=== PATIENT | female | born 1930 | race Caucasian/White ===

== ENCOUNTER 2017-04-07 05:06 | Inpatient (IN) | payer MEDICARE, OTHER ==
[2017-04-07] VITALS (10 sets, daily range): BP systolic 121–151; BP diastolic 54–90; Ht 157.5 cm; Wt 58.7 kg
[~2017-04-07] VITALS: Ht 157.5 cm; Wt 58.7 kg
[~2017-04-07 05:06] MED LIST: ACET-2043 PO; AMOX-362 PO; ATOR10TA65 PO; AZIT-17 PO; AZIT-18 PO; CA C1TAB85 PO; CALC-864 PO; CEPH-13 PO; CHOL10005 PO; CHOL200074 PO; CIPR-344 PO; CODE118S5 PO; DICL100G39 TP; DIGO125T77 PO; DOXY-260 PO; Docusate Sodium PO; ENOX100D6 SQ; FAMO20TA28 PO; FERR325C2 PO; FERR325T14 PO; FLU IM; FLU45SYR17 IM; FLU45SYR25 IM ONLY; FLUT16SP19 NS; FURO-45 PO; HYDR-2966 PO; HYDR-4225 PO; LEVE250T42 PO; LEVE500T73 PO; LISI-351 PO; LISI2.5T60; LISI2.5T60 PO; LOR5/325 PO; METH4TAB66 PO; METR-160 PO; MIRT-22 PO; Melatonin PO; OMEG300C PO; OMEP-125 PO; OMEP-137 PO; ONDA4TAB PO; OXYC-865 PO; PANT40TA65 PO; PRED-1 PO; PRIM50TA FT; PRIM50TA PO; PROP20TA56 PO; Polyethylene Glycol PO; SIMV-49 PO; SUCR1TAB51 PO; SULF-198 PO; TRIA10.8; WARF-1 PO; WARF-18 PO; WARF10TA28 PO; WARF10TA34 PO; WARF7.5T26 PO; WARF7.5T32 PO; Warfarin Sod PO; ZOST19404 SQ; [UNRECOGNIZED DRUG - OTHER] PO
--- NOTE | 2017-04-07 05:21 | ER Report ---
History and Physical Time Seen By MD: 05:21 Hx. of Stated Complaint: PATIENT STATES SHE HAS HAD SHORTNESS OF BREATH FOR ABOUT AN HOUR, SHE STATES SHE CAN'T GET A FULL BREATH IN. HPI/ROS CHIEF COMPLAINT: shortness of breath HISTORY OF PRESENT ILLNESS: This is an 86 year old female. She came to the ER because she was feeling short of breath. She said that she had just started feeling this way tonight. She feels like she cannot get a deep breath. She has not had any increased cough. No fevers or chills. She feels very weak. She has no chest pain. She has chronic atrial fibrillation and a mechanical mitral valve and is on chronic Warfarin therapy. She has been seen for very frequent nose bleeds. She has a history of multiple myeloma, chronic anemia from iron deficiency and her myelodysplasia. REVIEW OF SYSTEMS: Constitutional: No fever or chills. Eyes: No vision changes. ENT: No sore throat. No congestion. Cardiovascular: No chest pain. No palpitations. Respiratory: As above. Gastrointestinal: No abdominal pain. No nausea or vomiting. Genitourinary: No dysuria. Skin: No rashes. Chronic bruising Neurological: No headache. Allergies: Coded Allergies: No Known Drug Allergies (Unverified , 03/23/17) Home Meds Active Scripts Simvastatin (SIMVASTATIN) 20 Mg Tablet, 1 TAB PO HS, #90 TAB 3 Refills Prov:EVERTON RIOS MD 03/02/17 Omeprazole (OMEPRAZOLE) 20 Mg Capsule.dr, 1 CAP PO QAM, #90 CAP 3 Refills TAKE ONE CAPSULE BY MOUTH ONCE A DAY Prov:IZABELLA GARAY PHARMD 01/15/17 Warfarin Sodium (WARFARIN SODIUM) 7.5 Mg Tablet, 1 TAB PO QDAY, #30 TAB 12 Refills Prov:EVERTON RIOS MD 03/20/16 Reported Medications Calcium Carb & Cit/Vitamin D3 (CITRACAL + D ER TABLET) 1 Each Tablet.er, 1 TAB PO QDAY 04/03/15 Ferrous Sulfate (IRON) 325 Mg Capsule.er, 325 MG PO TID 02/01/15 Discontinued Scripts Fluticasone Prop 50 Mcg Ns (FLONASE 50 MCG NS) 16 Gm [place].susp, 2 SPRAYS NS QDAY, #1 BOT 1 Refill Prov:EVERTON RIOS MD 02/16/17 Past Medical/Surgical History Hypertension, hyperlipidemia, chronic anemia, iron deficiency, indolent multiple myeloma, frequent nose bleeds, atrial fibrillation, mechanical mitral valve, Warfarin therapy, pacemaker, seizure disorder, essential tremor, osteoarthritis, many skin cancer Reviewed Nurses Notes: Yes Hx Smoking: No Smoking Status: Former Smoker Exposure to Second Hand Smoke?: No Hx Substance Use Disorder: No Hx Alcohol Use: No Constitutional Vital Sign - Last 24 Hours 04/07/17 04/07/17 04/07/17 04/07/17 05:13 05:14 05:21 05:30 Temp 98.1 Pulse 93 84 Resp 28 B/P (MAP) 133/66 (88) 125/65 (85) Pulse Ox 87 96 O2 Delivery Room Air 04/07/17 04/07/17 04/07/17 04/07/17 05:36 05:51 06:00 06:06 Pulse 84 88 ??? B/P (MAP) 133/75 (94) Pulse Ox 95 91 90 04/07/17 06:21 Pulse 84 Physical Exam General Appearance: The patient is alert. No immediate need for airway protection. No acute distress. Eyes: Pupils are equal, round. Reactive to light. No scleral injection or icterus, but she has significant pallor. Extraocular movements are intact. ENT: Mucous membranes are mildly dry. Otherwise normal oral mucosa. Posterior oropharynx is normal. Normal tympanic membranes and canals. Neck: Supple and non tender. Respiratory: Lungs are clear to auscultation. There are no retractions or accessory muscle use. Currently wearing oxygen by nasal canula. Cardiovascular: Mild tachycardia, irregular. Has a murmur present, not a harsh click. Slowed capillary refill. Diffuse pallor. Some edema in the legs, somewhat more so in the left leg Gastrointestinal: Abdomen is soft and non tender. Nondistended. Normal active bowel sounds. Neurological: Alert and oriented x3. Generalize weakness, but no focal. Skin: Warm and dry. Musculoskeletal: Has some mild discomfort in the legs, somewhat worse on the left. Full range of motion. No tenderness in palpation of the cervical, thoracic and lumbar spine. DIFFERENTIAL DIAGNOSIS: After history and physical exam, differential diagnosis was considered for shortness of breath including but not limited to anemia, pulmonary infectious process, pulmonary embolus and congestive heart failure. Medical Decision Making Data Points Result Diagram: 04/07/17 0543 04/07/17 0543 Laboratory Hematology Test 04/07/17 05:43 Red Blood Count 2.06 M/uL (4.17-5.56) Mean Corpuscular Volume 101.1 fL (80.0-96.0) Mean Corpuscular Hemoglobin 31.9 pg (26.0-33.0) Mean Corpuscular Hemoglobin Concent 31.5 g/dL (32.0-36.0) Red Cell Distribution Width 15.9 % (11.5-14.5) Mean Platelet Volume 9.1 fL (7.2-11.1) Neutrophils (%) (Auto) 76.5 % (39.4-72.5) Lymphocytes (%) (Auto) 6.8 % (17.6-49.6) Monocytes (%) (Auto) 11.7 % (4.1-12.4) Eosinophils (%) (Auto) 3.7 % (0.4-6.7) Basophils (%) (Auto) 1.3 % (0.3-1.4) Nucleated RBC Relative Count (auto) 0.3 /100WBC Neutrophils # (Auto) 3.0 K/uL (2.0-7.4) Lymphocytes # (Auto) 0.3 K/uL (1.3-3.6) Monocytes # (Auto) 0.5 K/uL (0.3-1.0) Eosinophils # (Auto) 0.1 K/uL (0.0-0.5) Basophils # (Auto) 0.1 K/uL (0.0-0.1) Nucleated RBC Absolute Count (auto) 0.01 K/uL Peripheral Blood Smear No Y/N Prothrombin Time 30.7 seconds (12.0-14.4) Prothromb Time International Ratio 2.83 Activated Partial Thromboplast Time 40 seconds (23-35) Sodium Level 138 mmol/L (137-145) Potassium Level 3.7 mmol/L (3.5-5.0) Chloride Level 108 mmol/L (98-107) Carbon Dioxide Level 24 mmol/L (22-31) Blood Urea Nitrogen 19 mg/dl (7-18) Creatinine 0.90 mg/dl (0.52-1.04) Glomerular Filtration Rate Calc 59.5 Random Glucose 103 mg/dl (75-110) Calcium Level 8.3 mg/dl (8.4-10.2) Total Bilirubin 0.3 mg/dl (0.2-1.3) Aspartate Amino Transf (AST/SGOT) 20 U/L (0-35) Alanine Aminotransferase (ALT/SGPT) 26 U/L (0-56) Alkaline Phosphatase 129 U/L (0-126) Troponin I < 0.012 ng/ml B-Type Natriuretic Peptide 92 pg/ml (0-100) Total Protein 6.2 gm/dl (6.3-8.2) Albumin 3.1 g/dl (3.5-5.0) Chemistry Test 04/07/17 05:43 White Blood Count 3.9 k/uL (4.5-11.0) Red Blood Count 2.06 M/uL (4.17-5.56) Hemoglobin 6.6 g/dL (12.0-16.0) Hematocrit 20.8 % (34.0-47.0) Mean Corpuscular Volume 101.1 fL (80.0-96.0) Mean Corpuscular Hemoglobin 31.9 pg (26.0-33.0) Mean Corpuscular Hemoglobin Concent 31.5 g/dL (32.0-36.0) Red Cell Distribution Width 15.9 % (11.5-14.5) Platelet Count 224 K/uL (150-450) Mean Platelet Volume 9.1 fL (7.2-11.1) Neutrophils (%) (Auto) 76.5 % (39.4-72.5) Lymphocytes (%) (Auto) 6.8 % (17.6-49.6) Monocytes (%) (Auto) 11.7 % (4.1-12.4) Eosinophils (%) (Auto) 3.7 % (0.4-6.7) Basophils (%) (Auto) 1.3 % (0.3-1.4) Nucleated RBC Relative Count (auto) 0.3 /100WBC Neutrophils # (Auto) 3.0 K/uL (2.0-7.4) Lymphocytes # (Auto) 0.3 K/uL (1.3-3.6) Monocytes # (Auto) 0.5 K/uL (0.3-1.0) Eosinophils # (Auto) 0.1 K/uL (0.0-0.5) Basophils # (Auto) 0.1 K/uL (0.0-0.1) Nucleated RBC Absolute Count (auto) 0.01 K/uL Peripheral Blood Smear No Y/N Prothrombin Time 30.7 seconds (12.0-14.4) Prothromb Time International Ratio 2.83 Activated Partial Thromboplast Time 40 seconds (23-35) Glomerular Filtration Rate Calc 59.5 Calcium Level 8.3 mg/dl (8.4-10.2) Total Bilirubin 0.3 mg/dl (0.2-1.3) Aspartate Amino Transf (AST/SGOT) 20 U/L (0-35) Alanine Aminotransferase (ALT/SGPT) 26 U/L (0-56) Alkaline Phosphatase 129 U/L (0-126) Troponin I < 0.012 ng/ml B-Type Natriuretic Peptide 92 pg/ml (0-100) Total Protein 6.2 gm/dl (6.3-8.2) Albumin 3.1 g/dl (3.5-5.0) Coagulation Test 04/07/17 05:43 Prothrombin Time 30.7 seconds Prothromb Time International Ratio 2.83 Activated Partial Thromboplast Time 40 seconds EKG/Imaging EKG Interpretation 12 lead EKG: Rhythm: Atrial fibrillation, rate 82 [place]: normal ST segments: Nonspecific Monitor Interpretation: Atrial Fibrillation Imaging CHEST SINGLE AP COMPARISONS: February 14, 2017 ADDITIONAL PERTINENT HISTORY: Shortness of breath FINDINGS: Cardiomediastinal silhouette: Moderate cardiomegaly. Single lead right-sided cardiac pacemaker. No change since previous exam. Pulmonary vasculature: Negative. Lung alexander: Minimal bibasilar regions of scarring. Otherwise negative Pleural spaces: Negative. Osseous structures: Negative. Surrounding soft tissues: Negative. IMPRESSION: 1. Continued moderate cardiomegaly. 2. No evidence of acute cardiopulmonary disease. Report Dictated By: Nick Navarro MD at 04/07/2017 6:16 AM ED Course/Re-evaluation Clinical Indication for ER IV: IV Access ED Course Labs show a therapeutic INR. White count somewhat low and the H/H is low as noted above. Troponin is negative. EKG shows atrial fibrillation. Ordered 4 units of packed red blood cells, but she has antibodies and may require some time to locate appropriate blood. Discussed the case with Dr. Chen who accepted the patient for admission to the medical floor. Prior to transfer to the floor, leg pain in the left increased and gave Tylenol. Despite therapeutic INR, she may need to have lower extremity venous ultrasound. Decision to Disposition Date: Apr 07, 2017 Decision to Disposition Time: 06:49 Depart Departure Latest Vital Signs Vital Signs Date Time Temp Pulse Resp B/P (MAP) Pulse Ox O2 Delivery O2 Flow Rate FiO2 04/07/17 06:21 84 04/07/17 06:06 90 04/07/17 06:00 133/75 (94) 04/07/17 05:13 98.1 28 Room Air Impression: Primary Impression: Chronic anemia Additional Impressions: Atrial fibrillation H/O mitral valve replacement Weakness generalized Condition: Condition Unchanged Disposition: Admitted from ER Referrals: EVERTON RIOS MD (PCP) Problem Qualifiers Additional Impressions: Atrial fibrillation Atrial fibrillation type: chronic Qualified Codes: I48.2 - Chronic atrial fibrillation MARCIE HERNANDEZ MD Apr 07, 2017 05:21
--- NOTE | 2017-04-07 05:37 | EKG ---
[place] [facility] [place]ONAH MAYN[place] : [id number] MR: [id number] V: [id number] EXAM DATE: ORDERING PHYSICIAN: MARCIE HERNANDEZ TECHNOLOGIST: TALIA Test Reason : SOB Blood Pressure : / mmHG Vent. Rate : 082 BPM Atrial Rate : 082 BPM P-R Int : 000 ms QRS Dur : 086 ms QT Int : 406 ms P-R-T Axes : 000 090 057 degrees QTc Int : 474 ms Probable atrial fibrillation although the P waves are dfficult to identify in all leads this may be j unctional rhythm (accelerated) vs. sinus rhythm Rightward axis Cannot rule out old suman-septal infarct. Non-specific T changes. When compared with ECG of 07-FEB-2017 01:33, Previous ECG has undetermined rhythm, needs review Confirmed by YANN RICKS ([id number]) on 04/07/2017 5:57:45 AM Referred By: Confirmed By:YANN RICKS
[2017-04-07 05:51] LABS: PLATELET COUNT, AUTOMATED 224 K/uL (150-450)
[2017-04-07 06:03] LABS: INR 2.83
--- NOTE | 2017-04-07 06:23 | RADIOLOGY IMAGING REPORT ---
[facility] PATIENT NAME: Nadia Baumann : 1930 MR: [id number] V: [id number] EXAM DATE: ORDERING PHYSICIAN: MARCIE HERNANDEZ TECHNOLOGIST: Location: [facility] Patient: Nadia Baumann : 1930 Visit/Account:[id number] Date of Sevice: 04/07/2017 CHEST SINGLE AP COMPARISONS: February 14, 2017 ADDITIONAL PERTINENT HISTORY: Shortness of breath FINDINGS: Cardiomediastinal silhouette: Moderate cardiomegaly. Single lead right-sided cardiac pacemaker. No c hange since previous exam. Pulmonary vasculature: Negative. Lung alexander: Minimal bibasilar regions of scarring. Otherwise negative Pleural spaces: Negative. Osseous structures: Negative. Surrounding soft tissues: Negative. IMPRESSION: 1. Continued moderate cardiomegaly. 2. No evidence of acute cardiopulmonary disease. Report Dictated By: Nick Navarro MD at 04/07/2017 6:16 AM Report E-Signed By: Nick Navarro MD at 04/07/2017 6:18 AM WSN:[id number]
[2017-04-07] MEDS ORDERED: ACETAMINOPHEN 500 MG TAB PO ONE (06:30)
--- NOTE | 2017-04-07 07:58 | History & Physical ---
History of Present Illness Chief Complaint Shortness of breath and weakness. History of Present Illness 86 yr old lady with shortness of breath and worsening weakness over the past 3- 4 days. She has also had frequent nosebleeds which the has been able to control for the most part. These are almost normal for her given her warfarin treatment. 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 She is also frequently seen in the ER for nosebleeds. There is a remote history of mitral valve replacement with a Ac-Shiley mechanical valve. She has TNTC medical problems throughout the years. She is cared for by her at home. Admitted this morning with a Hgb of 6.6 gms and some left thigh pain which may have been due to a fall 2 days ago. Apparently there are difficulties with T&C due to unusual antibodies. 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 Home Meds Active Scripts Simvastatin (SIMVASTATIN) 20 Mg Tablet, 1 TAB PO HS, #90 TAB 3 Refills Prov:EVERTON RIOS MD 03/02/17 Fluticasone Prop 50 Mcg Ns (FLONASE 50 MCG NS) 16 Gm [place].susp, 2 SPRAYS NS QDAY, #1 BOT 1 Refill Prov:EVERTON RIOS MD 02/16/17 Omeprazole (OMEPRAZOLE) 20 Mg Capsule.dr, 1 CAP PO QAM, #90 CAP 3 Refills TAKE ONE CAPSULE BY MOUTH ONCE A DAY Prov:IZABELLA GARAY PHARMD 01/15/17 Warfarin Sodium (WARFARIN SODIUM) 7.5 Mg Tablet, 1 TAB PO QDAY, #30 TAB 12 Refills Prov:EVERTON RIOS MD 03/20/16 Reported Medications Calcium Carb & Cit/Vitamin D3 (CITRACAL + D ER TABLET) 1 Each Tablet.er, 1 TAB PO QDAY 04/03/15 Ferrous Sulfate (IRON) 325 Mg Capsule.er, 325 MG PO TID 02/01/15 Allergies: Coded Allergies: No Known Drug Allergies (Unverified , 03/23/17) Patient History: FH: breast cancer MOTHER, , Age:90 FH: diabetes mellitus MOTHER, , Age:90 FH: tremor MOTHER, , Age:90 Hx Smoking: No Smoking Status: Former Smoker Exposure to Second Hand Smoke?: No Caffeine Intake: Coffee Hx Alcohol Use: No Hx Substance Use Disorder: No Social Drug Use: Never Review of Systems Constitutional: No Fever, No Weight Loss, No Weight Gain, No Chills, No Night Sweats Neurological: Weakness, Dizziness Eyes: No Vision Change, No Loss of Vision, No Photophobia, No Other ENT: Hearing Loss, No Sinus Congestion, No Sore Throat, No Ear Ache, No Tinnitus Cardiovascular: No Chest Pain, No Palpitations, No Orthostatic Hypotension Respiratory: Shortness of Breath Gastrointestinal: No Nausea, No Vomiting, No Diarrhea, No Dysphagia, No Constipation, No Early Satiety, No Hematemesis, No Hematochezia, No Melena, No Abdominal Pain, Other Genitourinary: Urinary Incontinence, No Dysuria, No Hematuria Musculoskeletal: Pain (Pain in left anterior thigh and lateral thigh. No deformity. No leg shortening or external rotation.) Psychiatric: No Depression, No Anxiety Exam Vital Signs Vital Signs Date Time Temp Pulse Resp B/P (MAP) Pulse Ox O2 Delivery O2 Flow Rate FiO2 04/07/17 06:21 84 04/07/17 06:06 90 04/07/17 06:00 133/75 (94) 04/07/17 05:13 98.1 28 Room Air General Appearance: Alert, Awake, No Acute Distress, Afebrile ENT: Other (Very dry oral membranes.) Cardiovascular: Other (Loud prosthetic mitral sounds with clear click of S1. S2 is soft. Grade 2/6 sytolic murmur of MR.) Respiratory: Other (Just a few scattered rales at lung bases.) Chest: No Masses, No Tenderness GI: Abd Soft and Non-Tender : No CVA Tenderness Extremities: Warm, Pulses, Perfused, Other (Trace ankle edema. Tender along the anterior and lateral thigh. ) Integumentary: Generalized Fragile Skin, Scaly / Dry Skin, Pallor Psych: Alert & Oriented X3, Appropriate Mood & Affect Medical Decision Making Data Points Result Diagram: 04/07/1754204/07/17542 Item Value Date Time B-Type Natriuretic Peptide 92 pg/ml 04/07/17542 Calcium Level 8.3 mg/dl L 04/07/17542 Total Bilirubin 0.3 mg/dl 04/07/17542 Aspartate Amino Transf (AST/SGOT) 20 U/L 04/07/17 05 Alanine Aminotransferase (ALT/SGPT) 26 U/L 04/07/17 05 Alkaline Phosphatase 129 U/L H 04/07/17 05 Troponin I < 0.012 ng/ml 04/07/17542 Total Protein 6.2 gm/dl L 04/07/17542 Albumin 3.1 g/dl L 04/07/17542 Prothromb Time International Ratio 2.83 04/07/17542 EKG / Imaging EKG Interpretation Probably sinus rhythm but P waves are difficult to identify and this may be an accelerated junctional rhythm. Monitor Interpretation: Normal Sinus Rhythm Imaging CXR- enlarged heart. Right sided pacer. No metal structure of the mitral valve. Pre-Admit Course ED Medications Reviewed. Medical Record Review: Yes Assessment and Plan Problems: (1) Acute blood loss anemia Status: Acute Assessment & Plan: From recurrent nose bleeds due to coumadin. She remains on coumadin despite the recurrent bleeding and need for transfusions as determined by her primary care provider and cardiology. INR is 2.8 today and will hold the coumdin dose today. Daily INR and coumadin adjusted accordingly. Type and cross for 4 units of PRBC's and give 2 units when available. She does have antibodies which preclude quick T&C but hopefully will be available this afternoon. (2) History of prosthetic mitral valve Status: Chronic Assessment & Plan: Mechanical nature of the Ac-Shiley valve would suggest continued anticoagulation but decision needs to be made by outpt providers whether it is worth the risk of continued bleeding, Tx's and anemia. (3) Anterior epistaxis Status: Chronic Assessment & Plan: No active bleeding at this time. (4) Weakness generalized Status: Chronic (5) Multiple myeloma Status: Chronic Assessment & Plan: No active treatment. (6) Warfarin anticoagulation Status: Chronic Assessment & Plan: See above. (7) Atrial fibrillation Status: Chronic Assessment & Plan: Will monitor on tele. Rhythm is a bit confusing in that P waves are not clearly seen. This may be atrial fib, sinus rhythm or trudy rhythm but she is stable with BP, O2 sats and resp. Time Spent on Plan of Care: > 30 min Copies to: EVERTON RIOS MD Venous Thromboembolism VTE Risk Physician Assess for VTE Risk: Yes Patient's VTE Risk: Low VTE Diagnostic Test 2 Days Prior to Admit: No Antithrombotics Is Pt On Any Antithrombotics?: Yes Exam Sepsis Risk: No Definite Risk Problem Qualifiers (1) Atrial fibrillation: Atrial fibrillation type: chronic Qualified Codes: I48.2 - Chronic atrial fibrillation VALENTINA RICKS MD FACP Apr 07, 2017 07:58
[2017-04-07] MEDS: NS(*) 0.9% 1000 ML BAG 1,000 ML IV SCH ×2 (08:52→20:05)
[2017-04-07] MEDS: PANTOPRAZOLE SOD 20 MG TABEC PO SCH (08:52)
[2017-04-07] MEDS: FERROUS SULFATE 325 MG TAB PO SCH ×2 (08:52→16:40)
[2017-04-07] MEDS: ACETAMINOPHEN 325 MG TAB PO PRN ×2 (08:52→18:42)
--- NOTE | 2017-04-07 09:07 | RADIOLOGY IMAGING REPORT ---
FACILITY: [facility] PATIENT NAME: Nadia Baumann : 1930 MR: [id number] V: [id number] EXAM DATE: ORDERING PHYSICIAN: VALENTINA RICKS TECHNOLOGIST: Location: [facility] Patient: Nadia Baumann : 1930 Visit/Account:[id number] Date of Sevice: 04/07/2017 FEMUR LEFT Indication: Pain left anterior and lateral thigh with fall 2 days a Comparison: None. Findings: The left femur demonstrates normal mineralization and alignment. Soft tissues are unremark able. IMPRESSION: Normal left femur radiograph. Report Dictated By: Elie Bermeo at 04/07/2017 9:01 AM Report E-Signed By: Elie Bermeo at 04/07/2017 9:02 AM [id number]
--- NOTE | 2017-04-07 11:55 | EKG ---
FACILITY: [facility] PATIENT NAME: JONAH MAYNARD : [id number] MR: [id number] V: [id number] EXAM DATE: ORDERING PHYSICIAN: KAT WILSON TECHNOLOGIST: LAURA Meadows Reason : FREQUENT PVC Blood Pressure : / mmHG Vent. Rate : 078 BPM Atrial Rate : 075 BPM P-R Int : 000 ms QRS Dur : 088 ms QT Int : 418 ms P-R-T Axes : 000 090 037 degrees QTc Int : 476 ms Atrial fibrillation Rightward axis Nonspecific ST abnormality , probably digitalis effect Abnormal ECG When compared with ECG of 07-APR-2017 05:27, Nonspecific T wave abnormality now evident in Lateral leads Confirmed by CRISTY QUISPE ([id number]) on 04/08/2017 10:09:07 PM Referred By: Confirmed By:CRISTY QUISPE
[2017-04-07] MEDS: ONDANSETRON 4 MG/2 ML VIAL IVP PRN (20:14)
[2017-04-07] MEDS: SIMVASTATIN 20 MG TAB PO SCH (20:18)
[2017-04-08 02:32] VITALS: BP 143/86
[2017-04-08 06:13] LABS: PLATELET COUNT, AUTOMATED 216 K/uL (150-450)
[2017-04-08 06:20] LABS: INR 2.55
[2017-04-08 07:43] VITALS: BP 125/78
[2017-04-08] MEDS: FERROUS SULFATE 325 MG TAB PO SCH ×2 (07:46→16:43)
[2017-04-08] MEDS: PANTOPRAZOLE SOD 20 MG TABEC PO SCH (09:04)
[2017-04-08] MEDS: ACETAMINOPHEN 325 MG TAB PO PRN (10:21)
[2017-04-08] MEDS: NS(*) 0.9% 1000 ML BAG 1,000 ML IV SCH (10:40)
[2017-04-08 11:04] VITALS: BP 128/72
[2017-04-08] MEDS ORDERED: WARFARIN SOD 7.5 MG TAB PO SCH (13:00)
[2017-04-08 15:13] VITALS: BP 138/83
[2017-04-08] MEDS ORDERED: SALINE 0.65% NAS SPR 44 ML BTL PRN (15:50)
--- NOTE | 2017-04-08 15:51 | Hospitalist Progress Note ---
Subjective Progress Notes Subjective No further epistaxis. She is feeling fairly well. Her reports that she is improving and getting closer to her baseline function. Physical Exam Vital Signs Date Time Temp Pulse Resp B/P (MAP) Pulse Ox O2 Delivery O2 Flow Rate FiO2 04/08/17 15:13 97.7 83 24 138/83 (101) 95 Nasal Cannula 1.0 Intake and Output 04/09/17 07:00 Intake Total 240 ml Balance 240 ml Intake Oral 240 ml # Voids 5 General Appearance: Alert, Awake, No Acute Distress Result Diagram: 04/08/17 0521 04/07/17 0543 Monitor Interpretation: Normal Sinus Rhythm Assessment and Plan Problems: (1) Acute blood loss anemia Status: Acute Assessment & Plan: From recurrent nose bleeds due to coumadin. She remains on coumadin despite the recurrent bleeding and need for transfusions as determined by her primary care provider and cardiology. INR is 2.55 today. Restart warfarin. Daily INR and coumadin adjusted accordingly. She was transfused 2 units of PRBC on 04/07. Hgb increased appropriately and is stable. She does have antibodies which preclude quick T&C. Will recheck Hgb tomorrow and ask ENT to see her to evaluate for any areas that could be cauterized. Saline nasal spray prn to keep MM moist. (2) History of prosthetic mitral valve Status: Chronic Assessment & Plan: Mechanical nature of the Ac-Shiley valve would suggest continued anticoagulation but decision needs to be made by outpt providers whether it is worth the risk of continued bleeding, Tx's and anemia. (3) Anterior epistaxis Status: Chronic Assessment & Plan: No active bleeding at this time. See above. (4) Weakness generalized Status: Chronic (5) Multiple myeloma Status: Chronic Assessment & Plan: No active treatment. (6) Warfarin anticoagulation Status: Chronic Assessment & Plan: See above. (7) Atrial fibrillation Status: Chronic Assessment & Plan: Will monitor on tele. Rhythm is a bit confusing in that P waves are not clearly seen. This may be atrial fib, sinus rhythm or trudy rhythm but she is stable with BP, O2 sats and resp. Exam Sepsis Risk: No Definite Risk Problem Qualifiers (1) Atrial fibrillation: Atrial fibrillation type: chronic Qualified Codes: I48.2 - Chronic atrial fibrillation CRISTY QUISPE MD Apr 08, 2017 15:51
[2017-04-08 18:43] VITALS: BP 143/68
[2017-04-08] MEDS: SIMVASTATIN 20 MG TAB PO SCH (21:08)
[2017-04-08 23:12] VITALS: BP 145/81
[2017-04-09] MEDS: ACETAMINOPHEN 325 MG TAB PO PRN (02:25)
[2017-04-09 02:27] VITALS: BP 135/71
[2017-04-09] MEDS: ONDANSETRON 4 MG/2 ML VIAL IVP PRN (04:06)
[2017-04-09 06:06] LABS: PLATELET COUNT, AUTOMATED 216 K/uL (150-450)
[2017-04-09 06:16] LABS: INR 2.61
[2017-04-09 07:22] VITALS: BP 130/69
[2017-04-09] MEDS: FERROUS SULFATE 325 MG TAB PO SCH (07:30)
[2017-04-09] MEDS: PANTOPRAZOLE SOD 20 MG TABEC PO SCH (08:36)
[2017-04-09] MEDS ORDERED: WARFARIN SOD 5 MG TAB PO SCH (13:00)
--- NOTE | 2017-04-09 18:24 | Hospitalist Depart ---
Discharge Summary Reason for Hosp/Final Diag: (1) Acute blood loss anemia Status: Acute Hospital Course & Plan: 86 yr old lady with shortness of breath and worsening weakness over the past 3-4 days. She has also had frequent nosebleeds which the has been able to control for the most part. These are almost normal for her given her warfarin treatment. 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 She is also frequently seen in the ER for nosebleeds. 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 She has TNTC medical problems throughout the years. She is cared for by her at home. Admitted this morning with a Hgb of 6.6 gms and some left thigh pain which may have been due to a fall 2 days ago. Apparently there are difficulties with T&C due to unusual antibodies. From recurrent nose bleeds due to coumadin. She remains on coumadin despite the recurrent bleeding and need for transfusions as determined by her primary care provider and cardiology. INR is 2.55 today. Restart warfarin. Daily INR and coumadin adjusted accordingly. She was transfused 2 units of PRBC on . Hgb increased appropriately and is stable. She does have antibodies which preclude quick T&C. Will recheck Hgb tomorrow and ask ENT to see her to evaluate for any areas that could be cauterized. Saline nasal spray prn to keep MM moist. 04/09: She is doing better and ENT has recommended to d/c her and have out patient procedure by him. She is not currently having nosebleed. I discussed the case with her and he will arrange the transportation. (2) History of prosthetic mitral valve Status: Chronic Hospital Course & Plan: Mechanical nature of the Ac-Shiley valve would suggest continued anticoagulation but decision needs to be made by outpt providers whether it is worth the risk of continued bleeding, Tx's and anemia. (3) Anterior epistaxis Status: Chronic Hospital Course & Plan: No active bleeding at this time. See above. (4) Weakness generalized Status: Chronic (5) Multiple myeloma Status: Chronic Hospital Course & Plan: No active treatment. (6) Warfarin anticoagulation Status: Chronic Hospital Course & Plan: See above. (7) Atrial fibrillation Status: Chronic Hospital Course & Plan: Will monitor on tele. Rhythm is a bit confusing in that P waves are not clearly seen. This may be atrial fib, sinus rhythm or trudy rhythm but she is stable with BP, O2 sats and resp. Departure Weight (Pounds): 129 Weight (Ounces): 7.0 Result Diagram: 04/09/1753004/09/17530 Condition: Improved Discharge: Home, Self Care Time Spent: < 30 min Discharge Instructions Home Meds Active Scripts Simvastatin (SIMVASTATIN) 20 Mg Tablet, 1 TAB PO HS, #90 TAB 3 Refills Prov:EVERTON RIOS MD 03/02/17 Omeprazole (OMEPRAZOLE) 20 Mg Capsule.dr, 1 CAP PO QAM, #90 CAP 3 Refills TAKE ONE CAPSULE BY MOUTH ONCE A DAY Prov:IZABELLA GARAY PHARMD 01/15/17 Warfarin Sodium (WARFARIN SODIUM) 7.5 Mg Tablet, 1 TAB PO QDAY, #30 TAB 12 Refills Prov:EVERTON RIOS MD 03/20/16 Reported Medications Calcium Carb & Cit/Vitamin D3 (CITRACAL + D ER TABLET) 1 Each Tablet.er, 1 TAB PO QDAY 04/03/15 Ferrous Sulfate (IRON) 325 Mg Capsule.er, 325 MG PO TID 02/01/15 Discontinued Scripts Fluticasone Prop 50 Mcg Ns (FLONASE 50 MCG NS) 16 Gm [place].susp, 2 SPRAYS NS QDAY, #1 BOT 1 Refill Prov:EVERTON RIOS MD 02/16/17 Diet: Regular Special Instructions: Follow up with Dr. Harvey on April 13 at 1:15pm, be 15 moniutes early to fill out paperwork. f/u with her PCP in 1-2 weeks and PT/INR in 2 days. Copies to: EVERTON RIOS MD; KRISTEN HARVEY JR, MD Venous Thromboembolism Antithrombotics Is Pt On Any Antithrombotics?: Yes Problem Qualifiers (1) Atrial fibrillation: Atrial fibrillation type: chronic Qualified Codes: I48.2 - Chronic atrial fibrillation KAT WILSON MD Apr 09, 2017 18:24
== END 2017-04-09 16:50 | disposition home or self-care (01) | DRG 813 ==
LOC: ER 05:09 → MED 06:33
PROVIDERS: ADMIT Internal Medicine; ATTEND Internal Medicine
PROC: 30233N1 Transfusion of Nonautologous Red Blood Cells into Peripheral Vein, Percutaneous Approach (ICD-10-PCS; principal; 2017-04-07)
DX: D68.32 Hemorrhagic disorder due to extrinsic circulating anticoagulants (principal); D62 Acute posthemorrhagic anemia; R04.0 Epistaxis; T45.515A Adverse effect of anticoagulants, initial encounter; R53.1 Weakness; I48.2 Chronic atrial fibrillation; D46.9 Myelodysplastic syndrome, unspecified; I10 Essential (primary) hypertension; E78.5 Hyperlipidemia, unspecified; G40.909 Epilepsy, unspecified, not intractable, without status epilepticus; G25.0 Essential tremor; M79.652 Pain in left thigh; W19.XXXA Unspecified fall, initial encounter; Z95.2 Presence of prosthetic heart valve; Z79.01 Long term (current) use of anticoagulants; Z95.0 Presence of cardiac pacemaker; Z87.891 Personal history of nicotine dependence; Z86.73 Personal history of transient ischemic attack (TIA), and cerebral infarction without residual deficits; Z91.81 History of falling; Z85.828 Personal history of other malignant neoplasm of skin; Z90.13 Acquired absence of bilateral breasts and nipples; Z85.79 Personal history of other malignant neoplasms of lymphoid, hematopoietic and related tissues
CPT/HCPCS: 36415; 36430; 71010; 81001; 82040; 82247; 82310; 82374; 82435; 82565; 82947; 83880; 84075; 84132; 84155; 84295; 84450; 84460; 84484; 84520; 85014; 85018; 85025; 85610; 85730; 86850; 86870; 86900; 86901; 86902; 86922; 93005; 97161; 97165; 99285; J2405; J7030; P9016

== ENCOUNTER 2017-04-13 18:29 | Emergency (ER) | payer MEDICARE, OTHER ==
[2017-04-07 13:01] VITALS: Ht 157.5 cm; Wt 58.7 kg
[~2017-04-13] VITALS: Ht 157.5 cm; Wt 58.7 kg
--- NOTE | 2017-04-13 18:38 | ER Report ---
History and Physical Time Seen By MD: 18:37 HPI/ROS CHIEF COMPLAINT: Nosebleed HISTORY OF PRESENT ILLNESS: 86-year-old female patient presents to emergency room with complaint of nosebleed. Patient states that she saw Dr. Robbins, ENT, earlier today. He did place packing into the nose. She states that this afternoon she had bleeding around the packing. She states it came from the left nostril. She was told by Dr. Robbins to return with any worsening of her condition. With the lateness of the hour the patient came to the emergency room as their office was closed. She states that she feels fine at this time. She denies any nausea, vomiting or diarrhea. Allergies: Coded Allergies: No Known Drug Allergies (Unverified , 03/23/17) Home Meds Active Scripts Simvastatin (SIMVASTATIN) 20 Mg Tablet, 1 TAB PO HS, #90 TAB 3 Refills Prov:EVERTON RIOS MD 03/02/17 Omeprazole (OMEPRAZOLE) 20 Mg Capsule.dr, 1 CAP PO QAM, #90 CAP 3 Refills TAKE ONE CAPSULE BY MOUTH ONCE A DAY Prov:IZABELLA GARAY PHARMLashanda 01/15/17 Warfarin Sodium (WARFARIN SODIUM) 7.5 Mg Tablet, 1 TAB PO QDAY, #30 TAB 12 Refills Prov:EVERTON RIOS MD 03/20/16 Reported Medications Calcium Carb & Cit/Vitamin D3 (CITRACAL + D ER TABLET) 1 Each Tablet.er, 1 TAB PO QDAY 04/03/15 Ferrous Sulfate (IRON) 325 Mg Capsule.er, 325 MG PO TID 02/01/15 Discontinued Scripts Fluticasone Prop 50 Mcg Ns (FLONASE 50 MCG NS) 16 Gm [place].susp, 2 SPRAYS NS QDAY, #1 BOT 1 Refill Prov:EVERTON RIOS MD 02/16/17 Past Medical/Surgical History Patient has a past medical history of migraines, hyperlipidemia, pneumonia, reflux, arthritis, back pain, hard of hearing, skin cancer, breast cancer. Patient has surgical history of mitral valve replacement, pacemaker placement, appendectomy, D&C, hysterectomy, tonsillectomy, bilateral mastectomy, skin cancer removal. Reviewed Nurses Notes: Yes Hx Smoking: No Smoking Status: Former Smoker Exposure to Second Hand Smoke?: No Hx Substance Use Disorder: No Hx Alcohol Use: No Constitutional Vital Sign - Last 24 Hours 04/13/17 18:39 Pulse 84 Resp 16 B/P (MAP) 149/67 Pulse Ox 89 O2 Delivery Room Air Physical Exam General appearance: Alert no distress. Respiratory: Chest is non tender, lungs are clear to auscultation. Cardiac: Regular rate and rhythm. ENT: Patient has no blood at this time, from either nostril. Patient had no drainage down the back of her throat. The packing has no blood staining to it. DIFFERENTIAL DIAGNOSIS: After history and physical exam differential diagnosis was considered for epistaxis. Medical Decision Making ED Course/Re-evaluation ED Course Patient was admitted to exam room, history and physical were obtained. Differential diagnoses were considered. On examination patient had no blood coming from the right nostril, no blood coming from around the packing and no blood noted in the back of her throat. I did discuss the case with Dr. Robbins, ENT who placed the packing. He felt that with my description that there is no concerns at this time. His recommendation was to have her follow-up on Wednesday as previously scheduled. I discussed this with the patient and her family. We opted to go ahead and watch her for 30 minutes patient was starting to bleed. During that time patient did continue to press on the packing. I did discuss with the patient and her family that I would like her to stop touching the packing as that could cause it to shift and alter the pressure on the blood vessel. Patient verbalized understanding and agreement. We'll go ahead and discharge her at this time she is return if she starts bleeding around the packing. Decision to Disposition Date: Apr 13, 2017 Decision to Disposition Time: 19:25 Depart Departure Latest Vital Signs Vital Signs Date Time Temp Pulse Resp B/P (MAP) Pulse Ox O2 Delivery O2 Flow Rate FiO2 04/13/17 18:39 84 16 149/67 89 Room Air Impression: Primary Impression: Recurrent epistaxis Condition: Improved Disposition: HOME OR SELF-CARE Referrals: EVERTON RIOS MD (PCP) Patient Instructions: Nosebleed (ED) Additional Instructions: Leave packing in place. Don't touch it or press on it as that can cause it to shift. You may use Nasal Clamps if you have any bleeding. Return to the ER if condition worsens, i.e. bleeding is not controlled. Continue with current medications. Follow up with Dr. Robbins as scheduled on Wednesday. KELLY LEMUS Apr 13, 2017 18:38
[2017-04-13 18:39] VITALS: BP 149/67
== END 2017-04-13 19:20 | disposition home or self-care (01) ==
LOC: ER 18:55
DX: R04.0 Epistaxis (principal)
CPT/HCPCS: 99282

== ENCOUNTER 2017-04-17 14:15 | Emergency (ER) | payer MEDICARE, OTHER ==
[2017-04-07 13:01] VITALS: Ht 157.5 cm; Wt 58.7 kg
[~2017-04-17] VITALS: Ht 157.5 cm; Wt 58.7 kg
[~2017-04-17 14:15] MED LIST changes: +FERR-53 PO; -FERR325T14 PO
--- NOTE | 2017-04-17 14:18 | ER Report ---
History and Physical Time Seen By MD: 14:17 HPI/ROS CC: Hand pain HPI: 86-year-old female presents to the emergency department after bumping the back side of her right hand against the wall just prior to coming to the emergency department. There is no ecchymosis or deformity. Flexion and extension of all 5 digits of the right hand are present. Sharp dull sensation as 2 point discrimination is present in the right hand. Capillary refill is less than 2 seconds in all 5 digits of the right hand. Patient is rating her pain as an 8 out of 10. When I wasn't in the room patient does not appear to be in distress. ROS: 12 point review of systems essentially negative other than what's mentioned in history of present illness. NURSES AND OLD MEDICAL RECORDS: Reviewed PMH: Reviewed SURGICAL HX: Reviewed FAMILY HX: Noncontributory SOCIAL HX: Patient denies smoking alcohol or illicit drugs. She is lives a home. VITAL SIGNS: Reviewed CONSTITUTIONAL: A 6-year-old female in minimal distress PHYSICAL EXAM: HEENT: Pupils equal round reactive to light and accommodate, Lips dry mucous membranes moist gums nonbleeding uvula midline and rises equally with phonation. NECK: Neck supple, thyroid not appreciated. Trachea midline and rises equally with phonation. CARDIAC: S1-S2 regular rate rhythm no murmurs rubs or gallops. LUNGS: Lungs clear bilaterally posteriorly in all alexander. Good air movement. ABDOMEN: Abdomen soft, nondistended, bowel sounds active in all 4 quadrants. MUSCULOSKELETAL: Strength 5 out of 5 x 4 extremities, no deformities noted. Right hand as above in history of present illness. NEUROLOGIC: Patient alert and oriented by 3 Allergies: Coded Allergies: No Known Drug Allergies (Unverified , 03/23/17) Home Meds Active Scripts Simvastatin (SIMVASTATIN) 20 Mg Tablet, 1 TAB PO HS, #90 TAB 3 Refills Prov:EVERTON RIOS MD 03/02/17 Omeprazole (OMEPRAZOLE) 20 Mg Capsule.dr, 1 CAP PO QAM, #90 CAP 3 Refills TAKE ONE CAPSULE BY MOUTH ONCE A DAY Prov:IZABELLA GARAY PHARMD 01/15/17 Warfarin Sodium (WARFARIN SODIUM) 7.5 Mg Tablet, 1 TAB PO QDAY, #30 TAB 12 Refills Prov:EVERTON RIOS MD 03/20/16 Reported Medications Calcium Carb & Cit/Vitamin D3 (CITRACAL + D ER TABLET) 1 Each Tablet.er, 1 TAB PO QDAY 04/03/15 Ferrous Sulfate (IRON) 325 Mg Capsule.er, 325 MG PO TID 02/01/15 Hx Smoking: No Smoking Status: Former Smoker Exposure to Second Hand Smoke?: No Hx Substance Use Disorder: No Hx Alcohol Use: No Constitutional Vital Sign - Last 24 Hours 04/17/17 14:20 Temp 98.2 Pulse 92 Resp 18 B/P (MAP) 136/62 Pulse Ox 90 O2 Delivery Room Air Medical Decision Making EKG/Imaging Imaging X-ray hand: No acute fracture or dislocation present. ED Course/Re-evaluation ED Course Patient instructed to take Tylenol for pain.. Patient given a hand splint. Patient is to follow up with PCP. Re-evaluation Medical decision-making includes but not excluded to contusion, fracture of hand. Decision to Disposition Date: Apr 17, 2017 Decision to Disposition Time: 14:52 Depart Departure Latest Vital Signs Vital Signs Date Time Temp Pulse Resp B/P (MAP) Pulse Ox O2 Delivery O2 Flow Rate FiO2 04/17/17 14:20 98.2 92 18 136/62 90 Room Air Impression: Primary Impression: Contusion Condition: Condition Unchanged Disposition: HOME OR SELF-CARE Referrals: EVERTON RIOS MD (PCP) Patient Instructions: Contusion in Adults (ED) Additional Instructions: You bruised her hand. Take Tylenol for pain. Follow-up with regular physician. I and the staff wanted to thank you for allowing us to take care of your needs today in the emergency department at [facility]. We have tried to answer all of your questions and concerns. Please feel free to return to the emergency department for any further concerns or unanswered questions. Problem Qualifiers Primary Impression: Contusion Encounter type: initial encounter Contusion area: hand Laterality: right Qualified Codes: S60.221A - Contusion of right hand, initial encounter ROSEMARY EVANGELISTA MD Apr 17, 2017 14:18
[2017-04-17 14:20] VITALS: BP 136/62
--- NOTE | 2017-04-17 15:03 | RADIOLOGY IMAGING REPORT ---
FACILITY: [facility] - [place] PATIENT NAME: Nadia Baumann : 1930 MR: [id number] V: [id number] EXAM DATE: ORDERING PHYSICIAN: ROSEMARY EVANGELISTA TECHNOLOGIST: Location: [facility] [place] Patient: Nadia Baumann : 1930 Visit/Account:[id number] Date of Sevice: 04/17/2017 HAND COMPLETE RIGHT HISTORY: trauma COMPARISON: None FINDINGS: No acute fracture or dislocation. No persistent radiopaque foreign body. Diffuse narrowing of the PIP and DIP joints. IMPRESSION: 1. No acute osseous abnormality. Report Dictated By: Jovany Leary MD at 04/17/2017 2:55 PM Report E-Signed By: Jovany Leary MD at 04/17/2017 2:59 PM WSN:[id number]
== END 2017-04-17 15:04 | disposition home or self-care (01) ==
LOC: ER 14:15
DX: S60.221A Contusion of right hand, initial encounter (principal)
CPT/HCPCS: 99282

== ENCOUNTER 2017-04-22 11:02 | Emergency (ER) | payer MEDICARE, OTHER ==
[2017-04-07 13:01] VITALS: Ht 157.5 cm; Wt 58.7 kg
[~2017-04-22] VITALS: Ht 157.5 cm; Wt 58.7 kg
[2017-04-22 11:08] VITALS: BP 121/55
--- NOTE | 2017-04-22 11:08 | ER Report ---
History and Physical Time Seen By MD: 11:08 HPI/ROS CHIEF COMPLAINT: Fall, hit head HISTORY OF PRESENT ILLNESS: 86-year-old female patient presents to the emergency room with complaint of a fall. Patient states that she fell and hit her head. She denies having any loss of consciousness. Patient states that she was going down one step in her home. Patient states that she lost her balance and fell backwards striking her head on the step. She denies having any nausea, vomiting or diarrhea. Patient denies having any neck pain. Patient has not taken any medication for this. They were instructed to follow-up with the emergency department whenever the patient has a fall due to being on Coumadin. Patient states that her last fall was proximally one week ago. In reviewing the past medical records patient has had 4 falls in the last 2 months. REVIEW OF SYSTEMS: Respiratory: No cough, no dyspnea. Cardiovascular: No chest pain, no palpitations. Gastrointestinal: No vomiting, no abdominal pain. Musculoskeletal: No back pain. Allergies: Coded Allergies: No Known Drug Allergies (Unverified , 04/22/17) Home Meds Active Scripts Simvastatin (SIMVASTATIN) 20 Mg Tablet, 1 TAB PO HS, #90 TAB 3 Refills Prov:EVERTON RIOS MD 03/02/17 Omeprazole (OMEPRAZOLE) 20 Mg Capsule.dr, 1 CAP PO QAM, #90 CAP 3 Refills TAKE ONE CAPSULE BY MOUTH ONCE A DAY Prov:IZABELLA GARAY PHARMD 01/15/17 Warfarin Sodium (WARFARIN SODIUM) 7.5 Mg Tablet, 1 TAB PO QDAY, #30 TAB 12 Refills Prov:EVERTON RIOS MD 03/20/16 Reported Medications Calcium Carb & Cit/Vitamin D3 (CITRACAL + D ER TABLET) 1 Each Tablet.er, 1 TAB PO QDAY 04/03/15 Ferrous Sulfate (IRON) 325 Mg Capsule.er, 325 MG PO TID 02/01/15 Past Medical/Surgical History Patient has a past medical history of essential tremor, migraine, hyperlipidemia , pneumonia, reflux, arthritis, back pain, hard of hearing, anemia, skin cancer , breast cancer. Patient has surgical history bilateral mastectomy, lumpectomy, and cancer removal, tonsillectomy, hysterectomy, D&C, appendectomy, pacemaker placement, mitral valve replacement. Patient has a family medical history of cancer. Reviewed Nurses Notes: Yes Hx Smoking: No Smoking Status: Former Smoker Exposure to Second Hand Smoke?: No Hx Substance Use Disorder: No Hx Alcohol Use: No Constitutional Vital Sign - Last 24 Hours 04/22/17 11:08 Temp 98.1 Pulse 88 Resp 18 B/P (MAP) 121/55 Pulse Ox 93 O2 Delivery Room Air Physical Exam General Appearance: The patient is alert, has no immediate need for airway protection and no current signs of toxicity. Respiratory: Chest is non tender, lungs are clear to auscultation. Cardiac: regular rate and rhythm Gastrointestinal: Abdomen is soft and non tender, no masses, bowel sounds normal. Musculoskeletal: Neck: Neck is supple and non tender. Extremities have full range of motion and are non tender. Skin: No rashes or lesions. DIFFERENTIAL DIAGNOSIS: After history and physical exam differential diagnosis was considered for fall, contusion, intracranial bleed, skull fracture. Medical Decision Making Data Points Result Diagram: 04/22/17 1123 04/22/17 1123 Laboratory Hematology Test 04/22/17 11:23 04/22/17 12:31 Red Blood Count 2.47 M/uL (4.17-5.56) Mean Corpuscular Volume 100.7 fL (80.0-96.0) Mean Corpuscular Hemoglobin 32.4 pg (26.0-33.0) Mean Corpuscular Hemoglobin Concent 32.1 g/dL (32.0-36.0) Red Cell Distribution Width 16.5 % (11.5-14.5) Mean Platelet Volume 8.6 fL (7.2-11.1) Neutrophils (%) (Auto) 78.9 % (39.4-72.5) Lymphocytes (%) (Auto) 9.3 % (17.6-49.6) Monocytes (%) (Auto) 8.5 % (4.1-12.4) Eosinophils (%) (Auto) 2.6 % (0.4-6.7) Basophils (%) (Auto) 0.7 % (0.3-1.4) Nucleated RBC Relative Count (auto) 0.1 /100WBC Neutrophils # (Auto) 3.3 K/uL (2.0-7.4) Lymphocytes # (Auto) 0.4 K/uL (1.3-3.6) Monocytes # (Auto) 0.3 K/uL (0.3-1.0) Eosinophils # (Auto) 0.1 K/uL (0.0-0.5) Basophils # (Auto) 0.0 K/uL (0.0-0.1) Nucleated RBC Absolute Count (auto) 0.00 K/uL Prothrombin Time 31.2 seconds (12.0-14.4) Prothromb Time International Ratio 2.88 Activated Partial Thromboplast Time 40 seconds (23-35) Sodium Level 140 mmol/L (137-145) Potassium Level 3.7 mmol/L (3.5-5.0) Chloride Level 104 mmol/L (98-107) Carbon Dioxide Level 25 mmol/L (22-31) Blood Urea Nitrogen 18 mg/dl (7-18) Creatinine 0.90 mg/dl (0.52-1.04) Glomerular Filtration Rate Calc 59.5 Random Glucose 134 mg/dl (75-110) Calcium Level 8.8 mg/dl (8.4-10.2) Total Bilirubin 0.5 mg/dl (0.2-1.3) Aspartate Amino Transf (AST/SGOT) 21 U/L (0-35) Alanine Aminotransferase (ALT/SGPT) 26 U/L (0-56) Alkaline Phosphatase 129 U/L (0-126) Total Protein 6.7 gm/dl (6.3-8.2) Albumin 3.5 g/dl (3.5-5.0) Stool Occult Blood (IFOB) Negative (NEGATIVE) Chemistry Test 04/22/17 11:23 04/22/17 12:31 White Blood Count 4.1 k/uL (4.5-11.0) Red Blood Count 2.47 M/uL (4.17-5.56) Hemoglobin 8.0 g/dL (12.0-16.0) Hematocrit 24.9 % (34.0-47.0) Mean Corpuscular Volume 100.7 fL (80.0-96.0) Mean Corpuscular Hemoglobin 32.4 pg (26.0-33.0) Mean Corpuscular Hemoglobin Concent 32.1 g/dL (32.0-36.0) Red Cell Distribution Width 16.5 % (11.5-14.5) Platelet Count 233 K/uL (150-450) Mean Platelet Volume 8.6 fL (7.2-11.1) Neutrophils (%) (Auto) 78.9 % (39.4-72.5) Lymphocytes (%) (Auto) 9.3 % (17.6-49.6) Monocytes (%) (Auto) 8.5 % (4.1-12.4) Eosinophils (%) (Auto) 2.6 % (0.4-6.7) Basophils (%) (Auto) 0.7 % (0.3-1.4) Nucleated RBC Relative Count (auto) 0.1 /100WBC Neutrophils # (Auto) 3.3 K/uL (2.0-7.4) Lymphocytes # (Auto) 0.4 K/uL (1.3-3.6) Monocytes # (Auto) 0.3 K/uL (0.3-1.0) Eosinophils # (Auto) 0.1 K/uL (0.0-0.5) Basophils # (Auto) 0.0 K/uL (0.0-0.1) Nucleated RBC Absolute Count (auto) 0.00 K/uL Prothrombin Time 31.2 seconds (12.0-14.4) Prothromb Time International Ratio 2.88 Activated Partial Thromboplast Time 40 seconds (23-35) Glomerular Filtration Rate Calc 59.5 Calcium Level 8.8 mg/dl (8.4-10.2) Total Bilirubin 0.5 mg/dl (0.2-1.3) Aspartate Amino Transf (AST/SGOT) 21 U/L (0-35) Alanine Aminotransferase (ALT/SGPT) 26 U/L (0-56) Alkaline Phosphatase 129 U/L (0-126) Total Protein 6.7 gm/dl (6.3-8.2) Albumin 3.5 g/dl (3.5-5.0) Stool Occult Blood (IFOB) Negative (NEGATIVE) Coagulation Test 04/22/17 11:23 Prothrombin Time 31.2 seconds Prothromb Time International Ratio 2.88 Activated Partial Thromboplast Time 40 seconds EKG/Imaging Imaging Exam type: KNEE 4 VIEW LEFT History: Fall with pain Comparison: February 11, 2017 Findings: There are moderate osteoarthritic changes involving the patellofemoral joint and mild joint space narrowing involving the medial compartment. Minimal spurring is noted both medial and laterally. There is a tiny well-corticated calcific body noted within the lateral aspect left knee joint likely related to loose body. This is similar to the prior examination. No evidence of acute fracture dislocation is seen.. IMPRESSION: 1. Degenerative changes of the left knee as described although no evidence of acute fracture or dislocation seen Report Dictated By: Darlyn Alvarado MD at 04/22/2017 2:10 PM Report E-Signed By: Darlyn Alvarado MD at 04/22/2017 2:13 PM EXAMINATION: CT cervical spine without IV contrast HISTORY: Follow without loss of consciousness. COMPARISON: CT of the cervical spine from 02/11/2017. TECHNIQUE: Axial images were obtained from the skull base through the upper thoracic spine without IV contrast administration. Coronal and sagittal reformatted images were obtained from the axial source data. One of the following dose optimization techniques was utilized in the performance of this exam: Automated exposure control; adjustment of the mA and/ or kV according to the patient's size; or use of an iterative reconstruction technique. Specific details can be referenced in the facility's radiology CT exam operational policy. FINDINGS: Alignment: Straightening of the cervical spine without focal listhesis. Cranio-cervical junction: Negative. Vertebral bodies: Negative. Posterior elements: Multilevel mild facet and uncovertebral hypertrophy. Hardware: None. Disc spaces: Moderate to severe disc space narrowing, endplate sclerosis and bony spurring from C3-4 through C6-7. Soft tissues: Mild heterogeneous thyroid without focal lesion. Calcified plaque of both carotid bulbs. Visualized upper chest: Negative. IMPRESSION: 1. No acute fracture of the cervical spine. 2. Moderate to severe multilevel degenerative disc disease, and mild facet and uncovertebral arthropathy. Report Dictated By: Leslie Arrieta MD at 04/22/2017 12:39 PM Report E-Signed By: Leslie Arrieta MD at 04/22/2017 12:41 PM EXAMINATION: CT head without IV contrast HISTORY: Fall without loss of consciousness. COMPARISON: CT head from 02/28/2017. TECHNIQUE: Contiguous axial images were obtained from the skull base to the vertex without intravenous contrast. Sagittal and coronal reformatted images are also submitted. One of the following dose optimization techniques was utilized in the performance of this exam: Automated exposure control; adjustment of the mA and/ or kV according to the patient's size; or use of an iterative reconstruction technique. Specific details can be referenced in the facility's radiology CT exam operational policy. FINDINGS: Brain volume: Mild generalized atrophy with associated concordant prominence of the ventricular system. Ventricles: Normal. Acute ischemic changes: None. Hemorrhage: No acute hemorrhage. Masses/edema: None. Cabrera-white: Negative. White matter: Normal. Vessels: Calcified plaque of both carotid siphons. Extra-axial: Negative. Calvarium/scalp: No acute fracture. Skull base/visualized face: Negative. Visualized sinuses/orbits: Previous left cataract surgery. IMPRESSION: No acute fracture, hemorrhage or intracranial mass lesion. No CT evidence of acute infarct. Report Dictated By: Leslie Arrieta MD at 04/22/2017 12:29 PM Report E-Signed By: Leslie Arrieta MD at 04/22/2017 12:39 PM ED Course/Re-evaluation ED Course Patient was admitted to exam room, history and physical were obtained. Differential diagnosis was considered. On examination patient did have a bump on the back of her head. Due to her age, being on warfarin we did do a CT scan of the head. With her having fallen and hit a step I was concerned about cervical spine injury with a distracting injury to her head. A CT scan of the cervical spine was done as well. The results of those were negative. We did check a CBC, CMP on the patient. Patient did have a critically low hemoglobin of 8 with a hematocrit of 24.9. Reviewing the chart patient has had several low hemoglobins. I did do a rectal exam looking for occult stool which was negative. I believe this is likely the patient's anemia which is becoming very chronic post causing that. Patient was type and screen. There was given take upwards of 24 hours to get the blood, we did have one unit of blood. [facility] which would work for the patient. We will go ahead and hold off on transfusing her until tomorrow and that will be done through special procedures. While I was getting that set up patient started complaining of left knee pain. On evaluation patient had tenderness over the patella. A x-ray was done of the left knee which was negative. I discussed the findings with the patient and her family. We will go ahead and discharge patient home. She is to follow-up with special procedures for transfusion when the blood is available. They will be called when the blood is available. Discusses the patient and her family and they verbalized understanding and agreement. Decision to Disposition Date: Apr 22, 2017 Decision to Disposition Time: 13:44 Depart Departure Latest Vital Signs Vital Signs Date Time Temp Pulse Resp B/P (MAP) Pulse Ox O2 Delivery O2 Flow Rate FiO2 04/22/17 11:08 98.1 88 18 121/55 93 Room Air Impression: Primary Impression: Anemia Additional Impressions: Fall Contusion of head Knee contusion Condition: Improved Disposition: HOME OR SELF-CARE Referrals: EVERTON RIOS MD (PCP) Patient Instructions: Anemia (ED), Contusion in Adults (ED), Fall Prevention for Older Adults (ED) Additional Instructions: Limit activity by pain. Take Tylenol as needed for pain. Follow up with your primary care provider next week. Ice the knee. We are going to transfuse you, the hospital will call when the blood is available. Return to the ER if condition worsens. Continue with current medications. Have repeat CBC drawn on Wednesday. Be sure to leave the blood band on your wrist until after the transfusion has taken place. Problem Qualifiers Primary Impression: Anemia Anemia type: unspecified type Qualified Codes: D64.9 - Anemia, unspecified Additional Impressions: Fall Encounter type: initial encounter Qualified Codes: W19.XXXA - Unspecified fall, initial encounter Contusion of head Encounter type: initial encounter Contusion of head detail: scalp Qualified Codes: S00.03XA - Contusion of scalp, initial encounter Knee contusion Encounter type: initial encounter Laterality: left Qualified Codes: S80.02XA - Contusion of left knee, initial encounter KELLY LEMUS Apr 22, 2017 11:08
[2017-04-22 11:36] LABS: PLATELET COUNT, AUTOMATED 233 K/uL (150-450)
[2017-04-22 11:44] LABS: INR 2.88
--- NOTE | 2017-04-22 12:43 | RADIOLOGY IMAGING REPORT ---
FACILITY: [facility] PATIENT NAME: Nadia Baumann : 1930 MR: [id number] V: [id number] EXAM DATE: ORDERING PHYSICIAN: KELLY LEMUS TECHNOLOGIST: Location: [facility] [place] Patient: Nadia Baumann : 1930 Visit/Account:[id number] Date of Sevice: 04/22/2017 EXAMINATION: CT head without IV contrast HISTORY: Fall without loss of consciousness. COMPARISON: CT head from 02/28/2017. TECHNIQUE: Contiguous axial images were obtained from the skull base to the vertex without intraven ous contrast. Sagittal and coronal reformatted images are also submitted. One of the following dose optimization techniques was utilized in the performance of this exam: Autom ated exposure control; adjustment of the mA and/or kV according to the patient's size; or use of an i terative reconstruction technique. Specific details can be referenced in the facility's radiology C T exam operational policy. FINDINGS: Brain volume: Mild generalized atrophy with associated concordant prominence of the ventricular syst em. Ventricles: Normal. Acute ischemic changes: None. Hemorrhage: No acute hemorrhage. Masses/edema: None. Cabrera-white: Negative. White matter: Normal. Vessels: Calcified plaque of both carotid siphons. Extra-axial: Negative. Calvarium/scalp: No acute fracture. Skull base/visualized face: Negative. Visualized sinuses/orbits: Previous left cataract surgery. IMPRESSION: No acute fracture, hemorrhage or intracranial mass lesion. No CT evidence of acute infarct. Report Dictated By: Leslie Arrieta MD at 04/22/2017 12:29 PM Report E-Signed By: Leslie Arrieta MD at 04/22/2017 12:39 PM WSN:[email or web address]
--- NOTE | 2017-04-22 12:46 | RADIOLOGY IMAGING REPORT ---
FACILITY: [facility] PATIENT NAME: Nadia Baumann : 1930 MR: [id number] V: [id number] EXAM DATE: ORDERING PHYSICIAN: KELLY LEMUS TECHNOLOGIST: Location: [facility] Patient: Nadia Baumann : 1930 Visit/Account:[id number] Date of Sevice: 04/22/2017 EXAMINATION: CT cervical spine without IV contrast HISTORY: Follow without loss of consciousness. COMPARISON: CT of the cervical spine from 02/11/2017. TECHNIQUE: Axial images were obtained from the skull base through the upper thoracic spine without I V contrast administration. Coronal and sagittal reformatted images were obtained from the axial [facility] e data. One of the following dose optimization techniques was utilized in the performance of this exam: Autom ated exposure control; adjustment of the mA and/or kV according to the patient's size; or use of an i terative reconstruction technique. Specific details can be referenced in the facility's radiology C T exam operational policy. FINDINGS: Alignment: Straightening of the cervical spine without focal listhesis. Cranio-cervical junction: Negative. Vertebral bodies: Negative. Posterior elements: Multilevel mild facet and uncovertebral hypertrophy. Hardware: None. Disc spaces: Moderate to severe disc space narrowing, endplate sclerosis and bony spurring from C3-4 through C6-7. Soft tissues: Mild heterogeneous thyroid without focal lesion. Calcified plaque of both carotid bulbs . Visualized upper chest: Negative. IMPRESSION: 1. No acute fracture of the cervical spine. 2. Moderate to severe multilevel degenerative disc disease, and mild facet and uncovertebral arthropa thy. Report Dictated By: Leslie Arrieta MD at 04/22/2017 12:39 PM Report E-Signed By: Leslie Arrieta MD at 04/22/2017 12:41 PM WSN:[email or web address]
--- NOTE | 2017-04-22 14:16 | RADIOLOGY IMAGING REPORT ---
FACILITY: [facility] PATIENT NAME: Nadia Baumann : 1930 MR: [id number] V: [id number] EXAM DATE: ORDERING PHYSICIAN: KELLY LEMUS TECHNOLOGIST: Location: [facility] Patient: Nadia Baumann : 1930 Visit/Account:[id number] Date of Sevice: 04/22/2017 Exam type: KNEE 4 VIEW LEFT History: Fall with pain Comparison: February 11, 2017 Findings: There are moderate osteoarthritic changes involving the patellofemoral joint and mild joint space brandyn rowing involving the medial compartment. Minimal spurring is noted both medial and laterally. There is a tiny well-corticated calcific body noted within the lateral aspect left knee joint likely relat ed to loose body. This is similar to the prior examination. No evidence of acute fracture dislocati on is seen.. IMPRESSION: 1. Degenerative changes of the left knee as described although no evidence of acute fracture or disl ocation seen Report Dictated By: Darlyn Alvarado MD at 04/22/2017 2:10 PM Report E-Signed By: Darlyn Alvarado MD at 04/22/2017 2:13 PM WSN:[id number]
== END 2017-04-22 14:25 | disposition home or self-care (01) ==
LOC: ER 11:03
DX: D64.9 Anemia, unspecified (principal); S00.03XA Contusion of scalp, initial encounter; S80.02XA Contusion of left knee, initial encounter; W10.9XXA Fall (on) (from) unspecified stairs and steps, initial encounter
CPT/HCPCS: 36415; 70450; 72125; 73564; 82040; 82247; 82274; 82310; 82374; 82435; 82565; 82947; 84075; 84132; 84155; 84295; 84450; 84460; 84520; 85025; 85610; 85730; 86850; 86870; 86900; 86901; 86922; 99283

== ENCOUNTER 2017-04-25 08:44 | Emergency (ER) | payer MEDICARE, OTHER ==
[2017-04-07 13:01] VITALS: Ht 160 cm; Wt 56.7 kg
[~2017-04-25] VITALS: Ht 160 cm; Wt 56.7 kg
--- NOTE | 2017-04-25 08:48 | ER Report ---
History and Physical Time Seen By MD: 08:47 HPI/ROS CHIEF COMPLAINT: "Can't breathe right...has to breathe thru mouth..." HISTORY OF PRESENT ILLNESS: Patient is an 86-year-old female who is well known to both myself and the emergency department staff. She presents to the emergency department complaining of "I can't breathe out of my nose". She states that this morning she is having to mouth breathe because of nasal "stuffiness". She further states that "she feels as if she is going to have a nosebleed". Denies swallowing mucous or blood. She denies any facial or sinus pressure. She denies headache. She denies fevers chills and body aches for other types of infectious type symptoms at this time. She denies any weakness. She denies chest pain or shortness of breath. Patient recently received a transfusion this past Wednesday and had no complications. REVIEW OF SYSTEMS: Constitutional: No fever, no chills. Eyes: No discharge. No pain ENT: No sore throat. Nasal stuffiness Cardiovascular: No chest pain, no palpitations. Respiratory: No cough, no shortness of breath. Gastrointestinal: No abdominal pain, no vomiting. Neurological: No headache. Allergies: Coded Allergies: No Known Drug Allergies (Unverified , 04/25/17) Home Meds Active Scripts Simvastatin (SIMVASTATIN) 20 Mg Tablet, 1 TAB PO HS, #90 TAB 3 Refills Prov:EVERTON RIOS MD 03/02/17 Omeprazole (OMEPRAZOLE) 20 Mg Capsule.dr, 1 CAP PO QAM, #90 CAP 3 Refills TAKE ONE CAPSULE BY MOUTH ONCE A DAY Prov:IZABELLA GARAY PHARMD 01/15/17 Warfarin Sodium (WARFARIN SODIUM) 7.5 Mg Tablet, 1 TAB PO QDAY, #30 TAB 12 Refills Prov:EVERTON RIOS MD 03/20/16 Reported Medications Calcium Carb & Cit/Vitamin D3 (CITRACAL + D ER TABLET) 1 Each Tablet.er, 1 TAB PO QDAY 04/03/15 Ferrous Sulfate (IRON) 325 Mg Capsule.er, 325 MG PO TID 02/01/15 Past Medical/Surgical History Past Medical/Surgical History Patient has a past medical history of essential tremor, migraine, hyperlipidemia , pneumonia, reflux, arthritis, back pain, hard of hearing, anemia, skin cancer , breast cancer. Patient has surgical history bilateral mastectomy, lumpectomy, and cancer removal, tonsillectomy, hysterectomy, D&C, appendectomy, pacemaker placement, mitral valve replacement. Patient has a family medical history of cancer. On coumadin. Hx Smoking: No Smoking Status: Former Smoker Exposure to Second Hand Smoke?: No Hx Substance Use Disorder: No Hx Alcohol Use: No Constitutional Vital Sign - Last 24 Hours 04/25/17 04/25/17 08:48 09:52 Temp 98.3 Pulse 81 71 Resp 18 14 B/P (MAP) 133/61 138/83 (101) Pulse Ox 94 93 O2 Delivery Room Air Room Air Physical Exam General/Constitutional: Patient is awake, alert, nontoxic and in no acute respiratory distress. Head: Normocephalic and atraumatic. Eyes: Conjunctival clear, Pupils are equal and reactive to light. Sclera are clear and anicteric. Ears:Hearing aids Nares: No evidence of epistaxis, patient does have boggy terminates with some mucoid discharge right greater than left Oropharyngeal: Mucous membranes are moist. There is no pharyngeal erythema or exudate. There are no palatal petechiae. Uvula is midline and symmetrical. Neck: Supple, no adenopathy. Cardiovascular: Heart is regular rate and rhythm without audible murmurs, rubs or gallops. Pulmonary: Lungs are clear to auscultation bilaterally. There are no wheezes, rales, or rhonchi. Chest rise is symmetrical Medical Decision Making ED Course/Re-evaluation ED Course 04/25/2017 9:02:02 am Plan at this time I will be to treat for nasal congestion with oximetry bolus on to both naris. We'll reevaluate patient approximate 15-20 minutes after medication is instilled Re-evaluation 04/25/2017 9:46:22 am Patient had significant improvement and is able to breathe through her nose after instillation of oxygen metolazone nasal spray. Patient and family were counseled to continue this treatment every 12 hours for the next 3 days and then discontinue. Decision to Disposition Date: Apr 25, 2017 Decision to Disposition Time: 09:46 Depart Departure Latest Vital Signs Vital Signs Date Time Temp Pulse Resp B/P (MAP) Pulse Ox O2 Delivery O2 Flow Rate FiO2 04/25/17 09:52 71 14 138/83 (101) 93 Room Air 04/25/17 08:48 98.3 Impression: Primary Impression: Nasal congestion Condition: Improved Disposition: HOME OR SELF-CARE Referrals: EVERTON RIOS MD (PCP) 1 Week Patient Instructions: How to Use Nasal [place] (ED) Additional Instructions: Use the Oxymetolazone (Afrin) nasal spray: 2 sprays into each nostril twice per day for the next 3 days then discontinue DUY CHAPPELL MD Apr 25, 2017 08:48
[2017-04-25] MEDS ORDERED: OXYMETAZOLINE SPRAY 15 ML BTL ENA SCH (09:00)
[2017-04-25 09:52] VITALS: BP 138/83
== END 2017-04-25 09:57 | disposition home or self-care (01) ==
LOC: ER 09:04
DX: R09.81 Nasal congestion (principal)
CPT/HCPCS: 99282; A9270

== ENCOUNTER → 2017-04-26 | Outpatient (CLI) | payer MEDICARE, OTHER ==
[2017-04-07 13:01] VITALS: BMI 23.6
[2017-04-26 11:34] LABS: PLATELET COUNT, AUTOMATED 213 K/uL (150-450)
== END ==
LOC: LAB 11:10
PROVIDERS: ATTEND Internal Medicine
DX: D64.9 Anemia, unspecified (principal)
CPT/HCPCS: 36415; 85025

== ENCOUNTER 2017-04-29 14:19 | Outpatient (RCR) | payer MEDICARE, OTHER ==
[2017-03-15 09:36] VITALS: BP 107/57
[2017-03-16] VITALS (7 sets, daily range): BP systolic 94–118; BP diastolic 47–63
[2017-03-16] MEDS: LIDOCAINE/SOD BICARB 8.4% SYR ID PRN (10:54)
[2017-03-16] MEDS: NS(*) 0.9% 500 ML BAG 500 ML IV PRN (10:54)
[2017-04-07 13:01] VITALS: Ht 160 cm; Wt 59.7 kg
[2017-04-23] MEDS: NS(*) 0.9% 500 ML BAG 500 ML IV PRN (09:49)
[2017-04-23] MEDS: LIDOCAINE/SOD BICARB 8.4% SYR ID PRN (09:49)
[2017-04-23 10:28] VITALS: BP 115/68
[2017-04-23 10:47] VITALS: BP 119/59
[2017-04-23 12:28] VITALS: BP 124/57
[2017-04-23 12:43] VITALS: BP 124/66
[2017-04-23 15:10] VITALS: BP 123/64
[~2017-04-29] VITALS: Ht 160 cm; Wt 59.7 kg
[~2017-04-29 14:19] MED LIST changes: +ACETAMINOPHEN 325 MG TAB PO PRN; +ALTEPLASE RECOMB 2 MG VIAL IVP PRN; +DEXTROSE 5%(*) 100 ML BAG 100 ML IVPB PRN; +DIGO125T25 PO; -DIGO125T77 PO; +HEPARIN FLSH (PORT) 500 UN/5ML IVP PRN; +NS(*) 0.9% 100 ML BAG 100 ML IVPB PRN; -WARF-18 PO; +WARF5TAB23 PO; +WATER STERILE 10 ML VIAL IVP PRN; +diphenhydrAMINE 25 MG CAP PO PRN
[2017-04-29 14:29] VITALS: BP 141/68
--- NOTE | 2017-04-29 19:41 | ONCOLOGY FOLLOW UP NOTE ---
EVENT DATE: April 29, 2017 DIAGNOSES 1. Microcytic anemia. 2. Indolent multiple myeloma. 3. Hypertension. 4. Mechanical mitral valve replacement on Coumadin. 5. Atrial fibrillation. 6. Essential tremor. 7. Hyperlipidemia. 8. Osteoarthritis. 9. History of rheumatic fever. 10. History of resected skin cancer. 11. History of clostridium difficile colitis. 12. History of gastrointestinal bleeding. CHIEF COMPLAINT The patient is here today for followup of her indolent multiple myeloma. HEMATOLOGY HISTORY The patient is an 85-year-old female who was followed by Dr. Steinberg and patient was found to have anemia lately. Ferritin level was 8 on April 02, 2015. Vitamin B12 and folic acid were normal December 2014. Iron saturation was 8% in December 2014. Her iron studies on March 29, 2015 did reveal serum iron of 40, TIBC of 290 and iron saturation of 10. Ferritin was 23 on May 16, 2015. Her anemia is chronic for her. She has been on anticoagulation for her mitral valve replacement. Colonoscopy done March 2013 showed tubular adenoma which was removed, but no other source of bleeding. As per patient, she had a repeat EGD in February in 2013 and colonoscopy also, which were unremarkable. She saw Dr. Bustamante April 2015 and upper GI was done on April 15, 2015 without identifiable cause of bleeding found. Haptoglobin level was normal at 116. Methylmalonic acid was normal. IgG, IgA, IgM all within the normal range, but there was no M-spike in the immunoelectrophoresis, 0.98 gm/dL IgG kappa type. Serum ferritin was 18. Vitamin B12 was 394. Folate was more than 24. Iron saturation 10.3%. TIBC was 390. Soluble transferrin receptor assay was high at 5.4. A 24-hour urine for urine protein immunoelectrophoresis and free light chain assay showed urinary free kappa light chain at 39.3 mg/dL and the urinary free kappa light chain today was 314. Beta-2 microglobulin was high at 4. [place] free light chain was high at 9.1, while the lambda was normal at 2.11. Skeletal bone survey done on June 17, 2015 did reveal multiple sub-cm lucencies in the calvarium, stable as compared to the CT scan from January 2015. The certainty of venous lakes though possibility of lytic lesions is difficulty to completely exclude without remote prior studies for comparison. The patient had bone marrow aspiration biopsy on July 05, 2015, and the bone marrow was mildly hypercellular, about 50%, with plasma cell neoplasia; 8% plasma cells, constituting 10-15% of the bone marrow space. Cytogenetic analysis showed normal female karyotype, but FISH for myeloma came back positive for gains of chromosome 7, 9 and 15, and again of CCND1. HISTORY OF PRESENT ILLNESS Patient is here today for followup of her indolent multiple myeloma. She is complaining of dry cough. She has pain in her knees from arthritis. She is weak, tired and fatigued. CURRENT MEDICATIONS 1. Calcium and vitamin D, Citracal Plus D, 1 tablet daily. 2. Ferrous sulfate 325 mg three times daily. 3. Nasacort 10.8 spray, 2 sprays t.i.d. 4. Levetiracetam 500 mg at bedtime. 5. Lisinopril 2.5 mg daily. 6. Warfarin 10 mg to alternate with 7.5 mg. 7. Mirtazapine 15 mg tablet, half tablet at bedtime. 8. Hulen 3 fatty acid 300 mg b.i.d. 9. Omeprazole 20 mg daily. 10. Simvastatin 20 mg at bedtime. 11. Lasix 20 mg three times per week. ALLERGIES No known drug allergies. PAST MEDICAL HISTORY Essential tremor, seizure, allergic rhinitis, atrial fibrillation, hyperlipidemia, hypertension, history of GI bleeding, history of C. diff. colitis September 2014 treated with Flagyl, osteoarthritis, chronic anemia, skin cancer, history of rheumatic fever at the age of [age]. PAST SURGICAL HISTORY Tonsillectomy as a child, pacemaker placement in August 2014, mitral valve replacement in 1986, appendectomy in 1949, hysterectomy in with oophorectomy, bilateral mastectomies for benign nodules, no malignancy, removal of breast reconstruction with subsequent bleeding, resection of skin cancer. FAMILY HISTORY Negative for cancer or blood diseases. SOCIAL HISTORY The patient is with two daughters. 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 She quit smoking forty years ago. She smoked about half a pack a day for nearly thirty years, but denies any abuse of alcohol or illicit drugs. REVIEW OF SYSTEMS CONSTITUTIONAL: No appetite or weight change. No fever, chills or sweating. No recent infection. HEENT: Ears: No tinnitus or hearing problem. Nose: The patient has occasional epistaxis. Throat: No sore throat or mouth ulcers. Eyes: No diplopia or visual changes. RESPIRATORY: Patient has dry cough. CARDIOVASCULAR: No chest pain, orthopnea, or paroxysmal nocturnal dyspnea (PND) . No edema. No palpitations. GASTROINTESTINAL: She has nausea and vomiting. No diarrhea or constipation. No change in bowel movements. No heartburn or swallowing difficulties. No abdominal pain. No jaundice. No hematemesis, melena or rectal bleeding. GENITOURINARY: The patient has increased frequency of urine. No hematuria or dysuria. MUSCULOSKELETAL: She has pain in her knees. NEUROLOGICAL: No tingling or numbness in the hands or feet. No headaches or convulsions. HEMATOLOGIC/LYMPHATIC: She is weak, tired and fatigued. PSYCHIATRIC: No anxiety or depression. PHYSICAL EXAMINATION GENERAL: Looks stable. Well-developed, well-nourished, and in no acute distress. VITAL SIGNS: Blood pressure 141/68, pulse 82 per minute, respirations 16 per minute, temperature 98.4, pulse ox 92% on room air. HEENT: Head: Atraumatic. No sinus tenderness to palpation. Eyes: No icterus or conjunctivitis. Mouth and throat: No oral thrush or mucositis. NECK: Supple. No cervical or supraclavicular lymphadenopathy. LUNGS: Clear to auscultation and percussion bilaterally. HEART: There is an ejection systolic murmur over the pulmonary and aortic area. ABDOMEN: Soft and lax. No tenderness. No hepatosplenomegaly. No masses. EXTREMITIES: No cyanosis, clubbing or edema. LYMPHATICS: No peripheral lymphadenopathy. NEUROLOGICAL: Conscious, alert and oriented times three. No focal motor or sensory deficits. PSYCHIATRIC: Mood and affect appear normal. SKIN: She has skin pallor. DIAGNOSTIC DATA CBC showed a white count of 3.8, hemoglobin 10.3, hematocrit 32.1, platelets 213 ,000. Chem panel showed blood sugar 124, alkaline phosphatase 129. [place] free light chain is 7.29, lambda free light chain is 1.71, kappa to lambda ratio is 4.26. 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 ASSESSMENT 1. Microcytic anemia due to iron deficiency. Patient currently on iron supplement three times daily. Her current hemoglobin 10.3 after blood transfusion a week ago and she is doing fine currently. 2. Indolent multiple myeloma with IgG kappa initial was 0.98 g/dL. Her current IgG kappa level is 1.1 g/dL, which is nearly stable. Her initial skeletal bone survey showed subcentimeter multiple lucencies in the calvaria. Bone marrow aspiration biopsy done July 05, 2015 revealed hypercellular bone marrow for age with 8% malignant plasma cells constituting 10% to 15% of the bone marrow space. Cytogenic analysis showed normal female karyotype, but FISH for myeloma came back positive for gains of chromosomes 7, 9, 15, and gain of CCND1. I am planning to continue followup. I will see her again in four months with CBC, chem panel, LDH, uric acid and myeloma profile. 3. Mechanical mitral valve replacement, on Coumadin. 4. Atrial fibrillation on Coumadin. 5. Hypertension on treatment. 6. History of Clostridium difficile colitis. PLAN 1. Continue followup. 2. Patient to return in four months with CBC, chem panel, LDH, uric acid and myeloma profile. 3. Patient is to contact us for any new concerns or complaints. SHAYAN
[2017-05-07] MEDS ORDERED: OXYM-1 ENA (14:05)
[2017-05-19] MEDS ORDERED: CEPH500T7 PO (08:58)
[2017-05-27] MEDS ORDERED: TRAM-420 PO (06:26)
[2017-06-01] MEDS ORDERED: CYAN100088 PO (16:36)
[2017-06-01] MEDS ORDERED: SULF15DR26 OS (16:36)
[2017-06-02] MEDS ORDERED: FURO-45 PO (16:50)
== END 2017-06-13 ==
LOC: ONC 14:19
PROVIDERS: ATTEND Internal Medicine
DX: D50.9 Iron deficiency anemia, unspecified (principal); C90.00 Multiple myeloma not having achieved remission; Z79.01 Long term (current) use of anticoagulants; I48.91 Unspecified atrial fibrillation; I10 Essential (primary) hypertension; E78.5 Hyperlipidemia, unspecified; M19.90 Unspecified osteoarthritis, unspecified site; R05 Cough; R53.1 Weakness; R53.83 Other fatigue; Z79.899 Other long term (current) drug therapy; Z87.891 Personal history of nicotine dependence
CPT/HCPCS: 36415; 36430; 85027; 86850; 86870; 86900; 86901; 86902; 86922; A9270; G0463; J7040; P9016; Q0163; 86920; 99212

== ENCOUNTER 2017-05-10 18:39 | Emergency (ER) | payer MEDICARE, OTHER ==
[2017-04-07 13:01] VITALS: Ht 160 cm; Wt 56.9 kg
[~2017-05-10] VITALS: Ht 160 cm; Wt 56.9 kg
[~2017-05-10 18:39] MED LIST changes: -ACETAMINOPHEN 325 MG TAB PO PRN; -ALTEPLASE RECOMB 2 MG VIAL IVP PRN; -DEXTROSE 5%(*) 100 ML BAG 100 ML IVPB PRN; -DIGO125T25 PO; +DIGO125T77 PO; -HEPARIN FLSH (PORT) 500 UN/5ML IVP PRN; -NS(*) 0.9% 100 ML BAG 100 ML IVPB PRN; +OXYM-1 ENA; +WARF-18 PO; -WARF5TAB23 PO; -WATER STERILE 10 ML VIAL IVP PRN; -diphenhydrAMINE 25 MG CAP PO PRN
[2017-05-10] MEDS ORDERED: fentaNYL CITR 100 MCG/2 ML AMP IVP ONE (18:50)
[2017-05-10] MEDS ORDERED: ONDANSETRON 4 MG/2 ML VIAL IVP ONE (18:50)
[2017-05-10] MEDS ORDERED: NS(*) 0.9% 1000 ML BAG 1,000 ML IV PRN (18:50)
[2017-05-10 19:22] LABS: PLATELET COUNT, AUTOMATED 172 K/uL (150-450)
--- NOTE | 2017-05-10 19:33 | ER Report ---
History and Physical Time Seen By MD: 19:37 Hx. of Stated Complaint: avulsion to back of right hand HPI/ROS 86-year-old female was walking in her kitchen swung her hand hit the dorsal side of her right hand on kitchen cabinet tree received a the shape six-inch skin tear to the back of her hand is on Coumadin INR last checked Wednesday was therapeutic at that time Remainder of the 14 system rev: Yes Allergies: Coded Allergies: No Known Drug Allergies (Unverified , 05/10/17) Home Meds Active Scripts Oxymetazoline Hcl (AFRIN) 30 Ml [place], 2 SPR DAR BID Y for BLEEDING for 7 Days, #1 BOTTLE two sprays into nostril to stop bleeding Prov:ROOSEVELT JOHANSEN MD 05/07/17 Simvastatin (SIMVASTATIN) 20 Mg Tablet, 1 TAB PO HS, #90 TAB 3 Refills Prov:EVERTON RIOS MD 03/02/17 Omeprazole (OMEPRAZOLE) 20 Mg Capsule.dr, 1 CAP PO QAM, #90 CAP 3 Refills TAKE ONE CAPSULE BY MOUTH ONCE A DAY Prov:IZABELLA GARAY PHARMD 01/15/17 Warfarin Sodium (WARFARIN SODIUM) 7.5 Mg Tablet, 1 TAB PO QDAY, #30 TAB 12 Refills Prov:EVERTON RIOS MD 03/20/16 Reported Medications Calcium Carb & Cit/Vitamin D3 (CITRACAL + D ER TABLET) 1 Each Tablet.er, 1 TAB PO QDAY 04/03/15 Ferrous Sulfate (IRON) 325 Mg Capsule.er, 325 MG PO TID 02/01/15 Past Medical/Surgical History History of essential tremor, history of mitral valve replacement, pacemaker, history of bilateral mastectomy, history of D&C, history of anemia, Hx Smoking: No Smoking Status: Former Smoker Exposure to Second Hand Smoke?: No Hx Substance Use Disorder: No Hx Alcohol Use: No Family History of: HTN Constitutional Vital Sign - Last 24 Hours 05/10/17 05/10/17 05/10/17 05/10/17 18:39 18:45 18:47 18:54 Temp 98.3 Pulse ??? 93 83 Resp 16 B/P (MAP) 164/94 (117) 164/94 Pulse Ox 92 93 O2 Delivery Room Air 05/10/17 05/10/17 05/10/17 05/10/17 19:09 19:12 19:15 19:24 Pulse ??? 83 B/P (MAP) 151/84 (106) 166/94 (118) Pulse Ox 90 99 05/10/17 05/10/17 05/10/17 19:30 19:39 20:24 Pulse 77 76 B/P (MAP) 149/76 (100) 134/63 (86) Pulse Ox 99 94 Physical Exam 86year old female alert anxious, hrr lungs cta, laceration v shaped back of right hand. oozing flood tendons exposed but appear intact,tendon exam is begative for injury Medical Decision Making Data Points Result Diagram: 05/10/17 1900 Laboratory Hematology Test 05/10/17 19:00 Red Blood Count 3.13 M/uL (4.17-5.56) Mean Corpuscular Volume 98.8 fL (80.0-96.0) Mean Corpuscular Hemoglobin 32.6 pg (26.0-33.0) Mean Corpuscular Hemoglobin Concent 33.0 g/dL (32.0-36.0) Red Cell Distribution Width 16.5 % (11.5-14.5) Mean Platelet Volume 10.1 fL (7.2-11.1) Neutrophils (%) (Auto) 75.0 % (39.4-72.5) Lymphocytes (%) (Auto) 8.8 % (17.6-49.6) Monocytes (%) (Auto) 11.5 % (4.1-12.4) Eosinophils (%) (Auto) 3.8 % (0.4-6.7) Basophils (%) (Auto) 0.9 % (0.3-1.4) Nucleated RBC Relative Count (auto) 0.0 /100WBC Neutrophils # (Auto) 2.9 K/uL (2.0-7.4) Lymphocytes # (Auto) 0.3 K/uL (1.3-3.6) Monocytes # (Auto) 0.4 K/uL (0.3-1.0) Eosinophils # (Auto) 0.1 K/uL (0.0-0.5) Basophils # (Auto) 0.0 K/uL (0.0-0.1) Nucleated RBC Absolute Count (auto) 0.00 K/uL Prothrombin Time 25.5 seconds (12.0-14.4) Prothromb Time International Ratio 2.25 Chemistry Test 05/10/17 19:00 White Blood Count 3.9 k/uL (4.5-11.0) Red Blood Count 3.13 M/uL (4.17-5.56) Hemoglobin 10.2 g/dL (12.0-16.0) Hematocrit 30.9 % (34.0-47.0) Mean Corpuscular Volume 98.8 fL (80.0-96.0) Mean Corpuscular Hemoglobin 32.6 pg (26.0-33.0) Mean Corpuscular Hemoglobin Concent 33.0 g/dL (32.0-36.0) Red Cell Distribution Width 16.5 % (11.5-14.5) Platelet Count 172 K/uL (150-450) Mean Platelet Volume 10.1 fL (7.2-11.1) Neutrophils (%) (Auto) 75.0 % (39.4-72.5) Lymphocytes (%) (Auto) 8.8 % (17.6-49.6) Monocytes (%) (Auto) 11.5 % (4.1-12.4) Eosinophils (%) (Auto) 3.8 % (0.4-6.7) Basophils (%) (Auto) 0.9 % (0.3-1.4) Nucleated RBC Relative Count (auto) 0.0 /100WBC Neutrophils # (Auto) 2.9 K/uL (2.0-7.4) Lymphocytes # (Auto) 0.3 K/uL (1.3-3.6) Monocytes # (Auto) 0.4 K/uL (0.3-1.0) Eosinophils # (Auto) 0.1 K/uL (0.0-0.5) Basophils # (Auto) 0.0 K/uL (0.0-0.1) Nucleated RBC Absolute Count (auto) 0.00 K/uL Prothrombin Time 25.5 seconds (12.0-14.4) Prothromb Time International Ratio 2.25 Coagulation Test 05/10/17 19:00 Prothrombin Time 25.5 seconds Prothromb Time International Ratio 2.25 ED Course/Re-evaluation Clinical Indication for ER IV: Hydration ED Course IV saline lock was initiated to received 25 mics of fentanyl and had to have oxygen at 3 L to keep sats above 92 rested during the procedure was given 4 of Zofran for nausea tolerated procedure well we'll place a dressing Surgicel and Xeroform pressure dressing and have her see her physician tomorrow Re-evaluation Patient is chronically anemic hemoglobin 10.2 tonight INR 2.5 within therapeutic range at place a dressing on her hand Surgicel and Xeroform pressure dressing with the cock-up splint in place placed by nursing CMS is intact after its placed we'll have her follow up tomorrow with her primary care physician Procedure Prior to wound repair patient received 50 mics of fentanyl IV push 4 mg Zofran IV push wound is V-shaped 6 inches long total was injected with 6 mL of 1% with epi lidocaine wound was irrigated with 2 L of normal saline with Betadine no foreign bodies were noted sutured with 5-0 nylon running suture 32 throws good hemostasis pressure dressing with Surgicel and Xeroform gauze and splinted Decision to Disposition Date: May 10, 2017 Decision to Disposition Time: 19:39 Depart Departure Latest Vital Signs Vital Signs Date Time Temp Pulse Resp B/P (MAP) Pulse Ox O2 Delivery O2 Flow Rate FiO2 05/10/17 20:24 76 134/63 (86) 94 05/10/17 18:47 98.3 16 Room Air Impression: Primary Impression: Laceration Additional Impression: USP (current) use of anticoagulants Condition: Improved Disposition: HOME OR SELF-CARE Referrals: EVERTON RIOS MD (PCP) 1 Day Patient Instructions: Hand Laceration Additional Instructions: Leave dressing in place elevate hand above the level heart tonight see her primary care physician tomorrow for a dressing change, sutures out in 10 days, no Coumadin tonight Problem Qualifiers YOLI MARTINEZ May 10, 2017 19:33
[2017-05-10 19:36] LABS: INR 2.25
--- NOTE | 2017-05-10 20:15 | RADIOLOGY IMAGING REPORT ---
FACILITY: [facility] PATIENT NAME: Nadia Baumann : 1930 MR: [id number] V: [id number] EXAM DATE: ORDERING PHYSICIAN: YOLI MARTINEZ TECHNOLOGIST: Location: [facility] [place] Patient: Nadia Baumann : 1930 Visit/Account:[id number] Date of Sevice: 05/10/2017 Examination: HAND LIMITED RIGHT Comparison: 04/17/2017. History: Posterior laceration. Hit kitchen cabinet. Findings: Right hand and wrist dorsal soft tissue swelling with extensive subcutaneous soft tissue ga s. No radiopaque foreign body. No fracture. Alignment is within normal limits. Mild joint space loss diffusely throughout the interphalangeal and metacarpophalangeal joints. IMPRESSION: Right hand and wrist dorsal soft tissue trauma. No radiopaque foreign body. Report Dictated By: Eduardo Keller MD at 05/10/2017 8:08 PM Report E-Signed By: Eduardo Keller MD at 05/10/2017 8:10 PM WSN:[id number]
[2017-05-10 20:24] VITALS: BP 134/63
== END 2017-05-10 20:30 | disposition home or self-care (01) ==
LOC: ER 19:01
DX: S61.411A Laceration without foreign body of right hand, initial encounter (principal); D53.9 Nutritional anemia, unspecified; Z79.01 Long term (current) use of anticoagulants
CPT/HCPCS: 12005; 73120; 85025; 85610; 96374; 96375; J2405; J3010; L3763

== ENCOUNTER 2017-05-11 17:31 | Emergency (ER) | payer MEDICARE, OTHER ==
[2017-04-07 13:01] VITALS: Ht 160 cm; Wt 56.9 kg
[~2017-05-11] VITALS: Ht 160 cm; Wt 56.9 kg
--- NOTE | 2017-05-11 17:42 | ER Report ---
History and Physical Time Seen By MD: 17:39 Hx. of Stated Complaint: "MY HAND IS BLEEDING STILL" HPI/ROS 86-year-old female ambulatory to the ER had a laceration last night to her right hand hitting a corner of a While she was walking by sutures were placed INR from Coumadin last night was 2.54 she saw her primary care physician today who changed the dressing to gauze and Kerlix the noted that it was oozing through the gauze primary care physician and ask her to go to the ER for further eval Remainder of the 14 system rev: Yes Allergies: Coded Allergies: No Known Drug Allergies (Unverified , 05/10/17) Home Meds Active Scripts Oxymetazoline Hcl (AFRIN) 30 Ml [place], 2 SPR DAR BID Y for BLEEDING for 7 Days, #1 BOTTLE two sprays into nostril to stop bleeding Prov:ROOSEVELT JOHANSEN MD 05/07/17 Simvastatin (SIMVASTATIN) 20 Mg Tablet, 1 TAB PO HS, #90 TAB 3 Refills Prov:EVERTON RIOS MD 03/02/17 Omeprazole (OMEPRAZOLE) 20 Mg Capsule.dr, 1 CAP PO QAM, #90 CAP 3 Refills TAKE ONE CAPSULE BY MOUTH ONCE A DAY Prov:IZABELLA GARAY PHARMD 01/15/17 Warfarin Sodium (WARFARIN SODIUM) 7.5 Mg Tablet, 1 TAB PO QDAY, #30 TAB 12 Refills Prov:EVERTON RIOS MD 03/20/16 Reported Medications Calcium Carb & Cit/Vitamin D3 (CITRACAL + D ER TABLET) 1 Each Tablet.er, 1 TAB PO QDAY 04/03/15 Ferrous Sulfate (IRON) 325 Mg Capsule.er, 325 MG PO TID 02/01/15 Past Medical/Surgical History Mitral valve replacement is on Coumadin for this Reviewed Nurses Notes: Yes Old Medical Records Reviewed: Yes Hx Smoking: No Smoking Status: Former Smoker Exposure to Second Hand Smoke?: No Hx Substance Use Disorder: No Hx Alcohol Use: No Family History of: HTN Constitutional Vital Sign - Last 24 Hours 05/11/17 05/11/17 05/11/17 17:35 17:36 18:41 Temp 98.5 Pulse 91 Resp 18 B/P (MAP) 138/74 (95) 138/74 154/83 (106) Pulse Ox 92 O2 Delivery Room Air Physical Exam 86-year-old female alert and oriented no acute distress heart rate is regular no murmurs or gallops lungs clear to auscultation her right hand is in a cold and dressing that was removed no active bleeding from the suture site will have it redressed with Surgicel and Xeroform and gauze splint will be replaced Medical Decision Making Data Points Result Diagram: 05/11/17 1806 Laboratory Hematology Test 05/11/17 18:06 Red Blood Count 3.07 M/uL (4.17-5.56) Mean Corpuscular Volume 98.5 fL (80.0-96.0) Mean Corpuscular Hemoglobin 32.6 pg (26.0-33.0) Mean Corpuscular Hemoglobin Concent 33.1 g/dL (32.0-36.0) Red Cell Distribution Width 16.6 % (11.5-14.5) Mean Platelet Volume 9.4 fL (7.2-11.1) Neutrophils % (Manual) 89 % (39.4-72.5) Lymphocytes % (Manual) 4 % (17.6-49.6) Monocytes % (Manual) 7 % (4.1-12.4) Eosinophils % (Manual) 0 % (0.4-6.7) Basophils % (Manual) 0 % (0.3-1.4) Prothrombin Time 24.2 seconds (12.0-14.4) Prothromb Time International Ratio 2.11 Chemistry Test 05/11/17 18:06 White Blood Count 5.2 k/uL (4.5-11.0) Red Blood Count 3.07 M/uL (4.17-5.56) Hemoglobin 10.0 g/dL (12.0-16.0) Hematocrit 30.3 % (34.0-47.0) Mean Corpuscular Volume 98.5 fL (80.0-96.0) Mean Corpuscular Hemoglobin 32.6 pg (26.0-33.0) Mean Corpuscular Hemoglobin Concent 33.1 g/dL (32.0-36.0) Red Cell Distribution Width 16.6 % (11.5-14.5) Platelet Count 173 K/uL (150-450) Mean Platelet Volume 9.4 fL (7.2-11.1) Neutrophils % (Manual) 89 % (39.4-72.5) Lymphocytes % (Manual) 4 % (17.6-49.6) Monocytes % (Manual) 7 % (4.1-12.4) Eosinophils % (Manual) 0 % (0.4-6.7) Basophils % (Manual) 0 % (0.3-1.4) Prothrombin Time 24.2 seconds (12.0-14.4) Prothromb Time International Ratio 2.11 Coagulation Test 05/11/17 18:06 Prothrombin Time 24.2 seconds Prothromb Time International Ratio 2.11 ED Course/Re-evaluation ED Course Dressing was removed no active bleeding from the wound site wound site is well approximated no signs of infection dressing was replaced with Surgicel and Xeroform gauze and Kerlix no Covan is to be sent home with patient will place a splint Re-evaluation Lab work was within normal limits INR is 2.1 is therapeutic for this patient she stopped her primary care physician is having her hold Coumadin for 2 days Decision to Disposition Date: May 11, 2017 Decision to Disposition Time: 17:41 Depart Departure Latest Vital Signs Vital Signs Date Time Temp Pulse Resp B/P (MAP) Pulse Ox O2 Delivery O2 Flow Rate FiO2 05/11/17 18:41 154/83 (106) 05/11/17 17:36 98.5 91 18 92 Room Air Impression: Primary Impression: Post-op bleeding Condition: Improved Disposition: HOME OR SELF-CARE Referrals: EVERTON RIOS MD (PCP) 1 Day Patient Instructions: Hand Laceration Additional Instructions: Place have your family physician change it tomorrow return for problems or concerns, the dressing should be Surgicel bottom layer over that Xeroform on top of that gauze dressing, no Coumadin for 2 days per primary care physician YOLI MARTINEZ May 11, 2017 17:42
[2017-05-11] MEDS ORDERED: DIPHTH/TETANUS/ACEL. PERTUSSIS IM ONLY ONE (17:45)
[2017-05-11 18:14] LABS: PLATELET COUNT, AUTOMATED 173 K/uL (150-450)
[2017-05-11 18:20] LABS: INR 2.11
[2017-05-11 18:41] VITALS: BP 154/83
== END 2017-05-11 18:50 | disposition home or self-care (01) ==
LOC: ER 17:39
DX: L76.22 Postprocedural hemorrhage of skin and subcutaneous tissue following other procedure (principal)
CPT/HCPCS: 36415; 85007; 85027; 85610; 90471; 90715; L3763

== ENCOUNTER 2017-05-13 15:50 | Emergency (ER) | payer MEDICARE, OTHER ==
[2017-04-07 13:01] VITALS: Ht 160 cm; Wt 56.9 kg
[~2017-05-13] VITALS: Ht 160 cm; Wt 56.9 kg
[~2017-05-13 15:50] MED LIST changes: -CEPH500T7 PO; -DIGO125T25 PO; +DIGO125T77 PO; -TRAM-420 PO; +WARF-18 PO; -WARF5TAB23 PO
--- NOTE | 2017-05-13 15:57 | ER Report ---
History and Physical Time Seen By MD: 15:56 HPI/ROS CHIEF COMPLAINT: Fall HISTORY OF PRESENT ILLNESS: 86-year-old female patient presents to emergency room with complaint of a fall. Patient states that she was standing up when she lost her balance and fell backwards. She states that she hit her head on the couch. She denies having any loss of consciousness. She does have pain to the back of her head where she has a bump. She also has a laceration to the left forearm. States she does have pain around there. She denies having any numbness or tingling to her hand. She denies any weakness. She denies having any neck pain. She does have some tenderness to the left knee. Patient denies having any nausea, vomiting or dizziness. She states she is not taking any medication for this. REVIEW OF SYSTEMS: Respiratory: No cough, no dyspnea. Cardiovascular: No chest pain, no palpitations. Gastrointestinal: No vomiting, no abdominal pain. Musculoskeletal: No back pain. Allergies: Coded Allergies: No Known Drug Allergies (Unverified , 05/10/17) Home Meds Active Scripts Oxymetazoline Hcl (AFRIN) 30 Ml [place], 2 SPR DAR BID Y for BLEEDING for 7 Days, #1 BOTTLE two sprays into nostril to stop bleeding Prov:ROOSEVELT JOHANSEN MD 05/07/17 Simvastatin (SIMVASTATIN) 20 Mg Tablet, 1 TAB PO HS, #90 TAB 3 Refills Prov:EVERTON RIOS MD 03/02/17 Omeprazole (OMEPRAZOLE) 20 Mg Capsule.dr, 1 CAP PO QAM, #90 CAP 3 Refills TAKE ONE CAPSULE BY MOUTH ONCE A DAY Prov:IZABELLA GARAY PHARMD 01/15/17 Warfarin Sodium (WARFARIN SODIUM) 7.5 Mg Tablet, 1 TAB PO QDAY, #30 TAB 12 Refills Prov:EVERTON RIOS MD 03/20/16 Reported Medications Calcium Carb & Cit/Vitamin D3 (CITRACAL + D ER TABLET) 1 Each Tablet.er, 1 TAB PO QDAY 04/03/15 Ferrous Sulfate (IRON) 325 Mg Capsule.er, 325 MG PO TID 02/01/15 Past Medical/Surgical History Patient has a past medical history of essential tremor, migraines, hyperlipidemia, pneumonia, reflux, arthritis, back pain, hard of hearing, anemia , skin cancer, breast cancer. Patient has a surgical history of bilateral mastectomy, lumpectomy, skin cancer removal, tonsillectomy, hysterectomy, D&C, appendectomy, pacemaker, mitral valve replacement. Patient has a family medical history of cancer. Reviewed Nurses Notes: Yes Hx Smoking: No Smoking Status: Former Smoker Exposure to Second Hand Smoke?: No Hx Substance Use Disorder: No Hx Alcohol Use: No Constitutional Vital Sign - Last 24 Hours 05/13/17 05/13/17 05/13/17 05/13/17 15:52 15:52 16:00 16:05 Temp 99.4 Pulse 90 90 Resp 20 B/P (MAP) 162/82 162/82 (108) 149/84 (105) Pulse Ox 97 98 O2 Delivery Nasal Cannula 05/13/17 05/13/17 05/13/17 05/13/17 16:20 16:30 16:35 16:50 Pulse 89 ? Resp 18 15 B/P (MAP) 152/94 (113) Pulse Ox 91 89 05/13/17 05/13/17 05/13/17 05/13/17 17:00 17:05 17:10 17:15 Pulse ? B/P (MAP) ???/??? (4556) 154/89 (110) 05/13/17 05/13/17 05/13/17 05/13/17 17:25 17:30 17:40 17:55 Pulse 96 91 92 Resp 28 21 26 B/P (MAP) 158/89 (112) Pulse Ox 88 89 92 05/13/17 05/13/17 05/13/17 05/13/17 18:00 18:10 18:25 18:30 Pulse 85 83 Resp 25 22 B/P (MAP) 147/81 (103) 149/81 (103) Pulse Ox 88 89 05/13/17 05/13/17 05/13/17 05/13/17 18:35 18:50 19:00 19:05 Pulse 90 94 93 Resp 23 25 26 B/P (MAP) 147/77 (100) Pulse Ox 88 89 89 05/13/17 05/13/17 19:30 19:35 Pulse ??? B/P (MAP) ???/??? (1894) Intake and Output 2/04/2905/13/17 05/14/17 15:00 23:00 07:00 Output Total 100 ml Balance -100 ml Physical Exam General Appearance: The patient is alert, has no immediate need for airway protection and no current signs of toxicity. Eyes: Pupils equal and round no injection. Respiratory: Chest is non tender, lungs are clear to auscultation. Cardiac: regular rate and rhythm Gastrointestinal: Abdomen is soft and non tender, no masses, bowel sounds normal. Musculoskeletal: Neck: Neck is unable to be examined at this time secondary to c-collar. Extremities have full range of motion and are non tender. Skin: No rashes or lesions. Patient has a 9 cm laceration to the left forearm which goes into the subcutaneous tissue. Neuro: Patient is alert and oriented 4, cranial nerves II through XII grossly intact. DIFFERENTIAL DIAGNOSIS: After history and physical exam differential diagnosis was considered for head injury including but not limited to concussion, skull fracture, intraparenchymal contusion, subarachnoid, subdural and epidural hematoma. Included in the differential is cervical spine injury, laceration. Medical Decision Making Data Points Result Diagram: 05/13/17 1625 05/13/17 1625 Laboratory Hematology Test 05/13/17 16:25 Red Blood Count 2.91 M/uL (4.17-5.56) Mean Corpuscular Volume 98.5 fL (80.0-96.0) Mean Corpuscular Hemoglobin 32.8 pg (26.0-33.0) Mean Corpuscular Hemoglobin Concent 33.3 g/dL (32.0-36.0) Red Cell Distribution Width 16.4 % (11.5-14.5) Mean Platelet Volume 9.7 fL (7.2-11.1) Neutrophils (%) (Auto) 81.1 % (39.4-72.5) Lymphocytes (%) (Auto) 5.9 % (17.6-49.6) Monocytes (%) (Auto) 11.6 % (4.1-12.4) Eosinophils (%) (Auto) 1.1 % (0.4-6.7) Basophils (%) (Auto) 0.3 % (0.3-1.4) Nucleated RBC Relative Count (auto) 0.0 /100WBC Neutrophils # (Auto) 4.5 K/uL (2.0-7.4) Lymphocytes # (Auto) 0.3 K/uL (1.3-3.6) Monocytes # (Auto) 0.6 K/uL (0.3-1.0) Eosinophils # (Auto) 0.1 K/uL (0.0-0.5) Basophils # (Auto) 0.0 K/uL (0.0-0.1) Nucleated RBC Absolute Count (auto) 0.00 K/uL Prothrombin Time 15.1 seconds (12.0-14.4) Prothromb Time International Ratio 1.18 Activated Partial Thromboplast Time 30 seconds (23-35) Sodium Level 136 mmol/L (137-145) Potassium Level 4.0 mmol/L (3.5-5.0) Chloride Level 102 mmol/L (98-107) Carbon Dioxide Level 26 mmol/L (22-31) Blood Urea Nitrogen 17 mg/dl (7-18) Creatinine 0.90 mg/dl (0.52-1.04) Glomerular Filtration Rate Calc 59.5 Random Glucose 115 mg/dl (75-110) Calcium Level 8.8 mg/dl (8.4-10.2) Total Bilirubin 0.6 mg/dl (0.2-1.3) Aspartate Amino Transf (AST/SGOT) 32 U/L (0-35) Alanine Aminotransferase (ALT/SGPT) 32 U/L (0-56) Alkaline Phosphatase 182 U/L (0-126) Total Protein 6.9 gm/dl (6.3-8.2) Albumin 3.4 g/dl (3.5-5.0) Chemistry Test 05/13/17 16:25 White Blood Count 5.6 k/uL (4.5-11.0) Red Blood Count 2.91 M/uL (4.17-5.56) Hemoglobin 9.5 g/dL (12.0-16.0) Hematocrit 28.6 % (34.0-47.0) Mean Corpuscular Volume 98.5 fL (80.0-96.0) Mean Corpuscular Hemoglobin 32.8 pg (26.0-33.0) Mean Corpuscular Hemoglobin Concent 33.3 g/dL (32.0-36.0) Red Cell Distribution Width 16.4 % (11.5-14.5) Platelet Count 151 K/uL (150-450) Mean Platelet Volume 9.7 fL (7.2-11.1) Neutrophils (%) (Auto) 81.1 % (39.4-72.5) Lymphocytes (%) (Auto) 5.9 % (17.6-49.6) Monocytes (%) (Auto) 11.6 % (4.1-12.4) Eosinophils (%) (Auto) 1.1 % (0.4-6.7) Basophils (%) (Auto) 0.3 % (0.3-1.4) Nucleated RBC Relative Count (auto) 0.0 /100WBC Neutrophils # (Auto) 4.5 K/uL (2.0-7.4) Lymphocytes # (Auto) 0.3 K/uL (1.3-3.6) Monocytes # (Auto) 0.6 K/uL (0.3-1.0) Eosinophils # (Auto) 0.1 K/uL (0.0-0.5) Basophils # (Auto) 0.0 K/uL (0.0-0.1) Nucleated RBC Absolute Count (auto) 0.00 K/uL Prothrombin Time 15.1 seconds (12.0-14.4) Prothromb Time International Ratio 1.18 Activated Partial Thromboplast Time 30 seconds (23-35) Glomerular Filtration Rate Calc 59.5 Calcium Level 8.8 mg/dl (8.4-10.2) Total Bilirubin 0.6 mg/dl (0.2-1.3) Aspartate Amino Transf (AST/SGOT) 32 U/L (0-35) Alanine Aminotransferase (ALT/SGPT) 32 U/L (0-56) Alkaline Phosphatase 182 U/L (0-126) Total Protein 6.9 gm/dl (6.3-8.2) Albumin 3.4 g/dl (3.5-5.0) Coagulation Test 05/13/17 16:25 Prothrombin Time 15.1 seconds Prothromb Time International Ratio 1.18 Activated Partial Thromboplast Time 30 seconds EKG/Imaging Imaging KNEE 4 VIEW LEFT Indication: Fall. Knee pain. Comparison: None available Findings: 4 views left knee were obtained. No acute fracture or dislocation is identified. There is 3 compartment osteoarthritis present most pronounced within the patellofemoral compartment. No joint effusion. There may be small joint bodies in the region of the intercondylar notch. There is reticulation diffusely of the subcutaneous tissues about the knee. Correlate for edema/lymphedema. IMPRESSION: 1. No acute fracture or dislocation at the left knee. 2. 3 compartment osteoarthritis with a patellofemoral compartment predominance. Report Dictated By: Hiram De La Torre at 05/13/2017 6:14 PM Report E-Signed By: Hiram De La Torre at 05/13/2017 6:17 PM FOREARM LEFT Indication: Fall. Laceration. Comparison: None available Findings: Frontal and lateral views of the left forearm are obtained. No acute fracture is identified. Best appreciated on the lateral view, there is dorsal soft tissue swelling overlying the mid to distal portion of the forearm. There is irregularity of the soft tissues in this location and there are some flecks of gas within the soft tissues compatible with the stated history of a laceration. No radiopaque foreign body. There are changes of osteoarthritis at the wrist. IMPRESSION: 1. No acute fracture of the left forearm. 2. Soft tissue swelling with laceration involving the dorsum of the mid to distal forearm. Report Dictated By: Hiram De La Torre at 05/13/2017 6:12 PM Report E-Signed By: Hiram De La Torre at 05/13/2017 6:14 PM EXAMINATION: CT Cervical spine without intravenous contrast HISTORY: Fall with pain. COMPARISON: 04/22/2017. TECHNIQUE: Axial images were obtained from the skull base through the upper thoracic spine without IV contrast administration. Coronal and sagittal reformatted images were obtained from the axial source data. One of the following dose optimization techniques was utilized in the performance of this exam: Automated exposure control; adjustment of the mA and/ or kV according to the patient's size; or use of an iterative reconstruction technique. Specific details can be referenced in the facility's radiology CT exam operational policy. FINDINGS: Alignment: Slight kyphotic curvature of the cervical spine. Cranio-cervical junction: Osteophytes at the atlantodental articulation. Vertebral bodies: Vertebral body heights are maintained. No acute fracture. Posterior elements: Multilevel facet hypertrophy. No acute fracture. Hardware: None. Disc Spaces: Multilevel disc space narrowing which is severe at the C4-5, C5-6, and C6-7 levels. Endplate osteophytes at multiple levels. Soft tissues: No paraspinal soft tissue swelling or hematoma. Calcified plaque of the carotid arteries. Visualized upper chest: Right subclavian approach pacer lead is partially visualized. IMPRESSION: No acute fracture of the cervical spine. Multilevel disc and facet degenerative changes in the cervical spine. Report Dictated By: Kalyan Alan MD at 05/13/2017 5:36 PM Report E-Signed By: Kalyan Alan MD at 05/13/2017 5:46 PM EXAMINATION: Head CT without intravenous contrast HISTORY: Fall. Pain. COMPARISON: 04/22/2017 TECHNIQUE: Contiguous axial images were obtained from the skull base to the vertex without intravenous contrast. Sagittal and coronal reformatted images are also submitted. One of the following dose optimization techniques was utilized in the performance of this exam: Automated exposure control; adjustment of the mA and/ or kV according to the patient's size; or use of an iterative reconstruction technique. Specific details can be referenced in the facility's radiology CT exam operational policy. FINDINGS: Brain and intracranial structures: Mild to moderate cerebral atrophy with corresponding sulcal, ventricular, and cisternal prominence. Mild hypoattenuation in the deep white matter. 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 No midline shift, acute hemorrhage, acute infarct, or mass. Vessels: Calcified plaque of the carotid siphons. Calvarium / scalp: Focal left parietal scalp swelling/hematoma. No acute fracture. Skull base / visualized face: Negative. Visualized sinuses / orbits: Trace mucosal thickening in the maxillary sinuses. The left lens has been extracted or replaced. IMPRESSION: Focal left parietal scalp swelling/hematoma. No acute intracranial abnormality. Mild to moderate cerebral atrophy. Mild chronic small vessel ischemic changes. Report Dictated By: Kalyan Alan MD at 05/13/2017 5:28 PM Report E-Signed By: Kalyan Alan MD at 05/13/2017 5:36 PM ED Course/Re-evaluation ED Course Patient was admitted to exam room, history and physical were obtained. Differential diagnoses were considered. On examination patient does have a bump on the back of her head, tenderness to the left knee as well as pain to left forearm. Pain and left forearm is just over the laceration itself. Due to being on a anticoagulant a CT scan of the head and cervical spine were done. Results of those were negative. X-ray of the left knee as well as left forearm were done both of which were negative. A CBC, CMP, PT, PTT were done. Lab results were unremarkable except patient did have a low INR of 1.18. The wound was anesthetized, cleaned and repaired described below. I discussed the findings of the labs as well as the x-rays and CT scans with the patient and family. We will go ahead and discharge her home at this time. Prior to discharge her did have a lengthy discussion with the daughter about care. She is concerned about the number of falls patient has had. I verbalized my understanding with that, stating that I have mild concerns. We discussed home health. Daughter states they've started to have home health for wound care with laceration to the right hand. I encouraged her to talk with her parents about expanding that so somebody could be there to help with the patient when ambulating. Prior to discharge the patient did slip off of the bed landing on the floor. Patient had no injury at that time. She denied any loss of consciousness, she is able to ambulate with no difficulties. We will go ahead and discharge patient home at this time. I would encourage him to follow-up with their home health to see if he can expand services to get assistance in the house. Procedure: Laceration repair. Verbal consent was obtained from the patient. The 9 cm laceration on the left forearm was anesthetized in the usual fashion. The wound was scrubbed, draped and explored to its base with a gloved finger. There were no deep structures involved. No tendon injury was identified. The wound was repaired with 17 simple interrupted sutures using 5-0 Prolene material. The wound repair was simple. The procedure was performed by myself. Decision to Disposition Date: May 13, 2017 Decision to Disposition Time: 18:24 Depart Departure Latest Vital Signs Vital Signs Date Time Temp Pulse Resp B/P (MAP) Pulse Ox O2 Delivery O2 Flow Rate FiO2 05/13/17 19:35 ??? 05/13/17 19:30 ???/??? (1665) 05/13/17 19:05 26 89 05/13/17 15:52 99.4 Nasal Cannula Impression: Primary Impression: Laceration Additional Impressions: Scalp contusion Fall from ground level Condition: Improved Disposition: HOME OR SELF-CARE Referrals: EVERTON RIOS MD (PCP) Patient Instructions: Laceration (ED) Additional Instructions: Keep wound dry for 48 hours. Follow up with your primary care provider in the next 7-10 days to have sutures removed. Monitor for signs of infection; redness, swelling, heat, discharge, increasing pain or red streaking. Take Tylenol or Ibuprofen as needed for pain. Return to the ER with any concerns. You may change dressing as needed. Talk with home health about getting a nurse in to help with dressing changes and possible assistance. Problem Qualifiers Additional Impressions: Scalp contusion Encounter type: initial encounter Qualified Codes: S00.03XA - Contusion of scalp, initial encounter KELLY LEMUS May 13, 2017 15:57
[2017-05-13 16:35] LABS: PLATELET COUNT, AUTOMATED 151 K/uL (150-450)
[2017-05-13 16:41] LABS: INR 1.18
--- NOTE | 2017-05-13 17:39 | RADIOLOGY IMAGING REPORT ---
FAC[facility] PATIENT NAME: Nadia Baumann : 1930 MR: [id number] V: [id number] EXAM DATE: ORDERING PHYSICIAN: KELLY LEMUS TECHNOLOGIST: Location: [facility] Patient: Nadia Baumann : 1930 Visit/Account:[id number] Date of Sevice: 05/13/2017 EXAMINATION: Head CT without intravenous contrast HISTORY: Fall. Pain. COMPARISON: 04/22/2017 TECHNIQUE: Contiguous axial images were obtained from the skull base to the vertex without intraven ous contrast. Sagittal and coronal reformatted images are also submitted. One of the following dose optimization techniques was utilized in the performance of this exam: Autom ated exposure control; adjustment of the mA and/or kV according to the patient's size; or use of an i terative reconstruction technique. Specific details can be referenced in the facility's radiology C T exam operational policy. FINDINGS: Brain and intracranial structures: Mild to moderate cerebral atrophy with corresponding sulcal, vent ricular, and cisternal prominence. Mild hypoattenuation in the deep white matter. Small chronic infar ct in the left cerebellum, unchanged. No midline shift, acute hemorrhage, acute infarct, or mass. Vessels: Calcified plaque of the carotid siphons. Calvarium / scalp: Focal left parietal scalp swelling/hematoma. No acute fracture. Skull base / visualized face: Negative. Visualized sinuses / orbits: Trace mucosal thickening in the maxillary sinuses. The left lens has be en extracted or replaced. IMPRESSION: Focal left parietal scalp swelling/hematoma. No acute intracranial abnormality. Mild to moderate cerebral atrophy. Mild chronic small vessel ischemic changes. Report Dictated By: Kalyan Alan MD at 05/13/2017 5:28 PM Report E-Signed By: Kalyan Alan MD at 05/13/2017 5:36 PM WSN:[id number]
--- NOTE | 2017-05-13 17:50 | RADIOLOGY IMAGING REPORT ---
[place] [facility] [place]IENT NAME: Nadia Baumann : 1930 MR: [id number] V: [id number] EXAM DATE: ORDERING PHYSICIAN: KELLY LEMUS TECHNOLOGIST: Location: [facility] [place] Patient: Nadia Baumann : 1930 Visit/Account:[id number] Date of Sevice: 05/13/2017 EXAMINATION: CT Cervical spine without intravenous contrast HISTORY: Fall with pain. COMPARISON: 04/22/2017. TECHNIQUE: Axial images were obtained from the skull base through the upper thoracic spine without I V contrast administration. Coronal and sagittal reformatted images were obtained from the axial [facility] e data. One of the following dose optimization techniques was utilized in the performance of this exam: Autom ated exposure control; adjustment of the mA and/or kV according to the patient's size; or use of an i terative reconstruction technique. Specific details can be referenced in the facility's radiology C T exam operational policy. FINDINGS: Alignment: Slight kyphotic curvature of the cervical spine. Cranio-cervical junction: Osteophytes at the atlantodental articulation. Vertebral bodies: Vertebral body heights are maintained. No acute fracture. Posterior elements: Multilevel facet hypertrophy. No acute fracture. Hardware: None. Disc Spaces: Multilevel disc space narrowing which is severe at the C4-5, C5-6, and C6-7 levels. Endp late osteophytes at multiple levels. Soft tissues: No paraspinal soft tissue swelling or hematoma. Calcified plaque of the carotid arterie s. Visualized upper chest: Right subclavian approach pacer lead is partially visualized. IMPRESSION: No acute fracture of the cervical spine. Multilevel disc and facet degenerative changes in the cervical spine. Report Dictated By: Kalyan Alan MD at 05/13/2017 5:36 PM Report E-Signed By: Kalyan Alan MD at 05/13/2017 5:46 PM WSN:[id number]
--- NOTE | 2017-05-13 18:18 | RADIOLOGY IMAGING REPORT ---
FACILITY: [facility] PATIENT NAME: Nadia Baumann : 1930 MR: [id number] V: [id number] EXAM DATE: ORDERING PHYSICIAN: KELLY LEMUS TECHNOLOGIST: Location: [facility] Patient: Nadia Baumann : 1930 Visit/Account:[id number] Date of Sevice: 05/13/2017 FOREARM LEFT Indication: Fall. Laceration. Comparison: None available Findings: Frontal and lateral views of the left forearm are obtained. No acute fracture is identified. Best steve reciated on the lateral view, there is dorsal soft tissue swelling overlying the mid to distal portio n of the forearm. There is irregularity of the soft tissues in this location and there are some tavares s of gas within the soft tissues compatible with the stated history of a laceration. No radiopaque fo reign body. There are changes of osteoarthritis at the wrist. IMPRESSION: 1. No acute fracture of the left forearm. 2. Soft tissue swelling with laceration involving the dorsum of the mid to distal forearm. Report Dictated By: Hiram De La Torre at 05/13/2017 6:12 PM Report E-Signed By: Hiram De La Torre at 05/13/2017 6:14 PM WSN:[id number]
--- NOTE | 2017-05-13 18:20 | RADIOLOGY IMAGING REPORT ---
FACILITY: [facility] - [place] PATIENT NAME: Nadia Baumann : 1930 MR: [id number] V: [id number] EXAM DATE: ORDERING PHYSICIAN: KELLY LEMUS TECHNOLOGIST: Location: [facility] [place] Patient: Nadia Baumann : 1930 Visit/Account:[id number] Date of Sevice: 05/13/2017 KNEE 4 VIEW LEFT Indication: Fall. Knee pain. Comparison: None available Findings: 4 views left knee were obtained. No acute fracture or dislocation is identified. There is 3 compartment osteoarthritis present most pr onounced within the patellofemoral compartment. No joint effusion. There may be small joint bodies in the region of the intercondylar notch. There is reticulation diffusely of the subcutaneous tissues a bout the knee. Correlate for edema/lymphedema. IMPRESSION: 1. No acute fracture or dislocation at the left knee. 2. 3 compartment osteoarthritis with a patellofemoral compartment predominance. Report Dictated By: Hiram De La Torre at 05/13/2017 6:14 PM Report E-Signed By: Hiram De La Torre at 05/13/2017 6:17 PM WSN:[id number]
== END 2017-05-13 19:26 | disposition home or self-care (01) ==
LOC: ER 16:00
DX: S51.812A Laceration without foreign body of left forearm, initial encounter (principal); S00.03XA Contusion of scalp, initial encounter; W18.30XA Fall on same level, unspecified, initial encounter
CPT/HCPCS: 70450; 72125; 73564; 82040; 82247; 82310; 82374; 82435; 82565; 82947; 84075; 84132; 84155; 84295; 84450; 84460; 84520; 85025; 85610; 85730; 99284

== ENCOUNTER → 2017-05-13 | Outpatient (CLI) | payer MEDICARE, OTHER ==
[2017-04-07 13:01] VITALS: BMI 23.6
[~2017-05-13] MED LIST changes: +CEPH500T7 PO; +DIGO125T25 PO; -DIGO125T77 PO; +TRAM-420 PO; -WARF-18 PO; +WARF5TAB23 PO
== END ==
LOC: AMB 15:30
PROVIDERS: ATTEND Nurse Practitioner
DX: R51 Headache (principal); S00.93XA Contusion of unspecified part of head, initial encounter; S51.812A Laceration without foreign body of left forearm, initial encounter; W18.30XA Fall on same level, unspecified, initial encounter
CPT/HCPCS: A0425; A0427

== ENCOUNTER 2017-05-27 06:04 | Emergency (ER) | payer MEDICARE, OTHER ==
[2017-04-07 13:01] VITALS: Ht 157.5 cm; Wt 55.8 kg
[~2017-05-27] VITALS: Ht 157.5 cm; Wt 55.8 kg
[~2017-05-27 06:04] MED LIST changes: +CEPH500T7 PO; +DIGO125T25 PO; -DIGO125T77 PO; -WARF-18 PO; +WARF5TAB23 PO
[2017-05-27 06:09] VITALS: BP 133/91
--- NOTE | 2017-05-27 06:13 | ER Report ---
History and Physical Time Seen By MD: 06:13 Hx. of Stated Complaint: patient slept wrong in chair, she has pain in her neck, she did not take anything at home for pain. HPI/ROS CHIEF COMPLAINT: Neck pain HISTORY OF PRESENT ILLNESS: 86-year-old female presents ambulatory the ER complaining of neck pain. Patient states she fell asleep in a chair in awkward position with her neck kinked. She's been having neck pain for last several hours. She notes no pain aggravated by movement and palpation. She is no radiation of symptoms to her extremities. She notes no specific traumatic injury. Allergies: Coded Allergies: No Known Drug Allergies (Unverified , 05/27/17) Home Meds Active Scripts Tramadol Hcl (TRAMADOL HCL) 50 Mg Tablet, 1 TAB PO Q6H Y for PAIN, #15 TAB Prov:NE HARRIS DO 05/27/17 Oxymetazoline Hcl (AFRIN) 30 Ml [place], 2 SPR DAR BID Y for BLEEDING for 7 Days, #1 BOTTLE two sprays into nostril to stop bleeding Prov:ROOSEVELT JOHANSEN MD 05/07/17 Simvastatin (SIMVASTATIN) 20 Mg Tablet, 1 TAB PO HS, #90 TAB 3 Refills Prov:EVERTON RIOS MD 03/02/17 Omeprazole (OMEPRAZOLE) 20 Mg Capsule.dr, 1 CAP PO QAM, #90 CAP 3 Refills TAKE ONE CAPSULE BY MOUTH ONCE A DAY Prov:IZABELLA GARAY PHARMD 01/15/17 Warfarin Sodium (WARFARIN SODIUM) 7.5 Mg Tablet, 1 TAB PO QDAY, #30 TAB 12 Refills Prov:EVERTON RIOS MD 03/20/16 Reported Medications Calcium Carb & Cit/Vitamin D3 (CITRACAL + D ER TABLET) 1 Each Tablet.er, 1 TAB PO QDAY 04/03/15 Ferrous Sulfate (IRON) 325 Mg Capsule.er, 325 MG PO TID 02/01/15 Discontinued Scripts Cephalexin 500 Mg Tab (KEFLEX 500 MG TAB) 500 Mg Tablet, 500 MG PO Q12H for 5 Days, #10 TAB Prov:ROOSEVELT JOHANSEN MD 05/19/17 Hx Smoking: No Smoking Status: Former Smoker Exposure to Second Hand Smoke?: No Hx Substance Use Disorder: No Hx Alcohol Use: No Constitutional Physical Exam General appearance: Alert no distress. Respiratory: Chest is non tender, lungs are clear to auscultation. Cardiac: Regular rate and rhythm Musculoskeletal: There is tenderness on palpation of the upper thoracic and lower cervical musculature. DIFFERENTIAL DIAGNOSIS: After history and physical exam differential diagnosis was considered for cervical strain, compression fracture, lymphadenopathy Medical Decision Making ED Course/Re-evaluation ED Course Patient was admitted to an examination room. H&P was done. The differential diagnoses was considered. Patient's mechanism injury and symptoms are consistent with cervical strain. Patient's advised conservative treatment plan. She is unable take NSAIDs. She is on chronic adequate elation. She is an elderly lady with an unsteady gait and reluctant to put her on any opiate pain relievers or muscle relaxants. It might alter her risk of a fall be significant. Patient was advised Tylenol and a heating pad to alleviate the spasm. She was given a limited supply of tramadol to try that was unsuccessful. She is advised to follow-up with her primary care. She could if it from some physical therapy. Decision to Disposition Date: May 27, 2017 Decision to Disposition Time: 06:24 Depart Departure Latest Vital Signs Impression: Primary Impression: Cervical strain Condition: Improved Disposition: HOME OR SELF-CARE Referrals: EVERTON RIOS MD (PCP) New Scripts Tramadol Hcl (TRAMADOL HCL) 50 Mg Tablet 1 TAB PO Q6H Y for PAIN, #15 TAB Prov: NE HARRIS DO 05/27/17 Patient Instructions: Cervical Strain (ED) Additional Instructions: Use Tylenol for pain relief Apply heating pad to the neck area of its involvement Follow-up with your primary care doctor if unimproved in 3-5 days Problem Qualifiers Primary Impression: Cervical strain Encounter type: initial encounter Qualified Codes: S16.1XXA - Strain of muscle, fascia and tendon at neck level, initial encounter NE HARRIS DO May 27, 2017 06:13
[2017-05-27] MEDS ORDERED: ACETAMINOPHEN 325 MG TAB PO ONE (06:25)
[2017-05-27] MEDS ORDERED: TRAM-420 PO (06:26)
== END 2017-05-27 06:35 | disposition home or self-care (01) ==
LOC: ER 06:07
DX: S16.1XXA Strain of muscle, fascia and tendon at neck level, initial encounter (principal)
CPT/HCPCS: 99283; A9270

== ENCOUNTER → 2017-06-01 | Outpatient (CLI) | payer MEDICARE, OTHER ==
[2017-04-07 13:01] VITALS: BMI 23.6
[~2017-06-01] MED LIST changes: +CYAN100088 PO; +SULF15DR26 OS; +TRAM-420 PO
[2017-06-01 17:07] LABS: PLATELET COUNT, AUTOMATED 168 K/uL (150-450)
[2017-06-01 17:09] LABS: INR 2.59
== END ==
LOC: LAB 16:41
PROVIDERS: ATTEND Internal Medicine
DX: Z51.81 Encounter for therapeutic drug level monitoring (principal); Z79.01 Long term (current) use of anticoagulants; Z95.4 Presence of other heart-valve replacement; I48.91 Unspecified atrial fibrillation; D64.9 Anemia, unspecified
CPT/HCPCS: 36415; 82040; 82247; 82310; 82374; 82435; 82565; 82947; 84075; 84132; 84155; 84295; 84443; 84450; 84460; 84520; 85025; 85610

== ENCOUNTER 2017-06-13 21:21 | Emergency (ER) | payer MEDICARE, OTHER ==
[2017-04-07 13:01] VITALS: Wt 61.2 kg
--- NOTE | 2017-06-13 21:26 | ER Report ---
History and Physical Time Seen By MD: 21:26 HPI/ROS CHIEF COMPLAINT: Weakness HISTORY OF PRESENT ILLNESS: This is an 86 year old female. She was getting ready for bed. She felt very weak, especially in her knees. Because of the problems she has had with anemia in the recent past, they were worried about that. She has still been having nosebleeds, but much reduced compared to recent past. She denies any fevers or chills. She always has a mild cough, which has continued, but not worsened. She has no chest pain. No fevers or chills. No sore throat. No abdominal pain, nausea or vomiting. No diarrhea or trouble with bowels. Denies dysuria. She has some mild edema but has improved with diuretics. Allergies: Coded Allergies: No Known Drug Allergies (Unverified , 05/27/17) Home Meds Active Scripts Furosemide (FUROSEMIDE) 20 Mg Tablet, 1 TAB PO QDAY, #30 TAB 2 Refills Prov:EVERTON STEINBERG MD 06/02/17 Sulfacetamide Sodium (SULFACETAMIDE SODIUM) 15 Ml D[place], 15 ML OS QID, #15 ML Prov:EVERTON STEINBERG MD 06/01/17 Oxymetazoline Hcl (AFRIN) 30 Ml [place], 2 SPR DAR BID Y for BLEEDING for 7 Days, #1 BOTTLE two sprays into nostril to stop bleeding Prov:ROOSEVELT JOHANSEN MD 05/07/17 Simvastatin (SIMVASTATIN) 20 Mg Tablet, 1 TAB PO HS, #90 TAB 3 Refills Prov:EVERTON STEINBERG MD 03/02/17 Omeprazole (OMEPRAZOLE) 20 Mg Capsule.dr, 1 CAP PO QAM, #90 CAP 3 Refills TAKE ONE CAPSULE BY MOUTH ONCE A DAY Prov:IZABELLA GARAY PHARMD 01/15/17 Warfarin Sodium (WARFARIN SODIUM) 7.5 Mg Tablet, 1 TAB PO QDAY, #30 TAB 12 Refills Prov:EVERTON STEINBERG MD 03/20/16 Reported Medications Cyanocobalamin (Vitamin B-12) (B-12) 1,000 Mcg Tablet.er, 1000 MCG PO QDAY 06/01/17 Calcium Carb & Cit/Vitamin D3 (CITRACAL + D ER TABLET) 1 Each Tablet.er, 1 TAB PO QDAY 04/03/15 Ferrous Sulfate (IRON) 325 Mg Capsule.er, 325 MG PO TID 02/01/15 Reviewed Nurses Notes: Yes Hx Smoking: No Smoking Status: Former Smoker Exposure to Second Hand Smoke?: No Hx Substance Use Disorder: No Hx Alcohol Use: No Constitutional Vital Sign - Last 24 Hours 06/13/17 06/13/17 06/13/17 06/13/17 21:26 21:27 21:36 21:51 Temp 98.9 Pulse 91 82 79 Resp 16 B/P (MAP) 135/83 135/83 (100) Pulse Ox 94 91 91 O2 Delivery Room Air 06/13/17 06/13/17 06/13/17 06/13/17 21:56 22:01 22:06 22:11 Pulse 76 80 81 82 Resp 23 9 15 21 Pulse Ox 94 91 92 92 06/13/17 06/13/17 06/13/17 06/13/17 22:24 22:26 22:30 22:31 Pulse 77 80 Resp 21 20 B/P (MAP) 148/68 (94) 151/76 (101) Pulse Ox 94 91 06/13/17 06/13/17 06/13/17 06/13/17 22:36 22:41 22:46 22:51 Pulse 77 72 82 78 Resp 22 19 20 15 Pulse Ox 90 91 91 86 Intake and Output 06/13/17 06/13/17 06/14/17 15:00 23:00 07:00 Output Total 200 ml Balance -200 ml Physical Exam General Appearance: The patient is alert. No acute distress. Eyes: Pupils are equal, round. No pallor, injection or icterus. ENT: Mucous membranes are moist. Normal oral mucosa. Posterior oropharynx is normal. Neck: Supple and non tender. No lymphadenopathy. Respiratory: Lungs are clear to auscultation. Cardiovascular: Regular rate but irregular rhythm. Atrial fibrillation on monitor. She has a holosystolic murmur about grade 3. Normal capillary refill. Trace ankle edema. Gastrointestinal: Abdomen is soft and non tender. Nondistended. Normal active bowel sounds. Neurological: Alert and oriented x3. Generalized weakness, but no focal deficits noted. Skin: Warm and dry DIFFERENTIAL DIAGNOSIS: After history and physical exam, differential diagnosis was considered for patient with generalized weakness of uncertain etiology, we' ll look for various causes including cardiovascular such as [place] versus heart failure, electrolyte abnormalities or other metabolic problems, anemia. Medical Decision Making Data Points Result Diagram: 06/13/17214906/13/172149 Laboratory Hematology Test 06/13/17 21:50 Red Blood Count 2.97 M/uL (4.17-5.56) Mean Corpuscular Volume 98.0 fL (80.0-96.0) Mean Corpuscular Hemoglobin 31.8 pg (26.0-33.0) Mean Corpuscular Hemoglobin Concent 32.4 g/dL (32.0-36.0) Red Cell Distribution Width 15.2 % (11.5-14.5) Mean Platelet Volume 10.0 fL (7.2-11.1) Neutrophils (%) (Auto) 72.2 % (39.4-72.5) Lymphocytes (%) (Auto) 12.6 % (17.6-49.6) Monocytes (%) (Auto) 11.5 % (4.1-12.4) Eosinophils (%) (Auto) 3.1 % (0.4-6.7) Basophils (%) (Auto) 0.6 % (0.3-1.4) Nucleated RBC Relative Count (auto) 0.1 /100WBC Neutrophils # (Auto) 2.8 K/uL (2.0-7.4) Lymphocytes # (Auto) 0.5 K/uL (1.3-3.6) Monocytes # (Auto) 0.4 K/uL (0.3-1.0) Eosinophils # (Auto) 0.1 K/uL (0.0-0.5) Basophils # (Auto) 0.0 K/uL (0.0-0.1) Nucleated RBC Absolute Count (auto) 0.00 K/uL Prothrombin Time 39.4 seconds (12.0-14.4) Prothromb Time International Ratio 3.84 Urine Color Yellow Urine Clarity Clear Urine pH 7.0 pH (4.8-9.5) Urine Specific [place] 1.016 Urine Protein Negative mg/dL (NEGATIVE) Urine Glucose (UA) Negative mg/dL (NEGATIVE) Urine Ketones Negative mg/dL (NEGATIVE) Urine Blood Negative (NEGATIVE) Urine Nitrite Negative (NEGATIVE) Urine Bilirubin Negative (NEGATIVE) Urine Urobilinogen Negative mg/dL (0.2-1.9) Urine Leukocyte Esterase Negative (NEGATIVE) Urine RBC 1 /HPF (0-2/HPF) Urine WBC 1 /HPF (0-5/HPF) Urine Squamous Epithelial Cells Few /LPF (NONE-FEW) Urine Amorphous Crystals Few /HPF Urine Bacteria Negative /HPF (NONE-FEW) Urine Mucus None /HPF (NONE-FEW) Sodium Level 136 mmol/L (137-145) Potassium Level 3.8 mmol/L (3.5-5.0) Chloride Level 103 mmol/L (98-107) Carbon Dioxide Level 24 mmol/L (22-31) Blood Urea Nitrogen 25 mg/dl (7-18) Creatinine 1.00 mg/dl (0.52-1.04) Glomerular Filtration Rate Calc 52.7 Random Glucose 101 mg/dl (75-110) Calcium Level 8.8 mg/dl (8.4-10.2) Total Bilirubin 0.4 mg/dl (0.2-1.3) Aspartate Amino Transf (AST/SGOT) 24 U/L (0-35) Alanine Aminotransferase (ALT/SGPT) 27 U/L (0-56) Alkaline Phosphatase 157 U/L (0-126) Troponin I < 0.012 ng/ml B-Type Natriuretic Peptide 103 pg/ml (0-100) Total Protein 7.1 gm/dl (6.3-8.2) Albumin 3.6 g/dl (3.5-5.0) Chemistry Test 06/13/17 21:50 White Blood Count 3.8 k/uL (4.5-11.0) Red Blood Count 2.97 M/uL (4.17-5.56) Hemoglobin 9.4 g/dL (12.0-16.0) Hematocrit 29.1 % (34.0-47.0) Mean Corpuscular Volume 98.0 fL (80.0-96.0) Mean Corpuscular Hemoglobin 31.8 pg (26.0-33.0) Mean Corpuscular Hemoglobin Concent 32.4 g/dL (32.0-36.0) Red Cell Distribution Width 15.2 % (11.5-14.5) Platelet Count 172 K/uL (150-450) Mean Platelet Volume 10.0 fL (7.2-11.1) Neutrophils (%) (Auto) 72.2 % (39.4-72.5) Lymphocytes (%) (Auto) 12.6 % (17.6-49.6) Monocytes (%) (Auto) 11.5 % (4.1-12.4) Eosinophils (%) (Auto) 3.1 % (0.4-6.7) Basophils (%) (Auto) 0.6 % (0.3-1.4) Nucleated RBC Relative Count (auto) 0.1 /100WBC Neutrophils # (Auto) 2.8 K/uL (2.0-7.4) Lymphocytes # (Auto) 0.5 K/uL (1.3-3.6) Monocytes # (Auto) 0.4 K/uL (0.3-1.0) Eosinophils # (Auto) 0.1 K/uL (0.0-0.5) Basophils # (Auto) 0.0 K/uL (0.0-0.1) Nucleated RBC Absolute Count (auto) 0.00 K/uL Prothrombin Time 39.4 seconds (12.0-14.4) Prothromb Time International Ratio 3.84 Urine Color Yellow Urine Clarity Clear Urine pH 7.0 pH (4.8-9.5) Urine Specific [place] 1.016 Urine Protein Negative mg/dL (NEGATIVE) Urine Glucose (UA) Negative mg/dL (NEGATIVE) Urine Ketones Negative mg/dL (NEGATIVE) Urine Blood Negative (NEGATIVE) Urine Nitrite Negative (NEGATIVE) Urine Bilirubin Negative (NEGATIVE) Urine Urobilinogen Negative mg/dL (0.2-1.9) Urine Leukocyte Esterase Negative (NEGATIVE) Urine RBC 1 /HPF (0-2/HPF) Urine WBC 1 /HPF (0-5/HPF) Urine Squamous Epithelial Cells Few /LPF (NONE-FEW) Urine Amorphous Crystals Few /HPF Urine Bacteria Negative /HPF (NONE-FEW) Urine Mucus None /HPF (NONE-FEW) Glomerular Filtration Rate Calc 52.7 Calcium Level 8.8 mg/dl (8.4-10.2) Total Bilirubin 0.4 mg/dl (0.2-1.3) Aspartate Amino Transf (AST/SGOT) 24 U/L (0-35) Alanine Aminotransferase (ALT/SGPT) 27 U/L (0-56) Alkaline Phosphatase 157 U/L (0-126) Troponin I < 0.012 ng/ml B-Type Natriuretic Peptide 103 pg/ml (0-100) Total Protein 7.1 gm/dl (6.3-8.2) Albumin 3.6 g/dl (3.5-5.0) Coagulation Test 06/13/17 21:50 Prothrombin Time 39.4 seconds Prothromb Time International Ratio 3.84 Urinalysis Test 06/13/17 21:50 Urine Color Yellow Urine Clarity Clear Urine pH 7.0 pH (4.8-9.5) Urine Specific [place] 1.016 Urine Protein Negative mg/dL (NEGATIVE) Urine Glucose (UA) Negative mg/dL (NEGATIVE) Urine Ketones Negative mg/dL (NEGATIVE) Urine Blood Negative (NEGATIVE) Urine Nitrite Negative (NEGATIVE) Urine Bilirubin Negative (NEGATIVE) Urine Urobilinogen Negative mg/dL (0.2-1.9) Urine Leukocyte Esterase Negative (NEGATIVE) Urine RBC 1 /HPF (0-2/HPF) Urine WBC 1 /HPF (0-5/HPF) Urine Squamous Epithelial Cells Few /LPF (NONE-FEW) Urine Amorphous Crystals Few /HPF Urine Bacteria Negative /HPF (NONE-FEW) Urine Mucus None /HPF (NONE-FEW) EKG/Imaging EKG Interpretation 12 lead EKG: Rhythm: Atrial fibrillation, rate 79 [place]: normal QRS: normal ST segments: Nonspecific flattening Imaging CHEST SINGLE AP 06/13/2017 21:32 hours. HISTORY: Weakness. COMPARISON: 04/07/2017 and studies dating to 12/29/2007. TECHNIQUE: Portable AP view of the chest. FINDINGS: Tubes/lines/hardware: Pacemaker generator overlies the right upper chest and single lead terminates in the right ventricle. There is a cardiac valve prosthesis. Pulmonary: Lungs are clear. There is no pneumothorax or pleural effusion. Cardiomediastinal: The cardiac silhouette is enlarged, stable. The mediastinal silhouette is within normal limits. Bones/soft tissues: No acute osseous abnormality. The visible abdomen is normal. IMPRESSION: 1. Stable cardiomegaly, but no acute cardiopulmonary process. Report Dictated By: Heather Caldera at 06/13/2017 10:07 PM ED Course/Re-evaluation Clinical Indication for ER IV: IV Access ED Course Labs show mild anemia which is chronic for her. Troponin, BNP and EKG without signs of acute changes or ischemia. BUN mildly elevated, and mild decrease sodium. Imaging negative chest. Recommended follow-up with primary care and a little bit more fluid intake over the next few days. No changes to medications at this time. Will call Dr. Steinberg's office tomorrow to schedule an appointment for this week. Decision to Disposition Date: Jun 13, 2017 Decision to Disposition Time: 22:47 Depart Departure Latest Vital Signs Vital Signs Date Time Temp Pulse Resp B/P (MAP) Pulse Ox O2 Delivery O2 Flow Rate FiO2 06/13/17 22:51 78 15 86 06/13/17 22:30 151/76 (101) 06/13/17 21:26 98.9 Room Air Impression: Primary Impression: Weakness generalized Condition: Improved Disposition: HOME OR SELF-CARE Referrals: EVERTON STEINBERG MD (PCP) Patient Instructions: Weakness (ED) Additional Instructions: We did not find a specific cause for your weakness tonight. We recommend rest and some increased fluid intake. Follow-up with your primary care provider this week for re-evaluation. MARCIE HERNANDEZ MD Jun 13, 2017 21:26
--- NOTE | 2017-06-13 21:46 | EKG ---
FACILITY: [facility] - [place] PATIENT NAME: JONAH MAYNARD : [id number] MR: [id number] V: [id number] EXAM DATE: ORDERING PHYSICIAN: MARCIE HERNANDEZ TECHNOLOGIST: [place] Reason : Blood Pressure : / mmHG Vent. Rate : 079 BPM Atrial Rate : 066 BPM P-R Int : 000 ms QRS Dur : 082 ms QT Int : 406 ms P-R-T Axes : 000 083 -29 degrees QTc Int : 465 ms Atrial fibrillation Possible Anteroseptal infarct , age undetermined Abnormal ECG When compared with ECG of 07-APR-2017 11:48, Borderline criteria for Anteroseptal infarct are now present Confirmed by CRISTY QUISPE ([id number]) on 06/14/2017 7:34:31 AM Referred By: Confirmed By:CRISTY QUISPE
[2017-06-13 22:10] LABS: PLATELET COUNT, AUTOMATED 172 K/uL (150-450)
[2017-06-13 22:16] LABS: INR 3.84
--- NOTE | 2017-06-13 22:16 | RADIOLOGY IMAGING REPORT ---
FACILITY: [facility] - [place] PATIENT NAME: Nadia Baumann : 1930 MR: [id number] V: [id number] EXAM DATE: ORDERING PHYSICIAN: MARCIE HERNANDEZ TECHNOLOGIST: Location: [facility] Patient: Nadia Baumann : 1930 Visit/Account:[id number] Date of Sevice: 06/13/2017 CHEST SINGLE AP 06/13/2017 21:32 hours. HISTORY: Weakness. COMPARISON: 04/07/2017 and studies dating to 12/29/2007. TECHNIQUE: Portable AP view of the chest. FINDINGS: Tubes/lines/hardware: Pacemaker generator overlies the right upper chest and single lead terminates i n the right ventricle. There is a cardiac valve prosthesis. Pulmonary: Lungs are clear. There is no pneumothorax or pleural effusion. Cardiomediastinal: The cardiac silhouette is enlarged, stable. The mediastinal silhouette is within n ormal limits. Bones/soft tissues: No acute osseous abnormality. The visible abdomen is normal. IMPRESSION: 1. Stable cardiomegaly, but no acute cardiopulmonary process. Report Dictated By: Heather Caldera at 06/13/2017 10:07 PM Report E-Signed By: Heather Caldera at 06/13/2017 10:12 PM WSN:[id number]
[2017-06-13 22:30] VITALS: BP 151/76
== END 2017-06-13 22:56 | disposition home or self-care (01) ==
LOC: ER 21:26
DX: R53.1 Weakness (principal); Z79.01 Long term (current) use of anticoagulants; I48.91 Unspecified atrial fibrillation
CPT/HCPCS: 71045; 81001; 83880; 84484; 85025; 85610; 93005; 99284; A4353; 82040; 82247; 82310; 82374; 82435; 82565; 82947; 84075; 84132; 84155; 84295; 84450; 84460; 84520

== ENCOUNTER 2017-06-15 23:47 | Emergency (ER) | payer MEDICARE, OTHER ==
[2017-04-07 13:01] VITALS: Ht 157.5 cm; Wt 56.7 kg
[~2017-06-15] VITALS: Ht 157.5 cm; Wt 56.7 kg
[~2017-06-15 23:47] MED LIST changes: +WARF7.5T13 PO; -WARF7.5T32 PO
--- NOTE | 2017-06-16 00:07 | ER Report ---
History and Physical Time Seen By MD: 00:05 Hx. of Stated Complaint: PATIENT FELL OUT OF BED HITTING HER HEAD ON THE BEDSIDE TABLE. PATIENT HAS HEADACHE. HPI/ROS 86-year-old female who is on Coumadin presents after rolling out of bed. She did hit her head. No loss of consciousness. Only complaints at this time are some tenderness and pain in the back of her head where she hit it. She otherwise denies any recent illness associated fever, chills, nausea, vomiting, diarrhea chest pain, shortness of breath, weakness, urinary frequency or burning , diarrhea. Review of systems: Constitutional: Per history of present illness Skin symptoms: No rash Eye symptoms: No vision changes ENMT symptoms: Per history of present illness Respiratory symptoms: Per history of present illness Cardiovascular symptoms: Per history of present illness Gastrointestinal symptoms: Per history of present illness Musculoskeletal symptoms: Per history of present illness Neurologic symptoms: No numbness tingling or unilateral weakness. Baseline mental status. All other systems reviewed and otherwise negative. Allergies: Coded Allergies: No Known Drug Allergies (Unverified , 05/27/17) Home Meds Active Scripts Furosemide (FUROSEMIDE) 20 Mg Tablet, 1 TAB PO QDAY, #30 TAB 2 Refills Prov:EVERTON RIOS MD 06/02/17 Sulfacetamide Sodium (SULFACETAMIDE SODIUM) 15 Ml Drops, 15 ML OS QID, #15 ML Prov:EVERTON RIOS MD 06/01/17 Oxymetazoline Hcl (AFRIN) 30 Ml [place], 2 SPR DAR BID Y for BLEEDING for 7 Days, #1 BOTTLE two sprays into nostril to stop bleeding Prov:ROOSEVELT JOHANSEN MD 05/07/17 Simvastatin (SIMVASTATIN) 20 Mg Tablet, 1 TAB PO HS, #90 TAB 3 Refills Prov:EVERTON RIOS MD 03/02/17 Omeprazole (OMEPRAZOLE) 20 Mg Capsule.dr, 1 CAP PO QAM, #90 CAP 3 Refills TAKE ONE CAPSULE BY MOUTH ONCE A DAY Prov:IZABELLA GARAY PHARMD 01/15/17 Warfarin Sodium (WARFARIN SODIUM) 7.5 Mg Tablet, 1 TAB PO QDAY, #30 TAB 12 Refills Prov:EVERTON RIOS MD 03/20/16 Reported Medications Cyanocobalamin (Vitamin B-12) (B-12) 1,000 Mcg Tablet.er, 1000 MCG PO QDAY 06/01/17 Calcium Carb & Cit/Vitamin D3 (CITRACAL + D ER TABLET) 1 Each Tablet.er, 1 TAB PO QDAY 04/03/15 Ferrous Sulfate (IRON) 325 Mg Capsule.er, 325 MG PO TID 02/01/15 Past Medical/Surgical History Reviewed in EMR Hx Smoking: No Smoking Status: Former Smoker Exposure to Second Hand Smoke?: No Hx Substance Use Disorder: No Hx Alcohol Use: No Constitutional Vital Sign - Last 24 Hours 06/15/17 23:54 Temp 98.5 Pulse 93 Resp 20 B/P (MAP) 129/58 Pulse Ox 91 Physical Exam Physical exam: Vital signs noted. General: Patient alert [and in no acute distress]. [Does not appear ill]. Skin: [Warm, dry, without rashes, or lesions]. Head: [Normocephalic, atraumatic]. Eye: [Normal conjunctiva]. ENMT: [Oral mucosa moist, no pharyngeal erythema or exudate]. Neck: [Supple, trachea midline]. Cardiovascular: [Regular rate and rhythm without gallops murmurs or rubs. Normal peripheral perfusion with no edema noted]. Respiratory: [Lungs clear to auscultation bilaterally with nonlabored respirations. Breath sounds are equal with symmetric expansion]. Chest wall: [No tenderness or deformity noted]. Gastrointestinal: [Abdomen soft, nontender. Normal bowel sounds with no organomegaly. No guarding or rebound]. Back: [Nontender with normal range of motion and normal alignment]. Musculoskeletal: [Normal range of motion throughout with normal strength. No tenderness, swelling or deformities noted. Moves all extremities equally]. Neurologic: [Patient alert and oriented 4 with no focal neuro deficits cranial nerves II - XII grossly intact. Patient has normal speech] Psychiatric: [Patient is cooperative with appropriate mood and affect] Medical Decision Making EKG/Imaging Imaging CT head per radiology with no acute hemorrhage or fracture ED Course/Re-evaluation ED Course Very pleasant 86-year-old female with a known history of Parkinson's on Coumadin presents after she accidentally rolled out of bed striking her head on one of the cabinets next to the bed. She denies any loss consciousness. She has a nonfocal neuro exam today. Head CT shows no acute findings or concerns for bleeding. Her INR was checked 2 days ago and was 3.1. She has no evidence of bleeding, bruising so I did not repeat that today. Patient feeling better with some Tylenol while here. Discussed reasons to return and the risks of delayed bleeding and discussed with her and son reasons to return. They expressed understanding and agreement. Strongly encouraged follow-up with her primary care in approximately 48 hours for recheck. Decision to Disposition Date: Jun 16, 2017 Decision to Disposition Time: 01:27 Depart Departure Latest Vital Signs Vital Signs Date Time Temp Pulse Resp B/P (MAP) Pulse Ox O2 Delivery O2 Flow Rate FiO2 06/15/17 23:54 98.5 93 20 129/58 91 Impression: Primary Impression: Closed head injury Additional Impressions: Scalp contusion Warfarin anticoagulation Condition: Improved Disposition: HOME OR SELF-CARE Referrals: EVERTON RIOS MD (PCP) 2 Days Patient with fall and contusion to her head. CT head normal at this time. Needs close follow-up for reevaluation due to risk of possible delayed bleeding. Patient Instructions: Head Injury (ED), Scalp Contusion in Adults (ED) Additional Instructions: Take Tylenol available [id number] as directed as needed for pain. Follow- up with your primary care provider in the next 48 hours for recheck and reevaluation. Return to the emergency department for any new or worsening symptoms. Problem Qualifiers POLO LOPES MD Jun 16, 2017 00:07
--- NOTE | 2017-06-16 00:54 | RADIOLOGY IMAGING REPORT ---
FACILITY: [facility] - [place] PATIENT NAME: Nadia Baumann : 1930 MR: [id number] V: [id number] EXAM DATE: ORDERING PHYSICIAN: POLO LOPES TECHNOLOGIST: Location: [facility] [place] Patient: Nadia Baumann : 1930 Visit/Account:[id number] Date of Sevice: 06/16/[address]: Indication: Injury. Technique: Contiguous axial sections were obtained from the base to the vertex without contrast enhan cement. One of the following dose optimization techniques was utilized in the performance of this exam: Autom ated exposure control; adjustment of the mA and/or kV according to the patient's size; or use of an i terative reconstruction technique. Specific details can be referenced in the facility's radiology CT exam operational policy. Comparison: 05/13/2017 Findings: There is no evidence of intra-axial or extra-axial hemorrhage. There is chronic diffuse cor tical atrophy. No new focal areas of decreased or increased attenuation are identified. There is no e vidence of mass, edema, or shift of the midline structures. The size, shape, and configuration of the ventricular system are stable. There is no evidence of fracture or other acute deformity. The visualized paranasal sinuses and masto id air cells are clear. Impression: No acute deformity or significant interval change. Report Dictated By: Ruben Ramírez MD at 06/16/2017 12:46 AM Report E-Signed By: Ruben Ramírez MD at 06/16/2017 12:50 AM WSN:[id number]
[2017-06-16 01:30] VITALS: BP 114/60
== END 2017-06-16 01:40 | disposition home or self-care (01) ==
LOC: ER 23:54
DX: S09.90XA Unspecified injury of head, initial encounter (principal); S00.03XA Contusion of scalp, initial encounter; W06.XXXA Fall from bed, initial encounter
CPT/HCPCS: 70450; 99283

== ENCOUNTER 2017-06-19 04:46 | Emergency (ER) | payer MEDICARE, OTHER ==
[2017-04-07 13:01] VITALS: Wt 56.9 kg
--- NOTE | 2017-06-19 04:54 | ER Report ---
History and Physical Time Seen By MD: 04:50 Hx. of Stated Complaint: FELL, BUMPED BACK OF HEAD HPI/ROS CHIEF COMPLAINT: Elderly fall HISTORY OF PRESENT ILLNESS: 86-year-old female with a history of a mechanical heart valve on chronic adequately elation with Coumadin got up to go to the bathroom. She fell backwards striking her head. She has a very unsteady gait and falls frequently. She is well-known to our ER for frequent nosebleeds and frequent falls. Patient denies headache, blurry vision, speech trouble. She denies neck pain. She denies chest, back and shoulder pain. She notes no shortness of breath. She denies hip pain. REVIEW OF SYSTEMS: Respiratory: No cough, no dyspnea. Cardiovascular: No chest pain, no palpitations. Gastrointestinal: No vomiting, no abdominal pain. Musculoskeletal: No back pain. Allergies: Coded Allergies: No Known Drug Allergies (Unverified , 06/19/17) Home Meds Active Scripts Furosemide (FUROSEMIDE) 20 Mg Tablet, 1 TAB PO QDAY, #30 TAB 2 Refills Prov:EVERTON ROIS MD 06/02/17 Sulfacetamide Sodium (SULFACETAMIDE SODIUM) 15 Ml Drops, 15 ML OS QID, #15 ML Prov:EVERTON RIOS MD 06/01/17 Oxymetazoline Hcl (AFRIN) 30 Ml [place], 2 SPR DAR BID Y for BLEEDING for 7 Days, #1 BOTTLE two sprays into nostril to stop bleeding Prov:ROOSEVELT JOHANSEN MD 05/07/17 Simvastatin (SIMVASTATIN) 20 Mg Tablet, 1 TAB PO HS, #90 TAB 3 Refills Prov:EVERTON RIOS MD 03/02/17 Omeprazole (OMEPRAZOLE) 20 Mg Capsule.dr, 1 CAP PO QAM, #90 CAP 3 Refills TAKE ONE CAPSULE BY MOUTH ONCE A DAY Prov:IZABELLA GARAY PHARMD 01/15/17 Warfarin Sodium (WARFARIN SODIUM) 7.5 Mg Tablet, 1 TAB PO QDAY, #30 TAB 12 Refills Prov:EVERTON RIOS MD 03/20/16 Reported Medications Cyanocobalamin (Vitamin B-12) (B-12) 1,000 Mcg Tablet.er, 1000 MCG PO QDAY 06/01/17 Calcium Carb & Cit/Vitamin D3 (CITRACAL + D ER TABLET) 1 Each Tablet.er, 1 TAB PO QDAY 04/03/15 Ferrous Sulfate (IRON) 325 Mg Capsule.er, 325 MG PO TID 02/01/15 Reviewed Nurses Notes: Yes Old Medical Records Reviewed: Yes Hx Smoking: No Smoking Status: Former Smoker Exposure to Second Hand Smoke?: No Hx Substance Use Disorder: No Hx Alcohol Use: No Constitutional Vital Sign - Last 24 Hours 06/19/17 06/19/17 06/19/17 06/19/17 04:48 04:49 05:01 05:16 Temp 98.2 Pulse 82 80 87 Resp 14 B/P (MAP) 117/58 (77) 117/58 Pulse Ox 90 91 90 O2 Delivery Room Air 06/19/17 06/19/17 06/19/17 05:31 05:47 05:57 Pulse 82 B/P (MAP) 123/67 (85) Pulse Ox 89 O2 Flow Rate 2.0 Physical Exam General Appearance: The patient is alert, has no immediate need for airway protection and no current signs of toxicity. There is a small hematoma in the RIGHT occipital region HEENT: Pupils equal and round no injection. Patient bones intact on palpation, TMs normal, no oral trauma Respiratory: Chest is non tender, lungs are clear to auscultation. No chest wall pain Cardiac: regular rate and rhythm Gastrointestinal: Abdomen is soft and non tender, no masses, bowel sounds normal. Musculoskeletal: Neck: Neck is supple and non tender. Extremities have full range of motion and are non tender. Bilateral knee bruising. There is full range of motion and no deformity. Skin: No rashes or lesions. DIFFERENTIAL DIAGNOSIS: After history and physical exam differential diagnosis was considered for fall in the elderly including but not limited to intracranial injury, long bone and pelvic bone fracture, spinal injury, and intrathoracic injury. Medical Decision Making Data Points Laboratory Hematology Test 06/19/17 05:20 Prothrombin Time 34.7 seconds (12.0-14.4) Prothromb Time International Ratio 3.28 Chemistry Test 06/19/17 05:20 Prothrombin Time 34.7 seconds (12.0-14.4) Prothromb Time International Ratio 3.28 Coagulation Test 06/19/17 05:20 Prothrombin Time 34.7 seconds Prothromb Time International Ratio 3.28 EKG/Imaging Imaging Results: CT scan of the head was obtained. The results of the study are CT BRAIN WITHOUT CONTRAST CLINICAL INDICATION: Fall with posterior contusion. Chronic anticoagulation. COMPARISON: CT head dated 10/29/2017. The cervical spine dated 05/13/2017 TECHNIQUE: Contiguous axial CT images of the brain and cervical spine were obtained without IV contrast. Sagittal and coronal reformatted images were also performed. One of the following dose optimization techniques was utilized in the performance of this exam: Automated exposure control; adjustment of the mA and/ or kV according to the patient's size; or use of an iterative reconstruction technique. Specific details can be referenced in the facility's radiology CT exam operational policy. RESULT: BRAIN: Prominence of the ventricles and sulci is consistent with atrophy. There are areas of low attenuation in the periventricular and subcortical white matter which are nonspecific, but suggestive of chronic microvascular ischemic change. The brainstem and cerebellum appear normal. The basilar cisterns appear normal. There is no mass, acute infarct, hemorrhage or shift of midline. Vascular atherosclerotic calcifications are present. PARANASAL SINUSES & MASTOIDS: Mild bilateral maxillary mucosal thickening. Otherwise negative.. SKULL BASE & CRANIUM: Visualized osseous structures are intact. SOFT TISSUES: Mild left posterior soft tissue swelling and small focus of subcutaneous emphysema.. CERVICAL SPINE: There is no prevertebral soft tissue swelling. No acute fracture or dislocation is present. Mild reversal of the normal cervical alignment with multilevel degenerative changes, stable since prior exam. Vertebral bodies heights are preserved. The craniocervical junction appears normal. There is no evidence for traumatic disc herniation.The visualized portions of the upper neck and lung apices are within normal limits. IMPRESSION: 1. No acute intracranial findings. 2. Left posterior soft tissue swelling and small focus of subcutaneous emphysema.. 3. Findings of advanced chronological age. The study was read by the radiologist. I viewed the images myself on the PACS system. Results: CT scan of the cervical spine without contrast was obtained. The results of the study are CT BRAIN WITHOUT CONTRAST CLINICAL INDICATION: Fall with posterior contusion. Chronic anticoagulation. COMPARISON: CT head dated 10/29/2017. The cervical spine dated 05/13/2017 TECHNIQUE: Contiguous axial CT images of the brain and cervical spine were obtained without IV contrast. Sagittal and coronal reformatted images were also performed. One of the following dose optimization techniques was utilized in the performance of this exam: Automated exposure control; adjustment of the mA and/ or kV according to the patient's size; or use of an iterative reconstruction technique. Specific details can be referenced in the facility's radiology CT exam operational policy. RESULT: BRAIN: Prominence of the ventricles and sulci is consistent with atrophy. There are areas of low attenuation in the periventricular and subcortical white matter which are nonspecific, but suggestive of chronic microvascular ischemic change. The brainstem and cerebellum appear normal. The basilar cisterns appear normal. There is no mass, acute infarct, hemorrhage or shift of midline. Vascular atherosclerotic calcifications are present. PARANASAL SINUSES & MASTOIDS: Mild bilateral maxillary mucosal thickening. Otherwise negative.. SKULL BASE & CRANIUM: Visualized osseous structures are intact. SOFT TISSUES: Mild left posterior soft tissue swelling and small focus of subcutaneous emphysema.. CERVICAL SPINE: There is no prevertebral soft tissue swelling. No acute fracture or dislocation is present. Mild reversal of the normal cervical alignment with multilevel degenerative changes, stable since prior exam. Vertebral bodies heights are preserved. The craniocervical junction appears normal. There is no evidence for traumatic disc herniation.The visualized portions of the upper neck and lung apices are within normal limits. IMPRESSION: 1. No acute intracranial findings. 2. Left posterior soft tissue swelling and small focus of subcutaneous emphysema.. 3. Findings of advanced chronological age. The study was read by the radiologist. I viewed the images myself on the PACS system. ED Course/Re-evaluation ED Course Patient was admitted to an examination room. H&P was done. The differential diagnoses was considered. On clinical examination. Patient has a large subdural hematoma from falling backwards. She is complaining of back pain. She also has bruising on her knees but she fell backwards, which doesn't explain all of the bruising. She is unsteady and falls frequently. I suspect she sustained another fall onto her knees. Patient's on chronic adequately elation with Coumadin for mechanical heart valve. She has no mental status changes, no nausea, vomiting or headache to suggest concussion or intracranial hemorrhage. Diagnostic CT of the head and neck are ordered. Patient's treated with intranasal fentanyl 25 g and each nostril for back pain relief. Her INR returns elevated at 3.28. Patient developed some mild nasal bleeding. She is advised to follow-up with her primary care for recheck of her INR early this next week Decision to Disposition Date: Jun 19, 2017 Decision to Disposition Time: 05:53 Depart Departure Latest Vital Signs Vital Signs Date Time Temp Pulse Resp B/P (MAP) Pulse Ox O2 Delivery O2 Flow Rate FiO2 06/19/17 05:57 2.0 06/19/17 05:47 123/67 (85) 06/19/17 05:31 82 89 06/19/17 04:49 98.2 14 Room Air Impression: Primary Impression: Fall in elderly patient Additional Impressions: Scalp contusion Elevated INR Knee contusion Back pain Chronic anticoagulation Condition: Improved Disposition: HOME OR SELF-CARE Referrals: EVERTON RIOS MD (PCP) Patient Instructions: Contusion in Adults (ED), Head Injury (ED) Additional Instructions: Follow-up with your primary care this week for your elevated INR Problem Qualifiers Additional Impressions: Scalp contusion Encounter type: initial encounter Qualified Codes: S00.03XA - Contusion of scalp, initial encounter Knee contusion Encounter type: initial encounter Laterality: unspecified laterality Qualified Codes: S80.00XA - Contusion of unspecified knee, initial encounter Back pain Back pain location: low back pain Chronicity: acute Back pain laterality: unspecified Sciatica presence: unspecified whether sciatica present Qualified Codes: M54.5 - Low back pain NE HARRIS DO Jun 19, 2017 04:54
[2017-06-19] MEDS ORDERED: fentaNYL CITR 100 MCG/2 ML AMP IVP ONE (05:20)
[2017-06-19] MEDS ORDERED: fentaNYL CITR 100 MCG/2 ML AMP ONE (05:25)
[2017-06-19] MEDS ORDERED: fentaNYL CITR 100 MCG/2 ML AMP IM ONE (05:25)
[2017-06-19 05:38] LABS: INR 3.28
--- NOTE | 2017-06-19 05:44 | RADIOLOGY IMAGING REPORT ---
FACILITY: [facility] PATIENT NAME: Nadia Baumann : 1930 MR: [id number] V: [id number] EXAM DATE: ORDERING PHYSICIAN: NE HARRIS TECHNOLOGIST: Location: [facility] Patient: Nadia Baumann : 1930 Visit/Account:[id number] Date of Sevice: 06/19/2017 CT BRAIN WITHOUT CONTRAST CLINICAL INDICATION: Fall with posterior contusion. Chronic anticoagulation. COMPARISON: CT head dated 10/29/2017. The cervical spine dated 05/13/2017 TECHNIQUE: Contiguous axial CT images of the brain and cervical spine were obtained without IV contra st. Sagittal and coronal reformatted images were also performed. One of the following dose optimization techniques was utilized in the performance of this exam: Autom ated exposure control; adjustment of the mA and/or kV according to the patient's size; or use of an i terative reconstruction technique. Specific details can be referenced in the facility's radiology C T exam operational policy. RESULT: BRAIN: Prominence of the ventricles and sulci is consistent with atrophy. There are areas of low atte nuation in the periventricular and subcortical white matter which are nonspecific, but suggestive of chronic microvascular ischemic change. The brainstem and cerebellum appear normal. The basilar ciste rns appear normal. There is no mass, acute infarct, hemorrhage or shift of midline. Vascular atherosc lerotic calcifications are present. PARANASAL SINUSES & MASTOIDS: Mild bilateral maxillary mucosal thickening. Otherwise negative.. SKULL BASE & CRANIUM: Visualized osseous structures are intact. SOFT TISSUES: Mild left posterior soft tissue swelling and small focus of subcutaneous emphysema.. CERVICAL SPINE: There is no prevertebral soft tissue swelling. No acute fracture or dislocation is present. Mild reve rsal of the normal cervical alignment with multilevel degenerative changes, stable since prior exam. Vertebral bodies heights are preserved. The craniocervical junction appears normal. There is no evid ence for traumatic disc herniation.The visualized portions of the upper neck and lung apices are with in normal limits. IMPRESSION: 1. No acute intracranial findings. 2. Left posterior soft tissue swelling and small focus of subcutaneous emphysema.. 3. Findings of advanced chronological age. Report Dictated By: Marshall Snell MD at 06/19/2017 5:32 AM Report E-Signed By: Marshall Snell MD at 06/19/2017 5:38 AM WSN:[id number]
--- NOTE | 2017-06-19 05:44 | RADIOLOGY IMAGING REPORT ---
FACILITY: [facility] [place] PATIENT NAME: Nadia Baumann : 1930 MR: [id number] V: [id number] EXAM DATE: ORDERING PHYSICIAN: NE HARRIS TECHNOLOGIST: Location: [facility] [place] Patient: Nadia Baumann : 1930 Visit/Account:[id number] Date of Sevice: 06/19/2017 CT BRAIN WITHOUT CONTRAST CLINICAL INDICATION: Fall with posterior contusion. Chronic anticoagulation. COMPARISON: CT head dated 10/29/2017. The cervical spine dated 05/13/2017 TECHNIQUE: Contiguous axial CT images of the brain and cervical spine were obtained without IV contra st. Sagittal and coronal reformatted images were also performed. One of the following dose optimization techniques was utilized in the performance of this exam: Autom ated exposure control; adjustment of the mA and/or kV according to the patient's size; or use of an i terative reconstruction technique. Specific details can be referenced in the facility's radiology C T exam operational policy. RESULT: BRAIN: Prominence of the ventricles and sulci is consistent with atrophy. There are areas of low atte nuation in the periventricular and subcortical white matter which are nonspecific, but suggestive of chronic microvascular ischemic change. The brainstem and cerebellum appear normal. The basilar ciste rns appear normal. There is no mass, acute infarct, hemorrhage or shift of midline. Vascular atherosc lerotic calcifications are present. PARANASAL SINUSES & MASTOIDS: Mild bilateral maxillary mucosal thickening. Otherwise negative.. SKULL BASE & CRANIUM: Visualized osseous structures are intact. SOFT TISSUES: Mild left posterior soft tissue swelling and small focus of subcutaneous emphysema.. CERVICAL SPINE: There is no prevertebral soft tissue swelling. No acute fracture or dislocation is present. Mild reve rsal of the normal cervical alignment with multilevel degenerative changes, stable since prior exam. Vertebral bodies heights are preserved. The craniocervical junction appears normal. There is no evid ence for traumatic disc herniation.The visualized portions of the upper neck and lung apices are with in normal limits. IMPRESSION: 1. No acute intracranial findings. 2. Left posterior soft tissue swelling and small focus of subcutaneous emphysema.. 3. Findings of advanced chronological age. Report Dictated By: Marshall Snell MD at 06/19/2017 5:32 AM Report E-Signed By: Marshall Snell MD at 06/19/2017 5:38 AM WSN:[id number]
[2017-06-19 06:30] VITALS: BP 115/65
== END 2017-06-19 06:50 | disposition home or self-care (01) ==
LOC: ER 04:52
DX: S00.03XA Contusion of scalp, initial encounter (principal); S80.02XA Contusion of left knee, initial encounter; S80.01XA Contusion of right knee, initial encounter; M54.5 Low back pain; Z79.01 Long term (current) use of anticoagulants; W18.30XA Fall on same level, unspecified, initial encounter; Z91.81 History of falling
CPT/HCPCS: 36415; 70450; 72125; 85610; 99284; J3010

== ENCOUNTER → 2017-06-19 | Outpatient (CLI) | payer MEDICARE, OTHER ==
[2017-04-07 13:01] VITALS: BMI 23.6
== END ==
LOC: AMB 04:29
PROVIDERS: ATTEND Nurse Practitioner
DX: R51 Headache (principal); W19.XXXA Unspecified fall, initial encounter
CPT/HCPCS: A0425; A0429

== ENCOUNTER 2017-06-23 15:19 | Inpatient (IN) | payer MEDICARE, OTHER ==
[~2017-06-23] VITALS: Ht 157.5 cm; Wt 56.5 kg
--- NOTE | 2017-06-23 16:05 | EKG ---
FACILITY: [facility] PATIENT NAME: JONAH MAYNARD : [id number] MR: [id number] V: [id number] EXAM DATE: ORDERING PHYSICIAN: KELLY LEMUS TECHNOLOGIST: THERESA Test Reason : FALL Blood Pressure : / mmHG Vent. Rate : 084 BPM Atrial Rate : 075 BPM P-R Int : 000 ms QRS Dur : 092 ms QT Int : 434 ms P-R-T Axes : 000 092 067 degrees QTc Int : 512 ms Accelerated Junctional rhythm Rightward axis Incomplete right bundle branch block Voltage criteria for left ventricular hypertrophy Prolonged QT Abnormal ECG When compared with ECG of 13-JUN-2017 21:37, Junctional rhythm has replaced Atrial fibrillation Incomplete right bundle branch block is now present Confirmed by MIKAYLA BLACKMAN ([id number]) on 06/23/2017 6:26:30 PM Referred By: MORENO Confirmed By:MIKAYLA BLACKMAN
--- NOTE | 2017-06-23 16:22 | ER Report ---
History and Physical Time Seen By MD: 15:55 Hx. of Stated Complaint: fall. lac to back of left hand, left knee pain. 3 falls over the last three days HPI/ROS CHIEF COMPLAINT: Fall HISTORY OF PRESENT ILLNESS: 86-year-old female patient presents to emergency room with complaint of a fall. Patient states that she was walking in her home. She did have her general manager that was there assisting her. She states the house keeper Lepe tension for just a moment patient fell. Patient states she does have some pain to the left knee, denies any head, neck or back pain. She denies hitting her head or having loss of consciousness. She states that she is unable to give up and so EMS was called. She does have bleeding from the left hand, that was stressed prior to arrival. She denies having any pain to the hand. REVIEW OF SYSTEMS: Respiratory: No cough, no dyspnea. Cardiovascular: No chest pain, no palpitations. Gastrointestinal: No vomiting, no abdominal pain. Musculoskeletal: As noted above Allergies: Coded Allergies: No Known Drug Allergies (Unverified , 06/19/17) Home Meds Active Scripts Furosemide (FUROSEMIDE) 20 Mg Tablet, 1 TAB PO QDAY, #30 TAB 2 Refills Prov:EVERTON RIOS MD 06/02/17 Sulfacetamide Sodium (SULFACETAMIDE SODIUM) 15 Ml Drops, 15 ML OS QID, #15 ML Prov:EVERTON RIOS MD 06/01/17 Oxymetazoline Hcl (AFRIN) 30 Ml [place], 2 SPR DAR BID Y for BLEEDING for 7 Days, #1 BOTTLE two sprays into nostril to stop bleeding Prov:ROOSEVELT JOHANSEN MD 05/07/17 Simvastatin (SIMVASTATIN) 20 Mg Tablet, 1 TAB PO HS, #90 TAB 3 Refills Prov:EVERTON RIOS MD 03/02/17 Omeprazole (OMEPRAZOLE) 20 Mg Capsule.dr, 1 CAP PO QAM, #90 CAP 3 Refills TAKE ONE CAPSULE BY MOUTH ONCE A DAY Prov:IZABELLA GARAY PHARMD 01/15/17 Warfarin Sodium (WARFARIN SODIUM) 7.5 Mg Tablet, 1 TAB PO QDAY, #30 TAB 12 Refills Prov:EVERTON RIOS MD 03/20/16 Reported Medications Cyanocobalamin (Vitamin B-12) (B-12) 1,000 Mcg Tablet.er, 1000 MCG PO QDAY 06/01/17 Calcium Carb & Cit/Vitamin D3 (CITRACAL + D ER TABLET) 1 Each Tablet.er, 1 TAB PO QDAY 04/03/15 Ferrous Sulfate (IRON) 325 Mg Capsule.er, 325 MG PO TID 02/01/15 Past Medical/Surgical History Patient has a past medical history of essential tremor, migraine, left shoulder replacement, hyperlipidemia, pneumonia, arthritis, back pain, anemia, skin cancer, breast cancer. Patient has a surgical history bilateral mastectomy, tonsillectomy, hysterectomy , D&C, appendectomy, pacemaker placement, mitral replacement. Patient has a family medical history of cancer. Reviewed Nurses Notes: Yes Hx Smoking: No Smoking Status: Former Smoker Exposure to Second Hand Smoke?: No Hx Substance Use Disorder: No Hx Alcohol Use: No Constitutional Vital Sign - Last 24 Hours 06/23/17 06/23/17 06/23/17 06/23/17 15:26 15:27 15:30 15:34 Temp 99.0 Pulse 82 84 Resp 18 B/P (MAP) 122/59 122/59 (80) 122/57 (78) Pulse Ox 95 93 O2 Delivery Room Air 06/23/17 06/23/17 06/23/17 06/23/17 15:49 16:00 16:04 16:25 Pulse 87 88 B/P (MAP) 132/60 (84) 121/59 (79) Pulse Ox 95 06/23/17 06/23/17 06/23/17 06/23/17 18:00 18:05 18:20 18:30 Pulse ? B/P (MAP) 121/66 (84) 119/53 (75) 06/23/17 06/23/17 19:00 19:05 Pulse ??? B/P (MAP) ???/??? (1665) Intake and Output 06/23/17 06/23/17 06/24/17 15:00 23:00 07:00 Output Total 25 ml Balance -25 ml Physical Exam General Appearance: The patient is alert, has no immediate need for airway protection and no current signs of toxicity. Respiratory: Chest is non tender, lungs are clear to auscultation. Cardiac: regular rate and rhythm Gastrointestinal: Abdomen is soft and non tender, no masses, bowel sounds normal. Musculoskeletal: Neck: Neck is supple and non tender. Extremities have full range of motion and are non tender. Skin: No rashes or lesions. She has skin tear to left hand, bruising to the left knee. DIFFERENTIAL DIAGNOSIS: After history and physical exam differential diagnosis was considered for contusion, fracture, sprain. Medical Decision Making Data Points Result Diagram: 06/23/17 1627 06/23/17 1627 Laboratory Hematology Test 06/23/17 16:27 06/23/17 18:36 Red Blood Count 2.09 M/uL (4.17-5.56) Mean Corpuscular Volume 101.7 fL (80.0-96.0) Mean Corpuscular Hemoglobin 33.3 pg (26.0-33.0) Mean Corpuscular Hemoglobin Concent 32.8 g/dL (32.0-36.0) Red Cell Distribution Width 17.8 % (11.5-14.5) Mean Platelet Volume 9.4 fL (7.2-11.1) Neutrophils (%) (Auto) 72.5 % (39.4-72.5) Lymphocytes (%) (Auto) 12.8 % (17.6-49.6) Monocytes (%) (Auto) 12.5 % (4.1-12.4) Eosinophils (%) (Auto) 1.6 % (0.4-6.7) Basophils (%) (Auto) 0.6 % (0.3-1.4) Nucleated RBC Relative Count (auto) 0.1 /100WBC Neutrophils # (Auto) 2.7 K/uL (2.0-7.4) Lymphocytes # (Auto) 0.5 K/uL (1.3-3.6) Monocytes # (Auto) 0.5 K/uL (0.3-1.0) Eosinophils # (Auto) 0.1 K/uL (0.0-0.5) Basophils # (Auto) 0.0 K/uL (0.0-0.1) Nucleated RBC Absolute Count (auto) 0.00 K/uL Peripheral Blood Smear Y/N Sodium Level 138 mmol/L (137-145) Potassium Level 3.5 mmol/L (3.5-5.0) Chloride Level 100 mmol/L (98-107) Carbon Dioxide Level 29 mmol/L (22-31) Blood Urea Nitrogen 23 mg/dl (7-18) Creatinine 1.00 mg/dl (0.52-1.04) Glomerular Filtration Rate Calc 52.7 Random Glucose 101 mg/dl (75-110) Calcium Level 8.8 mg/dl (8.4-10.2) Total Bilirubin 0.3 mg/dl (0.2-1.3) Aspartate Amino Transf (AST/SGOT) 29 U/L (0-35) Alanine Aminotransferase (ALT/SGPT) 31 U/L (0-56) Alkaline Phosphatase 138 U/L (0-126) Troponin I < 0.012 ng/ml Total Protein 7.0 gm/dl (6.3-8.2) Albumin 3.6 g/dl (3.5-5.0) Urine Color Yellow Urine Clarity Clear Urine pH 5.0 pH (4.8-9.5) Urine Specific [place] 1.020 Urine Protein Negative mg/dL (NEGATIVE) Urine Glucose (UA) Negative mg/dL (NEGATIVE) Urine Ketones Negative mg/dL (NEGATIVE) Urine Blood Negative (NEGATIVE) Urine Nitrite Negative (NEGATIVE) Urine Bilirubin Negative (NEGATIVE) Urine Urobilinogen Negative mg/dL (0.2-1.9) Urine Leukocyte Esterase Negative (NEGATIVE) Urine RBC None /HPF (0-2/HPF) Urine WBC None /HPF (0-5/HPF) Urine Squamous Epithelial Cells None /LPF (NONE-FEW) Urine Bacteria Negative /HPF (NONE-FEW) Urine Mucus Few /HPF (NONE-FEW) Chemistry Test 06/23/17 16:27 06/23/17 18:36 White Blood Count 3.7 k/uL (4.5-11.0) Red Blood Count 2.09 M/uL (4.17-5.56) Hemoglobin 7.0 g/dL (12.0-16.0) Hematocrit 21.2 % (34.0-47.0) Mean Corpuscular Volume 101.7 fL (80.0-96.0) Mean Corpuscular Hemoglobin 33.3 pg (26.0-33.0) Mean Corpuscular Hemoglobin Concent 32.8 g/dL (32.0-36.0) Red Cell Distribution Width 17.8 % (11.5-14.5) Platelet Count 182 K/uL (150-450) Mean Platelet Volume 9.4 fL (7.2-11.1) Neutrophils (%) (Auto) 72.5 % (39.4-72.5) Lymphocytes (%) (Auto) 12.8 % (17.6-49.6) Monocytes (%) (Auto) 12.5 % (4.1-12.4) Eosinophils (%) (Auto) 1.6 % (0.4-6.7) Basophils (%) (Auto) 0.6 % (0.3-1.4) Nucleated RBC Relative Count (auto) 0.1 /100WBC Neutrophils # (Auto) 2.7 K/uL (2.0-7.4) Lymphocytes # (Auto) 0.5 K/uL (1.3-3.6) Monocytes # (Auto) 0.5 K/uL (0.3-1.0) Eosinophils # (Auto) 0.1 K/uL (0.0-0.5) Basophils # (Auto) 0.0 K/uL (0.0-0.1) Nucleated RBC Absolute Count (auto) 0.00 K/uL Peripheral Blood Smear Y/N Glomerular Filtration Rate Calc 52.7 Calcium Level 8.8 mg/dl (8.4-10.2) Total Bilirubin 0.3 mg/dl (0.2-1.3) Aspartate Amino Transf (AST/SGOT) 29 U/L (0-35) Alanine Aminotransferase (ALT/SGPT) 31 U/L (0-56) Alkaline Phosphatase 138 U/L (0-126) Troponin I < 0.012 ng/ml Total Protein 7.0 gm/dl (6.3-8.2) Albumin 3.6 g/dl (3.5-5.0) Urine Color Yellow Urine Clarity Clear Urine pH 5.0 pH (4.8-9.5) Urine Specific [place] 1.020 Urine Protein Negative mg/dL (NEGATIVE) Urine Glucose (UA) Negative mg/dL (NEGATIVE) Urine Ketones Negative mg/dL (NEGATIVE) Urine Blood Negative (NEGATIVE) Urine Nitrite Negative (NEGATIVE) Urine Bilirubin Negative (NEGATIVE) Urine Urobilinogen Negative mg/dL (0.2-1.9) Urine Leukocyte Esterase Negative (NEGATIVE) Urine RBC None /HPF (0-2/HPF) Urine WBC None /HPF (0-5/HPF) Urine Squamous Epithelial Cells None /LPF (NONE-FEW) Urine Bacteria Negative /HPF (NONE-FEW) Urine Mucus Few /HPF (NONE-FEW) Urinalysis Test 06/23/17 18:36 Urine Color Yellow Urine Clarity Clear Urine pH 5.0 pH (4.8-9.5) Urine Specific [place] 1.020 Urine Protein Negative mg/dL (NEGATIVE) Urine Glucose (UA) Negative mg/dL (NEGATIVE) Urine Ketones Negative mg/dL (NEGATIVE) Urine Blood Negative (NEGATIVE) Urine Nitrite Negative (NEGATIVE) Urine Bilirubin Negative (NEGATIVE) Urine Urobilinogen Negative mg/dL (0.2-1.9) Urine Leukocyte Esterase Negative (NEGATIVE) Urine RBC None /HPF (0-2/HPF) Urine WBC None /HPF (0-5/HPF) Urine Squamous Epithelial Cells None /LPF (NONE-FEW) Urine Bacteria Negative /HPF (NONE-FEW) Urine Mucus Few /HPF (NONE-FEW) EKG/Imaging EKG Interpretation 12 lead EKG: Rhythm: Accelerated junctional rhythm with a ventricular rate of 84 bpm [place]: Rightward axis QRS: Incomplete right bundle branch block ST segments: normal Imaging CT Head without contrast and CT Cervical spine: Indication: Fall at home. Comparison: CT head and cervical spine on 06/19/2017. Technique: CT head: Axial CT images were obtained through the brain from the skull base to the vertex without administration of IV contrast. Reformatted coronal and sagittal images were also obtained. Technique: CT cervical spine: Axial CT imaging of the cervical spine was performed. 2-D sagittal and coronal CT reformats were also obtained. One of the following dose optimization techniques was utilized in the performance of this exam: Automated exposure control; adjustment of the mA and/ or kV according to the patient's size; or use of an iterative reconstruction technique. Specific details can be referenced in the facility's radiology CT exam operational policy. FINDINGS: CT head: No intracranial bleed, midline shift, mass effect, extra-axial fluid collection or hydrocephalus. The left occipital region does show mild decreased attenuation when compared the right side. No other abnormal density present some mild periventricular white matter ischemic changes consistent small vessel disease. Age-related cerebral atrophy. Cabrera/white matter differentiation appears normal. Mild bilateral internal carotid artery calcifications. Bony structures show no fractures or lesions. The sinuses and mastoids visualized are clear. CT cervical spine: The vertebral bodies are aligned. There is mild reverse curvature due to degenerative changes. No acute fracture or facet dislocation. No bony lesions. Mild osteopenia. There is diffuse degenerative changes throughout the stomach moderate. These include disc space narrowing, endplate changes, osteophytes and facet arthropathy. No bony canal stenosis. Multilevel neural foramina narrowing. No obvious disc herniation. The endplates are maintained. Prevertebral soft tissues and strong soft tissues are unremarkable. Lung apices are clear. IMPRESSION: 1. No acute intracranial abnormality. Age-related changes. The left occipital lobe does show faint decreased attenuation compared to the right. This could be due to the difference in positioning. This could also represent a subacute ischemic event. If there is clinical concern a MRI of the brain without contrast can further evaluate. 2. No acute osseous or acute alignment abnormality of the cervical spine. Degenerative changes and osteopenia. Report Dictated By: Jamal Christine at 06/23/2017 6:22 PM Report E-Signed By: Jamal Christine at 06/23/2017 6:31 PM Exam type: CHEST SINGLE AP History: fall at home Comparison: June 13, 2017. Findings: Again noted is a single lead cardiac pacemaker distal tip projects over the right ventricle. Prosthetic cardiac valve is noted.. Cardiac silhouette is markedly enlarged but unchanged. There is no evidence of focal infiltrates pleural effusions or overt pulmonary edema. IMPRESSION: 1. Stable cardiomegaly although no evidence of acute pulmonary consolidation Report Dictated By: Darlyn Alvarado MD at 06/23/2017 5:02 PM Report E-Signed By: Darlyn Alvarado MD at 06/23/2017 5:[address] Head without contrast and CT Cervical spine: Indication: Fall at home. Comparison: CT head and cervical spine on 06/19/2017. Technique: CT head: Axial CT images were obtained through the brain from the skull base to the vertex without administration of IV contrast. Reformatted coronal and sagittal images were also obtained. Technique: CT cervical spine: Axial CT imaging of the cervical spine was performed. 2-D sagittal and coronal CT reformats were also obtained. One of the following dose optimization techniques was utilized in the performance of this exam: Automated exposure control; adjustment of the mA and/ or kV according to the patient's size; or use of an iterative reconstruction technique. Specific details can be referenced in the facility's radiology CT exam operational policy. FINDINGS: CT head: No intracranial bleed, midline shift, mass effect, extra-axial fluid collection or hydrocephalus. The left occipital region does show mild decreased attenuation when compared the right side. No other abnormal density present some mild periventricular white matter ischemic changes consistent small vessel disease. Age-related cerebral atrophy. Cabrera/white matter differentiation appears normal. Mild bilateral internal carotid artery calcifications. Bony structures show no fractures or lesions. The sinuses and mastoids visualized are clear. CT cervical spine: The vertebral bodies are aligned. There is mild reverse curvature due to degenerative changes. No acute fracture or facet dislocation. No bony lesions. Mild osteopenia. There is diffuse degenerative changes throughout the stomach moderate. These include disc space narrowing, endplate changes, osteophytes and facet arthropathy. No bony canal stenosis. Multilevel neural foramina narrowing. No obvious disc herniation. The endplates are maintained. Prevertebral soft tissues and strong soft tissues are unremarkable. Lung apices are clear. IMPRESSION: 1. No acute intracranial abnormality. Age-related changes. The left occipital lobe does show faint decreased attenuation compared to the right. This could be due to the difference in positioning. This could also represent a subacute ischemic event. If there is clinical concern a MRI of the brain without contrast can further evaluate. 2. No acute osseous or acute alignment abnormality of the cervical spine. Degenerative changes and osteopenia. Report Dictated By: Jamal Christine at 06/23/2017 6:22 PM Report E-Signed By: aJmal Christine at 06/23/2017 6:31 PM Exam type: KNEE 4 VIEW LEFT History: fall at home Comparison: May 13, 2017. Findings: Again noted is tricompartmental osteoarthritis of the left knee most prominent at the patellofemoral joint. There is no evidence of acute fracture or dislocation. Possible loose bodies within the intercondylar notch. IMPRESSION: 1. No evidence of acute fracture-dislocation involving the left knee Tricompartmental degenerative changes as prominent the patellofemoral joint Report Dictated By: Darlyn Alvarado MD at 06/23/2017 5:00 PM Report E-Signed By: Darlyn Alvarado MD at 06/23/2017 5:01 PM Exam type: PELVIS History: Fell at home Comparison: February 11, 2017 Findings: There are mild degenerative changes at the hip joints. No evidence of acute fracture identified.. The SI joints appear intact. No demonstration of a pubic symphysis fracture. IMPRESSION: 1. Mild degenerative changes of the hip joints although no evidence of a pelvic fracture Report Dictated By: Darlyn Alvarado MD at 06/23/2017 4:58 PM Report E-Signed By: Darlyn Alvarado MD at 06/23/2017 5:00 PM ED Course/Re-evaluation ED Course Patient was admitted to an exam room, history and physical were obtained. Differential diagnoses were considered. On examination patient has a skin tear to the left hand, tenderness to the left knee. Due to her age a CT scan of the head, cervical spine were done. Chest x-ray, x-ray of the pelvis and x-ray of the left knee were done. Those were all negative. A CBC, CMP, urinalysis, troponin, EKG were done. Patient was anemic with a H&H of 7 and 21.2. Remainder the labs were unremarkable, negative troponin. EKG showed a in accelerated junctional rhythm, incomplete right bundle branch block. I discussed the case with Dr. León, hospitalist who agreed to accept the patient for admission. On admission to the emergency room, the charts were reviewed and was noted that this was the 12th visit by this patient this year. The majority of those have been for falls. We discussed the patient not being safe at home. We discussed with the patient and her that we felt it was time to consider other living arrangements. The patient's was irritated by that, however when we informed them that they would be admitted tonight with plans for care home admission in the future he did calm down. When I reviewed the lab results and the imaging results with the patient and her has been stated that he would prefer the patient be discharged from the hospital to the extended care unit here at the hospital. I informed him that was something that we can discuss in the coming days. Patient and the verbalized understanding and agreement with plan. Decision to Disposition Date: Jun 23, 2017 Decision to Disposition Time: 19:40 Depart Departure Latest Vital Signs Vital Signs Date Time Temp Pulse Resp B/P (MAP) Pulse Ox O2 Delivery O2 Flow Rate FiO2 06/23/17 19:05 ??? 06/23/17 19:00 ???/??? (1665) 06/23/17 15:49 95 06/23/17 15:26 99.0 18 Room Air Impression: Primary Impression: Anemia Condition: Improved Disposition: Admitted from ER Referrals: EVERTON RIOS MD (PCP) Problem Qualifiers Primary Impression: Anemia Anemia type: unspecified type Qualified Codes: D64.9 - Anemia, unspecified KELLY LEMUS Jun 23, 2017 16:22
[2017-06-23 16:38] LABS: PLATELET COUNT, AUTOMATED 182 K/uL (150-450)
--- NOTE | 2017-06-23 17:03 | RADIOLOGY IMAGING REPORT ---
FACILITY: [facility] - [place] PATIENT NAME: Nadia Baumann : 1930 MR: [id number] V: [id number] EXAM DATE: ORDERING PHYSICIAN: KELLY LEMUS TECHNOLOGIST: Location: [facility] - [place] Patient: Nadia Baumann : 1930 Visit/Account:[id number] Date of Sevice: 06/23/2017 Exam type: PELVIS History: Fell at home Comparison: February 11, 2017 Findings: There are mild degenerative changes at the hip joints. No evidence of acute fracture identified.. T he SI joints appear intact. No demonstration of a pubic symphysis fracture. IMPRESSION: 1. Mild degenerative changes of the hip joints although no evidence of a pelvic fracture Report Dictated By: Darlyn Alvarado MD at 06/23/2017 4:58 PM Report E-Signed By: Darlyn Alvarado MD at 06/23/2017 5:00 PM WSN:[email or web address]
--- NOTE | 2017-06-23 17:06 | RADIOLOGY IMAGING REPORT ---
FACILITY: [facility] PATIENT NAME: Nadia Baumann : 1930 MR: [id number] V: [id number] EXAM DATE: ORDERING PHYSICIAN: KELLY LEMUS TECHNOLOGIST: Location: [facility] [place] Patient: Nadia Baumann : 1930 Visit/Account:[id number] Date of Sevice: 06/23/2017 Exam type: CHEST SINGLE AP History: fall at home Comparison: June 13, 2017. Findings: Again noted is a single lead cardiac pacemaker distal tip projects over the right ventricle. Prosthe tic cardiac valve is noted.. Cardiac silhouette is markedly enlarged but unchanged. There is no earline dence of focal infiltrates pleural effusions or overt pulmonary edema. IMPRESSION: 1. Stable cardiomegaly although no evidence of acute pulmonary consolidation Report Dictated By: Darlyn Alvarado MD at 06/23/2017 5:02 PM Report E-Signed By: Darlyn Alvarado MD at 06/23/2017 5:03 PM WSN:[email or web address]
--- NOTE | 2017-06-23 17:06 | RADIOLOGY IMAGING REPORT ---
FACILITY: [facility] [place] PATIENT NAME: Nadia Baumann : 1930 MR: [id number] V: [id number] EXAM DATE: ORDERING PHYSICIAN: KELLY LEMUS TECHNOLOGIST: Location: [facility] - [place] Patient: Nadia Baumann : 1930 Visit/Account:[id number] Date of Sevice: 06/23/2017 Exam type: KNEE 4 VIEW LEFT History: fall at home Comparison: May 13, 2017. Findings: Again noted is tricompartmental osteoarthritis of the left knee most prominent at the patellofemoral joint. There is no evidence of acute fracture or dislocation. Possible loose bodies within the inte rcondylar notch. IMPRESSION: 1. No evidence of acute fracture-dislocation involving the left knee Tricompartmental degenerative changes as prominent the patellofemoral joint Report Dictated By: Darlyn Alvarado MD at 06/23/2017 5:00 PM Report E-Signed By: Darlyn Alvarado MD at 06/23/2017 5:01 PM WSN:[email or web address]
--- NOTE | 2017-06-23 18:36 | RADIOLOGY IMAGING REPORT ---
FACILITY: [facility] PATIENT NAME: Nadia Baumann : 1930 MR: [id number] V: [id number] EXAM DATE: ORDERING PHYSICIAN: KELLY LEMUS TECHNOLOGIST: Location: [facility] Patient: Nadia Baumann : 1930 Visit/Account:[id number] Date of Sevice: 06/23/2017 CT Head without contrast and CT Cervical spine: Indication: Fall at home. Comparison: CT head and cervical spine on 06/19/2017. Technique: CT head: Axial CT images were obtained through the brain from the skull base to the verte x without administration of IV contrast. Reformatted coronal and sagittal images were also obtained. Technique: CT cervical spine: Axial CT imaging of the cervical spine was performed. 2-D sagittal and coronal CT reformats were also obtained. One of the following dose optimization techniques was utilized in the performance of this exam: Autom ated exposure control; adjustment of the mA and/or kV according to the patient's size; or use of an i terative reconstruction technique. Specific details can be referenced in the facility's radiology C T exam operational policy. FINDINGS: CT head: No intracranial bleed, midline shift, mass effect, extra-axial fluid collection or hydrocephalus. The left occipital region does show mild decreased attenuation when compared the right side. No other ab normal density present some mild periventricular white matter ischemic changes consistent small vesse l disease. Age-related cerebral atrophy. Cabrera/white matter differentiation appears normal. Mild bilat eral internal carotid artery calcifications. Bony structures show no fractures or lesions. The sinuse s and mastoids visualized are clear. CT cervical spine: The vertebral bodies are aligned. There is mild reverse curvature due to degenerative changes. No acu te fracture or facet dislocation. No bony lesions. Mild osteopenia. There is diffuse degenerative hiral nges throughout the stomach moderate. These include disc space narrowing, endplate changes, osteophyt es and facet arthropathy. No bony canal stenosis. Multilevel neural foramina narrowing. No obvious di sc herniation. The endplates are maintained. Prevertebral soft tissues and strong soft tissues are un remarkable. Lung apices are clear. IMPRESSION: 1. No acute intracranial abnormality. Age-related changes. The left occipital lobe does show faint de creased attenuation compared to the right. This could be due to the difference in positioning. This c ould also represent a subacute ischemic event. If there is clinical concern a MRI of the brain withou t contrast can further evaluate. 2. No acute osseous or acute alignment abnormality of the cervical spine. Degenerative changes and os teopenia. Report Dictated By: Jamal Christine at 06/23/2017 6:22 PM Report E-Signed By: Jamal Christine at 06/23/2017 6:31 PM WSN:[email or web address]
--- NOTE | 2017-06-23 18:36 | RADIOLOGY IMAGING REPORT ---
[place] [facility] [place] NAME: Nadia Baumann : 1930 MR: [id number] V: [id number] EXAM DATE: ORDERING PHYSICIAN: KELLY LEMUS TECHNOLOGIST: [facility] Patient: Nadia Baumann : 1930 Visit/Account:[id number] Date of Sevice: 06/23/2017 CT Head without contrast and CT Cervical spine: Indication: Fall at home. Comparison: CT head and cervical spine on 06/19/2017. Technique: CT head: Axial CT images were obtained through the brain from the skull base to the verte x without administration of IV contrast. Reformatted coronal and sagittal images were also obtained. Technique: CT cervical spine: Axial CT imaging of the cervical spine was performed. 2-D sagittal and coronal CT reformats were also obtained. One of the following dose optimization techniques was utilized in the performance of this exam: Autom ated exposure control; adjustment of the mA and/or kV according to the patient's size; or use of an i terative reconstruction technique. Specific details can be referenced in the facility's radiology C T exam operational policy. FINDINGS: CT head: No intracranial bleed, midline shift, mass effect, extra-axial fluid collection or hydrocephalus. The left occipital region does show mild decreased attenuation when compared the right side. No other ab normal density present some mild periventricular white matter ischemic changes consistent small vesse l disease. Age-related cerebral atrophy. Cabrera/white matter differentiation appears normal. Mild bilat eral internal carotid artery calcifications. Bony structures show no fractures or lesions. The sinuse s and mastoids visualized are clear. CT cervical spine: The vertebral bodies are aligned. There is mild reverse curvature due to degenerative changes. No acu te fracture or facet dislocation. No bony lesions. Mild osteopenia. There is diffuse degenerative hiral nges throughout the stomach moderate. These include disc space narrowing, endplate changes, osteophyt es and facet arthropathy. No bony canal stenosis. Multilevel neural foramina narrowing. No obvious di sc herniation. The endplates are maintained. Prevertebral soft tissues and strong soft tissues are un remarkable. Lung apices are clear. IMPRESSION: 1. No acute intracranial abnormality. Age-related changes. The left occipital lobe does show faint de creased attenuation compared to the right. This could be due to the difference in positioning. This c ould also represent a subacute ischemic event. If there is clinical concern a MRI of the brain withou t contrast can further evaluate. 2. No acute osseous or acute alignment abnormality of the cervical spine. Degenerative changes and os teopenia. Report Dictated By: Jamal Christine at 06/23/2017 6:22 PM Report E-Signed By: Jamal Christine at 06/23/2017 6:31 PM WSN:[id number]
[2017-06-23] MEDS ORDERED: TETRACAIN/EPI/LIDO GEL 3ML SYR TP ONE (18:40)
[2017-06-23 20:30] VITALS: BP 125/55
[2017-06-23] MEDS ORDERED: INFLUENZA VIRUS VAC 0.5 ML SYR IM ONLY ONE (21:15)
--- NOTE | 2017-06-23 21:36 | History & Physical ---
History of Present Illness Chief Complaint Falls History of Present Illness This patient was brought to the emergency room secondary to falls. Her family reports that she has been falling more frequently over the last several months. She has had 10 emergency room visits since the beginning of this year for fall related problems. 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 (5) Pacemaker Status: Chronic (6) Edema Onset Date: 02/26/2014 Status: Acute Home Meds Active Scripts Furosemide (FUROSEMIDE) 20 Mg Tablet, 1 TAB PO QDAY, #30 TAB 2 Refills Prov:EVERTON RIOS MD 06/02/17 Sulfacetamide Sodium (SULFACETAMIDE SODIUM) 15 Ml Drops, 15 ML OS QID, #15 ML Prov:EVERTON RIOS MD 06/01/17 Oxymetazoline Hcl (AFRIN) 30 Ml [place], 2 SPR DAR BID Y for BLEEDING for 7 Days, #1 BOTTLE two sprays into nostril to stop bleeding Prov:ROOSEVELT JOHANSEN MD 05/07/17 Simvastatin (SIMVASTATIN) 20 Mg Tablet, 1 TAB PO HS, #90 TAB 3 Refills Prov:EVERTON RIOS MD 03/02/17 Omeprazole (OMEPRAZOLE) 20 Mg Capsule.dr, 1 CAP PO QAM, #90 CAP 3 Refills TAKE ONE CAPSULE BY MOUTH ONCE A DAY Prov:IZABELLA GARAY PHARMLashanda 01/15/17 Warfarin Sodium (WARFARIN SODIUM) 7.5 Mg Tablet, 1 TAB PO QDAY, #30 TAB 12 Refills Prov:EVERTON RIOS MD 03/20/16 Reported Medications Cyanocobalamin (Vitamin B-12) (B-12) 1,000 Mcg Tablet.er, 1000 MCG PO QDAY 06/01/17 Calcium Carb & Cit/Vitamin D3 (CITRACAL + D ER TABLET) 1 Each Tablet.er, 1 TAB PO QDAY 04/03/15 Ferrous Sulfate (IRON) 325 Mg Capsule.er, 325 MG PO TID 02/01/15 Allergies: Coded Allergies: No Known Drug Allergies (Unverified , 06/19/17) Patient History: FH: breast cancer MOTHER, , Age:90 FH: diabetes mellitus MOTHER, , Age:90 FH: tremor MOTHER, , Age:90 Hx Smoking: No Smoking Status: Former Smoker Exposure to Second Hand Smoke?: No Caffeine Intake: Coffee Hx Alcohol Use: No Hx Substance Use Disorder: No Social Drug Use: Never Review of Systems All Systems Reviewed/Normal: Yes, Except as Noted Neurological: Weakness Exam Vital Signs Vital Signs Date Time Temp Pulse Resp B/P (MAP) Pulse Ox O2 Delivery O2 Flow Rate FiO2 06/23/17 20:30 98.4 86 18 125/55 (78) 89 Room Air Neuro: Other (Resting tremor.) Eyes: PERRLA Cardiovascular: Regular Rate and Rhythm, Other (mechanical valve) Respiratory: Clear to Auscultation GI: Abd Soft and Non-Tender Extremities: No Edema Integumentary: No Cyanosis Medical Decision Making Data Points Result Diagram: 06/23/17 1627 06/23/17 1627 Assessment and Plan Problems: (1) Anemia Onset Date: 06/20/2014 Status: Chronic Assessment & Plan: She has a chronic anemia, but her levels are much lower today than previous. She does report frequent nosebleeds from her warfarin, but no other obvious source of bleeding. She is scheduled to receive 2 units of red cells. Repeat Hgb testing has been ordered for the morning. She is already on chronic treatment with iron and B12. (2) Fall in elderly patient Status: Acute Assessment & Plan: Her family reports frequent falls over the last several months. She has visited the emergency room at least 10 times since the beginning of the year for fall related issues. Physical and occupational therapy consults have been ordered. (3) History of prosthetic mitral valve Status: Chronic Assessment & Plan: She is on chronic treatment with warfarin. We have held the warfarin for now until we can check an INR. Daily INR monitoring has also been ordered. (4) Essential tremor Status: Chronic (5) Edema Onset Date: 02/26/2014 Status: Acute Assessment & Plan: She is on chronic treatment with Lasix, which has been held. Daily weights have been ordered. Copies to: EVERTON RIOS MD Venous Thromboembolism Antithrombotics Is Pt On Any Antithrombotics?: Yes Exam Sepsis Risk: No Definite Risk MIKAYLA BLACKMAN DO Jun 23, 2017 21:36
[2017-06-23 21:44] LABS: INR 2.63
[2017-06-24] VITALS (13 sets, daily range): BP systolic 105–139; BP diastolic 46–69; Ht 157.5 cm; Wt 56.5 kg
[2017-06-24 06:20] LABS: PLATELET COUNT, AUTOMATED 152 K/uL (150-450)
[2017-06-24 06:33] LABS: INR 2.49
[2017-06-24] MEDS ORDERED: [UNRECOGNIZED DRUG - OTHER] OS SCH (09:00)
[2017-06-24] MEDS: FERROUS SULFATE 325 MG TAB PO SCH ×3 (09:39→18:12)
[2017-06-24] MEDS: PANTOPRAZOLE SOD 40 MG TABEC PO SCH (09:39)
[2017-06-24] MEDS: CYANOCOBALAMIN 1000 MCG TAB PO SCH (09:39)
[2017-06-24] MEDS ORDERED: NS(*) 0.9% 500 ML BAG 500 ML ONE (13:10)
[2017-06-24] MEDS: WARFARIN SOD 5 MG TAB PO SCH (13:15)
--- NOTE | 2017-06-24 14:39 | Hospitalist Progress Note ---
Subjective Progress Notes Subjective No cp/sob/dizziness. She has mild nausea, but wants to eat breakfast. Physical Exam Vital Signs Date Time Temp Pulse Resp B/P (MAP) Pulse Ox O2 Delivery O2 Flow Rate FiO2 06/24/17 11:15 98.8 85 20 118/58 (78) 97 Nasal Cannula 1.0 Intake and Output 06/25/17 07:00 Intake Total 240 ml Balance 240 ml Intake Oral 240 ml # Voids 1 General Appearance: Alert, Awake, No Acute Distress Result Diagram: 06/24/17 0608 06/24/17 06 Assessment and Plan Problems: (1) Anemia Onset Date: 06/20/2014 Status: Chronic Assessment & Plan: BP/P stable. No worrisome symptoms. 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 She does report frequent nosebleeds from her warfarin. Colonoscopy done March 2013 showed tubular adenoma which was removed, but no other source of bleeding. As per patient, she had a repeat EGD in February in 2013 and colonoscopy also, which were unremarkable. She saw Dr. Bustamante April 2015 and upper GI was done on April 15, 2015 without identifiable cause of bleeding found. She is scheduled to receive 2 units of red cells. Repeat Hgb testing has been ordered for the morning. She is already on chronic treatment with iron and B12. (2) Fall in elderly patient Status: Acute Assessment & Plan: Her family reports frequent falls over the last several months. She has visited the emergency room at least 10 times since the beginning of the year for fall related issues. Physical and occupational therapy consults have been ordered. (3) History of prosthetic mitral valve Status: Chronic Assessment & Plan: She is on chronic treatment with warfarin. We have held the warfarin for now until we can check an INR. Daily INR monitoring has also been ordered. (4) Essential tremor Status: Chronic (5) Edema Onset Date: 02/26/2014 Status: Acute Assessment & Plan: She is on chronic treatment with Lasix, which has been held. Daily weights have been ordered. Exam Sepsis Risk: No Definite Risk CRISTY QUISPE MD Jun 24, 2017 14:39
[2017-06-24] MEDS: SIMVASTATIN 20 MG TAB PO SCH (20:39)
[2017-06-25] VITALS (7 sets, daily range): BP systolic 122–151; BP diastolic 65–81
[2017-06-25 06:08] LABS: INR 1.87
[2017-06-25 06:09] LABS: PLATELET COUNT, AUTOMATED 158 K/uL (150-450)
[2017-06-25] MEDS: CYANOCOBALAMIN 1000 MCG TAB PO SCH (08:48)
[2017-06-25] MEDS: PANTOPRAZOLE SOD 40 MG TABEC PO SCH (08:48)
[2017-06-25] MEDS: FERROUS SULFATE 325 MG TAB PO SCH ×3 (08:48→18:26)
[2017-06-25] MEDS: WARFARIN SOD 5 MG TAB PO SCH (14:11)
--- NOTE | 2017-06-25 14:53 | Hospitalist Progress Note ---
Subjective Progress Notes Subjective She is still weak. PT/OT are recommending higher level of care at [place]. She has been living at home with her elderly and help from home health (who is in agreement she needs higher level). Physical Exam Vital Signs Date Time Temp Pulse Resp B/P (MAP) Pulse Ox O2 Delivery O2 Flow Rate FiO2 06/25/17 11:59 97.6 74 20 137/66 (89) 98 Nasal Cannula 2.0 Intake and Output 06/26/17 07:00 Intake Total 120 ml Balance 120 ml Intake Oral 120 ml # Voids 2 General Appearance: Alert, Awake Cardiovascular: Other (Fairly regular with valve click and systolic murmur) Respiratory: Clear to Auscultation GI: Soft and Non-Tender Extremities: Warm, Perfused Result Diagram: 06/25/1751406/25/17514 Assessment and Plan Problems: (1) Anemia Onset Date: 06/20/2014 Status: Chronic Assessment & Plan: Improved with transfusion of 2 units. 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 She does report frequent nosebleeds from her warfarin. Colonoscopy done March 2013 showed tubular adenoma which was removed, but no other source of bleeding. As per patient, she had a repeat EGD in February in 2013 and colonoscopy also, which were unremarkable. She saw Dr. Bustamante April 2015 and upper GI was done on April 15, 2015 without identifiable cause of bleeding found. Will transfuse an additional 2 units of red cells. Watch Hgb/Hct. She is already on chronic treatment with iron and B12. (2) Fall in elderly patient Status: Acute Assessment & Plan: Her family reports frequent falls over the last several months. She has visited the emergency room at least 10 times since the beginning of the year for fall related issues. Physical and occupational therapy are recommending higher level of care when she is discharged. Will have /CO planning see patient/family. (3) History of prosthetic mitral valve Status: Chronic Assessment & Plan: She is on chronic treatment with warfarin. We have held the warfarin due to concern she could have acute bleeding. It does not appear that she does. Will resume her warfarin at 5mg daily (previously on 5mg 6 days a week and 7.5mg one day a week) and follow daily INR. Goal INR to be ~2.5. (4) Essential tremor Status: Chronic (5) Edema Onset Date: 02/26/2014 Status: Acute Assessment & Plan: She is on chronic treatment with Lasix, which has been held. Daily weights have been ordered. Exam Sepsis Risk: No Definite Risk LATISHA RYAN MD Jun 25, 2017 14:53
[2017-06-25] MEDS: SIMVASTATIN 20 MG TAB PO SCH (20:54)
[2017-06-25] MEDS ORDERED: NS(*) 0.9% 500 ML BAG 500 ML IV ONE (22:00)
[2017-06-26] VITALS (8 sets, daily range): BP systolic 110–160; BP diastolic 57–95
[2017-06-26] MEDS ORDERED: ACETAMINOPHEN 325 MG TAB PO PRN (04:15)
[2017-06-26 06:33] LABS: INR 1.77
[2017-06-26] MEDS: FERROUS SULFATE 325 MG TAB PO SCH ×3 (10:05→18:35)
[2017-06-26] MEDS: PANTOPRAZOLE SOD 40 MG TABEC PO SCH (10:05)
[2017-06-26] MEDS: CYANOCOBALAMIN 1000 MCG TAB PO SCH (10:05)
[2017-06-26] MEDS: ENOXAPARIN 100 MG/ML SYR SC SCH ×2 (10:05→21:58)
--- NOTE | 2017-06-26 13:34 | Hospitalist Progress Note ---
Subjective Progress Notes Subjective She denies SOB. No reported problems with the recent blood transfusion. Physical Exam Vital Signs Date Time Temp Pulse Resp B/P (MAP) Pulse Ox O2 Delivery O2 Flow Rate FiO2 06/26/17 11:03 97.9 67 18 123/57 (79) 90 Room Air 06/26/17 07:28 1.0 Intake and Output 06/27/17 07:00 Intake Total 240 ml Balance 240 ml Intake Oral 240 ml # Voids 4 # Bowel Movements 1 General Appearance: Alert, Awake, No Acute Distress Respiratory: Clear to Auscultation Extremities: No Edema Result Diagram: 06/26/17 0608 06/25/17 0515 Assessment and Plan Problems: (1) Anemia Onset Date: 06/20/2014 Status: Chronic Assessment & Plan: She has iron deficiency anemia and indolent multiple myeloma and is followed by hematology. She does report frequent nosebleeds from her warfarin. Colonoscopy done March 2013 showed tubular adenoma which was removed, but no other source of bleeding. As per patient, she had a repeat EGD in February in 2013 and colonoscopy also, which were unremarkable. She saw Dr. Bustamante April 2015 and upper GI was done on April 15, 2015 without identifiable cause of bleeding found. She is already on chronic treatment with iron and B12. She as transfused 2 units of PRBC on 06/24 and 2 more on 06/25. Hgb is up appropriately. (2) Fall in elderly patient Status: Acute Assessment & Plan: Her family reports frequent falls over the last several months. She has visited the emergency room at least 10 times since the beginning of the year for fall related issues. Physical and occupational therapy are recommending higher level of care when she is discharged. The plan is for her to go to [facility] upon discharge. (3) History of prosthetic mitral valve Status: Chronic Assessment & Plan: She is on chronic treatment with warfarin. We had held the warfarin due to concern she could have acute bleeding. It does not appear that she does. Will resume her warfarin at 5mg daily (previously on 5mg 6 days a week and 7.5mg one day a week) and follow daily INR. Lovenox started to bridge therapy. Goal INR to be ~2.5. (4) Edema Onset Date: 02/26/2014 Status: Acute Assessment & Plan: She is on chronic treatment with Lasix, which has been held. No edema on exam. Daily weights have been ordered. (5) Essential tremor Status: Chronic Exam Sepsis Risk: No Definite Risk CRISTY QUISPE MD Jun 26, 2017 13:34
[2017-06-26] MEDS: WARFARIN SOD 5 MG TAB PO SCH (13:58)
[2017-06-26] MEDS: SIMVASTATIN 20 MG TAB PO SCH (21:53)
[2017-06-27 00:10] VITALS: BP 130/69
[2017-06-27 06:17] LABS: PLATELET COUNT, AUTOMATED 143 K/uL (150-450)
[2017-06-27 07:38] LABS: INR 2.12
--- NOTE | 2017-06-27 08:30 | Hospitalist Progress Note ---
Subjective Progress Notes Subjective No problems overnight. No concerns from the staff. Physical Exam Vital Signs Date Time Temp Pulse Resp B/P (MAP) Pulse Ox O2 Delivery O2 Flow Rate FiO2 06/27/17 04:08 75 06/27/17 01:55 88 06/27/17 00:10 98.1 20 130/69 (89) Nasal Cannula 1.0 General Appearance: Alert, Awake, No Acute Distress Result Diagram: 06/27/17 0540 06/25/17 0515 Assessment and Plan Problems: (1) Anemia Onset Date: 06/20/2014 Status: Chronic Assessment & Plan: She has iron deficiency anemia and indolent multiple myeloma and is followed by hematology. She does report frequent nosebleeds from her warfarin. Colonoscopy done March 2013 showed tubular adenoma which was removed, but no other source of bleeding. As per patient, she had a repeat EGD in February in 2013 and colonoscopy also, which were unremarkable. She saw Dr. Bustamante April 2015 and upper GI was done on April 15, 2015 without identifiable cause of bleeding found. She is already on chronic treatment with iron and B12. She as transfused 2 units of PRBC on 06/24 and 2 more on 06/25. Hgb is up appropriately. (2) Fall in elderly patient Status: Acute Assessment & Plan: Her family reports frequent falls over the last several months. She has visited the emergency room at least 10 times since the beginning of the year for fall related issues. Physical and occupational therapy are recommending higher level of care when she is discharged. The plan is for her to go to [facility] upon discharge. (3) History of prosthetic mitral valve Status: Chronic Assessment & Plan: She is on chronic treatment with warfarin. We had held the warfarin due to concern she could have acute bleeding. It does not appear that she does. Will resume her warfarin at 5mg daily (previously on 5mg 6 days a week and 7.5mg one day a week) and follow daily INR. Lovenox started to bridge therapy, but will stop because the INR is increasing (ie. 2.12 today). Goal INR to be ~2.5. (4) Edema Onset Date: 02/26/2014 Status: Acute Assessment & Plan: She is on chronic treatment with Lasix, which has been held. No edema on exam. Will restart today. Daily weights have been ordered. (5) Essential tremor Status: Chronic Exam Sepsis Risk: No Definite Risk CRISTY QUISPE MD Jun 27, 2017 08:30
[2017-06-27 08:31] VITALS: BP 116/62
[2017-06-27] MEDS ORDERED: ENOXAPARIN 100 MG/ML SYR SC SCH (09:00)
[2017-06-27] MEDS: FERROUS SULFATE 325 MG TAB PO SCH ×3 (09:46→18:30)
[2017-06-27] MEDS: PANTOPRAZOLE SOD 40 MG TABEC PO SCH (09:46)
[2017-06-27] MEDS: FUROSEMIDE 20 MG TAB PO SCH (09:46)
[2017-06-27] MEDS: CYANOCOBALAMIN 1000 MCG TAB PO SCH (09:46)
[2017-06-27 12:13] VITALS: BP 112/54
[2017-06-27] MEDS: WARFARIN SOD 5 MG TAB PO SCH (13:31)
[2017-06-27 15:31] VITALS: BP 117/57
[2017-06-27 19:40] VITALS: BP 135/72
[2017-06-27] MEDS: SIMVASTATIN 20 MG TAB PO SCH (20:38)
[2017-06-28 03:15] VITALS: BP 141/75
[2017-06-28 06:20] LABS: INR 1.93
[2017-06-28 06:47] VITALS: BP 132/69
[2017-06-28] MEDS: FUROSEMIDE 20 MG TAB PO SCH (09:56)
[2017-06-28] MEDS: CYANOCOBALAMIN 1000 MCG TAB PO SCH (09:56)
[2017-06-28] MEDS: FERROUS SULFATE 325 MG TAB PO SCH ×3 (09:56→18:23)
[2017-06-28] MEDS: PANTOPRAZOLE SOD 40 MG TABEC PO SCH (09:56)
[2017-06-28] MEDS: WARFARIN SOD 5 MG TAB PO SCH (13:26)
[2017-06-28 14:24] VITALS: BP 129/72
--- NOTE | 2017-06-28 15:20 | Hospitalist Progress Note ---
Subjective Progress Notes Subjective The patient denies new complaints. Physical Exam Vital Signs Date Time Temp Pulse Resp B/P (MAP) Pulse Ox O2 Delivery O2 Flow Rate FiO2 06/28/17 14:24 98.0 77 18 129/72 (91) 90 Room Air 06/28/17 06:47 0.5 Intake and Output 06/29/17 07:00 Intake Total 170 ml Balance 170 ml Intake Oral 170 ml # Voids 6 General Appearance: Alert, Awake, No Acute Distress, Other (Appears ) Neuro: No Gross deficits Cardiovascular: Regular Rate and Rhythm Respiratory: Clear to Auscultation GI: Soft and Non-Tender Extremities: Warm, Perfused Integumentary: Generalized Fragile Skin Psych: Appropriate Mood & Affect Result Diagram: 06/27/17 0540 06/25/17 0515 Assessment and Plan Problems: (1) Anemia Onset Date: 06/20/2014 Status: Chronic Assessment & Plan: She has iron deficiency anemia and indolent multiple myeloma and is followed by hematology. She does report frequent nosebleeds from her warfarin. Colonoscopy done March 2013 showed tubular adenoma which was removed, but no other source of bleeding. As per patient, she had a repeat EGD in February in 2013 and colonoscopy also, which were unremarkable. She saw Dr. Bustamante April 2015 and upper GI was done on April 15, 2015 without identifiable cause of bleeding found. She is already on chronic treatment with iron and B12. She as transfused 2 units of PRBC on 06/24 and 2 more on 06/25. Hgb is up appropriately. (2) Fall in elderly patient Status: Acute Assessment & Plan: Her family reports frequent falls over the last several months. She has visited the emergency room at least 10 times since the beginning of the year for fall related issues. Physical and occupational therapy are recommending higher level of care when she is discharged. The plan is for her to go to [facility] upon discharge. (3) History of prosthetic mitral valve Status: Chronic Assessment & Plan: She is on chronic treatment with warfarin. We had held the warfarin due to concern she could have acute bleeding. It does not appear that she does. Will resume her warfarin at 5mg daily (previously on 5mg 6 days a week and 7.5mg one day a week) and follow daily INR. Lovenox started to bridge therapy, but was stopped because the INR increased to 2.12. Today she is once again below 2 so will give a one time dose of Lovenox 1.5mg/kg today. (4) Edema Onset Date: 02/26/2014 Status: Acute Assessment & Plan: She is on chronic treatment with Lasix, which has been held. No edema on exam. Lasix restarted. Daily weights have been ordered. (5) Essential tremor Status: Chronic Time Spent on Plan of Care: < 30 min Exam Sepsis Risk: No Definite Risk KENNY RYAN MD Jun 28, 2017 15:20
[2017-06-28] MEDS ORDERED: ENOXAPARIN 100 MG/ML SYR SC ONE (15:50)
[2017-06-28 20:27] VITALS: BP 128/66
[2017-06-28] MEDS: SIMVASTATIN 20 MG TAB PO SCH (21:44)
[2017-06-29 05:59] LABS: PLATELET COUNT, AUTOMATED 138 K/uL (150-450)
[2017-06-29 06:08] LABS: INR 1.91
[2017-06-29 08:31] VITALS: BP 142/79
--- NOTE | 2017-06-29 17:49 | Hospitalist Depart ---
Discharge Summary Reason for Hosp/Final Diag: (1) Anemia Onset Date: 06/20/2014 Status: Chronic Hospital Course & Plan: She has iron deficiency anemia and indolent multiple myeloma and is followed by hematology. She does report frequent nosebleeds from her warfarin. Colonoscopy done March 2013 showed tubular adenoma which was removed, but no other source of bleeding. As per patient, she had a repeat EGD in February in 2013 and colonoscopy also, which were unremarkable. She saw Dr. Bustamante April 2015 and upper GI was done on April 15, 2015 without identifiable cause of bleeding found. She is already on chronic treatment with iron and B12. She as transfused 2 units of PRBC on 06/24 and 2 more on 06/25. Hgb is up appropriately. Will follow. (2) Fall in elderly patient Status: Acute Hospital Course & Plan: Her family reports frequent falls over the last several months. She has visited the emergency room at least 10 times since the beginning of the year for fall related issues. The head CT possibly shows a subacute ischemic event in the left occipital lobe. Will follow INR closely. Physical and occupational therapy are recommending higher level of care when she is discharged. She is going to a Swing Bed to continue work with therapy. (3) History of prosthetic mitral valve Status: Chronic Hospital Course & Plan: She is on chronic treatment with warfarin. We had held the warfarin due to concern she could have acute bleeding. It does not appear that she does. Will resume her warfarin at 5mg daily (previously on 5mg 6 days a week and 7.5mg one day a week) and follow daily INR. Lovenox started to bridge therapy, but was stopped because the INR increased to 2.12. Today she is once again below 2 so will continue Lovenox 1.5mg/kg today. Daily INR's. (4) Edema Onset Date: 02/26/2014 Status: Acute Hospital Course & Plan: She is on chronic treatment with Lasix, which has been held. No edema on exam. Lasix restarted. Daily weights have been ordered. (5) Essential tremor Status: Chronic Departure Weight (Pounds): 124 Weight (Ounces): 8.0 Result Diagram: 06/29/17 0542 06/29/17 0542 Item Value Date Time White Blood Count 3.7 k/uL L 06/23/17 1627 Hemoglobin 7.0 g/dL *L 06/23/17 1627 Platelet Count 182 K/uL 06/23/17 1627 White Blood Count 3.1 k/uL L 06/24/17 0608 Hemoglobin 6.0 g/dL *L 06/24/17 0608 Platelet Count 152 K/uL 06/24/17 0608 Platelet Count 158 K/uL 06/25/17 0515 Platelet Count 143 K/uL L 06/27/17 0540 Platelet Count 138 K/uL L 06/29/17 0542 Hemoglobin 11.7 g/dL L 06/29/17 0542 Hemoglobin 11.4 g/dL L 06/27/17 0540 Hemoglobin 11.5 g/dL L 06/26/17 0608 Hemoglobin 9.0 g/dL *L # 06/25/17 0515 White Blood Count 3.6 k/uL L 06/25/17 0515 White Blood Count 3.4 k/uL L 06/27/17 0540 White Blood Count 2.8 k/uL L 06/29/17 0542 Urine Leukocyte Esterase Negative 06/28/17 0000 Urine RBC <1 /HPF 06/28/17 0000 Urine WBC None /HPF 06/28/17 0000 Urine Squamous Epithelial Cells Few /LPF 06/28/17 0000 Urine Squamous Epithelial Cells None /LPF 06/23/17 1836 Urine RBC None /HPF 06/23/17 1836 Urine WBC None /HPF 06/23/17 1836 Urine Leukocyte Esterase Negative 06/23/17 1836 Urine Nitrite Negative 06/23/17 1836 Urine Nitrite Negative 06/28/17 0000 Prothromb Time International Ratio 1.91 06/29/17 0542 Prothromb Time International Ratio 1.93 06/28/17 0536 Prothromb Time International Ratio 2.12 06/27/17 0540 Prothromb Time International Ratio 1.77 06/26/17 0608 Prothromb Time International Ratio 1.87 06/25/17 0515 Sodium Level 138 mmol/L 06/23/17 1627 Potassium Level 3.5 mmol/L 06/23/17 1627 Carbon Dioxide Level 29 mmol/L 06/23/17 1627 Creatinine 1.00 mg/dl 06/23/17 1627 Blood Urea Nitrogen 23 mg/dl H 06/23/17 1627 Random Glucose 101 mg/dl 06/23/17 1627 Total Bilirubin 0.3 mg/dl 06/23/17 1627 Aspartate Amino Transf (AST/SGOT) 29 U/L 06/23/17 1627 Alanine Aminotransferase (ALT/SGPT) 31 U/L 06/23/17 1627 Alkaline Phosphatase 138 U/L H 06/23/17 1627 Troponin I < 0.012 ng/ml 06/23/17 1627 Chloride Level 100 mmol/L 06/23/17 1627 Blood Urea Nitrogen 27 mg/dl H 06/24/17 0608 Blood Urea Nitrogen 22 mg/dl H 06/25/17 0515 Blood Urea Nitrogen 22 mg/dl H 06/29/17 0542 Creatinine 0.90 mg/dl 06/29/17 0542 Creatinine 1.00 mg/dl 06/25/17 0515 Creatinine 1.00 mg/dl 06/24/17 0608 Imaging All studies from 06/23/17 CXR - 1. Stable cardiomegaly although no evidence of acute pulmonary consolidation C-Spine CT - 1. No acute intracranial abnormality. Age-related changes. The left occipital lobe does show faint decreased attenuation compared to the right. This could be due to the difference in positioning. This could also represent a subacute ischemic event. If there is clinical concern a MRI of the brain without contrast can further evaluate. 2. No acute osseous or acute alignment abnormality of the cervical spine. Degenerative changes and osteopenia. Knee Xray - 1. No evidence of acute fracture-dislocation involving the left knee Tricompartmental degenerative changes as prominent the patellofemoral joint Pelvis Xray - 1. Mild degenerative changes of the hip joints although no evidence of a pelvic fracture Head CT - 1. No acute intracranial abnormality. Age-related changes. The left occipital lobe does show faint decreased attenuation compared to the right. This could be due to the difference in positioning. This could also represent a subacute ischemic event. If there is clinical concern a MRI of the brain without contrast can further evaluate. 2. No acute osseous or acute alignment abnormality of the cervical spine. Degenerative changes and osteopenia. Condition: Improved Discharge: [facility] Swingbed Discharge Instructions Home Meds Active Scripts Furosemide (FUROSEMIDE) 20 Mg Tablet, 1 TAB PO QDAY, #30 TAB 2 Refills Prov:EVERTON RIOS MD 06/02/17 Sulfacetamide Sodium (SULFACETAMIDE SODIUM) 15 Ml Drops, 15 ML OS QID, #15 ML Prov:EVERTON RIOS MD 06/01/17 Oxymetazoline Hcl (AFRIN) 30 Ml [place], 2 SPR DAR BID Y for BLEEDING for 7 Days, #1 BOTTLE two sprays into nostril to stop bleeding Prov:ROOSEVELT JOHANSEN MD 05/07/17 Simvastatin (SIMVASTATIN) 20 Mg Tablet, 1 TAB PO HS, #90 TAB 3 Refills Prov:EVERTON RIOS MD 03/02/17 Omeprazole (OMEPRAZOLE) 20 Mg Capsule.dr, 1 CAP PO QAM, #90 CAP 3 Refills TAKE ONE CAPSULE BY MOUTH ONCE A DAY Prov:IZABELLA GARAY PHARMD 01/15/17 Warfarin Sodium (WARFARIN SODIUM) 7.5 Mg Tablet, 1 TAB PO QDAY, #30 TAB 12 Refills Prov:EVERTON RIOS MD 03/20/16 Reported Medications Cyanocobalamin (Vitamin B-12) (B-12) 1,000 Mcg Tablet.er, 1000 MCG PO QDAY 06/01/17 Calcium Carb & Cit/Vitamin D3 (CITRACAL + D ER TABLET) 1 Each Tablet.er, 1 TAB PO QDAY 04/03/15 Ferrous Sulfate (IRON) 325 Mg Capsule.er, 325 MG PO TID 02/01/15 Diet: Regular Activity: As Tolerated, With Walker Special Instructions: Copies to: EVERTON RIOS MD Venous Thromboembolism Antithrombotics Is Pt On Any Antithrombotics?: Yes CRISTY QUISPE MD Jun 29, 2017 17:49
[2017-06-30] MEDS ORDERED: WARF5TAB23 PO ×2 (13:34)
== END 2017-06-29 10:44 | DRG 812 ==
LOC: ER 15:30 → MED 20:06 → SWB 06-29 10:35 → MED 06-29 10:35 → UNDODISIN 06-29 10:44
PROVIDERS: ADMIT Family Medicine; ATTEND Family Medicine
PROC: 30233N1 Transfusion of Nonautologous Red Blood Cells into Peripheral Vein, Percutaneous Approach (ICD-10-PCS; principal; 2017-06-23)
DX: D50.9 Iron deficiency anemia, unspecified (principal); C90.00 Multiple myeloma not having achieved remission; G25.0 Essential tremor; S61.412A Laceration without foreign body of left hand, initial encounter; M25.562 Pain in left knee; E78.5 Hyperlipidemia, unspecified; R60.9 Edema, unspecified; W19.XXXA Unspecified fall, initial encounter; Y92.009 Unspecified place in unspecified non-institutional (private) residence as the place of occurrence of the external cause; Y99.8 Other external cause status; Z91.81 History of falling; Z95.2 Presence of prosthetic heart valve; Z79.01 Long term (current) use of anticoagulants; Z85.3 Personal history of malignant neoplasm of breast; Z85.828 Personal history of other malignant neoplasm of skin; Z90.13 Acquired absence of bilateral breasts and nipples; Z90.710 Acquired absence of both cervix and uterus; Z95.0 Presence of cardiac pacemaker; Z87.891 Personal history of nicotine dependence; Z96.612 Presence of left artificial shoulder joint
CPT/HCPCS: 36415; 70450; 71045; 72125; 72170; 73564; 81001; 82040; 82247; 82310; 82374; 82435; 82565; 82947; 84075; 84132; 84155; 84295; 84450; 84460; 84484; 84520; 85014; 85018; 85025; 85610; 86850; 86870; 86900; 86901; 86902; 86920; 86922; 93005; 97161; 97165; 99285; J1650; J7040; P9016

== ENCOUNTER → 2017-06-23 | Outpatient (CLI) | payer MEDICARE, OTHER ==
[2017-06-24 17:09] VITALS: BMI 21.6
== END ==
LOC: AMB 15:04
PROVIDERS: ATTEND Nurse Practitioner
DX: S60.512A Abrasion of left hand, initial encounter (principal); W18.30XA Fall on same level, unspecified, initial encounter; Y92.008 Other place in unspecified non-institutional (private) residence as the place of occurrence of the external cause
CPT/HCPCS: A0425; A0429

== ENCOUNTER 2017-06-29 10:46 | Inpatient (IN) | payer MEDICARE, OTHER ==
[2017-06-24 17:09] VITALS: Ht 152.4 cm; Wt 54.4 kg
[~2017-06-29] VITALS: Ht 152.4 cm; Wt 54.4 kg
[2017-06-29 11:00] VITALS: BP 126/57
[2017-06-29] MEDS ORDERED: WARFARIN SOD 7.5 MG TAB PO SCH (13:00)
[2017-06-29] MEDS: FERROUS SULFATE 325 MG TAB PO SCH ×2 (13:32→18:00)
--- NOTE | 2017-06-29 15:09 | Consultant Pharmacy Review ---
Medication Manager Review Medication Review Do All Mecications have a Diag: Yes Beers Criteria Medication 2014 Proton Pump Inhibitors: Pantoprazole (Patient on Protonix 40 mg qday. Monitor for risks of fall) Pneumococcal Vaccine HX Pneumo Vac ([id number]): Yes (2013) HX Pneumo Vac (Pneumovax): Yes Comments Regarding the Review Lexicomp Interaction Analysis A = No known interaction C = Monitor therapy X = Avoid combination B = No action needed D = Consider therapy modification Drugs in this analysis: Acetaminophen; Cyanocobalamin; Ferrous Sulfate; Lasix; Lovenox; Protonix; Warfarin; Zocor * Drug-Drug Interactions C Acetaminophen Warfarin (Vitamin K Antagonists) Depends on Dose C Ferrous Sulfate (Iron Salts) Protonix (Proton Pump Inhibitors) C Lovenox (Anticoagulants) Warfarin (Vitamin K Antagonists) Depends on Laboratory/Diagnostic Result C Warfarin (Vitamin K Antagonists) Zocor (HMG-CoA Reductase Inhibitors ( Statins)) B Protonix (Pantoprazole) Warfarin (Vitamin K Antagonists) AURA LOYA V Jun 29, 2017 15:09
[2017-06-29 15:50] VITALS: BP 130/71
--- NOTE | 2017-06-29 15:56 | OT ECF NOTE ---
Type of Note: Initial Note Primary Medical Diagnosis: Generalized weakness (frequent falls at home) Occupational Therapy Evaluation Date: 06/29/17 SUBJECTIVE: Prior Hospitalization: H 06/23/17 thru 06/29/17 Prior Level of Function: Pt reports her spouse assists with all ADLs and she has been having trouble "getting to the bathroom on time." Pt is oriented to self and situation. Reporting it is June of 1926. Per EMR, pt has been having frequent falls and ER admissions. HH is concerned about pt's ability to be successful in her current living situation. Prior Living Status: Spouse, Assist by family Community Services: House stripper soft plastic, half-way Accessibility: Unclear at this time Equipment Owned: Rolling Walker Medical Complications/Past Medical History: Anemia, falls, essential tremor, pacemaker, edema, frequent nose bleeds Psychosocial Support: Spouse Pain Scale (0-10): None reported at time of evaluation Hand Dominance: Right OBJECTIVE: Strength: MMT: Right Left Shoulder Flexion 4/5 3+/5 Elbow Flexion 4/5 3+/5 Wrist Extension 4/5 3+/5 Utility Pipe Layer 3+/5 3+/5 (5= normal, 4= good, 3= fair, 2= poor, 1= trace) ROM: Left, Moderately limited (pt has history of L TSA) Sensation: Intact, no paraesthesia noted Functional Transfer: Assistive Device: Front wheeled walker, Gait belt Transfer Ability: Minimum assistance. Pt is retropulsive with sit<>stands and requires significant v/c's for safety with RW. ADL: Upper body dressing: Assistive device: Upper body dressing ability: Not tested Lower body dressing: Assistive device: Lower body dressing ability: Not tested Toileting: Assistive device: Grab bars Toileting ability: Minimum assistance Grooming/hygiene: Assistive device: Grooming ability: N/T Bathing: Assistive device: Bathing ability: N/T Standardized Assessment: Good Index of Activities of Daily Livin/20 at initial evaluation (06/29). ASSESSMENT: Pt will benefit from skilled OT services to optimize independence with ADLs and assess needs for a safe discharge setting. Problem List/Current Limitations: Decreased activity tolerance Decreased balance Poor safety awareness Memory deficits Confusion Short Term Goals: 1) Pt will be CGA toileting. 2) Pt will be set-up A grooming/hygiene seated. 3) Pt will be CGA UB/LB dressing. 4) Pt will be CGA shower task. 5) Pt Good Index of ADLs score will improve by 2 points. Care Home Goals: Determine the most safe discharge for pt Patient Goals: Return home and improve balance Rehabilitation Prognosis: Fair Barriers to Discharge: Cognition, Medical history, frequent falls at home PLAN: The patient will benefit from skilled occupational therapy services 5 times per week for 2 weeks including: Ther ex ADL training Safety training Ther act IADL training Transfer training Adaptive equip training Bed mobility Energy conservation Thank you for this referral. If you have any questions, concerns, or comments about this report or plan, please contact me at . Jackelin Higuera MS, OTR/L Occupational Therapist SHAYAN
[2017-06-29] MEDS: ENOXAPARIN 100 MG/ML SYR SC SCH (16:00)
--- NOTE | 2017-06-29 17:41 | ECF H&P BLANK ---
ECF H&P UPDATE The patient was transferred to a Swing Bed to continue work with therapy. See the Discharge Summary for changes in the H&P. History of Present Illness Chief Complaint Falls History of Present Illness This patient was brought to the emergency room secondary to falls. Her family reports that she has been falling more frequently over the last several months. She has had 10 emergency room visits since the beginning of this year for fall related problems. 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 (5) Pacemaker Status: Chronic (6) Edema Onset Date: 02/26/2014 Status: Acute Home Meds Active Scripts Furosemide (FUROSEMIDE) 20 Mg Tablet, 1 TAB PO QDAY, #30 TAB 2 Refills Prov:EVERTON RIOS MD 06/02/17 Sulfacetamide Sodium (SULFACETAMIDE SODIUM) 15 Ml Drops, 15 ML OS QID, #15 ML Prov:EVERTON RIOS MD 06/01/17 Oxymetazoline Hcl (AFRIN) 30 Ml [place], 2 SPR DAR BID Y for BLEEDING for 7 Days, #1 BOTTLE two sprays into nostril to stop bleeding Prov:ROOSEVELT JOHANSEN MD 05/07/17 Simvastatin (SIMVASTATIN) 20 Mg Tablet, 1 TAB PO HS, #90 TAB 3 Refills Prov:EVERTON RIOS MD 03/02/17 Omeprazole (OMEPRAZOLE) 20 Mg Capsule.dr, 1 CAP PO QAM, #90 CAP 3 Refills TAKE ONE CAPSULE BY MOUTH ONCE A DAY Prov:IZABELLA GARAY PHARMLashanda 01/15/17 Warfarin Sodium (WARFARIN SODIUM) 7.5 Mg Tablet, 1 TAB PO QDAY, #30 TAB 12 Refills Prov:EVERTON RIOS MD 03/20/16 Reported Medications Cyanocobalamin (Vitamin B-12) (B-12) 1,000 Mcg Tablet.er, 1000 MCG PO QDAY 06/01/17 Calcium Carb & Cit/Vitamin D3 (CITRACAL + D ER TABLET) 1 Each Tablet.er, 1 TAB PO QDAY 04/03/15 Ferrous Sulfate (IRON) 325 Mg Capsule.er, 325 MG PO TID 02/01/15 Allergies: Coded Allergies: No Known Drug Allergies (Unverified , 06/19/17) Patient History: FH: breast cancer MOTHER, , Age:90 FH: diabetes mellitus MOTHER, , Age:90 FH: tremor MOTHER, , Age:90 Hx Smoking: No Smoking Status: Former Smoker Exposure to Second Hand Smoke?: No Caffeine Intake: Coffee Hx Alcohol Use: No Hx Substance Use Disorder: No Social Drug Use: Never Review of Systems All Systems Reviewed/Normal: Yes, Except as Noted Neurological: Weakness Exam Vital Signs Vital Signs Date Time Temp Pulse Resp B/P (MAP) Pulse Ox O2 Delivery O2 Flow Rate FiO2 06/23/17 20:30 98.4 86 18 125/55 (78) 89 Room Air Neuro: Other (Resting tremor.) Eyes: PERRLA Cardiovascular: Regular Rate and Rhythm, Other (mechanical valve) Respiratory: Clear to Auscultation GI: Abd Soft and Non-Tender Extremities: No Edema Integumentary: No Cyanosis Medical Decision Making Data Points Result Diagram: 06/23/17 1627 06/23/17 1627 Assessment and Plan Problems: (1) Anemia Onset Date: 06/20/2014 Status: Chronic Assessment & Plan: She has a chronic anemia, but her levels are much lower today than previous. She does report frequent nosebleeds from her warfarin, but no other obvious source of bleeding. She is scheduled to receive 2 units of red cells. Repeat Hgb testing has been ordered for the morning. She is already on chronic treatment with iron and B12. (2) Fall in elderly patient Status: Acute Assessment & Plan: Her family reports frequent falls over the last several months. She has visited the emergency room at least 10 times since the beginning of the year for fall related issues. Physical and occupational therapy consults have been ordered. (3) History of prosthetic mitral valve Status: Chronic Assessment & Plan: She is on chronic treatment with warfarin. We have held the warfarin for now until we can check an INR. Daily INR monitoring has also been ordered. (4) Essential tremor Status: Chronic (5) Edema Onset Date: 02/26/2014 Status: Acute Assessment & Plan: She is on chronic treatment with Lasix, which has been held. Daily weights have been ordered. Copies to: EVERTON RIOS MD Venous Thromboembolism Antithrombotics Is Pt On Any Antithrombotics?: Yes Exam Sepsis Risk: No Definite Risk MIKAYLA BLACKMAN DO Jun 23, 2017 21:36 <Electronically signed by MIKAYLA BLACKMAN DO> D/ [id number] CRISTY QUISPE MD Jun 29, 2017 17:41
[2017-06-29] MEDS: SIMVASTATIN 20 MG TAB PO SCH (21:00)
[2017-06-30 06:45] LABS: PLATELET COUNT, AUTOMATED 137 K/uL (150-450)
[2017-06-30 06:54] LABS: INR 2.04
[2017-06-30 07:42] VITALS: BP 124/77
[2017-06-30] MEDS: CYANOCOBALAMIN 1000 MCG TAB PO SCH (08:57)
[2017-06-30] MEDS: PANTOPRAZOLE SOD 40 MG TABEC PO SCH (08:57)
[2017-06-30] MEDS: FERROUS SULFATE 325 MG TAB PO SCH ×3 (08:58→18:24)
[2017-06-30] MEDS: FUROSEMIDE 20 MG TAB PO SCH (08:58)
[2017-06-30] MEDS: WARFARIN SOD 5 MG TAB PO SCH (12:42)
[2017-06-30] MEDS ORDERED: WARF5TAB23 PO ×2 (13:34)
[2017-06-30] MEDS: ENOXAPARIN 100 MG/ML SYR SC SCH (16:00)
--- NOTE | 2017-06-30 16:24 | Hospitalist Progress Note ---
Subjective Progress Notes Subjective The patient states her abdomen is sore where she gets her Lovenox shots. Physical Exam Vital Signs Date Time Temp Pulse Resp B/P (MAP) Pulse Ox O2 Delivery O2 Flow Rate FiO2 06/30/17 08:02 96 Nasal Cannula 1.5 06/30/17 07:42 97.2 76 22 124/77 (93) Intake and Output 07/01/17 07:00 Intake Total 240 ml Balance 240 ml Intake Oral 240 ml # Voids 6 General Appearance: Alert, Awake, No Acute Distress Neuro: Other (Poor short term memory. Mild R facial droop.) Eyes: PERRLA Cardiovascular: Regular Rate and Rhythm (With loud systolic murmur.), No Edema Respiratory: Clear to Auscultation GI: Soft and Non-Tender Extremities: Warm, Perfused Integumentary: Generalized Fragile Skin Psych: Appropriate Mood & Affect Result Diagram: 06/30/1761106/30/17611 Assessment and Plan Problems: (1) Anemia Onset Date: 06/20/2014 Status: Chronic Assessment & Plan: She has iron deficiency anemia and indolent multiple myeloma and is followed by hematology. She does report frequent nosebleeds from her warfarin. Colonoscopy done March 2013 showed tubular adenoma which was removed, but no other source of bleeding. As per patient, she had a repeat EGD in February in 2013 and colonoscopy also, which were unremarkable. She saw Dr. Bustamante April 2015 and upper GI was done on April 15, 2015 without identifiable cause of bleeding found. She is already on chronic treatment with iron and B12. She as transfused 2 units of PRBC on 06/24 and 2 more on 06/25. Hgb is up appropriately. Will follow periodically. (2) Fall in elderly patient Status: Acute Assessment & Plan: Her family reports frequent falls over the last several months. She has visited the emergency room at least 10 times since the beginning of the year for fall related issues. The head CT possibly shows a subacute ischemic event in the left occipital lobe. Will follow INR closely. Physical and occupational therapy are recommending higher level of care when she is discharged. She is going to a Swing Bed to continue work with therapy. (3) History of prosthetic mitral valve Status: Chronic Assessment & Plan: She is on chronic treatment with warfarin. We had held the warfarin due to concern she could have acute bleeding. None was identified. Warfarin was resumed at 5mg daily (previously on 5mg 6 days a week and 7.5mg one day a week) but INR consistently < 2. Warfarin increased back to 5mg 6 days per week and 7.5mg one day per week. Will stop Lovenox when INR is 2.2 or greater (prosthetic mitral valve). (4) Edema Onset Date: 02/26/2014 Status: Acute Assessment & Plan: She is on chronic treatment with Lasix, which has been held. No edema on exam. Lasix restarted. Daily weights have been ordered. (5) Essential tremor Status: Chronic Time Spent on Plan of Care: < 30 min KENNY RYAN MD Jun 30, 2017 16:24
[2017-06-30 16:25] VITALS: BP 129/68
[2017-06-30] MEDS: SIMVASTATIN 20 MG TAB PO SCH (21:00)
[2017-07-01 06:46] VITALS: BP 140/76
[2017-07-01 07:50] LABS: INR 1.88
[2017-07-01] MEDS: FERROUS SULFATE 325 MG TAB PO SCH ×3 (09:46→17:51)
[2017-07-01] MEDS: CYANOCOBALAMIN 1000 MCG TAB PO SCH (09:46)
[2017-07-01] MEDS: PANTOPRAZOLE SOD 40 MG TABEC PO SCH (09:46)
[2017-07-01] MEDS: FUROSEMIDE 20 MG TAB PO SCH (09:46)
--- NOTE | 2017-07-01 10:44 | Medical Nutrition Therapy ---
Nutrition Anthropometrics Height (Inches): 60.00 Height (Calculated Centimeters: 152.884232 Weight (Pounds): 122 Weight (Calculated Kilograms): 55.565 BMI Calculated: 21.58 Arthur Nutrition Score: Probably Inadequate Arhtur Nutrition Risk Score: 16 Dietary Referral Nutrition Risk Factors: Nutrition Risk Comment: Physical Findings Physical Appearance: BMI WNR Skin Appearance Skin Appearance: Edema Edema Location Modifier: Both Edema Location: Ankle Type of Edema: Degree of Edema: Gastrointestinal Symptoms GI Symtoms: Tube Present: Bowel Sounds: Recent Bowel Pattern: Stool Characteristics: Nutritional Diagnosis Nutritional Risk Acuity 3: Nutrit Anemia Nutritional Risk Acuity 4: Good Appetite Past Medical History: Edema, Pacemaker, iron deficiency anemia, Essential tremor, seizure disorder, HTN, Prosthetic mitral valve, multiple myeloma Nutritional Acuity: 3-Mild Energy Requirement: 1200 (m- St J) Protein Requirement: 55 (1gm/kg) Fluid Requirement: 1375 (25ml/kg) Diet Type: Diet as Tolerated MARIA DOLORES/REG Nutrition Intervention: Cont diet as ordered, Encourage intake Drug: Diuretics, Warfarin Do Not Serve Any of the Follow: Broccoli, Brussel Sprouts, Spinach, Damar Lettuce, Cranberry Juice Nutrition Monitoring & Eval Nutrition Goals: Eat 75-100% Meal RD Patient Assessment Time: [address] Assessment Type: RD Assessment Patient Nutrition Acuity: 3-Mild Follow Up Date: Jul 06, 2017 Nutritional Comment: 07/01 Pt admitted with dx anemia. Pt in onf MARIA DOLORES and eating 100% of meals. Hgb 11.3, Hct 33.6. Pt is on coumadin and K+ depeting duiretic. K+ is WNR. Will cont to monitor and encourage intake. BELA DIETRICH Jul 01, 2017 10:44
--- NOTE | 2017-07-01 12:48 | PT ECF NOTE ---
Type of Note: Initial Note Primary Medical Diagnosis: anemia Physical Therapy Evaluation Date: 06/30/17 SUBJECTIVE: Prior Hospitalization: Please see [facility] for details. Pt with multiple ER visit due to falls and nosebleeds. Prior Level of Function: Pt seen in ER for multiple falls as home. Pt reports using RW at home for ambulation. Pt's reports she often falls backward due to "loss of balance" Prior Living Status: Spouse, Assist by family Community Services: Home health correction Accessibility: 2 tairs without rails, 1 step within home Equipment Owned: Front wheeled walker, Wheelchair Medical Complications/Past Medical History: extensive, See [place] Psychosocial Support: supportive Pain Scale (0-10): 0 OBJECTIVE: Other Neuro findings: rigid trunk and neck, head tremor noted, flat affect Bed Mobility: not observed Transfers: CGA with noted retropulsion Assistive Device: Front wheeled walker Gait: [id number] with RW. Shuffling gait with decreased stride length noted. Absent trunk rotation with ambulation. Assistive device: Front wheeled walker Functional Reach: 1st attempt: 9in; 2nd attempt: 7in; 3rd attempt: 4in. Pt had posterior-lateral loss of balance with 1 attempt requiring assistance for fall prevention. ASSESSMENT: Pt presents with moderate-severe risk for falls and has presented to ER multiple times due to falls as home. Pt will benefit from skilled PT for balance training and Pt/caregiver training in order to increase safety and decrease fall risk. Pt's prognosis for improvement, however, is poor due to neuromuscular deficits. Problem List/Current Limitations: Decreased coordination, Decreased balance Short Term Goals: 1. SBA bed mobility 2. CGA transfers 3. CGA ambulation x 500' with RW 4. Ascend/descend 2 stairs CGA 5. Increase functional reach to consistently 6-10inches indicating moderate fall risk. Travel Consultant Goals: Increase safety. Patient Goals: Return home Rehabilitation Prognosis: Poor Barriers for Discharge: Neuromuscular deficits. PLAN: The patient will benefit from skilled physical therapy services 5 times per week for 2 weeks including: Therapeutic Exercise, Therapeutic Activities, Transfer Training, Gait Training, Stair Training, Manual Therapy, ADL's, Safety Training, Neuromuscular Re-educ., Pt/Caregiver Training, Bed Mobility Thank you for this referral. If you have any questions, concerns, or comments about this report or plan, please contact me at . Leeann Giorgi, PT, DPT, GCS MTDD
[2017-07-01] MEDS: WARFARIN SOD 5 MG TAB PO SCH (13:23)
[2017-07-01] MEDS: ENOXAPARIN 100 MG/ML SYR SC SCH (16:00)
[2017-07-01 16:50] VITALS: BP 105/62
[2017-07-01] MEDS: SIMVASTATIN 20 MG TAB PO SCH (20:51)
[2017-07-02 07:19] LABS: INR 1.86
[2017-07-02 07:45] VITALS: BP 112/51
[2017-07-02 08:04] VITALS: BP 137/69
[2017-07-02] MEDS: PANTOPRAZOLE SOD 40 MG TABEC PO SCH (08:31)
[2017-07-02] MEDS: FERROUS SULFATE 325 MG TAB PO SCH ×3 (08:31→18:00)
[2017-07-02] MEDS: CYANOCOBALAMIN 1000 MCG TAB PO SCH (08:31)
[2017-07-02] MEDS: FUROSEMIDE 20 MG TAB PO SCH (08:31)
--- NOTE | 2017-07-02 11:00 | SPEECH INITIAL EVALUATION ---
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 Patient has reported to the emergency room approximately 10 times this calendar year due to fall-related incidents. The patient was referred for ST assessment by physician for cognitive communicative screening while admitted to the ECF unit at [facility]. Recent CT scan indicates possible subacute ischemic event in the left occipital lobe, in addition to age-related changes. She is and lives in [place] with spouse. 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 Daughter and son-in-law also reside in [place], and are available to provide assistance with driving, errands, etc. Patient also receives daily meal service from meals on wheels, but is otherwise independent with IADL and ADL tasks. She would like to return home with , but is open to receiving increased assistance from home health services. The patient demonstrates poor insight re: potential areas of cognitive linguistic deficit with no endorsement of potential safety, memory, or communication concerns. COGNITION The FROMAJE was used to assess the seven aspects of mental status, including: Function, reason, orientation, memory, arithmetic, judgement, and emotion. The patient completed all subtests except for arithmetic. Results are as follows: FROMAJE Function 2 Because of mental impairment, resident will need some home support, at least part of the day or week. Reasoning 2 Resident gave some semblance of meaning , but with some incompleteness. Orientation 1 Resident was generally accurate and made only minor errors in day of week. Memory 3 Resident made significant errors in areas of distant (incorrect year) and immediate memory. Arithmetic 2 Resident unable to complete serial subtraction task. Judgement 2 Some poor judgement demonstrated. Emotional State 1 Emotional state seems reasonable and appropriate. Total Score 11 Mild to moderate dementia . Patients overall score placed her in the mild to moderate dementia range, correlating with 3.67 on the Global Deterioration Scale. Patients between stages 3 and 4 demonstrate clear-cut deficits, falling between early and late confusional signs/symptoms of dementia. This patient exhibited some impairment in memory of personal history, difficulty concentrating on tasks of increasing complexity, and emerging deficits in safety awareness/reasoning skills. Patient was well-oriented to all concepts. SPEECH: Articulation of speech sounds at word, sentence, and conversational level is wnl. However, patient presents with notably excessive and equal speaking loudness, flat facial affect, decreased prosody, and long pauses to respond during conversational speech. Patient with limited to no insight re: perceived areas of motor speech deficits. Suspect possible neurological impact on motor speech output. However, patient, spouse, and nurse report no recent neurological event or diagnosis (e.g., stroke, Parkinsons). VOICE: notably strained vocal quality. Unable to sustain phonation beyond 3-4 second interval. DYSPHAGIA: Patient denies oral, pharyngeal, and esophageal dysphagia symptoms at this time. Patient was screened w/ large, consecutive sips of water via straw. All tolerated w/ no overt signs/symptoms of aspiration. SUMMARY COGNITION/LANGUAGE SUMMARY Patient presents with mild to moderate deficits that may negatively impact safe re-integration to prior living environment. Patient will benefit from ST services to address impairments in reasoning, safety awareness, problem solving , and emerging deficits in short-term memory. Services are warranted to support goals of returning to PLOF with spouse with minimized risk for future falls and hospitalization. Patient also presents with mild to moderate motor speech deficits characterized by notably excessive and equal speaking loudness, flat facial affect, decreased prosody, and long pauses to respond during conversational speech. Speech impairments may be addressed following initial establishment of ST POC and addressment of safety awareness concerns; however, patient currently denies communication difficulties and does not appear willing to participate in activities to address motor speech impairments. RECOMMENDATIONS 1. ST 4x/wk 2. Possible referral for services to support safe and efficient completion of IADL activities. PROGNOSIS: Good. Patient demonstrates high motivation to participate in ST services and return to prior living environment, in addition to strong family support. PLAN OF CARE Short Term Goals Patient will appropriately and independently complete verbal safety/reasoning scenarios during 80% of opportunities to promote completion of medication management tasks, minimize fall risk, and decrease risk for future injury upon anticipated d/c to home environment. Patient will execute multi-step (up to 4 level) safety sequences independently during 100% of opportunities w/ access to external visual aides to promote safe transfers, completion of ADL and IADL tasks, and decrease reliance on caregivers. Audio Specialist Goal Patient will safely d/c to PLOF w/ weekly supervision via home health services to support safety and independence in home living environment with minimized reliance on caregivers. Thank you for this referral. Please call [phone] Christina Higuera M.S., CCC-PROCUREMENT SPECIALIST Physician Signature Date [*] MTDD
[2017-07-02] MEDS ORDERED: WARFARIN SOD 7.5 MG TAB PO SCH (13:00)
[2017-07-02 15:59] VITALS: BP 105/63
[2017-07-02] MEDS: ENOXAPARIN 100 MG/ML SYR SC SCH (16:00)
[2017-07-02] MEDS: ACETAMINOPHEN 325 MG TAB PO PRN (18:36)
[2017-07-02] MEDS: SIMVASTATIN 20 MG TAB PO SCH (21:00)
[2017-07-03 06:54] LABS: INR 1.85
[2017-07-03] MEDS: CYANOCOBALAMIN 1000 MCG TAB PO SCH (08:46)
[2017-07-03] MEDS: PANTOPRAZOLE SOD 40 MG TABEC PO SCH (08:46)
[2017-07-03] MEDS: FERROUS SULFATE 325 MG TAB PO SCH ×3 (08:46→18:00)
[2017-07-03] MEDS: FUROSEMIDE 20 MG TAB PO SCH (08:46)
[2017-07-03] MEDS: ACETAMINOPHEN 325 MG TAB PO PRN ×2 (10:35→20:43)
[2017-07-03] MEDS: WARFARIN SOD 5 MG TAB PO SCH (13:29)
[2017-07-03 16:20] VITALS: BP 109/60
[2017-07-03] MEDS: ENOXAPARIN 100 MG/ML SYR SC SCH (16:24)
[2017-07-03] MEDS: SIMVASTATIN 20 MG TAB PO SCH (20:43)
[2017-07-04 07:23] LABS: INR 1.93
[2017-07-04 07:55] VITALS: BP 120/61
[2017-07-04] MEDS: FERROUS SULFATE 325 MG TAB PO SCH ×3 (09:43→17:36)
[2017-07-04] MEDS: FUROSEMIDE 20 MG TAB PO SCH (09:43)
[2017-07-04] MEDS: PANTOPRAZOLE SOD 40 MG TABEC PO SCH (09:43)
[2017-07-04] MEDS: CYANOCOBALAMIN 1000 MCG TAB PO SCH (09:43)
[2017-07-04] MEDS: WARFARIN SOD 5 MG TAB PO SCH (12:26)
[2017-07-04] MEDS: ACETAMINOPHEN 325 MG TAB PO PRN ×2 (14:04→20:52)
[2017-07-04] MEDS: ENOXAPARIN 100 MG/ML SYR SC SCH (15:33)
[2017-07-04 15:55] VITALS: BP 118/63
[2017-07-04] MEDS: SIMVASTATIN 20 MG TAB PO SCH (20:52)
--- NOTE | 2017-07-05 03:52 | Miscellaneous Provider Note ---
Miscellaneous Provider Note Note The patient developed epistaxis of the right nares. Despite pressure, it didn' t stop. A "Rapid Rhino" of the ant/post length was placed in the nares after soaking it for 30 seconds in sterile water. About 8cc of air was used to inflate it. It was taped to the cheek. It will be removed in the morning of . CRISTY QUISPE MD Jul 05, 2017 03:52
[2017-07-05 04:08] VITALS: BP 113/55
[2017-07-05 06:01] LABS: PLATELET COUNT, AUTOMATED 166 K/uL (150-450)
[2017-07-05 06:10] LABS: INR 2.12
[2017-07-05] MEDS: PANTOPRAZOLE SOD 40 MG TABEC PO SCH (08:54)
[2017-07-05] MEDS: FERROUS SULFATE 325 MG TAB PO SCH ×3 (08:54→17:31)
[2017-07-05] MEDS: CYANOCOBALAMIN 1000 MCG TAB PO SCH (08:54)
[2017-07-05] MEDS: FUROSEMIDE 20 MG TAB PO SCH (08:54)
--- NOTE | 2017-07-05 11:06 | Medical Nutrition Therapy ---
Nutrition Anthropometrics Height (Inches): 60.00 Height (Calculated Centimeters: 152.472599 Weight (Pounds): 118 Weight (Calculated Kilograms): 53.779 BMI Calculated: 21.58 Arthur Nutrition Score: Probably Inadequate Arthur Nutrition Risk Score: 14 Dietary Referral Nutrition Risk Factors: Nutrition Risk Comment: Nutritional Diagnosis Nutritional Risk Acuity 3: Nutrit Anemia Nutritional Risk Acuity 4: Good Appetite Past Medical History: Edema, Pacemaker, iron deficiency anemia, Essential tremor, seizure disorder, HTN, Prosthetic mitral valve, multiple myeloma Nutritional Acuity: 3-Mild Energy Requirement: 1200 (m- St J) Protein Requirement: 55 (1gm/kg) Fluid Requirement: 1375 (25ml/kg) Diet Type: Diet as Tolerated MARIA DOLORES/REG Nutrition Intervention: Cont diet as ordered, Encourage intake Drug: Diuretics, Warfarin Do Not Serve Any of the Follow: Broccoli, Brussel Sprouts, Spinach, [place] Lettuce, Cranberry Juice Nutrition Monitoring & Eval Nutrition Goals: Eat 75-100% Meal Nutrition Follow-Up: Good Intake RD Patient Assessment Time: [address] Assessment Type: RD Re-Assessment Patient Nutrition Acuity: 3-Mild Follow Up Date: Jul 13, 2017 Nutritional Comment: 07/01 Pt admitted with dx anemia. Pt in onf MARIA DOLORES and eating 100% of meals. Hgb 11.3, Hct 33.6. Pt is on coumadin and K+ depeting duiretic. K+ is WNR. Will cont to monitor and encourage intake. 07/05 Pt is eating 75-100% , refusing most snacks. Wt is fow n 3.3%, however pt is on a duiretic with 1+ edema. Anticipate wt loss when edema resolved. Cont to monitor and encourage intake. BELA DIETRICH Jul 05, 2017 11:06
[2017-07-05 11:20] VITALS: BP 99/62
[2017-07-05] MEDS: WARFARIN SOD 5 MG TAB PO SCH (13:26)
[2017-07-05] MEDS: ENOXAPARIN 100 MG/ML SYR SC SCH (15:24)
[2017-07-05] MEDS: ACETAMINOPHEN 325 MG TAB PO PRN (16:16)
[2017-07-05 17:32] VITALS: BP 116/46
[2017-07-05] MEDS: SIMVASTATIN 20 MG TAB PO SCH (21:00)
[2017-07-06 05:50] LABS: INR 1.98
[2017-07-06 08:00] VITALS: BP 130/62
[2017-07-06] MEDS: PANTOPRAZOLE SOD 40 MG TABEC PO SCH (09:00)
[2017-07-06] MEDS: FUROSEMIDE 20 MG TAB PO SCH (09:11)
[2017-07-06] MEDS: FERROUS SULFATE 325 MG TAB PO SCH ×3 (09:11→18:01)
[2017-07-06] MEDS: CYANOCOBALAMIN 1000 MCG TAB PO SCH (09:11)
[2017-07-06] MEDS ORDERED: WARFARIN SOD 5 MG TAB PO SCH (11:10)
[2017-07-06] MEDS ORDERED: WARFARIN SOD 7.5 MG TAB PO SCH (13:00)
[2017-07-06] MEDS: NYSTATIN 5 ML UDCUP PO SCH ×4 (13:49→21:03)
[2017-07-06] MEDS: ENOXAPARIN 100 MG/ML SYR SC SCH (16:46)
[2017-07-06 16:50] VITALS: BP 107/61
[2017-07-06] MEDS: SIMVASTATIN 20 MG TAB PO SCH ×2 (21:00→21:03)
[2017-07-07 07:23] LABS: INR 2.55
[2017-07-07 08:34] VITALS: BP 95/54
[2017-07-07] MEDS: FERROUS SULFATE 325 MG TAB PO SCH ×3 (09:14→17:10)
[2017-07-07] MEDS: FUROSEMIDE 20 MG TAB PO SCH (09:14)
[2017-07-07] MEDS: PANTOPRAZOLE SOD 40 MG TABEC PO SCH (09:14)
[2017-07-07] MEDS: NYSTATIN 5 ML UDCUP PO SCH ×4 (09:14→20:59)
[2017-07-07] MEDS: CYANOCOBALAMIN 1000 MCG TAB PO SCH (09:14)
[2017-07-07 09:34] LABS: PLATELET COUNT, AUTOMATED 204 K/uL (150-450)
--- NOTE | 2017-07-07 09:35 | Hospitalist Progress Note ---
Subjective Progress Notes Subjective The patient has had a temp of 100 this am. She has had poor oral intake overall. Physical Exam Vital Signs Date Time Temp Pulse Resp B/P (MAP) Pulse Ox O2 Delivery O2 Flow Rate FiO2 07/07/17 08:34 100.0 96 24 95/54 (68) 96 Room Air Intake and Output 07/08/17 07:00 # Voids 1 General Appearance: Alert, Awake, No Acute Distress Neuro: Other (Confused. Tremor R hand > L. No cogwheel rigidity.) Eyes: Other (L eyelid slightly pink, swollen.) ENT: Other (Tongue with white patches R lateral aspect.) Cardiovascular: Other (Tachy, regular with FERNANDO.) Respiratory: No Respiratory Distress, Clear to Auscultation GI: Soft and Non-Tender Extremities: Warm, Perfused Integumentary: Generalized Fragile Skin Psych: Appropriate Mood & Affect Result Diagram: 07/05/17 0553 Assessment and Plan Problems: (1) Low grade fever Status: Acute Assessment & Plan: CBC, CXR and UA/Cx ordered. (2) Anemia Onset Date: 06/20/2014 Status: Chronic Assessment & Plan: She has iron deficiency anemia and indolent multiple myeloma and is followed by hematology. She does report frequent nosebleeds from her warfarin. Colonoscopy done March 2013 showed tubular adenoma which was removed, but no other source of bleeding. As per patient, she had a repeat EGD in February in 2013 and colonoscopy also, which were unremarkable. She saw Dr. Bustamante April 2015 and upper GI was done on April 15, 2015 without identifiable cause of bleeding found. She is already on chronic treatment with iron and B12. She as transfused 2 units of PRBC on 06/24 and 2 more on 06/25. Hgb is up appropriately. Will follow periodically. Will try to keep INR low end of therapeutic for mechanical heart valve at 2.5. (3) Fall in elderly patient Status: Acute Assessment & Plan: Her family reports frequent falls over the last several months. She has visited the emergency room at least 10 times since the beginning of the year for fall related issues. The head CT possibly shows a subacute ischemic event in the left occipital lobe. Will follow INR closely. Physical and occupational therapy are recommending higher level of care when she is discharged. She is going to a [facility] to continue work with therapy. (4) History of prosthetic mitral valve Status: Chronic Assessment & Plan: She is on chronic treatment with warfarin. We had held the warfarin due to concern she could have acute bleeding. None was identified. Warfarin was resumed at 5mg daily (previously on 5mg 6 days a week and 7.5mg one day a week) but INR consistently < 2. Warfarin increased back to 5mg 6 days per week and 7.5mg one day per week. Will stop Lovenox when INR is 2.2 or greater (prosthetic mitral valve). (5) Edema Onset Date: 02/26/2014 Status: Acute Assessment & Plan: She is on chronic treatment with Lasix, which was initially held and then restarted. No edema on exam. The patient is not taking in adequate fluids. Heart rate has increased a bit and BPs are occasionally low. Will DC Lasix. (6) Essential tremor Status: Chronic Assessment & Plan: Chronic, unchanged. Time Spent on Plan of Care: < 30 min KENNY RYAN MD Jul 07, 2017 09:35
[2017-07-07 09:50] VITALS: BP 108/51
--- NOTE | 2017-07-07 10:20 | Miscellaneous Provider Note ---
Miscellaneous Provider Note Note CBC shows WBC to be up to over 7 with left shift. This is significant for Ms. Baumann as she usually has a low WBC. Will order UA and culture and CXR. KENNY RYAN MD Jul 07, 2017 10:20
--- NOTE | 2017-07-07 10:33 | RADIOLOGY IMAGING REPORT ---
[place] [facility] [place] NAME: Nadia Baumann : 1930 MR: [id number] V: [id number] EXAM DATE: ORDERING PHYSICIAN: KENNY RYAN TECHNOLOGIST[place] [facility] [place] : 1930 Visit/Account:[id number] Date of Sevice: 07/07/2017 Exam type: CHEST SINGLE AP History: fever Comparison: None. Findings: Cardiac silhouette is markedly enlarged but unchanged. The single lead cardiac pacemaker and prosthe tic cardiac valve. There is no evidence of acute-appearing pulmonary infiltrates, pleural effusions or overt pulmonary edema. IMPRESSION: 1. Cardiac silhouette is markedly enlarged but unchanged. No evidence of pulmonary consolidation Report Dictated By: Darlyn Alvarado MD at 07/07/2017 10:27 AM Report E-Signed By: Darlyn Alvarado MD at 07/07/2017 10:29 AM WSN:[id number]
[2017-07-07] MEDS: WARFARIN SOD 7.5 MG TAB PO SCH (13:14)
[2017-07-07 16:00] VITALS: BP 103/58
[2017-07-07] MEDS: SIMVASTATIN 20 MG TAB PO SCH (20:59)
[2017-07-08 06:29] LABS: INR 2.39
[2017-07-08 07:50] VITALS: BP 111/59
[2017-07-08] MEDS: FERROUS SULFATE 325 MG TAB PO SCH ×3 (09:16→17:35)
[2017-07-08] MEDS: CYANOCOBALAMIN 1000 MCG TAB PO SCH (09:16)
[2017-07-08] MEDS: PANTOPRAZOLE SOD 40 MG TABEC PO SCH (09:17)
[2017-07-08] MEDS: NYSTATIN 5 ML UDCUP PO SCH ×4 (09:17→20:29)
[2017-07-08] MEDS: CEPHALEXIN MONO 500 MG CAP PO SCH ×2 (12:28→17:35)
[2017-07-08] MEDS: WARFARIN SOD 5 MG TAB PO SCH (12:28)
[2017-07-08 15:40] VITALS: BP 118/78
[2017-07-08] MEDS: SIMVASTATIN 20 MG TAB PO SCH (20:29)
[2017-07-09] MEDS: CEPHALEXIN MONO 500 MG CAP PO SCH ×4 (00:12→17:23)
[2017-07-09 06:22] LABS: INR 2.06
[2017-07-09 07:30] VITALS: BP 112/53
[2017-07-09] MEDS: PANTOPRAZOLE SOD 40 MG TABEC PO SCH (09:24)
[2017-07-09] MEDS: FERROUS SULFATE 325 MG TAB PO SCH ×3 (09:24→17:23)
[2017-07-09] MEDS: CYANOCOBALAMIN 1000 MCG TAB PO SCH (09:24)
[2017-07-09] MEDS: NYSTATIN 5 ML UDCUP PO SCH ×4 (09:24→21:00)
[2017-07-09] MEDS: WARFARIN SOD 7.5 MG TAB PO SCH (12:39)
[2017-07-09 17:05] VITALS: BP 107/58
[2017-07-09] MEDS: SIMVASTATIN 20 MG TAB PO SCH (21:00)
[2017-07-10] MEDS: CEPHALEXIN MONO 500 MG CAP PO SCH ×5 (00:51→23:47)
[2017-07-10] MEDS: ACETAMINOPHEN 325 MG TAB PO PRN ×2 (00:58→20:33)
[2017-07-10 07:59] VITALS: BP 115/64
[2017-07-10] MEDS: FERROUS SULFATE 325 MG TAB PO SCH ×3 (09:12→17:26)
[2017-07-10] MEDS: PANTOPRAZOLE SOD 40 MG TABEC PO SCH (09:12)
[2017-07-10] MEDS: CYANOCOBALAMIN 1000 MCG TAB PO SCH (09:12)
[2017-07-10] MEDS: NYSTATIN 5 ML UDCUP PO SCH ×4 (09:12→20:34)
[2017-07-10] MEDS: WARFARIN SOD 5 MG TAB PO SCH (12:33)
[2017-07-10] MEDS ORDERED: WARFARIN SOD 5 MG TAB PO SCH (13:00)
[2017-07-10 16:02] VITALS: BP 108/63
[2017-07-10] MEDS: SIMVASTATIN 20 MG TAB PO SCH (20:33)
[2017-07-11] MEDS: CEPHALEXIN MONO 500 MG CAP PO SCH ×4 (05:40→23:31)
[2017-07-11 07:28] LABS: INR 1.74
[2017-07-11 08:00] VITALS: BP 113/64
[2017-07-11] MEDS: PANTOPRAZOLE SOD 40 MG TABEC PO SCH (08:48)
[2017-07-11] MEDS: FERROUS SULFATE 325 MG TAB PO SCH ×3 (08:48→17:29)
[2017-07-11] MEDS: CYANOCOBALAMIN 1000 MCG TAB PO SCH (08:48)
[2017-07-11] MEDS: NYSTATIN 5 ML UDCUP PO SCH ×4 (08:48→20:23)
[2017-07-11] MEDS: WARFARIN SOD 5 MG TAB PO SCH (13:19)
[2017-07-11 15:38] VITALS: BP 112/62
[2017-07-11] MEDS ORDERED: WARFARIN SOD 2.5 MG TAB PO ONE (18:45)
[2017-07-11] MEDS: ENOXAPARIN 100 MG/ML SYR SC SCH (19:25)
[2017-07-11] MEDS: SIMVASTATIN 20 MG TAB PO SCH (20:23)
[2017-07-11] MEDS: ACETAMINOPHEN 325 MG TAB PO PRN (20:23)
[2017-07-12] MEDS: CEPHALEXIN MONO 500 MG CAP PO SCH ×3 (05:27→17:41)
[2017-07-12 05:36] LABS: INR 1.62
[2017-07-12] MEDS ORDERED: ENOX100D5 SC (08:14)
[2017-07-12 08:15] VITALS: BP 105/54
--- NOTE | 2017-07-12 08:20 | Hospitalist Depart ---
Discharge Summary Reason for Hosp/Final Diag: (1) Anemia Onset Date: 06/20/2014 Status: Chronic Hospital Course & Plan: She has iron deficiency anemia and indolent multiple myeloma and is followed by hematology. She saw Dr. Bustamante April 2015 and upper GI was done on April 15, 2015 without identifiable cause of bleeding found. She is already on chronic treatment with iron and B12. She as transfused 2 units of PRBC on 06/24 and 2 more on 06/25. (2) Fall in elderly patient Status: Acute Hospital Course & Plan: Her family reports frequent falls over the last several months. She has visited the emergency room at least 10 times since the beginning of the year for fall related issues. The head CT possibly shows a subacute ischemic event in the left occipital lobe. (3) History of prosthetic mitral valve Status: Chronic Hospital Course & Plan: She is on chronic treatment with warfarin. Her warfarin was initially on hold, but has since been restarted. The goal was to keep her INR between 2.5 to 3, to help decrease the chance of her bleeding. We placed her on Lovenox yesterday since her INR is below target. Her warfarin dose was also increased yesterday. The Lovenox can be discontinued once her INR is > 2. (4) Edema Onset Date: 02/26/2014 Status: Acute Hospital Course & Plan: She was on chronic treatment with Lasix, but this has been on hold. (5) Essential tremor Status: Chronic Hospital Course & Plan: Chronic, unchanged. Departure Latest Vital Signs Vital Signs 07/11/17 07/11/17 15:38 20:23 Temp 99.3 Pulse 85 Resp 16 B/P (MAP) 112/62 (79) Pulse Ox 91 O2 Delivery Room Air Weight (Pounds): 118 Weight (Ounces): 3.0 Result Diagram: 07/07/17 0925 Item Value Date Time Prothromb Time International Ratio 1.62 07/12/17 0521 Condition: Improved Discharge: Rehab Facility PT/OT Follow Up For: PT Evaluation and Treat, OT Evaluation and Treat Follow-Up Labs: INR Discharge Instructions Home Meds Active Scripts Furosemide (FUROSEMIDE) 20 Mg Tablet, 1 TAB PO QDAY, #30 TAB 2 Refills Prov:EVERTON RIOS MD 06/02/17 Sulfacetamide Sodium (SULFACETAMIDE SODIUM) 15 Ml Drops, 15 ML OS QID, #15 ML Prov:EVERTON RIOS MD 06/01/17 Oxymetazoline Hcl (AFRIN) 30 Ml [place], 2 SPR DAR BID Y for BLEEDING for 7 Days, #1 BOTTLE two sprays into nostril to stop bleeding Prov:ROOSEVELT JOHANSEN MD 05/07/17 Simvastatin (SIMVASTATIN) 20 Mg Tablet, 1 TAB PO HS, #90 TAB 3 Refills Prov:EVERTON RIOS MD 03/02/17 Omeprazole (OMEPRAZOLE) 20 Mg Capsule.dr, 1 CAP PO QAM, #90 CAP 3 Refills TAKE ONE CAPSULE BY MOUTH ONCE A DAY Prov:IZABELLA GARAY PHARMD 01/15/17 Reported Medications Warfarin Sodium (WARFARIN SODIUM) 5 Mg Tablet, 7.5 MG PO Tu, TAB 06/30/17 Warfarin Sodium (WARFARIN SODIUM) 5 Mg Tablet, 5 MG PO [id number], TAB 06/30/17 Cyanocobalamin (Vitamin B-12) (B-12) 1,000 Mcg Tablet.er, 1000 MCG PO QDAY 06/01/17 Calcium Carb & Cit/Vitamin D3 (CITRACAL + D ER TABLET) 1 Each Tablet.er, 1 TAB PO QDAY 04/03/15 Ferrous Sulfate (IRON) 325 Mg Capsule.er, 325 MG PO TID 02/01/15 Diet: Regular Activity: As Tolerated, With Walker, No Driving Special Instructions: Copies to: EVERTON RIOS MD Venous Thromboembolism Antithrombotics Is Pt On Any Antithrombotics?: Yes MIKAYLA BLACKMAN DO Jul 12, 2017 08:20
[2017-07-12] MEDS: PANTOPRAZOLE SOD 40 MG TABEC PO SCH (08:48)
[2017-07-12] MEDS: CYANOCOBALAMIN 1000 MCG TAB PO SCH (08:48)
[2017-07-12] MEDS: NYSTATIN 5 ML UDCUP PO SCH ×4 (08:50→20:34)
[2017-07-12] MEDS: FERROUS SULFATE 325 MG TAB PO SCH ×3 (08:50→17:41)
[2017-07-12] MEDS ORDERED: WARFARIN SOD 5 MG TAB PO SCH (13:00)
--- NOTE | 2017-07-12 13:26 | PT ECF NOTE ---
Type of Note: Discharge Summary Primary Medical Diagnosis: anemia Physical Therapy Discharge Date: 07/12/17 SUBJECTIVE: Prior Hospitalization: Please see EXO5 for details. Pt with multiple ER visit due to falls and nosebleeds. Prior Level of Function: Pt seen in ER for multiple falls as home. Pt reports using RW at home for ambulation. Pt's reports she often falls backward due to "loss of balance" Prior Living Status: Spouse, Assist by family Community Services: Home health long term Accessibility: 2 stairs without rails, 1 step within home Equipment Owned: Front wheeled walker, Wheelchair Medical Complications/Past Medical History: extensive, See EXO5 Psychosocial Support: supportive Pain Scale (0-10): 0 OBJECTIVE: Other Neuro findings: rigid trunk and neck, head tremor noted, flat affect Bed Mobility: ModA Transfers: CGA- Valery with RW Gait: [id number] with RW, verbal cues for safety and walker management especially with turns ASSESSMENT: The patient made little progress towards functional goals and continues to require assistance and verbal cues for safety with transfers and ambulation. She no longer is appropriate for skilled PT services at this time. It was recommended that the patient discharge to a regional intermodal truck driver care facility for fdc placement. The patient and her family are continuing to make discharge plans at this time. Problem List/Current Limitations: Decreased coordination, Decreased balance Short Term Goals: (not met) 1. SBA bed mobility 2. CGA transfers 3. CGA ambulation x 500' with RW 4. Ascend/descend 2 stairs CGA 5. Increase functional reach to consistently 6-10inches indicating moderate fall risk. Physician Scribe Goals: Increase safety. (not met) Patient Goals: Return home (pt and family deciding between LTC and home) PLAN: The patient was discharged from PT services d/t lack of functional gains. It was recommended that the patient discharge to a fdc care facility for placement. Thank you for this referral. If you have any questions, concerns, or comments about this report or plan, please contact me at . Jaycee Peace, PT, DPT MTDD
[2017-07-12] MEDS ORDERED: WARF-1 PO (14:52)
[2017-07-12] MEDS ORDERED: WARF7.5T26 PO (14:56)
--- NOTE | 2017-07-12 15:45 | OT ECF NOTE ---
Type of Note: Discharge Note Primary Medical Diagnosis: Generalized weakness (frequent falls at home) Occupational Therapy Evaluation Date: 06/29/17 SUBJECTIVE: Prior Hospitalization: [facility] 06/23/17 thru 06/29/17 Prior Level of Function: Pt reports her spouse assists with all ADLs and she has been having trouble "getting to the bathroom on time." Pt is oriented to self and situation. Per EMR, pt has been having frequent falls and ER admissions. HH is concerned about pt's ability to be successful in her current living situation. 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, senior living Accessibility: Unclear at this time Equipment Owned: Rolling Walker Medical Complications/Past Medical History: Anemia, falls, essential tremor, pacemaker, edema, frequent nose bleeds Psychosocial Support: Spouse Pain Scale (0-10): None reported at time of evaluation Hand Dominance: Right OBJECTIVE: Strength: MMT: Right Left Shoulder Flexion 4/5 3+/5 Elbow Flexion 4/5 3+/5 Wrist Extension 4/5 3+/5 Job Change Crew Member 3+/5 3+/5 (5= normal, 4= good, 3= fair, 2= poor, 1= trace) ROM: Left, Moderately limited (pt has history of L TSA) Sensation: Intact, no paraesthesia noted Functional Transfer: Assistive Device: Front wheeled walker, Gait belt Transfer Ability: CGA/Minimum assistance. Pt is retropulsive with sit<> stands and requires significant v/c's for safety with RW. ADL: Upper body dressing: Assistive device: None Upper body dressing ability: Minimum to Moderate Assistance Lower body dressing: Assistive device: Limited carryover with use of sockaide/shipyard helper Lower body dressing ability: Minimum to Moderate Assistance Toileting: Assistive device: Grab bars Toileting ability: CGA to Minimum assistance Grooming/hygiene: Assistive device: Standing in bathroom Grooming ability: Minimum assistance Bathing: Assistive device: Shower chair Bathing ability: Moderate assistance Standardized Assessment: Good Index of Activities of Daily Livin/20 at initial evaluation (06/29). 03/31 at discharge (07/12/17). ASSESSMENT: Nadia has plateaued toward skilled OT goals and continues to require assistance for ADLs and CGA/Min A for safety with ambulation and use of RW. It is recommended that Nadia discharge with 24/7 care to promote safety with ADLs/IADLs and mobility. Problem List/Current Limitations: Decreased activity tolerance Decreased balance Poor safety awareness Memory deficits Confusion Short Term Goals: 1) Pt will be CGA toileting. Goal not met. 2) Pt will be set-up A grooming/hygiene seated. Goal met. 3) Pt will be CGA UB/LB dressing. Goal not met. 4) Pt will be CGA shower task. Goal not met. 5) Pt Good Index of ADLs score will improve by 2 points. Goal met [facility] Goals: Recommend 24/7 care upon discharge Patient Goals: Return home and improve balance Rehabilitation Prognosis: Fair Barriers to Discharge: Cognition, Medical history, frequent falls at home PLAN: The patient will discharge to [facility] for 24/7 skilled care. Thank you for this referral. If you have any questions, concerns, or comments about this report or plan, please contact me at . Jackelin Higuera MS, OTR/L Occupational Therapist SHAYAN
[2017-07-12] MEDS: ENOXAPARIN 100 MG/ML SYR SC SCH (17:41)
[2017-07-12 18:37] VITALS: BP 115/64
[2017-07-12] MEDS: ACETAMINOPHEN 325 MG TAB PO PRN (20:33)
[2017-07-12] MEDS: SIMVASTATIN 20 MG TAB PO SCH (20:34)
[2017-07-13] MEDS: CEPHALEXIN MONO 500 MG CAP PO SCH ×3 (00:20→12:25)
[2017-07-13 06:08] LABS: INR 1.84
[2017-07-13 07:50] VITALS: BP 116/59
--- NOTE | 2017-07-13 08:37 | Medical Nutrition Therapy ---
Nutrition Anthropometrics Height (Inches): 60.00 Height (Calculated Centimeters: 152.624059 Weight (Pounds): 120 Weight (Calculated Kilograms): 54.431 BMI Calculated: 21.58 Arthur Nutrition Score: Probably Inadequate Arthur Nutrition Risk Score: 15 Dietary Referral Nutrition Risk Factors: Nutrition Risk Comment: Nutritional Diagnosis Nutritional Risk Acuity 3: Nutrit Anemia Nutritional Risk Acuity 4: Good Appetite Past Medical History: Edema, Pacemaker, iron deficiency anemia, Essential tremor, seizure disorder, HTN, Prosthetic mitral valve, multiple myeloma Nutritional Acuity: 3-Mild Energy Requirement: 1200 (m- St J) Protein Requirement: 55 (1gm/kg) Fluid Requirement: 1375 (25ml/kg) Diet Type: Diet as Tolerated MARIA DOLORES/REG Nutrition Intervention: Cont diet as ordered, Encourage intake Drug: Diuretics, Warfarin Do Not Serve Any of the Follow: Broccoli, Brussel Sprouts, Spinach, [place] Lettuce, Cranberry Juice Nutrition Monitoring & Eval Nutrition Goals: Eat 75-100% Meal Nutrition Follow-Up: Good Intake RD Patient Assessment Time: [address] Assessment Type: RD Re-Assessment Patient Nutrition Acuity: 3-Mild Follow Up Date: Jul 20, 2017 Nutritional Comment: 07/01 Pt admitted with dx anemia. Pt in onf MARIA DOLORES and eating 100% of meals. Hgb 11.3, Hct 33.6. Pt is on coumadin and K+ depeting duiretic. K+ is WNR. Will cont to monitor and encourage intake. 07/05 Pt is eating 75-100% , refusing most snacks. Wt is down 3.3%, however pt is on a duiretic with 1+ edema. Anticipate wt loss when edema resolved. Cont to monitor and encourage intake. 07/13 Wt fluctuating. Currently down 2# from admission. Intake average 85% of small to regular portions past 3 days. will cont to monitor and encourage intake. BELA DIETRICH Jul 13, 2017 08:37
[2017-07-13] MEDS: PANTOPRAZOLE SOD 40 MG TABEC PO SCH (09:40)
[2017-07-13] MEDS: FERROUS SULFATE 325 MG TAB PO SCH ×2 (09:41→12:25)
[2017-07-13] MEDS: CYANOCOBALAMIN 1000 MCG TAB PO SCH (09:41)
[2017-07-13] MEDS: NYSTATIN 5 ML UDCUP PO SCH ×2 (09:41→12:25)
[2017-07-13] MEDS ORDERED: WARFARIN SOD 7.5 MG TAB PO SCH (13:00)
== END 2017-07-13 13:00 | DRG 812 ==
LOC: SWB 10:46
PROVIDERS: ADMIT Internal Medicine; ATTEND Internal Medicine
DX: D50.9 Iron deficiency anemia, unspecified (principal); C90.00 Multiple myeloma not having achieved remission; D68.32 Hemorrhagic disorder due to extrinsic circulating anticoagulants; G25.0 Essential tremor; R04.0 Epistaxis; R60.9 Edema, unspecified; T45.515A Adverse effect of anticoagulants, initial encounter; Z91.81 History of falling; Z95.2 Presence of prosthetic heart valve; Z79.01 Long term (current) use of anticoagulants; Z85.3 Personal history of malignant neoplasm of breast; Z85.828 Personal history of other malignant neoplasm of skin; Z90.13 Acquired absence of bilateral breasts and nipples; Z90.710 Acquired absence of both cervix and uterus; Z95.0 Presence of cardiac pacemaker; Z87.891 Personal history of nicotine dependence; Z96.612 Presence of left artificial shoulder joint
CPT/HCPCS: 36415; 71045; 81001; 82310; 82374; 82435; 82565; 82947; 84132; 84295; 84520; 85025; 85610; 87088; 97162; 97166; J1650

== ENCOUNTER → 2017-07-21 | Outpatient (CLI) | payer MEDICARE, OTHER ==
[2017-06-24 17:09] VITALS: BMI 21.6
[~2017-07-21] MED LIST changes: +ENOX100D5 SC
== END ==
LOC: LAB 11:00
PROVIDERS: ATTEND Nurse Practitioner Family
DX: Z01.83 Encounter for blood typing (principal)

== ENCOUNTER → 2017-07-21 | Outpatient (REF) | payer MEDICARE, OTHER ==
[2017-06-24 17:09] VITALS: BMI 21.6
== END ==
LOC: ZZLCC 06:32
PROVIDERS: ATTEND Nurse Practitioner Family
DX: Z95.2 Presence of prosthetic heart valve (principal)
CPT/HCPCS: 85027

== ENCOUNTER 2017-07-22 08:00 | Outpatient (RCR) | payer MEDICARE, OTHER ==
[2017-06-24 17:09] VITALS: BMI 21.6
[~2017-07-22 08:00] MED LIST changes: +DEXTROSE 5%(*) 100 ML BAG 100 ML IVPB PRN; +LIDOCAINE/SOD BICARB 8.4% SYR ID PRN; +NS(*) 0.9% 100 ML BAG 100 ML IVPB PRN; +NS(*) 0.9% 500 ML BAG 500 ML IV PRN; +WARF10TA10 PO; -WARF10TA34 PO
[2017-07-22 10:42] VITALS: BP 115/65
[2017-07-22 11:00] VITALS: BP 119/66
[2017-07-22 12:50] VITALS: BP 121/70
[2017-07-22 13:10] VITALS: BP 120/67
[2017-07-22 15:03] VITALS: BP 122/69
== END 2017-08-06 11:22 | disposition home or self-care (01) ==
LOC: SPU 08:00
PROVIDERS: ATTEND Nurse Practitioner Family
DX: D64.9 Anemia, unspecified (principal)
CPT/HCPCS: 36415; 86850; 86870; 86900; 86901; 86922; J7040; P9016; 85027; 86902; 86920

== ENCOUNTER → 2017-07-23 | Outpatient (REF) | payer MEDICARE, OTHER ==
[2017-06-24 17:09] VITALS: BMI 21.6
[~2017-07-23] MED LIST changes: -DEXTROSE 5%(*) 100 ML BAG 100 ML IVPB PRN; -LIDOCAINE/SOD BICARB 8.4% SYR ID PRN; -NS(*) 0.9% 100 ML BAG 100 ML IVPB PRN; -NS(*) 0.9% 500 ML BAG 500 ML IV PRN; -WARF10TA10 PO; +WARF10TA34 PO
== END ==
LOC: ZZLCC 10:51
PROVIDERS: ATTEND Nurse Practitioner Family
DX: D64.9 Anemia, unspecified (principal)
CPT/HCPCS: 85027

== ENCOUNTER → 2017-07-26 | Outpatient (REF) | payer MEDICARE, OTHER ==
[2017-06-24 17:09] VITALS: BMI 21.6
== END ==
LOC: ZZLCC 07:51
PROVIDERS: ATTEND Nurse Practitioner Family
DX: D50.9 Iron deficiency anemia, unspecified (principal); Z79.01 Long term (current) use of anticoagulants
CPT/HCPCS: 85027

== ENCOUNTER → 2017-08-02 | Outpatient (REF) | payer MEDICARE, OTHER ==
[2017-06-24 17:09] VITALS: BMI 21.6
[~2017-08-02] MED LIST changes: +WARF10TA10 PO; -WARF10TA34 PO
== END ==
LOC: ZZLCC 07:53
PROVIDERS: ATTEND Nurse Practitioner Family
DX: D50.9 Iron deficiency anemia, unspecified (principal); Z79.01 Long term (current) use of anticoagulants
CPT/HCPCS: 85027

== ENCOUNTER 2017-08-09 23:50 | Emergency (ER) | payer MEDICARE, OTHER ==
[2017-06-24 17:09] VITALS: Wt 61.2 kg
--- NOTE | 2017-08-10 00:44 | ER Report ---
History and Physical Time Seen By MD: 23:56 Hx. of Stated Complaint: patient had a fall while trying to go to bathroom, she hit her head on floor. patient has a very small laceration on right upper part of back of head. HPI/ROS CHIEF COMPLAINT: Fall HISTORY OF PRESENT ILLNESS: 86-year-old female brought in by ambulance from [facility] after a ground-level fall. Patient sustained an abrasion to her right parietal area. Patient has a history of a mechanical valve and is on chronic Coumadin therapy. She denies headache, vomiting, visual changes. Patient denies LOC or neck pain. Patient denies syncope. REVIEW OF SYSTEMS: Respiratory: No cough, no dyspnea. Cardiovascular: No chest pain, no palpitations. Gastrointestinal: No vomiting, no abdominal pain. Musculoskeletal: No back pain. Allergies: Coded Allergies: No Known Drug Allergies (Unverified , 06/19/17) Home Meds Active Scripts Sulfacetamide Sodium (SULFACETAMIDE SODIUM) 15 Ml Drops, 15 ML OS QID, #15 ML Prov:EVERTON RIOS MD 06/01/17 Simvastatin (SIMVASTATIN) 20 Mg Tablet, 1 TAB PO HS, #90 TAB 3 Refills Prov:EVERTON RIOS MD 03/02/17 Omeprazole (OMEPRAZOLE) 20 Mg Capsule.dr, 1 CAP PO QAM, #90 CAP 3 Refills TAKE ONE CAPSULE BY MOUTH ONCE A DAY Prov:IZABELLA GARAY PHARMD 01/15/17 Reported Medications Warfarin Sodium (COUMADIN) 7.5 Mg Tablet, 7.5 MG PO SuTuThSa 07/12/17 Warfarin Sodium (COUMADIN) 5 Mg Tablet, 5 MG PO MoWeFr 07/12/17 Cyanocobalamin (Vitamin B-12) (B-12) 1,000 Mcg Tablet.er, 1000 MCG PO QDAY 06/01/17 Calcium Carb & Cit/Vitamin D3 (CITRACAL + D ER TABLET) 1 Each Tablet.er, 1 TAB PO QDAY 04/03/15 Ferrous Sulfate (IRON) 325 Mg Capsule.er, 325 MG PO TID 02/01/15 Discontinued Scripts Enoxaparin Sodium (LOVENOX) 100 Mg/1 Ml Disp.syrin, 80 MG SC Q24H@1800, #1 SYR DC when INR > 2 Prov:MIKAYLA BLACKMAN DO 07/12/17 Reviewed Nurses Notes: Yes Old Medical Records Reviewed: Yes Hx Smoking: No Smoking Status: Former Smoker Exposure to Second Hand Smoke?: No Hx Substance Use Disorder: No Hx Alcohol Use: No Constitutional Vital Sign - Last 24 Hours 08/09/17 08/10/17 08/10/17 08/10/17 23:53 00:00 00:05 00:30 Temp 97.5 Pulse 79 83 Resp 16 B/P (MAP) 122/75 123/59 (80) 112/59 (76) Pulse Ox 90 90 O2 Delivery Room Air 08/10/17 08/10/17 08/10/17 08/10/17 00:35 00:50 01:00 01:05 Pulse 82 85 80 B/P (MAP) 105/60 (75) Pulse Ox 91 92 92 08/10/17 01:20 Pulse 78 Pulse Ox 93 Physical Exam General Appearance: The patient is alert, has no immediate need for airway protection and no signs of toxicity. Vital signs stable, afebrile, pulse ox normal, palpation of the head and neck reveal no tenderness or trauma. There is a superficial abrasion to the right parietal scalp. There is no active bleeding. Eyes: Pupils equal and round no pallor or injection. ENT, Mouth: Mucous membranes are moist. Respiratory: There are no retractions, lungs are clear to auscultation. No chest wall tenderness Cardiovascular: Regular rate and rhythm. Gastrointestinal: Abdomen is soft and non tender, no masses, bowel sounds normal. Neurological: Alert and oriented 3, cranial nerves II through XII intact motor 5/5 all groups, sensory intact to light touch 4 Skin: Warm and dry, no rashes. Musculoskeletal: Neck is supple non tender. No tenderness in the midline Extremities are nontender, nonswollen and have full range of motion. DIFFERENTIAL DIAGNOSIS: After history and physical exam differential diagnosis was considered for head injury including but not limited to concussion, skull fracture, intraparenchymal contusion, subarachnoid, subdural and epidural hematoma. Medical Decision Making EKG/Imaging Imaging Results: CT scan of the head was obtained. The results of the study are CT Head without contrast Indication: Fall. Anticoagulation. Parietal scalp contusion. Comparison: 06/23/2017 Technique: Axial CT images were obtained through the brain from the skull base to the vertex without administration of IV contrast. Reformatted coronal and sagittal images were also obtained. One of the following dose optimization techniques was utilized in the performance of this exam: Automated exposure control; adjustment of the mA and/ or kV according to the patient's size; or use of an iterative reconstruction technique. Specific details can be referenced in the facility's radiology CT exam operational policy. Findings: No evidence of mass, mass effect, or midline shift. No acute intracranial hemorrhage or acute territorial infarction. Minimal periventricular white matter changes are identified compatible with chronic small vessel ischemia. There is mild diffuse cerebral atrophy present which is likely age-appropriate. This is stable as well. The visualized paranasal sinuses and mastoid air cells are clear. There is a right parietal scalp hematoma with suspected laceration. No underlying fracture. IMPRESSION: 1. No acute intracranial abnormality. 2. Right parietal scalp hematoma with suspected laceration. Correlate with physical exam. 3. Mild diffuse cerebral atrophy. The study was read by the radiologist. I viewed the images myself on the PACS system. Results: CT scan of the cervical spine without contrast was obtained. The results of the study are CT Cervical Spine Indication: Fall. Right scalp contusion. Anticoagulation. Comparison: 06/23/2017 Technique: Axial CT imaging of the cervical spine was performed. 2-D sagittal and coronal CT reformats were also obtained. One of the following dose optimization techniques was utilized in the performance of this exam: Automated exposure control; adjustment of the mA and/ or kV according to the patient's size; or use of an iterative reconstruction technique. Specific details can be referenced in the facility's radiology CT exam operational policy. Findings: No cervical spine fracture or acute subluxation is identified.. The prevertebral soft tissues appear unremarkable. The vertebral body heights are well maintained. Extensive degenerative changes are again seen of the cervical spine. Severe degenerative disc disease extends from C4 to C7. There are protuberant anterior and posterior endplate spurs. Posterior spurs indent the thecal sac at C5-6 and C6-7. There is multilevel facet and uncovertebral joint osteoarthropathy present. These changes are also most pronounced from C4 to C7. No significant interval change. Neural foraminal narrowing is most pronounced on the left at C5-6 due to protuberant uncovertebral joint spurs. There is a pacemaker in place. Bilateral carotid artery atherosclerosis noted. Impression: 1. No acute osseous or alignment abnormality of the cervical spine. 2. Multilevel degenerative changes most severe from C4 to C7 as detailed above. Overall, no significant change from 06/23/2017. The study was read by the radiologist. I viewed the images myself on the PACS system. ED Course/Re-evaluation ED Course Patient was admitted to an examination room. H&P was done. The differential diagnoses was considered. On clinical examination, patient is a nonfocal neurologic examination. She has no neck pain. She denies LOC. CAT scans of the head and neck were performed which are unremarkable for acute new findings. Patient's scalp was closely examined. There is a hematoma and some bleeding. There is no obvious laceration that requires suture repair. Her tetanus status was verified is up-to-date. Patient will return to the [facility]. Decision to Disposition Date: August 10, 2017 Decision to Disposition Time: 00:42 Depart Departure Latest Vital Signs Vital Signs Date Time Temp Pulse Resp B/P (MAP) Pulse Ox O2 Delivery O2 Flow Rate FiO2 08/10/17 01:20 78 93 08/10/17 01:00 105/60 (75) 08/09/17 23:53 97.5 16 Room Air Impression: Primary Impression: Head injury Additional Impressions: Scalp abrasion Chronic anticoagulation Mechanical heart valve present Unsteady gait Scalp hematoma Condition: Improved Disposition: HOME OR SELF-CARE Referrals: EVERTON RIOS MD (PCP) Patient Instructions: Head Injury (ED) Additional Instructions: Return to [facility], resume previous orders Problem Qualifiers Primary Impression: Head injury Encounter type: initial encounter Qualified Codes: S09.90XA - Unspecified injury of head, initial encounter Additional Impressions: Scalp abrasion Encounter type: initial encounter Qualified Codes: S00.01XA - Abrasion of scalp, initial encounter NE HARRIS DO August 10, 2017 00:44
[2017-08-10 01:00] VITALS: BP 105/60
--- NOTE | 2017-08-10 01:08 | RADIOLOGY IMAGING REPORT ---
FACILITY: [facility] [place] PATIENT NAME: Nadia Baumann : 1930 MR: [id number] V: [id number] EXAM DATE: ORDERING PHYSICIAN: NE HARRIS TECHNOLOGIST: Location: [facility] Patient: Nadia Baumann : 1930 Visit/Account:[id number] Date of Sevice: 08/09/2017 CT Head without contrast Indication: Fall. Anticoagulation. Parietal scalp contusion. Comparison: 06/23/2017 Technique: Axial CT images were obtained through the brain from the skull base to the vertex without administration of IV contrast. Reformatted coronal and sagittal images were also obtained. One of the following dose optimization techniques was utilized in the performance of this exam: Autom ated exposure control; adjustment of the mA and/or kV according to the patient's size; or use of an i terative reconstruction technique. Specific details can be referenced in the facility's radiology C T exam operational policy. Findings: No evidence of mass, mass effect, or midline shift. No acute intracranial hemorrhage or acute territorial infarction. Minimal periventricular white matter changes are identified compatible with chronic small vessel isch emia. There is mild diffuse cerebral atrophy present which is likely age-appropriate. This is stable as wel l. The visualized paranasal sinuses and mastoid air cells are clear. There is a right parietal scalp hematoma with suspected laceration. No underlying fracture. IMPRESSION: 1. No acute intracranial abnormality. 2. Right parietal scalp hematoma with suspected laceration. Correlate with physical exam. 3. Mild diffuse cerebral atrophy. Report Dictated By: Hiram De La Torre at 08/10/2017 12:57 AM Report E-Signed By: Hiram De La Torre at 08/10/2017 1:04 AM WSN:[id number]
--- NOTE | 2017-08-10 01:16 | RADIOLOGY IMAGING REPORT ---
FACILITY: [facility] [place] PATIENT NAME: Nadia Baumann : 1930 MR: [id number] V: [id number] EXAM DATE: ORDERING PHYSICIAN: NE HARRIS TECHNOLOGIST: Location: [facility] Patient: Nadia Baumann : 1930 Visit/Account:[id number] Date of Sevice: 08/09/2017 CT Cervical Spine Indication: Fall. Right scalp contusion. Anticoagulation. Comparison: 06/23/2017 Technique: Axial CT imaging of the cervical spine was performed. 2-D sagittal and coronal CT reforma ts were also obtained. One of the following dose optimization techniques was utilized in the performance of this exam: Autom ated exposure control; adjustment of the mA and/or kV according to the patient's size; or use of an i terative reconstruction technique. Specific details can be referenced in the facility's radiology C T exam operational policy. Findings: No cervical spine fracture or acute subluxation is identified.. The prevertebral soft tissues appear unremarkable. The vertebral body heights are well maintained. Extensive degenerative changes are again seen of the cervical spine. Severe degenerative disc disease extends from C4 to C7. There are protuberant anterior and posterior endplate spurs. Posterior spurs indent the thecal sac at C5-6 and C6-7. There is multilevel facet and uncovertebral joint osteoarthro thee present. These changes are also most pronounced from C4 to C7. No significant interval change. Neural foraminal narrowing is most pronounced on the left at C5-6 due to protuberant uncovertebral anoop int spurs. There is a pacemaker in place. Bilateral carotid artery atherosclerosis noted. Impression: 1. No acute osseous or alignment abnormality of the cervical spine. 2. Multilevel degenerative changes most severe from C4 to C7 as detailed above. Overall, no significa nt change from 06/23/2017. Report Dictated By: Hiram De La Torre at 08/10/2017 1:04 AM Report E-Signed By: Hiram De La Torre at 08/10/2017 1:12 AM WSN:[id number]
== END 2017-08-10 01:41 | disposition home or self-care (01) ==
LOC: ER 23:59
DX: S01.01XA Laceration without foreign body of scalp, initial encounter (principal); S09.90XA Unspecified injury of head, initial encounter; S00.01XA Abrasion of scalp, initial encounter; S00.93XA Contusion of unspecified part of head, initial encounter; Z79.01 Long term (current) use of anticoagulants; R26.81 Unsteadiness on feet; Z95.2 Presence of prosthetic heart valve; W18.30XA Fall on same level, unspecified, initial encounter
CPT/HCPCS: 70450; 72125; 99283

== ENCOUNTER → 2017-08-09 | Outpatient (CLI) | payer MEDICARE, OTHER ==
[2017-06-24 17:09] VITALS: BMI 21.6
== END ==
LOC: AMB 23:34
PROVIDERS: ATTEND Nurse Practitioner
DX: S01.01XA Laceration without foreign body of scalp, initial encounter (principal); W18.30XA Fall on same level, unspecified, initial encounter; Y92.092 Bedroom in other non-institutional residence as the place of occurrence of the external cause
CPT/HCPCS: A0425; A0429

== ENCOUNTER → 2017-08-09 | Outpatient (CLI) | payer MEDICARE, OTHER ==
[2017-06-24 17:09] VITALS: BMI 21.6
== END ==
LOC: LAB 16:22
PROVIDERS: ATTEND Nurse Practitioner Family
DX: D50.9 Iron deficiency anemia, unspecified (principal)
CPT/HCPCS: 36415; 86850; 86870; 86900; 86901; 86922

== ENCOUNTER → 2017-08-09 | Outpatient (REF) | payer MEDICARE, OTHER ==
[2017-06-24 17:09] VITALS: BMI 21.6
== END ==
LOC: ZZLCC 07:19
PROVIDERS: ATTEND Nurse Practitioner Family
DX: D50.9 Iron deficiency anemia, unspecified (principal); Z79.01 Long term (current) use of anticoagulants
CPT/HCPCS: 85027

== ENCOUNTER → 2017-08-17 | Outpatient (REF) | payer MEDICARE, OTHER ==
[2017-06-24 17:09] VITALS: BMI 21.6
== END ==
LOC: ZZLCC 07:49
PROVIDERS: ATTEND Nurse Practitioner Family
DX: D50.9 Iron deficiency anemia, unspecified (principal); Z79.01 Long term (current) use of anticoagulants
CPT/HCPCS: 85027

== ENCOUNTER → 2017-08-24 | Outpatient (REF) | payer MEDICARE, OTHER ==
[2017-06-24 17:09] VITALS: BMI 21.6
== END ==
LOC: ZZLCC 13:12
PROVIDERS: ATTEND Internal Medicine
DX: I10 Essential (primary) hypertension (principal); Z95.2 Presence of prosthetic heart valve; Z79.01 Long term (current) use of anticoagulants
CPT/HCPCS: 85027

== ENCOUNTER 2017-09-03 13:22 | Outpatient (RCR) | payer MEDICARE, OTHER ==
[2017-06-24 17:09] VITALS: BMI 21.6
[2017-08-10 11:06] VITALS: BP 118/57
[2017-08-10 11:40] VITALS: BP 117/56
[2017-08-10 11:55] VITALS: BP 131/84
[2017-08-10 13:34] VITALS: BP 133/59
[2017-08-10 13:48] VITALS: BP 136/69
[2017-08-10 15:39] VITALS: BP 127/65
[~2017-09-03 13:22] MED LIST changes: +DEXTROSE 5%(*) 100 ML BAG 100 ML IVPB PRN; +LIDOCAINE/SOD BICARB 8.4% SYR ID PRN; +NS(*) 0.9% 100 ML BAG 100 ML IVPB PRN; +NS(*) 0.9% 500 ML BAG 500 ML IV PRN
[2017-09-03 13:46] LABS: PLATELET COUNT, AUTOMATED 168 K/uL (150-450)
[2017-09-03 13:57] VITALS: BP 137/84
--- NOTE | 2017-09-03 18:59 | ONCOLOGY FOLLOW UP NOTE ---
EVENT DATE: September 03, 2017 DIAGNOSES 1. Microcytic anemia. 2. Indolent multiple myeloma. 3. Hypertension. 4. Mechanical mitral valve replacement on Coumadin. 5. Atrial fibrillation. 6. Essential tremor. 7. Hyperlipidemia. 8. Osteoarthritis. 9. History of rheumatic fever. 10. History of resected skin cancer. 11. History of clostridium difficile colitis. 12. History of gastrointestinal bleeding. CHIEF COMPLAINT The patient is here today for followup of her indolent multiple myeloma. HEMATOLOGY HISTORY The patient is an 85-year-old female who was followed by Dr. Steinberg and patient was found to have anemia lately. Ferritin level was 8 on April 02, 2015. Vitamin B12 and folic acid were normal December 2014. Iron saturation was 8% in December 2014. Her iron studies on March 29, 2015 did reveal serum iron of 40, TIBC of 290 and iron saturation of 10. Ferritin was 23 on May 16, 2015. Her anemia is chronic for her. She has been on anticoagulation for her mitral valve replacement. Colonoscopy done March 2013 showed tubular adenoma which was removed, but no other source of bleeding. As per patient, she had a repeat EGD in February in 2013 and colonoscopy also, which were unremarkable. She saw Dr. Bustamante April 2015 and upper GI was done on April 15, 2015 without identifiable cause of bleeding found. Haptoglobin level was normal at 116. Methylmalonic acid was normal. IgG, IgA, IgM all within the normal range, but there was no M-spike in the immunoelectrophoresis, 0.98 gm/dL IgG kappa type. Serum ferritin was 18. Vitamin B12 was 394. Folate was more than 24. Iron saturation 10.3%. TIBC was 390. Soluble transferrin receptor assay was high at 5.4. A 24-hour urine for urine protein immunoelectrophoresis and free light chain assay showed urinary free kappa light chain at 39.3 mg/dL and the urinary free kappa light chain today was 314. Beta-2 microglobulin was high at 4. [place] free light chain was high at 9.1, while the lambda was normal at 2.11. Skeletal bone survey done on June 17, 2015 did reveal multiple sub-cm lucencies in the calvarium, stable as compared to the CT scan from January 2015. The certainty of venous lakes though possibility of lytic lesions is difficulty to completely exclude without remote prior studies for comparison. The patient had bone marrow aspiration biopsy on July 05, 2015, and the bone marrow was mildly hypercellular, about 50%, with plasma cell neoplasia; 8% plasma cells, constituting 10-15% of the bone marrow space. Cytogenetic analysis showed normal female karyotype, but FISH for myeloma came back positive for gains of chromosome 7, 9 and 15, and again of CCND1. HISTORY OF PRESENT ILLNESS Patient is here today for followup of her indolent multiple myeloma. She is complaining of dry cough and nasal discharge. She bruises easily, but other than that she does not have any other complaints. PAST MEDICAL HISTORY Essential tremor, seizure, allergic rhinitis, atrial fibrillation, hyperlipidemia, hypertension, history of GI bleeding, history of C. diff. colitis September 2014 treated with Flagyl, osteoarthritis, chronic anemia, skin cancer, history of rheumatic fever at the age of [age]. PAST SURGICAL HISTORY Tonsillectomy as a child, pacemaker placement in August 2014, mitral valve replacement in 1986, appendectomy in 1949, hysterectomy in with oophorectomy, bilateral mastectomies for benign nodules, no malignancy, removal of breast reconstruction with subsequent bleeding, resection of skin cancer. FAMILY HISTORY Negative for cancer or blood diseases. SOCIAL HISTORY The patient is with two daughters. 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 She quit smoking forty years ago. She smoked about half a pack a day for nearly thirty years, but denies any abuse of alcohol or illicit drugs. CURRENT MEDICATIONS 1. Calcium and vitamin D, Citracal Plus D, 1 tablet daily. 2. Ferrous sulfate 325 mg three times daily. 3. Nasacort 10.8 spray, 2 sprays t.i.d. 4. Levetiracetam 500 mg at bedtime. 5. Lisinopril 2.5 mg daily. 6. Warfarin 10 mg to alternate with 7.5 mg. 7. Mirtazapine 15 mg tablet, half tablet at bedtime. 8. [place] 3 fatty acid 300 mg b.i.d. 9. Omeprazole 20 mg daily. 10. Simvastatin 20 mg at bedtime. 11. Lasix 20 mg three times per week. ALLERGIES No known drug allergies. REVIEW OF SYSTEMS CONSTITUTIONAL: No appetite or weight change. No fever, chills or sweating. No recent infection. HEENT: Ears: No tinnitus or hearing problem. Nose: She has nasal discharge. Throat: No sore throat or mouth ulcers. Eyes: No diplopia or visual changes. RESPIRATORY: She has dry cough. CARDIOVASCULAR: No chest pain, orthopnea, or paroxysmal nocturnal dyspnea (PND) . No edema. No palpitations. GASTROINTESTINAL: She has nausea and vomiting. No diarrhea or constipation. No change in bowel movements. No heartburn or swallowing difficulties. No abdominal pain. No jaundice. No hematemesis, melena or rectal bleeding. GENITOURINARY: The patient has increased frequency of urine. No hematuria or dysuria. MUSCULOSKELETAL: She has pain in her knees. NEUROLOGICAL: No tingling or numbness in the hands or feet. No headaches or convulsions. HEMATOLOGIC/LYMPHATIC: She bruises easily. PSYCHIATRIC: No anxiety or depression. PHYSICAL EXAMINATION GENERAL: Looks stable. Well-developed, well-nourished, and in no acute distress. VITAL SIGNS: Blood pressure 137/68, pulse 80 per minute, respirations 16 per minute, temperature 97.7, pulse ox 93% on room air. HEENT: Head: Atraumatic. No sinus tenderness to palpation. Eyes: No icterus or conjunctivitis. Mouth and Throat: No oral thrush or mucositis. NECK: Supple. No cervical or supraclavicular lymphadenopathy. LUNGS: Clear to auscultation and percussion bilaterally. HEART: There is an ejection systolic murmur over the pulmonary and aortic area. ABDOMEN: Soft and lax. No tenderness. No hepatosplenomegaly. No masses. EXTREMITIES: No cyanosis, clubbing or edema. LYMPHATICS: No peripheral lymphadenopathy. NEUROLOGICAL: Conscious, alert and oriented times three. No focal motor or sensory deficits. PSYCHIATRIC: Mood and affect appear normal. SKIN: She has skin pallor. DIAGNOSTIC DATA Pending. ASSESSMENT 1. Indolent multiple myeloma with IgG kappa. Initial level was 0.98 g/dL. Her current level is pending. Her initial skeletal bone survey showed subcentimeter multiple lucencies in the calvaria. Bone marrow aspiration biopsy July 05, 2015 revealed hypercellular bone marrow for age with 8% malignant plasma cells constituting 10% to 15% of the bone marrow space. Cytogenic analysis showed normal female karyotype, but FISH for myeloma came back positive for gains of chromosomes 7, 9, 15, and gain of CCND1. I am planning to await the result of the myeloma profile this visit, and I will see her again in four months with CBC, chem panel, LDH, uric acid and myeloma profile again. If she will progress in the future, then we will start treatment for her myeloma. 2. Mechanical mitral valve replacement, on Coumadin. 3. Atrial fibrillation on Coumadin. 4. Hypertension on treatment. 7. History of Clostridium difficile colitis. PLAN 1. Continue followup. 2. Patient to return in four months with CBC, chem panel, LDH, uric acid and myeloma profile. 3. Patient is to contact us for any new concern or complaints. CASAD
== END 2017-09-21 10:24 | disposition home or self-care (01) ==
LOC: SPU 13:22
PROVIDERS: ATTEND Nurse Practitioner Family
DX: D64.9 Anemia, unspecified (principal); C90.00 Multiple myeloma not having achieved remission; I48.91 Unspecified atrial fibrillation; Z79.01 Long term (current) use of anticoagulants; I10 Essential (primary) hypertension; E78.5 Hyperlipidemia, unspecified; M19.90 Unspecified osteoarthritis, unspecified site; Z87.891 Personal history of nicotine dependence
CPT/HCPCS: 36415; 82232; 83615; 83883; 84550; 85025; 86334; 86850; 86870; 86900; 86901; 86902; 86922; G0463; J7040; P9016; 82040; 82247; 82310; 82374; 82435; 82565; 82947; 84075; 84132; 84155; 84295; 84450; 84460; 84520; 99212

== ENCOUNTER 2017-09-11 04:14 | Emergency (ER) | payer MEDICARE, OTHER ==
[2017-06-24 17:09] VITALS: BMI 21.6
[~2017-09-11 04:14] MED LIST changes: -DEXTROSE 5%(*) 100 ML BAG 100 ML IVPB PRN; -LIDOCAINE/SOD BICARB 8.4% SYR ID PRN; -NS(*) 0.9% 100 ML BAG 100 ML IVPB PRN; -NS(*) 0.9% 500 ML BAG 500 ML IV PRN
--- NOTE | 2017-09-11 04:32 | ER Report ---
History and Physical Time Seen By MD: 04:29 Hx. of Stated Complaint: patient hit the back of her head in the bathroom this am; patient is on blood thinners HPI/ROS CHIEF COMPLAINT: fall, head injury, on blood thinners HISTORY OF PRESENT ILLNESS: This is an 86 year old female. She fell at home. Misjudged when she was going to sit down. Hit the back of her head. Did not get knocked out. Has a 5/10 headache. No neck pain. No other injuries. Worried because of blood thinner Warfarin. Also history of falls and low blood counts. Allergies: Coded Allergies: No Known Drug Allergies (Unverified , 09/11/17) Home Meds Active Scripts Sulfacetamide Sodium (SULFACETAMIDE SODIUM) 15 Ml Drops, 15 ML OS QID, #15 ML Prov:EVERTON RIOS MD 06/01/17 Simvastatin (SIMVASTATIN) 20 Mg Tablet, 1 TAB PO HS, #90 TAB 3 Refills Prov:EVERTON RIOS MD 03/02/17 Omeprazole (OMEPRAZOLE) 20 Mg Capsule.dr, 1 CAP PO QAM, #90 CAP 3 Refills TAKE ONE CAPSULE BY MOUTH ONCE A DAY Prov:IZABELLA GARAY PHARMD 01/15/17 Reported Medications Warfarin Sodium (COUMADIN) 7.5 Mg Tablet, 7.5 MG PO SuTuThSa 07/12/17 Warfarin Sodium (COUMADIN) 5 Mg Tablet, 5 MG PO MoWeFr 07/12/17 Cyanocobalamin (Vitamin B-12) (B-12) 1,000 Mcg Tablet.er, 1000 MCG PO QDAY 06/01/17 Calcium Carb & Cit/Vitamin D3 (CITRACAL + D ER TABLET) 1 Each Tablet.er, 1 TAB PO QDAY 04/03/15 Ferrous Sulfate (IRON) 325 Mg Capsule.er, 325 MG PO TID 02/01/15 Reviewed Nurses Notes: Yes Hx Smoking: No Smoking Status: Former Smoker Exposure to Second Hand Smoke?: No Hx Substance Use Disorder: No Hx Alcohol Use: No Constitutional Vital Sign - Last 24 Hours 09/11/17 04:23 Temp 97.7 Pulse 78 Resp 18 B/P (MAP) 144/77 Pulse Ox 91 O2 Delivery Room Air Physical Exam General Appearance: Alert, no acute distress. Eyes: Pupils equal and round no injection. Pupils are reactive to light. Extraocular movements are intact. ENT: Normal oral mucosa. Moist mucous membranes. Neck: Neck is supple and non tender. Respiratory: Chest is non tender, lungs are clear to auscultation. Cardiac: regular rate and rhythm Gastrointestinal: Abdomen is soft and non tender, no masses, bowel sounds normal. Musculoskeletal: No neck pain. No pain in shoulders, arms, hips or legs. No chest wall pain. Neuro: Slow responses due to her dementia. She is alert and oriented x4 Skin: Posterior occipital scalp hematoma. DIFFERENTIAL DIAGNOSIS: After history and physical exam differential diagnosis was considered for head injury on blood thinners. Will check the blood count and INR as well. Medical Decision Making Data Points Result Diagram: 09/11/17 0450 Laboratory Hematology Test 09/11/17 04:50 Red Blood Count 2.37 M/uL (4.17-5.56) Mean Corpuscular Volume 98.9 fL (80.0-96.0) Mean Corpuscular Hemoglobin 33.7 pg (26.0-33.0) Mean Corpuscular Hemoglobin Concent 34.1 g/dL (32.0-36.0) Red Cell Distribution Width 16.4 % (11.5-14.5) Mean Platelet Volume 9.3 fL (7.2-11.1) Neutrophils (%) (Auto) 72.4 % (39.4-72.5) Lymphocytes (%) (Auto) 13.8 % (17.6-49.6) Monocytes (%) (Auto) 9.8 % (4.1-12.4) Eosinophils (%) (Auto) 3.5 % (0.4-6.7) Basophils (%) (Auto) 0.5 % (0.3-1.4) Nucleated RBC Relative Count (auto) 0.1 /100WBC Neutrophils # (Auto) 2.8 K/uL (2.0-7.4) Lymphocytes # (Auto) 0.5 K/uL (1.3-3.6) Monocytes # (Auto) 0.4 K/uL (0.3-1.0) Eosinophils # (Auto) 0.1 K/uL (0.0-0.5) Basophils # (Auto) 0.0 K/uL (0.0-0.1) Nucleated RBC Absolute Count (auto) 0.01 K/uL Prothrombin Time 31.5 seconds (12.0-14.4) Prothromb Time International Ratio 2.91 Chemistry Test 09/11/17 04:50 White Blood Count 3.9 k/uL (4.5-11.0) Red Blood Count 2.37 M/uL (4.17-5.56) Hemoglobin 8.0 g/dL (12.0-16.0) Hematocrit 23.4 % (34.0-47.0) Mean Corpuscular Volume 98.9 fL (80.0-96.0) Mean Corpuscular Hemoglobin 33.7 pg (26.0-33.0) Mean Corpuscular Hemoglobin Concent 34.1 g/dL (32.0-36.0) Red Cell Distribution Width 16.4 % (11.5-14.5) Platelet Count 159 K/uL (150-450) Mean Platelet Volume 9.3 fL (7.2-11.1) Neutrophils (%) (Auto) 72.4 % (39.4-72.5) Lymphocytes (%) (Auto) 13.8 % (17.6-49.6) Monocytes (%) (Auto) 9.8 % (4.1-12.4) Eosinophils (%) (Auto) 3.5 % (0.4-6.7) Basophils (%) (Auto) 0.5 % (0.3-1.4) Nucleated RBC Relative Count (auto) 0.1 /100WBC Neutrophils # (Auto) 2.8 K/uL (2.0-7.4) Lymphocytes # (Auto) 0.5 K/uL (1.3-3.6) Monocytes # (Auto) 0.4 K/uL (0.3-1.0) Eosinophils # (Auto) 0.1 K/uL (0.0-0.5) Basophils # (Auto) 0.0 K/uL (0.0-0.1) Nucleated RBC Absolute Count (auto) 0.01 K/uL Prothrombin Time 31.5 seconds (12.0-14.4) Prothromb Time International Ratio 2.91 Coagulation Test 09/11/17 04:50 Prothrombin Time 31.5 seconds Prothromb Time International Ratio 2.91 EKG/Imaging Imaging HEAD CT: Indication: Injury. Technique: Contiguous axial sections were obtained from the base to the vertex without contrast enhancement. One of the following dose optimization techniques was utilized in the performance of this exam: Automated exposure control; adjustment of the mA and/ or kV according to the patient's size; or use of an iterative reconstruction technique. Specific details can be referenced in the facility's radiology CT exam operational policy. Comparison: 08/10/2017 Findings: There is no evidence of intra-axial or extra-axial hemorrhage. Mild cortical atrophy appears unchanged. No focal areas of decreased or increased attenuation are identified. There is no evidence of mass, edema, or shift of the midline structures. The size, shape, and configuration of the ventricular system are stable. There is no evidence of fracture or other acute deformity. The visualized paranasal sinuses and mastoid air cells are clear. Impression: No acute deformity or significant change. Report Dictated By: Ruben Ramírez MD at 09/11/2017 5:27 AM ED Course/Re-evaluation ED Course Blood count very low again. Will plan on Type and Cross and then discharge and bring her back when the blood is available because she has several antibodies that make it difficult to find blood products for her. INR was good. Head CT negative. Decision to Disposition Date: Sep 11, 2017 Decision to Disposition Time: 05:52 Depart Departure Latest Vital Signs Vital Signs Date Time Temp Pulse Resp B/P (MAP) Pulse Ox O2 Delivery O2 Flow Rate FiO2 09/11/17 04:23 97.7 78 18 144/77 91 Room Air Impression: Primary Impression: Head injury, acute Additional Impression: Chronic anemia Condition: Improved Disposition: HOME OR SELF-CARE Referrals: EVERTON RIOS MD (PCP) Patient Instructions: Anemia (ED), Head Injury (ED) Additional Instructions: Your head injury did not cause any bleeding in or injury to the brain Your Protime/INR was in the therapeutic range, so no changes in your Warfarin. Your blood count was low, so we are going to do a Type and Cross for 2 units of red blood cells. Because it has taken as long as 3 days to find blood for you due to the antibodies in your blood, we will have you return home and call to to come in once the blood is available. Problem Qualifiers Primary Impression: Head injury, acute Encounter type: initial encounter Qualified Codes: S09.90XA - Unspecified injury of head, initial encounter MARCIE HERNANDEZ MD Sep 11, 2017 04:32
[2017-09-11 05:00] LABS: PLATELET COUNT, AUTOMATED 159 K/uL (150-450)
[2017-09-11 05:05] LABS: INR 2.91
--- NOTE | 2017-09-11 05:36 | RADIOLOGY IMAGING REPORT ---
FACILITY: [facility] PATIENT NAME: Nadia Baumann : 1930 MR: [id number] V: [id number] EXAM DATE: ORDERING PHYSICIAN: MARCIE HERNANDEZ TECHNOLOGIST: Location: [facility] - [place] Patient: Nadia Baumann : 1930 Visit/Account:[id number] Date of Sevice: 09/11/[address]: Indication: Injury. Technique: Contiguous axial sections were obtained from the base to the vertex without contrast enhan cement. One of the following dose optimization techniques was utilized in the performance of this exam: Autom ated exposure control; adjustment of the mA and/or kV according to the patient's size; or use of an i terative reconstruction technique. Specific details can be referenced in the facility's radiology CT exam operational policy. Comparison: 08/10/2017 Findings: There is no evidence of intra-axial or extra-axial hemorrhage. Mild cortical atrophy appear s unchanged. No focal areas of decreased or increased attenuation are identified. There is no evidenc e of mass, edema, or shift of the midline structures. The size, shape, and configuration of the ventr icular system are stable. There is no evidence of fracture or other acute deformity. The visualized p aranasal sinuses and mastoid air cells are clear. Impression: No acute deformity or significant change. Report Dictated By: Ruben Ramírez MD at 09/11/2017 5:27 AM Report E-Signed By: Ruben Ramírez MD at 09/11/2017 5:31 AM [id number]
[2017-09-11 06:00] VITALS: BP 123/45
== END 2017-09-11 06:27 | disposition home or self-care (01) ==
LOC: ER 04:32
DX: S09.90XA Unspecified injury of head, initial encounter (principal); D64.9 Anemia, unspecified; Z79.01 Long term (current) use of anticoagulants; W18.30XA Fall on same level, unspecified, initial encounter
CPT/HCPCS: 36415; 70450; 85025; 85610; 86850; 86870; 86900; 86901; 86920; 99283; 99284

== ENCOUNTER 2017-09-12 14:03 | Outpatient (RCR) | payer MEDICARE, OTHER ==
[2017-06-24 17:09] VITALS: BMI 21.6
[2017-09-12] MEDS ORDERED: NS(*) 0.9% 500 ML BAG 500 ML ONE (14:25)
[2017-09-12 14:52] VITALS: BP 119/60
[2017-09-12 15:09] VITALS: BP 122/57
[2017-09-12 16:58] VITALS: BP 118/62
[2017-09-12 17:13] VITALS: BP 115/55
[2017-09-12 17:24] VITALS: BP 132/61
[2017-09-12 19:19] VITALS: BP 142/72
== END 2017-09-21 10:24 | disposition home or self-care (01) ==
LOC: SPU 14:03 → EDSTATUS 09-15 06:07 → SPU 09-21 10:24
PROVIDERS: ATTEND Family Medicine
DX: D64.9 Anemia, unspecified (principal)
CPT/HCPCS: 86850; 86870; 86900; 86901; 86902; 86922; J7040; P9016

== ENCOUNTER → 2017-09-17 | Outpatient (REF) | payer MEDICARE, OTHER ==
[2017-06-24 17:09] VITALS: BMI 21.6
[2017-09-17 14:10] LABS: PLATELET COUNT, AUTOMATED 163 K/uL (150-450)
[2017-09-17 14:26] LABS: INR 3.8
== END ==
LOC: ZZLCC 14:01
PROVIDERS: ATTEND Internal Medicine
DX: M62.81 Muscle weakness (generalized) (principal); G25.0 Essential tremor; C90.00 Multiple myeloma not having achieved remission; I48.91 Unspecified atrial fibrillation; Z79.01 Long term (current) use of anticoagulants; Z91.81 History of falling; Z95.0 Presence of cardiac pacemaker
CPT/HCPCS: 85025; 85610

== ENCOUNTER 2017-09-29 00:53 | Emergency (ER) | payer MEDICARE, OTHER ==
[2017-06-24 17:09] VITALS: Wt 55.9 kg
--- NOTE | 2017-09-29 00:56 | ER Report ---
History and Physical Time Seen By MD: 00:56 HPI/ROS CHIEF COMPLAINT: Vaginal bleeding HISTORY OF PRESENT ILLNESS: 86-year-old female presents with her family members with reported vaginal bleeding. Patient states she noted blood in her bed. Patient has a history of chronic anticoagulation on warfarin for mechanical heart valve. She also has atrial fibrillation. Patient's been seen frequently in the past for epistaxis. Patient was seen in internal medicine clinic yesterday and her INR was 1.9. One week ago. She was transfused with 2 units of blood for anemia. She has multiple myeloma REVIEW OF SYSTEMS: Respiratory: No cough, no dyspnea. Cardiovascular: No chest pain, no palpitations. Gastrointestinal: No vomiting, no abdominal pain. Musculoskeletal: No back pain. Allergies: Coded Allergies: No Known Drug Allergies (Unverified , 09/29/17) Home Meds Active Scripts Sulfacetamide Sodium (SULFACETAMIDE SODIUM) 15 Ml Drops, 15 ML OS QID, #15 ML Prov:EVERTON STEINBERG MD 06/01/17 Simvastatin (SIMVASTATIN) 20 Mg Tablet, 1 TAB PO HS, #90 TAB 3 Refills Prov:EVERTON STEINBERG MD 03/02/17 Omeprazole (OMEPRAZOLE) 20 Mg Capsule.dr, 1 CAP PO QAM, #90 CAP 3 Refills TAKE ONE CAPSULE BY MOUTH ONCE A DAY Prov:IZABELLA GARAY PHARMD 01/15/17 Reported Medications Warfarin Sodium (COUMADIN) 7.5 Mg Tablet, 7.5 MG PO SuTuThSa 07/12/17 Warfarin Sodium (COUMADIN) 5 Mg Tablet, 5 MG PO MoWeFr 07/12/17 Cyanocobalamin (Vitamin B-12) (B-12) 1,000 Mcg Tablet.er, 1000 MCG PO QDAY 06/01/17 Calcium Carb & Cit/Vitamin D3 (CITRACAL + D ER TABLET) 1 Each Tablet.er, 1 TAB PO QDAY 04/03/15 Ferrous Sulfate (IRON) 325 Mg Capsule.er, 325 MG PO TID 02/01/15 Reviewed Nurses Notes: Yes Old Medical Records Reviewed: Yes Hx Smoking: No Smoking Status: Former Smoker Exposure to Second Hand Smoke?: No Hx Substance Use Disorder: No Hx Alcohol Use: No Constitutional Vital Sign - Last 24 Hours 09/29/17 09/29/17 09/29/17 09/29/17 00:59 00:59 01:23 01:30 Temp 98.2 Pulse 91 81 Resp 19 B/P (MAP) 140/63 140/63 (88) 135/60 (85) Pulse Ox 92 92 O2 Delivery Room Air 09/29/17 09/29/17 09/29/17 01:35 02:00 02:05 Pulse 76 74 B/P (MAP) 137/99 (112) Pulse Ox 93 93 Physical Exam General Appearance: The patient is alert, has no immediate need for airway protection and no current signs of toxicity. Vital signs stable, afebrile, pulse ox normal Eyes: Pupils equal and round no injection. Respiratory: Chest is non tender, lungs are clear to auscultation. Cardiac: regular rate and rhythm Gastrointestinal: Abdomen is soft and non tender, no masses, bowel sounds normal. Genital exam: Vaginal bimanual examination reveals no blood. Rectal examination reveals no blood. Patient passed urine in a depends which was without hematuria. Musculoskeletal: Neck: Neck is supple and non tender. Extremities have full range of motion and are non tender. Skin: No rashes or lesions. DIFFERENTIAL DIAGNOSIS: After history and physical exam differential diagnosis was considered for dysfunctional uterine bleeding, excessive and a coagulation, rectal bleeding, hematuria Medical Decision Making Data Points Result Diagram: 09/29/17 0115 09/29/17 0115 Laboratory Hematology Test 09/29/17 01:15 Red Blood Count 2.46 M/uL (4.17-5.56) Mean Corpuscular Volume 101.9 fL (80.0-96.0) Mean Corpuscular Hemoglobin 34.3 pg (26.0-33.0) Mean Corpuscular Hemoglobin Concent 33.7 g/dL (32.0-36.0) Red Cell Distribution Width 17.5 % (11.5-14.5) Mean Platelet Volume 8.8 fL (7.2-11.1) Neutrophils (%) (Auto) 71.2 % (39.4-72.5) Lymphocytes (%) (Auto) 12.5 % (17.6-49.6) Monocytes (%) (Auto) 11.4 % (4.1-12.4) Eosinophils (%) (Auto) 4.3 % (0.4-6.7) Basophils (%) (Auto) 0.6 % (0.3-1.4) Nucleated RBC Relative Count (auto) 0.1 /100WBC Neutrophils # (Auto) 2.8 K/uL (2.0-7.4) Lymphocytes # (Auto) 0.5 K/uL (1.3-3.6) Monocytes # (Auto) 0.4 K/uL (0.3-1.0) Eosinophils # (Auto) 0.2 K/uL (0.0-0.5) Basophils # (Auto) 0.0 K/uL (0.0-0.1) Nucleated RBC Absolute Count (auto) 0.00 K/uL Sodium Level 138 mmol/L (137-145) Potassium Level 3.7 mmol/L (3.5-5.0) Chloride Level 104 mmol/L (98-107) Carbon Dioxide Level 26 mmol/L (22-31) Blood Urea Nitrogen 17 mg/dl (7-18) Creatinine 0.90 mg/dl (0.52-1.04) Glomerular Filtration Rate Calc 59.5 Random Glucose 108 mg/dl (75-110) Calcium Level 8.6 mg/dl (8.4-10.2) Total Bilirubin 0.4 mg/dl (0.2-1.3) Aspartate Amino Transf (AST/SGOT) 22 U/L (0-35) Alanine Aminotransferase (ALT/SGPT) 18 U/L (0-56) Alkaline Phosphatase 155 U/L (0-126) Total Protein 6.6 g/dl (6.3-8.2) Albumin 3.4 g/dl (3.5-5.0) Chemistry Test 09/29/17 01:15 White Blood Count 3.9 k/uL (4.5-11.0) Red Blood Count 2.46 M/uL (4.17-5.56) Hemoglobin 8.4 g/dL (12.0-16.0) Hematocrit 25.1 % (34.0-47.0) Mean Corpuscular Volume 101.9 fL (80.0-96.0) Mean Corpuscular Hemoglobin 34.3 pg (26.0-33.0) Mean Corpuscular Hemoglobin Concent 33.7 g/dL (32.0-36.0) Red Cell Distribution Width 17.5 % (11.5-14.5) Platelet Count 197 K/uL (150-450) Mean Platelet Volume 8.8 fL (7.2-11.1) Neutrophils (%) (Auto) 71.2 % (39.4-72.5) Lymphocytes (%) (Auto) 12.5 % (17.6-49.6) Monocytes (%) (Auto) 11.4 % (4.1-12.4) Eosinophils (%) (Auto) 4.3 % (0.4-6.7) Basophils (%) (Auto) 0.6 % (0.3-1.4) Nucleated RBC Relative Count (auto) 0.1 /100WBC Neutrophils # (Auto) 2.8 K/uL (2.0-7.4) Lymphocytes # (Auto) 0.5 K/uL (1.3-3.6) Monocytes # (Auto) 0.4 K/uL (0.3-1.0) Eosinophils # (Auto) 0.2 K/uL (0.0-0.5) Basophils # (Auto) 0.0 K/uL (0.0-0.1) Nucleated RBC Absolute Count (auto) 0.00 K/uL Glomerular Filtration Rate Calc 59.5 Calcium Level 8.6 mg/dl (8.4-10.2) Total Bilirubin 0.4 mg/dl (0.2-1.3) Aspartate Amino Transf (AST/SGOT) 22 U/L (0-35) Alanine Aminotransferase (ALT/SGPT) 18 U/L (0-56) Alkaline Phosphatase 155 U/L (0-126) Total Protein 6.6 g/dl (6.3-8.2) Albumin 3.4 g/dl (3.5-5.0) ED Course/Re-evaluation ED Course Patient was admitted to an examination room. H&P was done. The differential diagnoses was considered. On clinical examination. There is no signs of active bleeding either vaginally or rectally. Patient's H&H appears stable. Patient will be crossmatched for 2 units of blood. Should she needs transfusion in the next week. Patient advised to follow-up with her primary care doctor Idris in 2 days for reevaluation. Decision to Disposition Date: Sep 29, 2017 Decision to Disposition Time: 01:26 Depart Departure Latest Vital Signs Vital Signs Date Time Temp Pulse Resp B/P (MAP) Pulse Ox O2 Delivery O2 Flow Rate FiO2 09/29/17 02:05 74 93 09/29/17 02:00 137/99 (112) 09/29/17 00:59 98.2 19 Room Air Impression: Primary Impression: Chronic anemia Additional Impression: Anticoagulated on Coumadin Condition: Improved Disposition: HOME OR SELF-CARE Referrals: EVERTON STEINBERG MD (PCP) Patient Instructions: Anemia (ED) Additional Instructions: Follow-up with Dr. Steinberg in 2 days Problem Qualifiers NE HARRIS DO Sep 29, 2017 00:56
[2017-09-29 01:31] LABS: PLATELET COUNT, AUTOMATED 197 K/uL (150-450)
[2017-09-29 02:00] VITALS: BP 137/99
== END 2017-09-29 02:15 | disposition home or self-care (01) ==
LOC: ER 01:28
DX: D64.9 Anemia, unspecified (principal); Z79.01 Long term (current) use of anticoagulants
CPT/HCPCS: 36415; 82040; 82247; 82310; 82374; 82435; 82565; 82947; 84075; 84132; 84155; 84295; 84450; 84460; 84520; 85025; 86850; 86870; 86900; 86901; 86922; 99282

== ENCOUNTER 2017-09-30 16:38 | Emergency (ER) | payer MEDICARE, OTHER ==
[2017-06-24 17:09] VITALS: Wt 47.6 kg
--- NOTE | 2017-09-30 17:36 | ER Report ---
History and Physical Time Seen By MD: 17:09 Hx. of Stated Complaint: PATIENT FELL AT HOME AND IS REPORTING LEFT TEMPORAL PAIN HPI/ROS Chief Complaint: "Fell and hit head" HPI: 86-year-old patient fell today and hit her head. She reports her head is the only thing that hurts. The pain is a 5 out of 10. No treatments tired. Patient states she was walking into her family room from her living room. She states that she lost her balance and fell. Her did have a hold of her close, however as she fell he is not able to keep a hold of her. She states that she did hit the left side of her head. Patient denies any loss of consciousness, dizziness, nausea, vomiting. ROS: Constitutional: denies fevers or chills HEENT: reports headache, denies sore throat or sinus pressure, reports cough Respiratory: no chest pain, no difficulty breathing CV: no chest pain Musculoskeletal: moves all extremities without pain Allergies: Coded Allergies: No Known Drug Allergies (Unverified , 09/29/17) Home Meds Active Scripts Sulfacetamide Sodium (SULFACETAMIDE SODIUM) 15 Ml Drops, 15 ML OS QID, #15 ML Prov:EVERTON RIOS MD 06/01/17 Simvastatin (SIMVASTATIN) 20 Mg Tablet, 1 TAB PO HS, #90 TAB 3 Refills Prov:EVERTON RIOS MD 03/02/17 Omeprazole (OMEPRAZOLE) 20 Mg Capsule.dr, 1 CAP PO QAM, #90 CAP 3 Refills TAKE ONE CAPSULE BY MOUTH ONCE A DAY Prov:IZABELLA GARAY PHARMLashanda 01/15/17 Reported Medications Warfarin Sodium (COUMADIN) 7.5 Mg Tablet, 7.5 MG PO SuTuThSa 07/12/17 Warfarin Sodium (COUMADIN) 5 Mg Tablet, 5 MG PO MoWeFr 07/12/17 Cyanocobalamin (Vitamin B-12) (B-12) 1,000 Mcg Tablet.er, 1000 MCG PO QDAY 06/01/17 Calcium Carb & Cit/Vitamin D3 (CITRACAL + D ER TABLET) 1 Each Tablet.er, 1 TAB PO QDAY 04/03/15 Ferrous Sulfate (IRON) 325 Mg Capsule.er, 325 MG PO TID 02/01/15 Past Medical/Surgical History Patient has a past medical history of essential tremor, dementia, migraines, hyperlipidemia, pneumonia, reflux, arthritis, back pain, hard of hearing, borderline diabetes, anemia, skin cancer, breast cancer. Patient has surgical history bilateral mastectomy, lumpectomy, skin cancer removal, cataract surgery, tonsillectomy, hysterectomy, D&C, appendectomy, pacemaker, mitral valve replacement. Patient has a family medical history of cancer. Reviewed Nurses Notes: Yes Hx Smoking: No Smoking Status: Former Smoker Exposure to Second Hand Smoke?: No Hx Substance Use Disorder: No Hx Alcohol Use: No Constitutional Vital Sign - Last 24 Hours 09/30/17 09/30/17 16:47 17:59 Temp 98.4 Pulse 89 84 Resp 20 16 B/P (MAP) 147/79 155/86 (109) Pulse Ox 91 94 O2 Delivery Room Air Room Air Physical Exam Constitutional: 86-year-old frail appearing female in no acute distress HEENT: normocephalic, atraumatic, pupils round, equal, and reactive to light and accommodation, no lymphadenopathy Respiratory: BL CTA CV: Clear S1 S2 Musculoskeletal: moves all extremities Differential diagnoses considered: concussion, intracranial bleed Medical Decision Making EKG/Imaging Imaging EXAMINATION: Head CT without intravenous contrast HISTORY: Fall. Head pain (left side). COMPARISON: 09/11/2017. TECHNIQUE: Contiguous axial images were obtained from the skull base to the vertex without intravenous contrast. Sagittal and coronal reformatted images are also submitted. One of the following dose optimization techniques was utilized in the performance of this exam: Automated exposure control; adjustment of the mA and/ or kV according to the patient's size; or use of an iterative reconstruction technique. Specific details can be referenced in the facility's radiology CT exam operational policy. FINDINGS: Brain and intracranial structures: Mild cerebral volume loss with corresponding sulcal, ventricular, and cisternal prominence. No midline shift, acute hemorrhage, acute infarct, or mass. Vessels: Calcified plaque of the carotid siphons. Calvarium / scalp: Focal mild left anterolateral scalp swelling. No acute fracture. Skull base / visualized face: Negative. Visualized sinuses / orbits: The left lens has been extracted or replaced. IMPRESSION: Mild focal left anterolateral scalp swelling. No acute intracranial abnormality. Mild generalized cerebral atrophy. Report Dictated By: Kalyan Alan MD at 09/30/2017 5:35 PM ED Course/Re-evaluation ED Course 86-year-old patient presents to the Emergency Department with her family. She states that she fell and hit her head. The patient states her head is a 5 out of 10 in pain. The patient is currently taking Coumadin. CT of the head has been obtained to assess for intracranial bleed. CT of the head was negative for intracranial hemorrhage. The patient has been sent home on concussion precautions and encouraged to return to the Emergency Department if her condition worsens or if she experiences worsening pain, vomiting, or changes in thought or memory. Decision to Disposition Date: Sep 30, 2017 Decision to Disposition Time: 18:00 Depart Departure Latest Vital Signs Vital Signs Date Time Temp Pulse Resp B/P (MAP) Pulse Ox O2 Delivery O2 Flow Rate FiO2 09/30/17 17:59 84 16 155/86 (109) 94 Room Air 09/30/17 16:47 98.4 Impression: Primary Impression: Concussion Condition: Improved Disposition: HOME OR SELF-CARE Referrals: EVERTON RIOS MD (PCP) Patient Instructions: Concussion (ED) Additional Instructions: Ice your head for 20 minutes at a time. Take Tylenol for pain as needed. Return to the emergency department if you experiences worsening pain, vomiting, or changes in thought, speech, or memory. Return to the emergency department if your condition worsens. Problem Qualifiers Primary Impression: Concussion Encounter type: subsequent encounter Loss of consciousness presence/duration : without LOC Qualified Codes: S06.0X0D - Concussion without loss of consciousness, subsequent encounter KELLY LEMUS JOHNATHON Sep 30, 2017 17:36
--- NOTE | 2017-09-30 17:46 | RADIOLOGY IMAGING REPORT ---
FACILITY: [facility] - [place] PATIENT NAME: Nadia Baumann : 1930 MR: [id number] V: [id number] EXAM DATE: ORDERING PHYSICIAN: PENNY MCCORMACK TECHNOLOGIST: Location: [facility] - [place] Patient: Nadia Baumann : 1930 Visit/Account:[id number] Date of Sevice: 09/30/2017 EXAMINATION: Head CT without intravenous contrast HISTORY: Fall. Head pain (left side). COMPARISON: 09/11/2017. TECHNIQUE: Contiguous axial images were obtained from the skull base to the vertex without intraven ous contrast. Sagittal and coronal reformatted images are also submitted. One of the following dose optimization techniques was utilized in the performance of this exam: Autom ated exposure control; adjustment of the mA and/or kV according to the patient's size; or use of an i terative reconstruction technique. Specific details can be referenced in the facility's radiology C T exam operational policy. FINDINGS: Brain and intracranial structures: Mild cerebral volume loss with corresponding sulcal, ventricular, and cisternal prominence. No midline shift, acute hemorrhage, acute infarct, or mass. Vessels: Calcified plaque of the carotid siphons. Calvarium / scalp: Focal mild left anterolateral scalp swelling. No acute fracture. Skull base / visualized face: Negative. Visualized sinuses / orbits: The left lens has been extracted or replaced. IMPRESSION: Mild focal left anterolateral scalp swelling. No acute intracranial abnormality. Mild generalized cerebral atrophy. Report Dictated By: Kalyan Alan MD at 09/30/2017 5:35 PM Report E-Signed By: Kalyan Alan MD at 09/30/2017 5:43 PM [id number]
[2017-09-30 17:59] VITALS: BP 155/86
== END 2017-09-30 18:01 | disposition home or self-care (01) ==
LOC: ER 16:40
DX: S06.0X0D Concussion without loss of consciousness, subsequent encounter (principal); W18.30XA Fall on same level, unspecified, initial encounter
CPT/HCPCS: 70450; 99284

== ENCOUNTER 2017-10-12 19:14 | Emergency (ER) | payer MEDICARE, OTHER ==
[2017-06-24 17:09] VITALS: Wt 56.7 kg
--- NOTE | 2017-10-12 19:34 | ER Report ---
History and Physical Time Seen By : 19:26 HPI/ROS CHIEF COMPLAINT: Left upper quadrant abdominal pain HISTORY OF PRESENT ILLNESS: 86-year-old female with a complex chronic past medical history. 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 She is at risk of falls. Patient now has left upper quadrant abdominal pain since last evening. She describes colicky pain 6/10 without radiation to her back, chest or other quadrant of her abdomen. She notes no nausea or vomiting. She denies diarrhea or constipation. She states she had a normal bowel movement several hours ago this afternoon. Patient denies dysuria, frequency or hematuria. Patient denies history of abdominal surgery. Patient was seen several weeks ago for diarrhea. She had a negative C. difficile. She was diagnosed as urinary tract infection with greater than 100,000 Escherichia coli. She was prescribed sulfa, which she is finished. Patient denies chest pain or shortness of breath. Patient denies leg swelling or calf pain. REVIEW OF SYSTEMS: Respiratory: No cough, no dyspnea. Cardiovascular: No chest pain, no palpitations. Gastrointestinal: As above Musculoskeletal: No back pain. Allergies: Coded Allergies: No Known Drug Allergies (Unverified , 10/12/17) Home Meds Active Scripts Sulfacetamide Sodium (SULFACETAMIDE SODIUM) 15 Ml Drops, 15 ML OS QID, #15 ML Prov:EVERTON RIOS MD 06/01/17 Simvastatin (SIMVASTATIN) 20 Mg Tablet, 1 TAB PO HS, #90 TAB 3 Refills Prov:EVERTON RIOS MD 03/02/17 Omeprazole (OMEPRAZOLE) 20 Mg Capsule.dr, 1 CAP PO QAM, #90 CAP 3 Refills TAKE ONE CAPSULE BY MOUTH ONCE A DAY Prov:IZABELLA GARAY PHARMD 01/15/17 Reported Medications Warfarin Sodium (COUMADIN) 7.5 Mg Tablet, 7.5 MG PO MON 07/12/17 Warfarin Sodium (COUMADIN) 5 Mg Tablet, 5 MG PO RICE,,W,TH,F,SA 07/12/17 Cyanocobalamin (Vitamin B-12) (B-12) 1,000 Mcg Tablet.er, 1000 MCG PO QDAY 06/01/17 Calcium Carb & Cit/Vitamin D3 (CITRACAL + D ER TABLET) 1 Each Tablet.er, 1 TAB PO QDAY 04/03/15 Ferrous Sulfate (IRON) 325 Mg Capsule.er, 325 MG PO TID 02/01/15 Past Medical/Surgical History PAST MEDICAL HISTORY Essential tremor, seizure, allergic rhinitis, atrial fibrillation, hyperlipidemia, hypertension, history of GI bleeding, history of C. diff. colitis September 2014 treated with Flagyl, osteoarthritis, chronic anemia, skin cancer, history of rheumatic fever at the age of [age]. PAST SURGICAL HISTORY Tonsillectomy as a child, pacemaker placement in August 2014, mitral valve replacement in 1986, appendectomy in 1949, hysterectomy in with oophorectomy, bilateral mastectomies for benign nodules, no malignancy, removal of breast reconstruction with subsequent bleeding, resection of skin cancer. Reviewed Nurses Notes: Yes Old Medical Records Reviewed: Yes Hx Smoking: No Smoking Status: Former Smoker Exposure to Second Hand Smoke?: No Hx Substance Use Disorder: No Hx Alcohol Use: No Constitutional Vital Sign - Last 24 Hours 10/12/17 10/12/17 10/12/17 10/12/17 19:30 19:30 19:45 19:50 Temp 98.8 Pulse 92 90 78 Resp 14 B/P (MAP) 137/68 (91) 137/68 Pulse Ox 93 93 93 O2 Delivery Room Air O2 Flow Rate 1.0 10/12/17 10/12/17 10/12/17 10/12/17 20:00 20:15 20:30 20:45 Pulse 93 83 88 B/P (MAP) 127/65 (85) 115/56 (75) Pulse Ox 86 98 98 98 10/12/17 10/12/17 10/12/17 21:00 21:15 21:30 Pulse 77 78 80 B/P (MAP) 122/58 (79) 123/66 (85) Pulse Ox 98 97 92 Physical Exam Vital signs stable, afebrile, pulse ox adequate on baseline O2 General Appearance: The patient is alert, has no immediate need for airway protection and no current signs of toxicity. Mild distress. Skin warm, dry, pink HEENT: Pupils equal and round no injection. Oropharynx mucous members are moist. No erythema Respiratory: Chest is non tender, lungs are clear to auscultation. Cardiac: regular rate and rhythm, blowing murmur consistent with mechanical valve Gastrointestinal: Abdomen is soft, mild left upper quadrant tenderness, no masses, rebound or guarding noted, bowel sounds normal. Musculoskeletal: Neck: Neck is supple and non tender. Extremities have full range of motion and are non tender. Skin: No rashes or lesions. DIFFERENTIAL DIAGNOSIS: After history and physical exam differential diagnosis was considered for abdominal pain including but not limited to appendicitis, cholecystitis, gastritis and urinary tract infection. Medical Decision Making Data Points Result Diagram: 10/12/17193910/12/171939 Laboratory Hematology Test 10/12/17 19:40 10/12/17 20:10 Red Blood Count 3.26 M/uL (4.17-5.56) Mean Corpuscular Volume 98.0 fL (80.0-96.0) Mean Corpuscular Hemoglobin 33.1 pg (26.0-33.0) Mean Corpuscular Hemoglobin Concent 33.8 g/dL (32.0-36.0) Red Cell Distribution Width 17.6 % (11.5-14.5) Mean Platelet Volume 9.3 fL (7.2-11.1) Neutrophils (%) (Auto) 75.0 % (39.4-72.5) Lymphocytes (%) (Auto) 11.2 % (17.6-49.6) Monocytes (%) (Auto) 11.0 % (4.1-12.4) Eosinophils (%) (Auto) 2.1 % (0.4-6.7) Basophils (%) (Auto) 0.7 % (0.3-1.4) Nucleated RBC Relative Count (auto) 0.0 /100WBC Neutrophils # (Auto) 2.9 K/uL (2.0-7.4) Lymphocytes # (Auto) 0.4 K/uL (1.3-3.6) Monocytes # (Auto) 0.4 K/uL (0.3-1.0) Eosinophils # (Auto) 0.1 K/uL (0.0-0.5) Basophils # (Auto) 0.0 K/uL (0.0-0.1) Nucleated RBC Absolute Count (auto) 0.00 K/uL Prothrombin Time 22.0 seconds (12.0-14.4) Prothromb Time International Ratio 1.89 Sodium Level 140 mmol/L (137-145) Potassium Level 3.8 mmol/L (3.5-5.0) Chloride Level 105 mmol/L (98-107) Carbon Dioxide Level 28 mmol/L (22-31) Blood Urea Nitrogen 18 mg/dl (7-18) Creatinine 1.00 mg/dl (0.52-1.04) Glomerular Filtration Rate Calc 52.7 Random Glucose 113 mg/dl (75-110) Calcium Level 9.0 mg/dl (8.4-10.2) Total Bilirubin 0.5 mg/dl (0.2-1.3) Aspartate Amino Transf (AST/SGOT) 23 U/L (0-35) Alanine Aminotransferase (ALT/SGPT) 20 U/L (0-56) Alkaline Phosphatase 157 U/L (0-126) Troponin I < 0.012 ng/ml Total Protein 7.3 g/dl (6.3-8.2) Albumin 3.9 g/dl (3.5-5.0) Amylase Level 95 U/L (0-110) Lipase 103 U/L (23-300) Urine Color Yellow Urine Clarity Clear Urine pH 6.0 pH (4.8-9.5) Urine Specific [place] 1.023 Urine Protein Negative mg/dL (NEGATIVE) Urine Glucose (UA) Negative mg/dL (NEGATIVE) Urine Ketones Negative mg/dL (NEGATIVE) Urine Blood Negative (NEGATIVE) Urine Nitrite Negative (NEGATIVE) Urine Bilirubin Negative (NEGATIVE) Urine Urobilinogen 2.0 mg/dL (0.2-1.9) Urine Leukocyte Esterase Negative (NEGATIVE) Urine RBC 1 /HPF (0-2/HPF) Urine WBC 2 /HPF (0-5/HPF) Urine Squamous Epithelial Cells Moderate /LPF (NONE-FEW) Urine Bacteria Negative /HPF (NONE-FEW) Urine Mucus Few /HPF (NONE-FEW) Chemistry Test 10/12/17 19:40 10/12/17 20:10 White Blood Count 3.9 k/uL (4.5-11.0) Red Blood Count 3.26 M/uL (4.17-5.56) Hemoglobin 10.8 g/dL (12.0-16.0) Hematocrit 31.9 % (34.0-47.0) Mean Corpuscular Volume 98.0 fL (80.0-96.0) Mean Corpuscular Hemoglobin 33.1 pg (26.0-33.0) Mean Corpuscular Hemoglobin Concent 33.8 g/dL (32.0-36.0) Red Cell Distribution Width 17.6 % (11.5-14.5) Platelet Count 163 K/uL (150-450) Mean Platelet Volume 9.3 fL (7.2-11.1) Neutrophils (%) (Auto) 75.0 % (39.4-72.5) Lymphocytes (%) (Auto) 11.2 % (17.6-49.6) Monocytes (%) (Auto) 11.0 % (4.1-12.4) Eosinophils (%) (Auto) 2.1 % (0.4-6.7) Basophils (%) (Auto) 0.7 % (0.3-1.4) Nucleated RBC Relative Count (auto) 0.0 /100WBC Neutrophils # (Auto) 2.9 K/uL (2.0-7.4) Lymphocytes # (Auto) 0.4 K/uL (1.3-3.6) Monocytes # (Auto) 0.4 K/uL (0.3-1.0) Eosinophils # (Auto) 0.1 K/uL (0.0-0.5) Basophils # (Auto) 0.0 K/uL (0.0-0.1) Nucleated RBC Absolute Count (auto) 0.00 K/uL Prothrombin Time 22.0 seconds (12.0-14.4) Prothromb Time International Ratio 1.89 Glomerular Filtration Rate Calc 52.7 Calcium Level 9.0 mg/dl (8.4-10.2) Total Bilirubin 0.5 mg/dl (0.2-1.3) Aspartate Amino Transf (AST/SGOT) 23 U/L (0-35) Alanine Aminotransferase (ALT/SGPT) 20 U/L (0-56) Alkaline Phosphatase 157 U/L (0-126) Troponin I < 0.012 ng/ml Total Protein 7.3 g/dl (6.3-8.2) Albumin 3.9 g/dl (3.5-5.0) Amylase Level 95 U/L (0-110) Lipase 103 U/L (23-300) Urine Color Yellow Urine Clarity Clear Urine pH 6.0 pH (4.8-9.5) Urine Specific [place] 1.023 Urine Protein Negative mg/dL (NEGATIVE) Urine Glucose (UA) Negative mg/dL (NEGATIVE) Urine Ketones Negative mg/dL (NEGATIVE) Urine Blood Negative (NEGATIVE) Urine Nitrite Negative (NEGATIVE) Urine Bilirubin Negative (NEGATIVE) Urine Urobilinogen 2.0 mg/dL (0.2-1.9) Urine Leukocyte Esterase Negative (NEGATIVE) Urine RBC 1 /HPF (0-2/HPF) Urine WBC 2 /HPF (0-5/HPF) Urine Squamous Epithelial Cells Moderate /LPF (NONE-FEW) Urine Bacteria Negative /HPF (NONE-FEW) Urine Mucus Few /HPF (NONE-FEW) Coagulation Test 10/12/17 19:40 Prothrombin Time 22.0 seconds Prothromb Time International Ratio 1.89 Urinalysis Test 10/12/17 20:10 Urine Color Yellow Urine Clarity Clear Urine pH 6.0 pH (4.8-9.5) Urine Specific [place] 1.023 Urine Protein Negative mg/dL (NEGATIVE) Urine Glucose (UA) Negative mg/dL (NEGATIVE) Urine Ketones Negative mg/dL (NEGATIVE) Urine Blood Negative (NEGATIVE) Urine Nitrite Negative (NEGATIVE) Urine Bilirubin Negative (NEGATIVE) Urine Urobilinogen 2.0 mg/dL (0.2-1.9) Urine Leukocyte Esterase Negative (NEGATIVE) Urine RBC 1 /HPF (0-2/HPF) Urine WBC 2 /HPF (0-5/HPF) Urine Squamous Epithelial Cells Moderate /LPF (NONE-FEW) Urine Bacteria Negative /HPF (NONE-FEW) Urine Mucus Few /HPF (NONE-FEW) EKG/Imaging EKG Interpretation 12 lead EK Rhythm: NSR with first-degree AV block [place]: Left axis deviation QRS: LVH, prolonged QT ST segments: normal, comparison to EKG dated 06/23/2017 and 06/13/17 there are new inferior flipped T waves that were not present on 06/23 but were present on 06/13 ED Course/Re-evaluation Clinical Indication for ER IV: Hydration, IV Access ED Course Patient was admitted to an examination room. H&P was done. The dental diagnoses was considered. On conical examination. Patient has left upper quadrant pain. She's had it since last evening. He describes colicky in nature , fairly severe pain 6/10 without alleviating or exacerbating factors. Patient' s evaluated with diagnostic studies. She is treated with IV Zofran and fentanyl 25 g. Her diagnostic studies are unremarkable. Her anemia has resolved from her previous visit. Since she received a transfusion of 2 units of PRBCs. Patient's KUB shows some stool in the left colon. Otherwise unremarkable. Patient's EKG is a incomplete bundle branch block pattern that has new inferior T waves that are inverted, but were present back in early June. I suspect this is a variant of her normal EKG. Her troponin returned normal. I see no indication for addition at this time. Patient and family are agreeable to going home on MiraLAX for suspected constipation and colic. Her urinalysis was unremarkable Unfortunately, patient is high risk of falls. She is on blood thinners for her mechanical valve. I am reluctant to prescribe any pain medication other than Tylenol. Patient advised to follow-up with her primary care physician if unimproved in 2-4 days. Patient cautioned return to the ER for any worsening Decision to Disposition Date: Oct 12, 2017 Decision to Disposition Time: 21:29 Depart Departure Latest Vital Signs Vital Signs Date Time Temp Pulse Resp B/P (MAP) Pulse Ox O2 Delivery O2 Flow Rate FiO2 10/12/17 21:30 80 123/66 (85) 92 10/12/17 19:50 1.0 10/12/17 19:30 98.8 14 Room Air Impression: Primary Impression: Left upper quadrant abdominal pain of unknown etiology Additional Impressions: Constipation H/O prosthetic heart valve Chronic anticoagulation Unsteady gait Condition: Improved Disposition: HOME OR SELF-CARE Referrals: EVERTON RIOS MD (PCP) Patient Instructions: Abdominal Pain (ED), Clear Liquid Diet (ED) Additional Instructions: Follow clear liquid diet for 12-24 hours Give MiraLAX 1 capful twice daily for 2 days Use Tylenol as needed for pain relief Follow up with primary care if unimproved in 2-4 days Return to the ER for any worsening Problem Qualifiers Additional Impressions: Constipation Constipation type: unspecified constipation type Qualified Codes: K59.00 - Constipation, unspecified NE HARRIS DO Oct 12, 2017 19:34
[2017-10-12] MEDS ORDERED: ONDANSETRON 4 MG/2 ML VIAL IVP ONE (19:35)
[2017-10-12] MEDS ORDERED: fentaNYL CITR 100 MCG/2 ML AMP IVP ONE (19:35)
[2017-10-12 19:54] LABS: PLATELET COUNT, AUTOMATED 163 K/uL (150-450)
--- NOTE | 2017-10-12 19:55 | EKG ---
FACILITY: [facility] - [place] PATIENT NAME: JONAH MAYNARD : [id number] MR: [id number] V: [id number] EXAM DATE: ORDERING PHYSICIAN: NE HARRIS TECHNOLOGIST: BASSAM Meadows Reason : LUQ PAIN Blood Pressure : / mmHG Vent. Rate : 091 BPM Atrial Rate : 091 BPM P-R Int : 234 ms QRS Dur : 082 ms QT Int : 400 ms P-R-T Axes : 071 085 -31 degrees QTc Int : 492 ms Sinus rhythm with 1st degree AV block Minimal voltage criteria for LVH, may be normal variant T wave abnormality, consider inferior ischemia Prolonged QT Abnormal ECG When compared with ECG of 23-JUN-2017 15:52, Sinus rhythm has replaced Junctional rhythm Incomplete right bundle branch block is no longer present T wave inversion now evident in Inferior leads Nonspecific T wave abnormality now evident in Lateral leads Confirmed by CRISTY QUISPE ([id number]) on 10/12/2017 8:45:55 PM Referred By: Confirmed By:CRISTY QUISPE
[2017-10-12 20:01] LABS: INR 1.89
--- NOTE | 2017-10-12 21:17 | RADIOLOGY IMAGING REPORT ---
FACILITY: [facility] - [place] PATIENT NAME: Nadia Baumann : 1930 MR: [id number] V: [id number] EXAM DATE: ORDERING PHYSICIAN: NE HARRIS TECHNOLOGIST: [facility] Patient: Nadia Baumann : 1930 Visit/Account:[id number] Date of Sevice: 10/12/2017 Abdomen: Indication: Abdominal pain. Technique: Supine views of the abdomen were obtained. Comparison: 04/15/2015 Findings: The intestinal gas pattern is unremarkable. There is no evidence of obstruction obstruction or focal dilatation. There is a persistent calcification in the right mid abdomen, without significa nt change. There is chronic degenerative disc disease and minimal scoliosis in the lumbar spine. No a cute skeletal deformity is identified. IMPRESSION: No evidence of obstruction or other acute process. Report Dictated By: Ruben Ramírez MD at 10/12/2017 9:09 PM Report E-Signed By: Ruben Ramírez MD at 10/12/2017 9:14 PM [id number]
[2017-10-12 21:30] VITALS: BP 123/66
== END 2017-10-12 21:43 | disposition home or self-care (01) ==
LOC: ER 20:08
DX: K59.00 Constipation, unspecified (principal); R10.12 Left upper quadrant pain; Z79.01 Long term (current) use of anticoagulants; R26.81 Unsteadiness on feet; Z95.2 Presence of prosthetic heart valve; I44.0 Atrioventricular block, first degree; R94.31 Abnormal electrocardiogram [ECG] [EKG]
CPT/HCPCS: 74018; 81001; 82150; 83690; 84484; 85025; 85610; 93005; 96374; 96375; 99284; A4353; J2405; J3010; 82040; 82247; 82310; 82374; 82435; 82565; 82947; 84075; 84132; 84155; 84295; 84450; 84460; 84520

== ENCOUNTER 2017-10-25 08:03 | Emergency (ER) | payer MEDICARE, OTHER ==
[2017-06-24 17:09] VITALS: Wt 56.8 kg
--- NOTE | 2017-10-25 08:16 | ER Report ---
History and Physical Time Seen By MD: 08:16 Hx. of Stated Complaint: PT REPORTS HER HEART IS "THUMPING" HPI/ROS CHIEF COMPLAINT: heart is "thumping" HISTORY OF PRESENT ILLNESS: This is an 86 year old female. She came to the ER this morning with her because her heart is "thumping" in her chest. Seems to be feeling more prominent heart beat. Started early this morning and still present. No pain associated with this. She denies chest pain. She denies feeling short of breath. No nausea or vomiting. No fever or cough. She denies any abdominal pain. No back pain. She has a history of atrial fibrillation and anemia in the past, and is on Coumadin. She has never felt this feeling previously. Her EKG looks good with regular atrial fibrillation but looking for other electrolyte abnormality causing palpitations although even with a normal heart monitor and EKG other than A. fib she is still feeling this feeling of thumping. Allergies: Coded Allergies: No Known Drug Allergies (Unverified , 10/25/17) Home Meds Active Scripts Sulfacetamide Sodium (SULFACETAMIDE SODIUM) 15 Ml Drops, 15 ML OS QID, #15 ML Prov:EVERTON RIOS MD 06/01/17 Simvastatin (SIMVASTATIN) 20 Mg Tablet, 1 TAB PO HS, #90 TAB 3 Refills Prov:EVERTON RIOS MD 03/02/17 Omeprazole (OMEPRAZOLE) 20 Mg Capsule.dr, 1 CAP PO QAM, #90 CAP 3 Refills TAKE ONE CAPSULE BY MOUTH ONCE A DAY Prov:IZABELLA GARAY PHARMLashanda 01/15/17 Reported Medications Warfarin Sodium (COUMADIN) 7.5 Mg Tablet, 7.5 MG PO MON 07/12/17 Warfarin Sodium (COUMADIN) 5 Mg Tablet, 5 MG PO RICE,TU,W,TH,F,SA 07/12/17 Cyanocobalamin (Vitamin B-12) (B-12) 1,000 Mcg Tablet.er, 1000 MCG PO QDAY 06/01/17 Calcium Carb & Cit/Vitamin D3 (CITRACAL + D ER TABLET) 1 Each Tablet.er, 1 TAB PO QDAY 04/03/15 Ferrous Sulfate (IRON) 325 Mg Capsule.er, 325 MG PO TID 02/01/15 Reviewed Nurses Notes: Yes Hx Smoking: No Smoking Status: Former Smoker Exposure to Second Hand Smoke?: No Hx Substance Use Disorder: No Hx Alcohol Use: No Constitutional Vital Sign - Last 24 Hours 10/25/17 10/25/17 10/25/17 10/25/17 08:11 08:30 08:56 09:00 Temp 98.4 Pulse 84 79 79 Resp 18 10 13 B/P (MAP) 133/70 121/64 (83) 125/71 (89) 128/64 (85) Pulse Ox 93 91 92 10/25/17 10/25/17 10/25/17 10/25/17 09:15 09:30 09:45 10:19 Pulse 82 Resp 8 B/P (MAP) 130/63 (85) 129/59 (82) 142/72 (95) 134/69 (90) Pulse Ox 92 10/25/17 10/25/17 10:35 10:45 B/P (MAP) 131/71 (91) 133/68 (89) Physical Exam General Appearance: The patient is alert. No acute distress. Elderly and generalized weakness. Has some dementia. Eyes: Pupils are equal, round. No pallor, injection or icterus. ENT: Mucous membranes are moist. Normal oral mucosa. Posterior oropharynx is normal. Neck: Supple and non tender. Respiratory: Lungs are clear to auscultation. Cardiovascular: Regular rate and rhythm. No murmurs, gallops or rubs. Normal capillary refill. Gastrointestinal: Abdomen is soft. Nondistended. She does have some diffuse discomfort throughout the abdomen. Normal active bowel sounds. Neurological: Alert and oriented, chronic tremulousness and somewhat slow to respond to questions, but this is her baseline. Skin: Warm and dry. No rashes. Has some scattered bruising on arms. Musculoskeletal: Extremities are nontender. Chest wall with some diffuse discomfort with palpation on anterior chest. DIFFERENTIAL DIAGNOSIS: After history and physical exam, differential diagnosis was considered for a patient with history of atrial fibrillation and anemia who has symptom of palpitations without pain or shortness of breath. The rest of the recent history is fairly benign as well without fevers chills, nausea, or any other pain although she does have some diffuse discomfort with palpation over the entire chest and abdomen but nonfocal. Given her history of anemia, checking the blood count and the ProTime would be first order of business looking for anemia. Acute coronary syndrome with an atypical presentation would be possible as well. Medical Decision Making Data Points Result Diagram: 10/25/17 0824 10/25/17 0824 Laboratory Hematology Test 10/25/17 08:24 Red Blood Count 2.15 M/uL (4.17-5.56) Mean Corpuscular Volume 101.7 fL (80.0-96.0) Mean Corpuscular Hemoglobin 33.4 pg (26.0-33.0) Mean Corpuscular Hemoglobin Concent 32.9 g/dL (32.0-36.0) Red Cell Distribution Width 17.0 % (11.5-14.5) Mean Platelet Volume 9.3 fL (7.2-11.1) Neutrophils (%) (Auto) 72.5 % (39.4-72.5) Lymphocytes (%) (Auto) 12.6 % (17.6-49.6) Monocytes (%) (Auto) 11.3 % (4.1-12.4) Eosinophils (%) (Auto) 2.4 % (0.4-6.7) Basophils (%) (Auto) 1.2 % (0.3-1.4) Nucleated RBC Relative Count (auto) 0.0 /100WBC Neutrophils # (Auto) 2.2 K/uL (2.0-7.4) Lymphocytes # (Auto) 0.4 K/uL (1.3-3.6) Monocytes # (Auto) 0.3 K/uL (0.3-1.0) Eosinophils # (Auto) 0.1 K/uL (0.0-0.5) Basophils # (Auto) 0.0 K/uL (0.0-0.1) Nucleated RBC Absolute Count (auto) 0.00 K/uL Prothrombin Time 24.3 seconds (12.0-14.4) Prothromb Time International Ratio 2.14 Sodium Level 140 mmol/L (137-145) Potassium Level 3.8 mmol/L (3.5-5.0) Chloride Level 106 mmol/L (98-107) Carbon Dioxide Level 27 mmol/L (22-31) Blood Urea Nitrogen 19 mg/dl (7-18) Creatinine 0.90 mg/dl (0.52-1.04) Glomerular Filtration Rate Calc 59.5 Random Glucose 102 mg/dl (75-110) Calcium Level 8.7 mg/dl (8.4-10.2) Total Bilirubin 0.4 mg/dl (0.2-1.3) Aspartate Amino Transf (AST/SGOT) 25 U/L (0-35) Alanine Aminotransferase (ALT/SGPT) 21 U/L (0-56) Alkaline Phosphatase 134 U/L (0-126) Troponin I < 0.012 ng/ml Total Protein 6.2 g/dl (6.3-8.2) Albumin 3.3 g/dl (3.5-5.0) Chemistry Test 10/25/17 08:24 White Blood Count 3.0 k/uL (4.5-11.0) Red Blood Count 2.15 M/uL (4.17-5.56) Hemoglobin 7.2 g/dL (12.0-16.0) Hematocrit 21.8 % (34.0-47.0) Mean Corpuscular Volume 101.7 fL (80.0-96.0) Mean Corpuscular Hemoglobin 33.4 pg (26.0-33.0) Mean Corpuscular Hemoglobin Concent 32.9 g/dL (32.0-36.0) Red Cell Distribution Width 17.0 % (11.5-14.5) Platelet Count 180 K/uL (150-450) Mean Platelet Volume 9.3 fL (7.2-11.1) Neutrophils (%) (Auto) 72.5 % (39.4-72.5) Lymphocytes (%) (Auto) 12.6 % (17.6-49.6) Monocytes (%) (Auto) 11.3 % (4.1-12.4) Eosinophils (%) (Auto) 2.4 % (0.4-6.7) Basophils (%) (Auto) 1.2 % (0.3-1.4) Nucleated RBC Relative Count (auto) 0.0 /100WBC Neutrophils # (Auto) 2.2 K/uL (2.0-7.4) Lymphocytes # (Auto) 0.4 K/uL (1.3-3.6) Monocytes # (Auto) 0.3 K/uL (0.3-1.0) Eosinophils # (Auto) 0.1 K/uL (0.0-0.5) Basophils # (Auto) 0.0 K/uL (0.0-0.1) Nucleated RBC Absolute Count (auto) 0.00 K/uL Prothrombin Time 24.3 seconds (12.0-14.4) Prothromb Time International Ratio 2.14 Glomerular Filtration Rate Calc 59.5 Calcium Level 8.7 mg/dl (8.4-10.2) Total Bilirubin 0.4 mg/dl (0.2-1.3) Aspartate Amino Transf (AST/SGOT) 25 U/L (0-35) Alanine Aminotransferase (ALT/SGPT) 21 U/L (0-56) Alkaline Phosphatase 134 U/L (0-126) Troponin I < 0.012 ng/ml Total Protein 6.2 g/dl (6.3-8.2) Albumin 3.3 g/dl (3.5-5.0) Coagulation Test 10/25/17 08:24 Prothrombin Time 24.3 seconds Prothromb Time International Ratio 2.14 EKG/Imaging EKG Interpretation 12 lead EKG: Rhythm: Atrial fibrillation, rate 83 [place]: normal QRS: Some poor R-wave progression ST segments: Nonspecific flattening of the T waves without any evidence of ST elevation or depression [ ] Imaging CHEST SINGLE AP HISTORY: Palpitations. COMPARISON: 07/07/2017. FINDINGS: Lines/tubes: Stable right chest wall generator with a single lead in the right ventricle. Lungs/pleura: Negative. Heart: Stable mild enlargement of the cardiac silhouette. Stable positioning of the prosthetic valve. Mediastinum: Stable mediastinal contours. Aortic calcifications. Bony structures/body wall: Negative. IMPRESSION: No acute cardiopulmonary process. Report Dictated By: Jimi Floyd MD at 10/25/2017 8:47 AM ED Course/Re-evaluation Clinical Indication for ER IV: IV Access ED Course The patient has a repeat episode of anemia which is likely causing her heart to feel like it is something very hard in her chest. Her vital signs are stable. The rest the work up is negative. She does have some antibodies to blood because of her many blood transfusions. We will go ahead and order a type and cross of 2 units, but she can return home at this time and come in to the special procedures unit to have these transfusions done once the blood is available. Decision to Disposition Date: Oct 25, 2017 Decision to Disposition Time: 10:41 Depart Departure Latest Vital Signs Vital Signs Date Time Temp Pulse Resp B/P (MAP) Pulse Ox O2 Delivery O2 Flow Rate FiO2 10/25/17 10:45 133/68 (89) 10/25/17 09:30 82 8 92 10/25/17 08:11 98.4 Impression: Primary Impression: Anemia Additional Impression: Heart palpitations Condition: Condition Unchanged Disposition: Admitted from ER Referrals: EVERTON RIOS MD (PCP) Patient Instructions: Anemia (ED) Additional Instructions: The Special Procedures Unit (SPU) will call you once the blood is available and you can come in to the hospital to receive your transfusion. Follow-up with your regular doctor this week, call them this morning for an appointment. Problem Qualifiers Primary Impression: Anemia Anemia type: unspecified type Qualified Codes: D64.9 - Anemia, unspecified MARCIE HERNANDEZ MD Oct 25, 2017 08:16
[2017-10-25 08:40] LABS: PLATELET COUNT, AUTOMATED 180 K/uL (150-450)
[2017-10-25 08:43] LABS: INR 2.14
--- NOTE | 2017-10-25 08:51 | EKG ---
FACILITY: [facility] - [place] PATIENT NAME: JONAH MAYNARD : [id number] MR: [id number] V: [id number] EXAM DATE: ORDERING PHYSICIAN: MARCIE HERNANDEZ TECHNOLOGIST: SHEBA Test Reason : CHEST DISCOMFORT Blood Pressure : / mmHG Vent. Rate : 083 BPM Atrial Rate : 069 BPM P-R Int : 000 ms QRS Dur : 090 ms QT Int : 426 ms P-R-T Axes : 000 085 036 degrees QTc Int : 500 ms Atrial fibrillation Cannot rule out Anteroseptal infarct , age undetermined Abnormal ECG When compared with ECG of 12-OCT-2017 19:48, Atrial fibrillation has replaced Sinus rhythm Minimal criteria for Anteroseptal infarct are now present Nonspecific T wave abnormality no longer evident in Lateral leads Referred By: DAVID Confirmed By:
--- NOTE | 2017-10-25 08:53 | RADIOLOGY IMAGING REPORT ---
FACILITY: [facility] PATIENT NAME: Nadia Baumann : 1930 MR: [id number] V: [id number] EXAM DATE: ORDERING PHYSICIAN: MARCIE HERNANDEZ TECHNOLOGIST: Location: [facility] Patient: Nadia Baumann : 1930 Visit/Account:[id number] Date of Sevice: 10/25/2017 CHEST SINGLE AP HISTORY: Palpitations. COMPARISON: 07/07/2017. FINDINGS: Lines/tubes: Stable right chest wall generator with a single lead in the right ventricle. Lungs/pleura: Negative. Heart: Stable mild enlargement of the cardiac silhouette. Stable positioning of the prosthetic valv e. Mediastinum: Stable mediastinal contours. Aortic calcifications. Bony structures/body wall: Negative. IMPRESSION: No acute cardiopulmonary process. Report Dictated By: Jimi Floyd MD at 10/25/2017 8:47 AM Report E-Signed By: Jimi Floyd MD at 10/25/2017 8:49 AM WSN:[id number]
[2017-10-25 10:45] VITALS: BP 133/68
== END 2017-10-25 10:47 | disposition other institution (70) ==
LOC: ER 08:18
DX: D64.9 Anemia, unspecified (principal); R00.2 Palpitations; I48.2 Chronic atrial fibrillation
CPT/HCPCS: 36415; 71045; 82040; 82247; 82310; 82374; 82435; 82565; 82947; 84075; 84132; 84155; 84295; 84450; 84460; 84484; 84520; 85025; 85610; 86850; 86870; 86900; 86901; 86920; 93005; 99283

== ENCOUNTER 2017-10-25 10:58 | Emergency (ER) | payer MEDICARE, OTHER ==
[2017-06-24 17:09] VITALS: BMI 21.6
--- NOTE | 2017-10-25 11:24 | ER Report ---
History and Physical Time Seen By MD: 11:20 Hx. of Stated Complaint: LEFT Hand pain HPI/ROS Patient's 86-year-old female was being discharged from the emergency room was walking to her car stumbled and injured her left hand has pain on the lateral side is able to move everything CMS intact distally Allergies: Coded Allergies: No Known Drug Allergies (Unverified , 10/25/17) Home Meds Active Scripts Sulfacetamide Sodium (SULFACETAMIDE SODIUM) 15 Ml Drops, 15 ML OS QID, #15 ML Prov:EVERTON RIOS MD 06/01/17 Simvastatin (SIMVASTATIN) 20 Mg Tablet, 1 TAB PO HS, #90 TAB 3 Refills Prov:EVERTON RIOS MD 03/02/17 Omeprazole (OMEPRAZOLE) 20 Mg Capsule.dr, 1 CAP PO QAM, #90 CAP 3 Refills TAKE ONE CAPSULE BY MOUTH ONCE A DAY Prov:IZABELLA GARAY PHARMD 01/15/17 Reported Medications Warfarin Sodium (COUMADIN) 7.5 Mg Tablet, 7.5 MG PO MON 07/12/17 Warfarin Sodium (COUMADIN) 5 Mg Tablet, 5 MG PO RICE,TU,W,TH,F,SA 07/12/17 Cyanocobalamin (Vitamin B-12) (B-12) 1,000 Mcg Tablet.er, 1000 MCG PO QDAY 06/01/17 Calcium Carb & Cit/Vitamin D3 (CITRACAL + D ER TABLET) 1 Each Tablet.er, 1 TAB PO QDAY 04/03/15 Ferrous Sulfate (IRON) 325 Mg Capsule.er, 325 MG PO TID 02/01/15 Past Medical/Surgical History Cataracts, hard of hearing, wears glasses, essential tremor, mitral valve replacement, pacemaker, high cholesterol, Reviewed Nurses Notes: Yes Old Medical Records Reviewed: Yes Hx Smoking: No Smoking Status: Former Smoker Exposure to Second Hand Smoke?: No Hx Substance Use Disorder: No Hx Alcohol Use: No Physical Exam 86-year-old female alert oriented mild distress HEENT has normocephalic/ atraumatic tympanic membranes are non-reddened throat is non-reddened neck is supple no JVD heart rate is regular no murmurs rubs and gallops lungs are decreased bilateral bases abdomen is soft pelvis is intact does have mild pain to her left lateral hand no bruising noted currently Medical Decision Making EKG/Imaging Imaging FACILITY: [facility] [place] PATIENT NAME: Nadia Baumann : 1930 MR: [id number] V: [id number] EXAM DATE: ORDERING PHYSICIAN: YOLI MARTINEZ TECHNOLOGIST: Location: [facility] [place] Patient: Nadia Baumann : 1930 Visit/Account:[id number] Date of Sevice: 10/25/2017 HAND COMPLETE LEFT Indication: FALL, PAIN Comparison: None. Findings: The phalanges, metacarpal common carpal bones are intact. There is narrowing of the first carpometacarpal joint space. Radiocarpal joint is normal. Soft tissues are unremarkable. IMPRESSION: 1. No evidence of fracture or dislocation. 2. Osteoarthritis first MCP joint. Report Dictated By: Elie Elvie at 10/25/2017 11:59 AM Report E-Signed By: Elie Bermeo at 10/25/2017 12:00 PM WSN:[id number] ED Course/Re-evaluation ED Course X-rays read as negative we'll put her in a wrist splint for one week have her follow-up with primary care physician she states she does have pain medicine at home Re-evaluation Negative x-ray will call this a strain , contusion follow-up with primary care physician Decision to Disposition Date: Oct 25, 2017 Decision to Disposition Time: 12:16 Depart Departure Impression: Primary Impression: Contusion Condition: Improved Disposition: HOME OR SELF-CARE Referrals: EVERTON RIOS MD (PCP) 2 Days Patient Instructions: Contusion in Adults (DC), Fall Prevention (ED) Additional Instructions: Wear your splint on her hand, follow-up give primary care physician in 2 or 3 days YOLI MARTINEZ Oct 25, 2017 11:24
--- NOTE | 2017-10-25 12:03 | RADIOLOGY IMAGING REPORT ---
[place] [facility] [place] NAME: Nadia Baumann : 1930 MR: [id number] V: [id number] EXAM DATE: ORDERING PHYSICIAN: YOLI MARTINEZ TECHNOLOGIST: Location: [facility] [place] Patient: Nadia Baumann : 1930 Visit/Account:[id number] Date of Sevice: 10/25/2017 HAND COMPLETE LEFT Indication: FALL, PAIN Comparison: None. Findings: The phalanges, metacarpal common carpal bones are intact. There is narrowing of the first carpometacarpal joint space. Radiocarpal joint is normal. Soft tissues are unremarkable. IMPRESSION: 1. No evidence of fracture or dislocation. 2. Osteoarthritis first MCP joint. Report Dictated By: Elie Bermeo at 10/25/2017 11:59 AM Report E-Signed By: Elie Bermeo at 10/25/2017 12:00 PM WSN:[id number]
== END 2017-10-25 12:23 | disposition home or self-care (01) ==
LOC: ER 11:16
DX: S60.222A Contusion of left hand, initial encounter (principal); W01.0XXA Fall on same level from slipping, tripping and stumbling without subsequent striking against object, initial encounter; Y92.481 Parking lot as the place of occurrence of the external cause
CPT/HCPCS: 99283

== ENCOUNTER 2017-10-26 10:00 | Outpatient (RCR) | payer MEDICARE, OTHER ==
[2017-06-24 17:09] VITALS: BMI 21.6
[2017-09-30 08:57] VITALS: BP 124/63
[2017-09-30] MEDS: LIDOCAINE/SOD BICARB 8.4% SYR ID PRN (09:16)
[2017-09-30 09:52] VITALS: BP 124/60
[2017-09-30 10:04] VITALS: BP 122/66
[2017-09-30 11:56] VITALS: BP 117/64
[2017-09-30 12:19] VITALS: BP 134/64
[2017-09-30 14:25] VITALS: BP 110/68
[~2017-10-26 10:00] MED LIST changes: +ACETAMINOPHEN 325 MG TAB PO PRN; +DEXTROSE 5%(*) 100 ML BAG 100 ML IVPB PRN; +NS(*) 0.9% 100 ML BAG 100 ML IVPB PRN; +diphenhydrAMINE 25 MG CAP PO PRN
[2017-10-26] MEDS: LIDOCAINE/SOD BICARB 8.4% SYR ID PRN (11:21)
[2017-10-26] MEDS ORDERED: NS(*) 0.9% 500 ML BAG 500 ML IV PRN (11:35)
[2017-10-26 11:36] VITALS: BP 120/66
[2017-10-26 11:56] VITALS: BP 126/63
[2017-10-26 13:16] VITALS: BP 126/63
[2017-10-26 13:37] VITALS: BP 105/53
[2017-10-26 15:09] VITALS: BP 125/65
== END 2017-10-27 13:48 | disposition home or self-care (01) ==
LOC: SPU 10:00
PROVIDERS: ATTEND Internal Medicine
DX: D64.9 Anemia, unspecified (principal)
CPT/HCPCS: 36415; 86850; 86870; 86900; 86901; 86902; 86922; A9270; P9016; Q0163; 36430

== ENCOUNTER 2017-10-26 16:46 | Emergency (ER) | payer MEDICARE, OTHER ==
[2017-06-24 17:09] VITALS: Wt 56.8 kg
[~2017-10-26 16:46] MED LIST changes: -ACETAMINOPHEN 325 MG TAB PO PRN; -DEXTROSE 5%(*) 100 ML BAG 100 ML IVPB PRN; -NS(*) 0.9% 100 ML BAG 100 ML IVPB PRN; -diphenhydrAMINE 25 MG CAP PO PRN
--- NOTE | 2017-10-26 16:56 | ER Report ---
History and Physical Time Seen By : 16:56 Hx. of Stated Complaint: PT SCRATCHED HAND ON WRIST BRACE ~20MINS AGO, ON BLOOD THINNERS HPI/ROS CHIEF COMPLAINT: Skin tear HISTORY OF PRESENT ILLNESS: This is an 86-year-old female who presents to the emergency department for a skin tear on the dorsum of her left hand. The patient was here yesterday was noted to have a low H&H, fell after she was discharged returned, was put in a brace and sent home. Patient states that today she had a blood transfusion went home to the brace off and tripped and fell forward with the dorsum of the left hand causing a skin tear. She contacted her son and and subsequently came into the ER for further evaluation. Bleeding is controlled at this time there is nothing that is repairable due to the frailty of her skin. The patient is stating that she just wants something to cover the wound and keep it from bleeding. No other complaints. Allergies: Coded Allergies: No Known Drug Allergies (Unverified , 10/26/17) Home Meds Active Scripts Sulfacetamide Sodium (SULFACETAMIDE SODIUM) 15 Ml Drops, 15 ML OS QID, #15 ML Prov:EVERTON RIOS MD 06/01/17 Simvastatin (SIMVASTATIN) 20 Mg Tablet, 1 TAB PO HS, #90 TAB 3 Refills Prov:EVERTON RIOS MD 03/02/17 Omeprazole (OMEPRAZOLE) 20 Mg Capsule.dr, 1 CAP PO QAM, #90 CAP 3 Refills TAKE ONE CAPSULE BY MOUTH ONCE A DAY Prov:IZABELLA GARAY PHARMLashanda 01/15/17 Reported Medications Warfarin Sodium (COUMADIN) 7.5 Mg Tablet, 7.5 MG PO MON 07/12/17 Warfarin Sodium (COUMADIN) 5 Mg Tablet, 5 MG PO RICE,TU,W,TH,F,SA 07/12/17 Cyanocobalamin (Vitamin B-12) (B-12) 1,000 Mcg Tablet.er, 1000 MCG PO QDAY 06/01/17 Calcium Carb & Cit/Vitamin D3 (CITRACAL + D ER TABLET) 1 Each Tablet.er, 1 TAB PO QDAY 04/03/15 Ferrous Sulfate (IRON) 325 Mg Capsule.er, 325 MG PO TID 02/01/15 Past Medical/Surgical History The patient has a past medical and surgical history of hysterectomy, migraines, mitral valve replacement, pacemaker, hypercholesterolemia, pneumonia, GERD, arthritis, back pain, wears glasses, hard of hearing, borderline diabetes, chronic anemia, skin cancer removed, skin grafts, tonsillectomy, bilateral mastectomy, lumpectomy. Reviewed Nurses Notes: Yes Hx Smoking: No Smoking Status: Former Smoker Exposure to Second Hand Smoke?: No Hx Substance Use Disorder: No Hx Alcohol Use: No Constitutional Vital Sign - Last 24 Hours 10/26/17 10/26/17 16:50 17:20 Temp 99.1 99.1 Pulse 93 90 Resp 16 16 B/P (MAP) 141/79 139/78 (98) Pulse Ox 92 92 O2 Delivery Room Air Room Air Physical Exam General appearance: Alert no distress. Respiratory: Chest is non tender, lungs are clear to auscultation. Cardiac: Regular rate and rhythm. Integumentary: Skin tear to the dorsum of the left hand, bleeding controlled nonrepairable wound. DIFFERENTIAL DIAGNOSIS: After history and physical exam differential diagnosis was considered for skin tear. Medical Decision Making ED Course/Re-evaluation ED Course The patient was admitted to room. A history and physical were obtained. After further discussion with the patient she states that she would just like to have a dressing applied to the skin tear she does understand that is not repairable at this time. The wound was dressed with Surgicel and secured with Kerlix dressing. Patient was instructed to keep this on for the next 24 hours and follow-up with her primary care provider in 24-48 hours. Also monitor for signs of infection such as increased redness, swelling or drainage other than blood. The patient, her and son were in agreement with this plan of care and discharged home. Decision to Disposition Date: Oct 26, 2017 Decision to Disposition Time: 17:12 Depart Departure Latest Vital Signs Vital Signs Date Time Temp Pulse Resp B/P (MAP) Pulse Ox O2 Delivery O2 Flow Rate FiO2 10/26/17 17:20 99.1 90 16 139/78 (98) 92 Room Air Impression: Primary Impression: Skin tear of left hand without complication Condition: Improved Disposition: HOME OR SELF-CARE Referrals: EVERTON RIOS MD (PCP) Patient Instructions: Skin Tear (ED) Additional Instructions: Drink plenty of water. Get plenty of rest. Continue taking your medications as prescribed. Monitor for signs infection such as redness, swelling or purulent drainage from the wound. Keep the dressing on the skin tear for the next 24 hours, then follow-up with your primary care provider for reevaluation of the wound. Return to the ER for any other concerns or worsening symptoms. Problem Qualifiers Primary Impression: Skin tear of left hand without complication Encounter type: initial encounter Qualified Codes: S61.412A - Laceration without foreign body of left hand, initial encounter AB WALLS-GEMMA Oct 26, 2017 16:56
[2017-10-26 17:20] VITALS: BP 139/78
== END 2017-10-26 17:20 | disposition home or self-care (01) ==
LOC: ER 16:54
DX: S61.412A Laceration without foreign body of left hand, initial encounter (principal); Z79.01 Long term (current) use of anticoagulants
CPT/HCPCS: 99282

== ENCOUNTER 2017-10-31 12:47 | Emergency (ER) | payer MEDICARE, OTHER ==
[2017-06-24 17:09] VITALS: Wt 56.8 kg
--- NOTE | 2017-10-31 14:29 | RADIOLOGY IMAGING REPORT ---
[place] [facility] [place] NAME: Nadia Baumann : 1930 MR: [id number] V: [id number] EXAM DATE: ORDERING PHYSICIAN: MINDI JOHANSEN TECHNOLOGIST: Location: [facility] Patient: Nadia Baumann : 1930 Visit/Account:[id number] Date of Sevice: 10/31/2017 EXAMINATION: CT cervical spine without IV contrast HISTORY: Fall, neck pain. COMPARISON: CT cervical spine from 08/09/2017. TECHNIQUE: Axial images were obtained from the skull base through the upper thoracic spine without I V contrast administration. Coronal and sagittal reformatted images were obtained from the axial [facility] e data. One of the following dose optimization techniques was utilized in the performance of this exam: Autom ated exposure control; adjustment of the mA and/or kV according to the patient's size; or use of an i terative reconstruction technique. Specific details can be referenced in the facility's radiology C T exam operational policy. FINDINGS: Alignment: Grade 1 anterolisthesis at C3-4 and grade 1 retrolisthesis at C5-6, measuring less than 2 mm at each level. Cranio-cervical junction: Moderate joint space narrowing, sclerosis and bony spurring of the cranioce rvical junction. Vertebral bodies: Negative. Posterior elements: Multilevel mild facet and uncovertebral hypertrophy. Hardware: None. Disc spaces: Severe disc space narrowing, endplate sclerosis and bony spurring from C4-5 through C6-7 , with mild similar changes at the remaining levels. Soft tissues: Atherosclerotic calcifications of both carotid bulbs. Visualized upper chest: Negative. IMPRESSION: 1. No acute fracture of the cervical spine. 2. Multilevel degenerative disc disease, facet and uncovertebral arthropathy. 3. Grade 1 degenerative anterolisthesis at C3-4, and grade 1 degenerative retrolisthesis at C5-6, unc hanged. Report Dictated By: Leslie Arrieta MD at 10/31/2017 2:20 PM Report E-Signed By: Leslie Arrieta MD at 10/31/2017 2:23 PM [id number]
--- NOTE | 2017-10-31 14:29 | RADIOLOGY IMAGING REPORT ---
FACILITY: [facility] PATIENT NAME: Nadia Baumann : 1930 MR: [id number] V: [id number] EXAM DATE: ORDERING PHYSICIAN: MINDI JOHANSNE TECHNOLOGIST: Location: [facility] Patient: Nadia Baumann : 1930 Visit/Account:[id number] Date of Sevice: 10/31/2017 EXAMINATION: CT head without IV contrast HISTORY: Fall, head injury, occipital scalp laceration. On Coumadin. COMPARISON: CT head from 09/30/2017. TECHNIQUE: Contiguous axial images were obtained from the skull base to the vertex without intraven ous contrast. Sagittal and coronal reformatted images are also submitted. One of the following dose optimization techniques was utilized in the performance of this exam: Autom ated exposure control; adjustment of the mA and/or kV according to the patient's size; or use of an i terative reconstruction technique. Specific details can be referenced in the facility's radiology C T exam operational policy. FINDINGS: Brain volume: Mild generalized atrophy with associated concordant prominence of the ventricular syst em. Ventricles: Normal. Acute ischemic changes: None. Hemorrhage: No acute intracranial hemorrhage. Masses/edema: None. Cabrera-white: Negative. White matter: A few hypodensities in the deep white matter bilaterally. Vessels: Calcified plaque of both carotid siphons. Extra-axial: Negative. Calvarium/scalp: Posterior scalp contusion near the vertex. No acute fracture. Skull base/visualized face: Negative. Visualized sinuses/orbits: Previous lens surgery on the left. IMPRESSION: 1. Posterior scalp contusion at the vertex without acute fracture, intracranial hemorrhage or mass le henrique. No CT evidence of acute infarct. 2. Mild nonspecific white matter disease suspicious for chronic small vessel ischemia, unchanged. Report Dictated By: Leslie Arrieta MD at 10/31/2017 2:16 PM Report E-Signed By: Leslie Arrieta MD at 10/31/2017 2:18 PM WSN:[id number]
--- NOTE | 2017-10-31 14:33 | ER Report ---
History and Physical Time Seen By MD: 12:51 Hx. of Stated Complaint: PT LOST BALANCE AND FELL BACKWARD, HITTING BACK OF HEAD ON KITCHEN COUNTER, PAIN ALSO IN R UPPER ARM HPI/ROS CHIEF COMPLAINT: Head injury, scalp laceration HISTORY OF PRESENT ILLNESS: Patient is a 86-year-old female accompanied by family members, who presents the ED with complaint of head injury that occurred about 15 minutes ago. Patient was using her walker and tripped and fell backwards onto her head. Patient and family deny any LOC, nausea, vomiting, vision changes, headache. She states that she is having some pain in her right upper arm as well. She is able to move this with minimal pain. She is not taking any medication for this. She was bleeding from her scalp. She is currently on Coumadin. REVIEW OF SYSTEMS: Constitutional: No fever, no chills. Eyes: No discharge. ENT: No sore throat. Cardiovascular: No chest pain, no palpitations. Respiratory: No cough, no shortness of breath. Gastrointestinal: No abdominal pain, no vomiting. Musculoskeletal: No back pain. Skin: See history of present illness. Neurological: See history of present illness. Allergies: Coded Allergies: No Known Drug Allergies (Unverified , 10/26/17) Home Meds Active Scripts Sulfacetamide Sodium (SULFACETAMIDE SODIUM) 15 Ml Drops, 15 ML OS QID, #15 ML Prov:EVERTON RIOS MD 06/01/17 Simvastatin (SIMVASTATIN) 20 Mg Tablet, 1 TAB PO HS, #90 TAB 3 Refills Prov:EVERTON RIOS MD 03/02/17 Omeprazole (OMEPRAZOLE) 20 Mg Capsule.dr, 1 CAP PO QAM, #90 CAP 3 Refills TAKE ONE CAPSULE BY MOUTH ONCE A DAY Prov:IZABELLA GARAY PHARMD 01/15/17 Reported Medications Warfarin Sodium (COUMADIN) 7.5 Mg Tablet, 7.5 MG PO MON 07/12/17 Warfarin Sodium (COUMADIN) 5 Mg Tablet, 5 MG PO RICE,,W,,F,SA 07/12/17 Cyanocobalamin (Vitamin B-12) (B-12) 1,000 Mcg Tablet.er, 1000 MCG PO QDAY 06/01/17 Calcium Carb & Cit/Vitamin D3 (CITRACAL + D ER TABLET) 1 Each Tablet.er, 1 TAB PO QDAY 04/03/15 Ferrous Sulfate (IRON) 325 Mg Capsule.er, 325 MG PO TID 02/01/15 Reviewed Nurses Notes: Yes Old Medical Records Reviewed: Yes Hx Smoking: No Smoking Status: Former Smoker Exposure to Second Hand Smoke?: No Hx Substance Use Disorder: No Hx Alcohol Use: No Constitutional Vital Sign - Last 24 Hours 10/31/17 10/31/17 10/31/17 10/31/17 12:54 12:56 13:02 13:32 Temp 98.2 Pulse 81 83 ??? Resp 12 B/P (MAP) 138/61 (86) 138/61 Pulse Ox 92 92 O2 Delivery Room Air 10/31/17 10/31/17 13:47 13:49 Pulse ??? B/P (MAP) 151/74 (99) Physical Exam General Appearance: The patient is alert, has no immediate need for airway protection and no signs of toxicity. Patient appears to be in no acute distress. Eyes: Pupils equal and round no pallor or injection. EOMs are full bilaterally. ENT, Mouth: Mucous membranes are moist. Respiratory: There are no retractions, lungs are clear to auscultation. Cardiovascular: Regular rate and rhythm. Gastrointestinal: Abdomen is soft and non tender, no masses, bowel sounds normal. Neurological: Cranial nerves II through XII intact. Skin: There is a 2 cm linear laceration of the mid occipital scalp area. No surrounding hematoma. No active bleeding. Musculoskeletal: Neck is supple non tender. There is some pain with palpation of the right humerus area. No swelling or ecchymosis identified. Radial pulse is 2+ with normal capillary refill. Normal sensation. DIFFERENTIAL DIAGNOSIS: After history and physical exam differential diagnosis was considered for head injury including but not limited to concussion, skull fracture, intraparenchymal contusion, subarachnoid, subdural and epidural hematoma. Medical Decision Making EKG/Imaging Imaging CT Head: IMPRESSION: 1. Posterior scalp contusion at the vertex without acute fracture, intracranial hemorrhage or mass lesion. No CT evidence of acute infarct. 2. Mild nonspecific white matter disease suspicious for chronic small vessel ischemia, unchanged. Report Dictated By: Leslie Arrieta MD at 10/31/2017 2:16 PM Report E-Signed By: Leslie Arrieta MD at 10/31/2017 2:[address] C-Spine: IMPRESSION: 1. No acute fracture of the cervical spine. 2. Multilevel degenerative disc disease, facet and uncovertebral arthropathy. 3. Grade 1 degenerative anterolisthesis at C3-4, and grade 1 degenerative retrolisthesis at C5-6, unchanged. Report Dictated By: Leslie Arrieta MD at 10/31/2017 2:20 PM Report E-Signed By: Leslie Arrieta MD at 10/31/2017 2:23 PM ED Course/Re-evaluation ED Course Will obtain CT of the head and cervical spine as well as a x-ray of the right humerus. 10/31/2017 2:30:43 pm - did review the CT of the head and cervical spine as well as right humerus x-rays do not see any acute fractures or intracranial bleeding. We are having some difficulty in transferring the CT images to the radiologist so we will wait for the official read at this time. Procedure: Laceration repair. Verbal consent was obtained from the patient. The 2 cm linear laceration on the occipital scalp was anesthetized in the usual fashion with 1% lidocaine with epinephrine. The wound was scrubbed, draped and explored to its base with a gloved finger. There were no deep structures involved. No tendon injury was identified. The wound was repaired with 3 priyanka. The wound repair was simple. The procedure was performed by myself. Right Humerus Xrays: No acute fx noted. Decision to Disposition Date: Oct 31, 2017 Decision to Disposition Time: 14:55 Depart Departure Latest Vital Signs Vital Signs Date Time Temp Pulse Resp B/P (MAP) Pulse Ox O2 Delivery O2 Flow Rate FiO2 10/31/17 13:49 151/74 (99) 10/31/17 13:47 ??? 10/31/17 13:02 92 10/31/17 12:56 98.2 12 Room Air Core Temperature (Celsius): 37.28 Impression: Primary Impression: Head injury Additional Impressions: Scalp laceration Contusion of right arm Condition: Improved Disposition: HOME OR SELF-CARE Referrals: EVERTON RIOS MD (PCP) Patient Instructions: Head Injury (ED), Laceration (ED) Additional Instructions: Rest, ice. Monitor for signs or symptoms of infection including redness, swelling, discharge, fever. [place] may be removed in 7 days by primary care provider. If having any worsening or concerning symptoms may return to the emergency department. Problem Qualifiers Primary Impression: Head injury Encounter type: initial encounter Qualified Codes: S09.90XA - Unspecified injury of head, initial encounter Additional Impressions: Scalp laceration Encounter type: initial encounter Qualified Codes: S01.01XA - Laceration without foreign body of scalp, initial encounter Contusion of right arm Encounter type: initial encounter Qualified Codes: S40.021A - Contusion of right upper arm, initial encounter MINDI JOHANSEN PA-C Oct 31, 2017 14:33
[2017-10-31 15:00] VITALS: BP 133/48
--- NOTE | 2017-10-31 15:01 | RADIOLOGY IMAGING REPORT ---
FACILITY: [facility] [place] PATIENT NAME: Nadia Baumann : 1930 MR: [id number] V: [id number] EXAM DATE: ORDERING PHYSICIAN: MINDI JOHANSEN TECHNOLOGIST: Location: [facility] [place] Patient: Nadia Baumann : 1930 Visit/Account:[id number] Date of Sevice: 10/31/2017 HUMERUS RIGHT Indication: Right humeral pain after fall. Comparison: None Available FINDINGS: 2 views of the right humerus. No fracture or dislocation. No bony lesions or significant degenerative changes. Soft tissues are unremarkable. The right upper lobe does show a calcified granuloma adjacen t to the pacemaker lead. IMPRESSION: No acute osseous abnormality of the right humerus Report Dictated By: Jamal Christine at 10/31/2017 2:56 PM Report E-Signed By: Jamal Christine at 10/31/2017 2:58 PM WSN:[id number]
== END 2017-10-31 15:20 | disposition home or self-care (01) ==
LOC: ER 12:57
DX: S09.90XA Unspecified injury of head, initial encounter (principal); S01.01XA Laceration without foreign body of scalp, initial encounter; S40.021A Contusion of right upper arm, initial encounter; W18.30XA Fall on same level, unspecified, initial encounter
CPT/HCPCS: 70450; 72125; 99284

== ENCOUNTER 2017-11-06 00:08 | Emergency (ER) | payer MEDICARE, OTHER ==
[2017-06-24 17:09] VITALS: BMI 21.6
--- NOTE | 2017-11-06 00:34 | ER Report ---
History and Physical Time Seen By : 00:33 Hx. of Stated Complaint: PT STARTED THROWING UP APPROX. 1 HOUR AGO. EMESIS APPEARS TO BE UNDIGESTED FOOD. HPI/ROS CHIEF COMPLAINT: sudden onset of vomiting HISTORY OF PRESENT ILLNESS: This is an 86 year old female. She had an episode of vomiting at home. Sudden onset, undigested food. No bad food exposure, her ate the same things. No fevers. No abdominal pain. No shortness of breath. No cough recently. Denies any problems with urination including any pain. Normal bowels today. No chest pain. No musculoskeletal pain. Allergies: Coded Allergies: No Known Drug Allergies (Unverified , 10/26/17) Home Meds Active Scripts Ondansetron (ZOFRAN ODT) 4 Mg Tab.rapdis, 4 MG PO Q6H Y for NAUSEA/VOMITING, # 20 TAB.ANGELINA 0 Refills Prov:BRIAN ANDRADE MD 11/06/17 Nitrofurantoin Monohyd/M-Cryst (MACROBID 100 MG CAPSULE) 100 Mg Capsule, 100 MG PO BID, #10 CAPSULE 0 Refills Prov:BRIAN ANDRADE MD 11/06/17 Sulfacetamide Sodium (SULFACETAMIDE SODIUM) 15 Ml Drops, 15 ML OS QID, #15 ML Prov:EVERTON RIOS MD 06/01/17 Simvastatin (SIMVASTATIN) 20 Mg Tablet, 1 TAB PO HS, #90 TAB 3 Refills Prov:EVERTON RIOS MD 03/02/17 Omeprazole (OMEPRAZOLE) 20 Mg Capsule.dr, 1 CAP PO QAM, #90 CAP 3 Refills TAKE ONE CAPSULE BY MOUTH ONCE A DAY Prov:IZABELLA GARAY PHARMD 01/15/17 Reported Medications Warfarin Sodium (COUMADIN) 7.5 Mg Tablet, 7.5 MG PO MON 07/12/17 Warfarin Sodium (COUMADIN) 5 Mg Tablet, 5 MG PO RICE,TU,W,TH,F,SA 07/12/17 Cyanocobalamin (Vitamin B-12) (B-12) 1,000 Mcg Tablet.er, 1000 MCG PO QDAY 06/01/17 Calcium Carb & Cit/Vitamin D3 (CITRACAL + D ER TABLET) 1 Each Tablet.er, 1 TAB PO QDAY 04/03/15 Ferrous Sulfate (IRON) 325 Mg Capsule.er, 325 MG PO TID 02/01/15 Reviewed Nurses Notes: Yes Hx Smoking: No Smoking Status: Former Smoker Exposure to Second Hand Smoke?: No Hx Substance Use Disorder: No Hx Alcohol Use: No Constitutional Vital Sign - Last 24 Hours 11/06/17 11/06/17 11/06/17 00:16 02:23 02:43 Temp 98.2 Pulse 104 Resp 16 B/P (MAP) 156/84 119/63 (81) Pulse Ox 89 84 O2 Delivery Room Air Room Air Physical Exam General Appearance: The patient is alert, has no immediate need for airway protection, does look ill with another episode of vomiting during exam. Eyes: Pupils equal and round no injection. ENT: Normal oral mucosa. Moist mucous membranes. Tympanic membranes are normal. Neck: Neck is supple and non tender. Respiratory: Chest is non tender, lungs are clear to auscultation. Cardiac: regular rate and rhythm. 3/6 systolic murmur, stable. Gastrointestinal: Abdomen is soft and non tender, no masses, bowel sounds are hyperactive. Musculoskeletal: Extremities have full range of motion. Skin: No rashes or lesions. DIFFERENTIAL DIAGNOSIS: After history and physical exam differential diagnosis was considered for new onset vomiting, suspect abdominal problem, metabolic disturbance, urinary or other infectious process Medical Decision Making Data Points Result Diagram: 11/06/17 0033 11/06/17 0033 Laboratory Hematology Test 11/06/17 00:33 11/06/17 01:16 Red Blood Count 3.35 M/uL (4.17-5.56) Mean Corpuscular Volume 97.4 fL (80.0-96.0) Mean Corpuscular Hemoglobin 32.7 pg (26.0-33.0) Mean Corpuscular Hemoglobin Concent 33.5 g/dL (32.0-36.0) Red Cell Distribution Width 18.0 % (11.5-14.5) Mean Platelet Volume 9.2 fL (7.2-11.1) Neutrophils (%) (Auto) 85.5 % (39.4-72.5) Lymphocytes (%) (Auto) 5.8 % (17.6-49.6) Monocytes (%) (Auto) 7.1 % (4.1-12.4) Eosinophils (%) (Auto) 1.2 % (0.4-6.7) Basophils (%) (Auto) 0.4 % (0.3-1.4) Nucleated RBC Relative Count (auto) 0.0 /100WBC Neutrophils # (Auto) 5.3 K/uL (2.0-7.4) Lymphocytes # (Auto) 0.4 K/uL (1.3-3.6) Monocytes # (Auto) 0.4 K/uL (0.3-1.0) Eosinophils # (Auto) 0.1 K/uL (0.0-0.5) Basophils # (Auto) 0.0 K/uL (0.0-0.1) Nucleated RBC Absolute Count (auto) 0.00 K/uL Sodium Level 138 mmol/L (137-145) Potassium Level 3.5 mmol/L (3.5-5.0) Chloride Level 103 mmol/L (98-107) Carbon Dioxide Level 26 mmol/L (22-31) Blood Urea Nitrogen 17 mg/dl (7-18) Creatinine 0.90 mg/dl (0.52-1.04) Glomerular Filtration Rate Calc 59.5 Random Glucose 132 mg/dl (75-110) Calcium Level 8.7 mg/dl (8.4-10.2) Total Bilirubin 0.5 mg/dl (0.2-1.3) Aspartate Amino Transf (AST/SGOT) 23 U/L (0-35) Alanine Aminotransferase (ALT/SGPT) 19 U/L (0-56) Alkaline Phosphatase 144 U/L (0-126) Total Protein 6.9 g/dl (6.3-8.2) Albumin 3.8 g/dl (3.5-5.0) Urine Color Yellow Urine Clarity Cloudy Urine pH 5.0 pH (4.8-9.5) Urine Specific [place] 1.020 Urine Protein Negative mg/dL (NEGATIVE) Urine Glucose (UA) Negative mg/dL (NEGATIVE) Urine Ketones Negative mg/dL (NEGATIVE) Urine Blood Negative (NEGATIVE) Urine Nitrite Negative (NEGATIVE) Urine Bilirubin Negative (NEGATIVE) Urine Urobilinogen Negative mg/dL (0.2-1.9) Urine Leukocyte Esterase Large (NEGATIVE) Urine RBC 2 /HPF (0-2/HPF) Urine WBC 25 /HPF (0-5/HPF) Urine Squamous Epithelial Cells Many /LPF (</=FEW) Urine Transitional Epithelial Cells Many /LPF (NONE-FEW) Urine Bacteria Negative /HPF (NONE-FEW) Urine Mucus Few /HPF (NONE-FEW) Chemistry Test 11/06/17 00:33 11/06/17 01:16 White Blood Count 6.2 k/uL (4.5-11.0) Red Blood Count 3.35 M/uL (4.17-5.56) Hemoglobin 10.9 g/dL (12.0-16.0) Hematocrit 32.6 % (34.0-47.0) Mean Corpuscular Volume 97.4 fL (80.0-96.0) Mean Corpuscular Hemoglobin 32.7 pg (26.0-33.0) Mean Corpuscular Hemoglobin Concent 33.5 g/dL (32.0-36.0) Red Cell Distribution Width 18.0 % (11.5-14.5) Platelet Count 173 K/uL (150-450) Mean Platelet Volume 9.2 fL (7.2-11.1) Neutrophils (%) (Auto) 85.5 % (39.4-72.5) Lymphocytes (%) (Auto) 5.8 % (17.6-49.6) Monocytes (%) (Auto) 7.1 % (4.1-12.4) Eosinophils (%) (Auto) 1.2 % (0.4-6.7) Basophils (%) (Auto) 0.4 % (0.3-1.4) Nucleated RBC Relative Count (auto) 0.0 /100WBC Neutrophils # (Auto) 5.3 K/uL (2.0-7.4) Lymphocytes # (Auto) 0.4 K/uL (1.3-3.6) Monocytes # (Auto) 0.4 K/uL (0.3-1.0) Eosinophils # (Auto) 0.1 K/uL (0.0-0.5) Basophils # (Auto) 0.0 K/uL (0.0-0.1) Nucleated RBC Absolute Count (auto) 0.00 K/uL Glomerular Filtration Rate Calc 59.5 Calcium Level 8.7 mg/dl (8.4-10.2) Total Bilirubin 0.5 mg/dl (0.2-1.3) Aspartate Amino Transf (AST/SGOT) 23 U/L (0-35) Alanine Aminotransferase (ALT/SGPT) 19 U/L (0-56) Alkaline Phosphatase 144 U/L (0-126) Total Protein 6.9 g/dl (6.3-8.2) Albumin 3.8 g/dl (3.5-5.0) Urine Color Yellow Urine Clarity Cloudy Urine pH 5.0 pH (4.8-9.5) Urine Specific [place] 1.020 Urine Protein Negative mg/dL (NEGATIVE) Urine Glucose (UA) Negative mg/dL (NEGATIVE) Urine Ketones Negative mg/dL (NEGATIVE) Urine Blood Negative (NEGATIVE) Urine Nitrite Negative (NEGATIVE) Urine Bilirubin Negative (NEGATIVE) Urine Urobilinogen Negative mg/dL (0.2-1.9) Urine Leukocyte Esterase Large (NEGATIVE) Urine RBC 2 /HPF (0-2/HPF) Urine WBC 25 /HPF (0-5/HPF) Urine Squamous Epithelial Cells Many /LPF (</=FEW) Urine Transitional Epithelial Cells Many /LPF (NONE-FEW) Urine Bacteria Negative /HPF (NONE-FEW) Urine Mucus Few /HPF (NONE-FEW) Urinalysis Test 11/06/17 01:16 Urine Color Yellow Urine Clarity Cloudy Urine pH 5.0 pH (4.8-9.5) Urine Specific [place] 1.020 Urine Protein Negative mg/dL (NEGATIVE) Urine Glucose (UA) Negative mg/dL (NEGATIVE) Urine Ketones Negative mg/dL (NEGATIVE) Urine Blood Negative (NEGATIVE) Urine Nitrite Negative (NEGATIVE) Urine Bilirubin Negative (NEGATIVE) Urine Urobilinogen Negative mg/dL (0.2-1.9) Urine Leukocyte Esterase Large (NEGATIVE) Urine RBC 2 /HPF (0-2/HPF) Urine WBC 25 /HPF (0-5/HPF) Urine Squamous Epithelial Cells Many /LPF (</=FEW) Urine Transitional Epithelial Cells Many /LPF (NONE-FEW) Urine Bacteria Negative /HPF (NONE-FEW) Urine Mucus Few /HPF (NONE-FEW) EKG/Imaging Imaging ACUTE ABDOMEN SERIES 3 VIEW HISTORY: Vomiting. COMPARISON: KUB 6 10/12/2017. Most recent chest x-ray 10/25/2017 and studies dating to 12/28/2017. TECHNIQUE: PA upright view of the chest, AP supine and AP upright views of the abdomen. Chest: Pacemaker generator overlies the right upper chest and single lead terminates in the right ventricle. 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 There is atelectasis, scarring, and/or fibrosis at the lung bases, unchanged. The cardiac silhouette is enlarged, stable. The mediastinal silhouette is normal. There is mild aortic calcification. Bones and soft tissues are unremarkable. Abdomen: The distribution of bowel gas is normal, with bowel in all four quadrants as well as centrally. No free air. No dilated loops of bowel. There is moderate stool in the ascending colon. There are calcifications in the right upper quadrant, potentially gallstones. There is a calcification projecting at right renal fossa, potentially a peripherally calcified renal cyst. It is unchanged from April 2015. There are pelvic phleboliths. There is a mild leftward curvature of the lumbar spine. There is mild degenerative change of the spine. The sacroiliac joints are patent without widening. There is no pubic diastases. IMPRESSION: 1. No acute cardiopulmonary process. 2. Unremarkable bowel gas pattern without obstruction. Report Dictated By: Heather Caldera at 11/06/2017 1:37 AM ED Course/Re-evaluation Clinical Indication for ER IV: Hydration, IV Access ED Course Labs stable. Patient improved with the Zofran IV. Sleeping soundly. Showing hypoxia when sleeping, normal when awake. Recommended starting oxygen when sleeping. Urine shows possible infection, culture ordered, started on Macrobid. Decision to Disposition Date: Nov 06, 2017 Decision to Disposition Time: 03:12 Depart Departure Latest Vital Signs Vital Signs Date Time Temp Pulse Resp B/P (MAP) Pulse Ox O2 Delivery O2 Flow Rate FiO2 11/06/17 02:43 119/63 (81) 11/06/17 02:23 84 Room Air 11/06/17 00:16 98.2 104 16 Core Temperature (Celsius): 37.28 Impression: Primary Impression: Nausea & vomiting Additional Impression: Urinary tract infection Condition: Improved Disposition: HOME OR SELF-CARE Referrals: EVERTON RIOS MD (PCP) New Scripts Ondansetron (ZOFRAN ODT) 4 Mg Tab.rapdis 4 MG PO Q6H Y for NAUSEA/VOMITING, #20 TAB.ANGELINA 0 Refills Prov: BRIAN ANDRADE MD 11/06/17 Nitrofurantoin Monohyd/M-Cryst (MACROBID 100 MG CAPSULE) 100 Mg Capsule 100 MG PO BID, #10 CAPSULE 0 Refills Prov: BRIAN ANDRADE MD 11/06/17 Departure Forms: Home Oxygen, Nebulizer RX Reason for Use/Diagnosis: nocturnal hypoxia Start Date of the Order: Nov 06, 2017 Dosage or Concentration (if applicable) - LPM: 2 Route of Administration (if applicable): Nasal Cannula Frequency of Use: While Sleeping Duration Home O2 Required: 99 Duration Units: Months Room Air Oxygen Saturation: 85 ER Prescribing Physician's Name: Brian Andrade NPI Numbers for Local ER MDs: [id number] Patient Instructions: Acute Nausea and Vomiting (ED), Urinary Tract Infection in Women (ED) Additional Instructions: Take Zofran 4mg, one every 6 hours as needed for nausea. Take the antibiotic Macrobid 100mg twice a day for 5 days. Home oxygen, 2 liters by nasal canula while sleeping. Make a follow-up appointment with your regular provider for the next 5-7 days. Problem Qualifiers Primary Impression: Nausea & vomiting Vomiting type: unspecified Vomiting Intractability: non-intractable Qualified Codes: R11.2 - Nausea with vomiting, unspecified Additional Impression: Urinary tract infection Urinary tract infection type: acute cystitis Hematuria presence: without hematuria Qualified Codes: N30.00 - Acute cystitis without hematuria BRIAN ANDRADE MD Nov 06, 2017 00:34
[2017-11-06] MEDS ORDERED: ONDANSETRON 4 MG/2 ML VIAL IVP ONE (00:35)
[2017-11-06 00:52] LABS: PLATELET COUNT, AUTOMATED 173 K/uL (150-450)
--- NOTE | 2017-11-06 01:47 | RADIOLOGY IMAGING REPORT ---
[place] [facility] [place] Nadia Baumann : 1930 MR: [id number] V: [id number] EXAM DATE: ORDERING PHYSICIAN: MARCIE HERNANDEZ TECHNOLOGIST: Location: [facility] - [place] Patient: Nadia Baumann : 1930 Visit/Account:[id number] Date of Sevice: 11/06/2017 ACUTE ABDOMEN SERIES 3 VIEW HISTORY: Vomiting. COMPARISON: KUB 6 10/12/2017. Most recent chest x-ray 10/25/2017 and studies dating to 12/28/2017. TECHNIQUE: PA upright view of the chest, AP supine and AP upright views of the abdomen. Chest: Pacemaker generator overlies the right upper chest and single lead terminates in the right edward tricle. 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 There is atelectasis, scarring, and/or fibros is at the lung bases, unchanged. The cardiac silhouette is enlarged, stable. The mediastinal silhouet te is normal. There is mild aortic calcification. Bones and soft tissues are unremarkable. Abdomen: The distribution of bowel gas is normal, with bowel in all four quadrants as well as central ly. No free air. No dilated loops of bowel. There is moderate stool in the ascending colon. There are calcifications in the right upper quadrant, potentially gallstones. There is a calcificatio n projecting at right renal fossa, potentially a peripherally calcified renal cyst. It is unchanged f rom April 2015. There are pelvic phleboliths. There is a mild leftward curvature of the lumbar spine. There is mild degenerative change of the spin e. The sacroiliac joints are patent without widening. There is no pubic diastases. IMPRESSION: 1. No acute cardiopulmonary process. 2. Unremarkable bowel gas pattern without obstruction. Report Dictated By: Heather Caldera at 11/06/2017 1:37 AM Report E-Signed By: Heather Caldera at 11/06/2017 1:44 AM WSN:[id number]
[2017-11-06 02:43] VITALS: BP 119/63
[2017-11-06] MEDS ORDERED: ONDA4TAB PO (03:13)
[2017-11-06] MEDS ORDERED: NITR-105 PO (03:13)
[2017-11-06] MEDS ORDERED: ONDANSETRON 4 MG ODT TH SL ONE (03:20)
[2017-11-06] MEDS ORDERED: NITROFURANTOIN MONO 100 MG PO ONE (03:20)
== END 2017-11-06 03:24 | disposition home or self-care (01) ==
LOC: ER 00:13
DX: R11.2 Nausea with vomiting, unspecified (principal); N39.0 Urinary tract infection, site not specified; B96.20 Unspecified Escherichia coli [E. coli] as the cause of diseases classified elsewhere
CPT/HCPCS: 74022; 81001; 85025; 87077; 87088; 87186; 96374; 99284; A9270; J2405; Q0162; 82040; 82247; 82310; 82374; 82435; 82565; 82947; 84075; 84132; 84155; 84295; 84450; 84460; 84520; S0119

== ENCOUNTER 2017-11-09 04:26 | Emergency (ER) | payer MEDICARE, OTHER ==
[2017-06-24 17:09] VITALS: Wt 56.8 kg
[~2017-11-09 04:26] MED LIST changes: +NITR-105 PO
--- NOTE | 2017-11-09 04:39 | ER Report ---
History and Physical Time Seen By : 04:38 HPI/ROS CHIEF COMPLAINT: difficulty breathing HISTORY OF PRESENT ILLNESS: This is an 86 year old female. She awoke tonight feeling short of breath. She has had a cough. No chest pain. No palpations. She has no nausea or vomiting. No fevers. She had nausea and vomiting the other day , but no further nausea or vomiting. She had a urinary tract infection at the time. Urine culture positive for E coli, sensitive to the Macrobid used to treat. Had hypoxia while sleeping and prescribed nocturnal oxygen, but she felt she did not need it and sent it back. Allergies: Coded Allergies: No Known Drug Allergies (Unverified , 11/09/17) Home Meds Active Scripts Ondansetron (ZOFRAN ODT) 4 Mg Tab.rapdis, 4 MG PO Q6H Y for NAUSEA/VOMITING, # 20 TAB.ANGELINA 0 Refills Prov:MARCIE HERNANDEZ MD 11/06/17 Nitrofurantoin Monohyd/M-Cryst (MACROBID 100 MG CAPSULE) 100 Mg Capsule, 100 MG PO BID, #10 CAPSULE 0 Refills Prov:MARCIE HERNANDEZ MD 11/06/17 Sulfacetamide Sodium (SULFACETAMIDE SODIUM) 15 Ml Drops, 15 ML OS QID, #15 ML Prov:EVERTON RIOS MD 06/01/17 Simvastatin (SIMVASTATIN) 20 Mg Tablet, 1 TAB PO HS, #90 TAB 3 Refills Prov:EVERTON RIOS MD 03/02/17 Omeprazole (OMEPRAZOLE) 20 Mg Capsule.dr, 1 CAP PO QAM, #90 CAP 3 Refills TAKE ONE CAPSULE BY MOUTH ONCE A DAY Prov:IZABELLA GARAY PHARMD 01/15/17 Reported Medications Warfarin Sodium (COUMADIN) 7.5 Mg Tablet, 7.5 MG PO MON 07/12/17 Warfarin Sodium (COUMADIN) 5 Mg Tablet, 5 MG PO RICE,TU,W,TH,F,SA 07/12/17 Cyanocobalamin (Vitamin B-12) (B-12) 1,000 Mcg Tablet.er, 1000 MCG PO QDAY 06/01/17 Calcium Carb & Cit/Vitamin D3 (CITRACAL + D ER TABLET) 1 Each Tablet.er, 1 TAB PO QDAY 04/03/15 Ferrous Sulfate (IRON) 325 Mg Capsule.er, 325 MG PO TID 02/01/15 Reviewed Nurses Notes: Yes Hx Smoking: No Smoking Status: Former Smoker Exposure to Second Hand Smoke?: No Hx Substance Use Disorder: No Hx Alcohol Use: No Constitutional Vital Sign - Last 24 Hours 11/09/17 11/09/17 11/09/17 11/09/17 04:26 04:32 04:36 04:41 Temp 97.8 Pulse ??? 88 81 Resp 18 B/P (MAP) 154/88 (110) 154/88 Pulse Ox 90 89 O2 Delivery Room Air 11/09/17 11/09/17 11/09/17 11/09/17 04:56 05:00 05:04 05:11 Pulse ??? 83 B/P (MAP) ???/??? (1665) 138/62 (87) Pulse Ox 90 89 11/09/17 11/09/17 11/09/17 11/09/17 05:26 05:30 05:41 05:56 Pulse ??? 76 76 B/P (MAP) ???/??? (1665) Pulse Ox 93 91 89 11/09/17 11/09/17 11/09/17 06:00 06:05 06:20 Pulse 69 ??? B/P (MAP) 148/82 (104) Pulse Ox 96 Physical Exam General Appearance: The patient is alert. No acute distress. Respiratory: Breathing easily and unlabored. Lungs are clear to auscultation. There are no retractions or accessory muscle use. Cardiovascular: Regular rate and rhythm. 2/6 systolic murmur. Normal capillary refill. Gastrointestinal: Abdomen is soft and non tender. Nondistended. Normal active bowel sounds. Neurological: Alert and oriented x3. Chronic parkinsons tremor. Skin: Warm and dry. DIFFERENTIAL DIAGNOSIS: After history and physical exam, differential diagnosis was considered for shortness of breath including but not limited to pulmonary infectious process, cardiac cause, congestive heart failure, or the nocturna hypoxia. Medical Decision Making Data Points Result Diagram: 11/09/1751611/09/17516 Laboratory Hematology Test 11/09/17 05:17 Red Blood Count 3.31 M/uL (4.17-5.56) Mean Corpuscular Volume 97.2 fL (80.0-96.0) Mean Corpuscular Hemoglobin 33.0 pg (26.0-33.0) Mean Corpuscular Hemoglobin Concent 34.0 g/dL (32.0-36.0) Red Cell Distribution Width 17.3 % (11.5-14.5) Mean Platelet Volume 9.4 fL (7.2-11.1) Neutrophils (%) (Auto) 74.2 % (39.4-72.5) Lymphocytes (%) (Auto) 9.7 % (17.6-49.6) Monocytes (%) (Auto) 12.3 % (4.1-12.4) Eosinophils (%) (Auto) 3.3 % (0.4-6.7) Basophils (%) (Auto) 0.5 % (0.3-1.4) Nucleated RBC Relative Count (auto) 0.0 /100WBC Neutrophils # (Auto) 2.3 K/uL (2.0-7.4) Lymphocytes # (Auto) 0.3 K/uL (1.3-3.6) Monocytes # (Auto) 0.4 K/uL (0.3-1.0) Eosinophils # (Auto) 0.1 K/uL (0.0-0.5) Basophils # (Auto) 0.0 K/uL (0.0-0.1) Nucleated RBC Absolute Count (auto) 0.00 K/uL Sodium Level 138 mmol/L (137-145) Potassium Level 3.5 mmol/L (3.5-5.0) Chloride Level 103 mmol/L (98-107) Carbon Dioxide Level 27 mmol/L (22-31) Blood Urea Nitrogen 11 mg/dl (7-18) Creatinine 0.80 mg/dl (0.52-1.04) Glomerular Filtration Rate Calc > 60.0 Random Glucose 98 mg/dl (75-110) Calcium Level 9.1 mg/dl (8.4-10.2) Total Bilirubin 0.5 mg/dl (0.2-1.3) Aspartate Amino Transf (AST/SGOT) 24 U/L (0-35) Alanine Aminotransferase (ALT/SGPT) 20 U/L (0-56) Alkaline Phosphatase 142 U/L (0-126) Troponin I < 0.012 ng/ml B-Type Natriuretic Peptide 185 pg/ml (0-100) Total Protein 7.0 g/dl (6.3-8.2) Albumin 3.8 g/dl (3.5-5.0) Chemistry Test 11/09/17 05:17 White Blood Count 3.1 k/uL (4.5-11.0) Red Blood Count 3.31 M/uL (4.17-5.56) Hemoglobin 10.9 g/dL (12.0-16.0) Hematocrit 32.2 % (34.0-47.0) Mean Corpuscular Volume 97.2 fL (80.0-96.0) Mean Corpuscular Hemoglobin 33.0 pg (26.0-33.0) Mean Corpuscular Hemoglobin Concent 34.0 g/dL (32.0-36.0) Red Cell Distribution Width 17.3 % (11.5-14.5) Platelet Count 153 K/uL (150-450) Mean Platelet Volume 9.4 fL (7.2-11.1) Neutrophils (%) (Auto) 74.2 % (39.4-72.5) Lymphocytes (%) (Auto) 9.7 % (17.6-49.6) Monocytes (%) (Auto) 12.3 % (4.1-12.4) Eosinophils (%) (Auto) 3.3 % (0.4-6.7) Basophils (%) (Auto) 0.5 % (0.3-1.4) Nucleated RBC Relative Count (auto) 0.0 /100WBC Neutrophils # (Auto) 2.3 K/uL (2.0-7.4) Lymphocytes # (Auto) 0.3 K/uL (1.3-3.6) Monocytes # (Auto) 0.4 K/uL (0.3-1.0) Eosinophils # (Auto) 0.1 K/uL (0.0-0.5) Basophils # (Auto) 0.0 K/uL (0.0-0.1) Nucleated RBC Absolute Count (auto) 0.00 K/uL Glomerular Filtration Rate Calc > 60.0 Calcium Level 9.1 mg/dl (8.4-10.2) Total Bilirubin 0.5 mg/dl (0.2-1.3) Aspartate Amino Transf (AST/SGOT) 24 U/L (0-35) Alanine Aminotransferase (ALT/SGPT) 20 U/L (0-56) Alkaline Phosphatase 142 U/L (0-126) Troponin I < 0.012 ng/ml B-Type Natriuretic Peptide 185 pg/ml (0-100) Total Protein 7.0 g/dl (6.3-8.2) Albumin 3.8 g/dl (3.5-5.0) EKG/Imaging EKG Interpretation 12 lead EKG: Rhythm: Sinus rhythm with first-degree AV block, rate 86 [place]: Rightward axis QRS: normal ST segments: No ST elevations or depression noted, nonspecific T-wave flattening Imaging CHEST PA AND LAT HISTORY: Shortness of breath. COMPARISON: 10/25/2017 and studies dating to 2007. TECHNIQUE: PA and lateral views of the chest. FINDINGS: Tubes/lines/hardware: Pacemaker generator overlies the right upper chest, and single lead terminates in the right ventricle. 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 Pulmonary: There are oval densities projecting over the lower lung alexander on the frontal view, compatible with nipple shadows, unchanged. There is minimal atelectasis or scarring in the left lower lung, unchanged. There is no pneumothorax. There is stable minimal blunting of the right posterior costophrenic angle. Cardiomediastinal: The cardiac silhouette is enlarged, stable. The mediastinal silhouette is within normal limits. There is mild aortic calcification. Bones/soft tissues: No acute osseous abnormality. 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 The visible abdomen is normal. IMPRESSION: 1. Cardiomegaly, unchanged. 2. No change in aeration of the lungs. 3. Progression of degenerative changes at L2-3. Report Dictated By: Heather Caldera at 11/09/2017 5:47 AM ED Course/Re-evaluation ED Course Labs unremarkable. X-ray shows no sign of pneumonia. EKG as above. Recommended overnight oximetry given the fact that we did see decreased oxygen saturations the other day when she was here while sleeping, this will help her decide if she needs a oxygen are not at nighttime. Decision to Disposition Date: Nov 09, 2017 Decision to Disposition Time: 06:06 Depart Departure Latest Vital Signs Vital Signs Date Time Temp Pulse Resp B/P (MAP) Pulse Ox O2 Delivery O2 Flow Rate FiO2 11/09/17 06:20 ??? 11/09/17 06:05 96 11/09/17 06:00 148/82 (104) 11/09/17 04:36 97.8 18 Room Air Core Temperature (Celsius): 37.28 Impression: Primary Impression: Dyspnea Condition: Improved Disposition: HOME OR SELF-CARE Referrals: EVERTON RIOS MD (PCP) Patient Instructions: Dyspnea (ED) Additional Instructions: We did not find any problems on the testing this morning other than mild anemia. We think that the shortness of breath may be due to low oxygen saturations when you are sleeping, like we saw when you were here in the ER a few mornings ago. Please call the oxygen company that had given you the oxygen that night and let them know that we have ordered an overnight oximetry test to see how your oxygen is while sleeping. Also call and arrange a follow-up with your regular doctor. Problem Qualifiers Primary Impression: Dyspnea Dyspnea type: unspecified Qualified Codes: R06.00 - Dyspnea, unspecified MARCIE HERNANDEZ MD Nov 09, 2017 04:39
[2017-11-09 05:27] LABS: PLATELET COUNT, AUTOMATED 153 K/uL (150-450)
--- NOTE | 2017-11-09 05:38 | EKG ---
FACILITY: [facility] - [place] PATIENT NAME: JONAH MAYNARD : [id number] MR: [id number] V: [id number] EXAM DATE: ORDERING PHYSICIAN: MARCIE HERNANDEZ TECHNOLOGIST: TALIA Test Reason : SOB Blood Pressure : / mmHG Vent. Rate : 086 BPM Atrial Rate : 085 BPM P-R Int : 234 ms QRS Dur : 078 ms QT Int : 410 ms P-R-T Axes : -03 093 011 degrees QTc Int : 490 ms Accelerated Junctional rhythm Rightward axis Anteroseptal infarct (cited on or before 09-NOV-2017) Abnormal ECG When compared with ECG of 25-OCT-2017 08:17, Junctional rhythm has replaced Atrial fibrillation Confirmed by MIKAYLA BLACKMAN ([id number]) on 11/09/2017 6:29:35 AM Referred By: Confirmed By:MIKAYLA BLACKMAN
--- NOTE | 2017-11-09 05:57 | RADIOLOGY IMAGING REPORT ---
[facility] PATIENT NAME: Nadia Baumann : 1930 MR: [id number] V: [id number] EXAM DATE: ORDERING PHYSICIAN: MARCIE HERNANDEZ TECHNOLOGIST: Location: [facility] [place] Patient: Nadia Baumann : 1930 Visit/Account:[id number] Date of Sevice: 11/09/2017 CHEST PA AND LAT HISTORY: Shortness of breath. COMPARISON: 10/25/2017 and studies dating to 2007. TECHNIQUE: PA and lateral views of the chest. FINDINGS: Tubes/lines/hardware: Pacemaker generator overlies the right upper chest, and single lead terminates in the right ventricle. 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 Pulmonary: There are oval densities projecting over the lower lung alexander on the frontal view, compat ible with nipple shadows, unchanged. There is minimal atelectasis or scarring in the left lower lung, unchanged. There is no pneumothorax. There is stable minimal blunting of the right posterior costoph renic angle. Cardiomediastinal: The cardiac silhouette is enlarged, stable. The mediastinal silhouette is within n ormal limits. There is mild aortic calcification. Bones/soft tissues: No acute osseous abnormality. 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 The visible abdomen is normal. IMPRESSION: 1. Cardiomegaly, unchanged. 2. No change in aeration of the lungs. 3. Progression of degenerative changes at L2-3. Report Dictated By: Heather Caldera at 11/09/2017 5:47 AM Report E-Signed By: Heather Caldera at 11/09/2017 5:53 AM WSN:[id number]
[2017-11-09 06:00] VITALS: BP 148/82
== END 2017-11-09 06:15 | disposition home or self-care (01) ==
LOC: ER 05:25
DX: R06.00 Dyspnea, unspecified (principal); Z87.891 Personal history of nicotine dependence
CPT/HCPCS: 36415; 71046; 82040; 82247; 82310; 82374; 82435; 82565; 82947; 83880; 84075; 84132; 84155; 84295; 84450; 84460; 84484; 84520; 85025; 93005; 99284

== ENCOUNTER 2017-11-15 07:42 | Emergency (ER) | payer MEDICARE, OTHER ==
[2017-06-24 17:09] VITALS: Wt 56.7 kg
--- NOTE | 2017-11-15 07:46 | ER Report ---
History and Physical Time Seen By MD: 07:45 HPI/ROS CHIEF COMPLAINT: Fall HISTORY OF PRESENT ILLNESS: Patient is an 86-year-old female who is on Coumadin who presents to the emergency department for evaluation of a fall that occurred this morning. Patient states that she started to fall backwards. All the fall was a controlled fall as her assisted her to the ground. She did not strike her head or lose consciousness. She was grabbed in the left upper arm and was assisted down. She does have some bruising to the left upper arm as well as to the knuckles of the 2nd and 3rd fingers of the right hand. She is also complaining of pain to the posterior and lateral right femur but there is no bruising to the area. Patient is expected to have an INR tomorrow. She denies any neuro symptoms or complaints at this time. REVIEW OF SYSTEMS: Constitutional: No fever, no chills. Eyes: No discharge. ENT: No sore throat. Cardiovascular: No chest pain, no palpitations. Respiratory: No cough, no shortness of breath. Gastrointestinal: No abdominal pain, no vomiting. Genitourinary: No hematuria. Musculoskeletal: Left upper extremity pain, right femur pain, right hand pain Skin: Ecchymosis to the left upper extremity, right hand. Neurological: No headache. Allergies: Coded Allergies: No Known Drug Allergies (Unverified , 11/15/17) Home Meds Active Scripts Ondansetron (ZOFRAN ODT) 4 Mg Tab.rapdis, 4 MG PO Q6H Y for NAUSEA/VOMITING, # 20 TAB.ANGELINA 0 Refills Prov:MARCIE HERNANDEZ MD 11/06/17 Nitrofurantoin Monohyd/M-Cryst (MACROBID 100 MG CAPSULE) 100 Mg Capsule, 100 MG PO BID, #10 CAPSULE 0 Refills Prov:MARCIE HERNANDEZ MD 11/06/17 Sulfacetamide Sodium (SULFACETAMIDE SODIUM) 15 Ml Drops, 15 ML OS QID, #15 ML Prov:EVERTON RIOS MD 06/01/17 Simvastatin (SIMVASTATIN) 20 Mg Tablet, 1 TAB PO HS, #90 TAB 3 Refills Prov:EVERTON RIOS MD 03/02/17 Omeprazole (OMEPRAZOLE) 20 Mg Capsule.dr, 1 CAP PO QAM, #90 CAP 3 Refills TAKE ONE CAPSULE BY MOUTH ONCE A DAY Prov:IZABELLA GARAY PHARMD 01/15/17 Reported Medications Warfarin Sodium (COUMADIN) 7.5 Mg Tablet, 7.5 MG PO MON 07/12/17 Warfarin Sodium (COUMADIN) 5 Mg Tablet, 5 MG PO RICE,TU,W,TH,F,SA 07/12/17 Cyanocobalamin (Vitamin B-12) (B-12) 1,000 Mcg Tablet.er, 1000 MCG PO QDAY 06/01/17 Calcium Carb & Cit/Vitamin D3 (CITRACAL + D ER TABLET) 1 Each Tablet.er, 1 TAB PO QDAY 04/03/15 Ferrous Sulfate (IRON) 325 Mg Capsule.er, 325 MG PO TID 02/01/15 Past Medical/Surgical History Patient has a past medical history significant for migraines, mitral valve replacement, pacemaker, hypercholesterolemia, pneumonia, GERD, arthritis, back pain, diabetes, anemia, skin cancer with skin grafts, history of tonsillectomy, mastectomy, lumpectomy, is on chronic anticoagulation with Coumadin. Hx Smoking: No Smoking Status: Former Smoker Exposure to Second Hand Smoke?: No Hx Substance Use Disorder: No Hx Alcohol Use: No Constitutional Vital Sign - Last 24 Hours 11/15/17 11/15/17 07:51 07:54 Temp 97.8 Pulse 80 Resp 20 B/P (MAP) 140/67 (91) 140/67 Pulse Ox 91 O2 Delivery Room Air Physical Exam General/Constitutional: Patient is awake, alert, nontoxic and in no acute respiratory distress. Head: Normocephalic and atraumatic. Eyes: Conjunctival clear, Pupils are equal and reactive to light. Extraocular muscles are intact and symmetrical. Sclera are clear and anicteric. Ears:External canals are clear. Tympanic membranes are clear with normal landmarks and light reflex. Nares: No rhinorrhea or bleeding. Turbinates are pink and moist. Oropharyngeal: Mucous membranes are moist. Neck: Supple, no adenopathy. Cardiovascular: Heart is regular rate and rhythm without audible murmurs, rubs or gallops. Pulmonary: Lungs are clear to auscultation bilaterally. There are no wheezes, rales, or rhonchi. Chest rise is symmetrical Abdomen: Soft, nontender, no guarding or peritoneal signs. Extremities: No gross deformities, No peripheral cyanosis. Able to move all 4 extremities. Patient has a 10 cm x 10 cm ecchymosis to the lateral aspect of the left upper humerus. Patient also has bruising and some swelling to the metacarpal phalangeal joints of the 2nd and 3rd area of the right hand. Patient complains of pain to the posterior lateral aspect of the right femur without ecchymosis noted. Neuro: Alert and oriented X3, Skin: No rashes, skin is warm dry and well perfused. Medical Decision Making Data Points Result Diagram: 11/15/17 0836 Laboratory Hematology Test 11/15/17 08:36 Red Blood Count 3.05 M/uL (4.17-5.56) Mean Corpuscular Volume 97.4 fL (80.0-96.0) Mean Corpuscular Hemoglobin 32.9 pg (26.0-33.0) Mean Corpuscular Hemoglobin Concent 33.8 g/dL (32.0-36.0) Red Cell Distribution Width 16.6 % (11.5-14.5) Mean Platelet Volume 8.9 fL (7.2-11.1) Neutrophils (%) (Auto) 68.7 % (39.4-72.5) Lymphocytes (%) (Auto) 13.5 % (17.6-49.6) Monocytes (%) (Auto) 11.8 % (4.1-12.4) Eosinophils (%) (Auto) 4.8 % (0.4-6.7) Basophils (%) (Auto) 1.2 % (0.3-1.4) Nucleated RBC Relative Count (auto) 0.3 /100WBC Neutrophils # (Auto) 1.8 K/uL (2.0-7.4) Lymphocytes # (Auto) 0.4 K/uL (1.3-3.6) Monocytes # (Auto) 0.3 K/uL (0.3-1.0) Eosinophils # (Auto) 0.1 K/uL (0.0-0.5) Basophils # (Auto) 0.0 K/uL (0.0-0.1) Nucleated RBC Absolute Count (auto) 0.01 K/uL Prothrombin Time 16.2 seconds (12.0-14.4) Prothromb Time International Ratio 1.29 Chemistry Test 11/15/17 08:36 White Blood Count 2.6 k/uL (4.5-11.0) Red Blood Count 3.05 M/uL (4.17-5.56) Hemoglobin 10.0 g/dL (12.0-16.0) Hematocrit 29.8 % (34.0-47.0) Mean Corpuscular Volume 97.4 fL (80.0-96.0) Mean Corpuscular Hemoglobin 32.9 pg (26.0-33.0) Mean Corpuscular Hemoglobin Concent 33.8 g/dL (32.0-36.0) Red Cell Distribution Width 16.6 % (11.5-14.5) Platelet Count 180 K/uL (150-450) Mean Platelet Volume 8.9 fL (7.2-11.1) Neutrophils (%) (Auto) 68.7 % (39.4-72.5) Lymphocytes (%) (Auto) 13.5 % (17.6-49.6) Monocytes (%) (Auto) 11.8 % (4.1-12.4) Eosinophils (%) (Auto) 4.8 % (0.4-6.7) Basophils (%) (Auto) 1.2 % (0.3-1.4) Nucleated RBC Relative Count (auto) 0.3 /100WBC Neutrophils # (Auto) 1.8 K/uL (2.0-7.4) Lymphocytes # (Auto) 0.4 K/uL (1.3-3.6) Monocytes # (Auto) 0.3 K/uL (0.3-1.0) Eosinophils # (Auto) 0.1 K/uL (0.0-0.5) Basophils # (Auto) 0.0 K/uL (0.0-0.1) Nucleated RBC Absolute Count (auto) 0.01 K/uL Prothrombin Time 16.2 seconds (12.0-14.4) Prothromb Time International Ratio 1.29 Coagulation Test 11/15/17 08:36 Prothrombin Time 16.2 seconds Prothromb Time International Ratio 1.29 EKG/Imaging Imaging 11/15/2017 9:32:04 am x-ray of the right hand negative, x-ray of the right femur negative, x-ray of the left humerus negative ED Course/Re-evaluation ED Course 11/15/2017 8:36:27 am plan at this time will be to x-ray the left humerus, right hand and right femur. We will also check INR and CBC at this time. Because of the mechanism of injury along with a completely awake alert and oriented patient I do not feel the patient requires a CT of the head at this time. Decision to Disposition Date: Nov 15, 2017 Decision to Disposition Time: 09:32 Depart Departure Latest Vital Signs Vital Signs Date Time Temp Pulse Resp B/P (MAP) Pulse Ox O2 Delivery O2 Flow Rate FiO2 11/15/17 07:54 97.8 80 20 140/67 91 Room Air Core Temperature (Celsius): 37.28 Impression: Primary Impression: Multiple contusions Condition: Improved Disposition: HOME OR SELF-CARE Referrals: EVERTON RIOS MD (PCP) Patient Instructions: Contusion in Adults (ED) Additional Instructions: Your INR today was 1.29; usually most providers would like to have your INR between 2-3 or 2.5-3.5. You should call whoever prescribes your blood thinner today, them know your INR today was 1.29 and ask if there should be any changes made to how you're taking your anticoagulation medication. You will not need to get your INR checked tomorrow as it was done today. DUY CHAPPELL MD Nov 15, 2017 07:46
[2017-11-15 08:44] LABS: PLATELET COUNT, AUTOMATED 180 K/uL (150-450)
[2017-11-15 09:05] LABS: INR 1.29
[2017-11-15 09:34] VITALS: BP 147/66
--- NOTE | 2017-11-15 09:44 | RADIOLOGY IMAGING REPORT ---
FACILITY: [facility] PATIENT NAME: Nadia Baumann : 1930 MR: [id number] V: [id number] EXAM DATE: ORDERING PHYSICIAN: DUY CHAPPELL TECHNOLOGIST: Location: [facility] Patient: Nadia Baumann : 1930 Visit/Account:[id number] Date of Sevice: 11/15/2017 Exam type: HUMERUS LEFT History: fall Comparison: None. Findings: Two views of the left humerus demonstrates no evidence of acute fracture or dislocation. Degenerativ e changes at the left elbow joint and left shoulder are incidentally noted IMPRESSION: 1. No evidence of acute fracture-dislocation involving the left humerus Report Dictated By: Darlyn Alvarado MD at 11/15/2017 9:38 AM Report E-Signed By: Darlyn Alvarado MD at 11/15/2017 9:40 AM WSN:[id number]
--- NOTE | 2017-11-15 09:49 | RADIOLOGY IMAGING REPORT ---
FACILITY: [facility] PATIENT NAME: Nadia Baumann : 1930 MR: [id number] V: [id number] EXAM DATE: ORDERING PHYSICIAN: DUY CHAPPELL TECHNOLOGIST: Location: [facility] [place] Patient: Nadia Baumann : 1930 Visit/Account:[id number] Date of Sevice: 11/15/2017 Exam type: FEMUR RIGHT History: fall Comparison: None. Findings: AP and lateral views of the right femur demonstrate no evidence of acute fracture or dislocation. Th ere are marked severe degenerative changes incidentally noted are tricompartmental degenerative perez es of the right knee and moderate degenerative changes at the right hip joint. There is a cortical irregularity seen along the lateral aspect of the superior pubic ramus on the rig ht with adjacent linear lucency. Correlation with symptoms needed to exclude a subtle fracture. IMPRESSION: 1. No evidence of acute fracture-dislocation involving the right femur There is a cortical irregularity with adjacent linear lucency seen along the lateral aspect of these superior pubic ramus on the right. Correlation with symptoms needed as a subtle fracture is not tota lly excluded. Report Dictated By: Darlyn Alvarado MD at 11/15/2017 9:40 AM Report E-Signed By: Darlyn Alvarado MD at 11/15/2017 9:44 AM WSN:[email or web address]
--- NOTE | 2017-11-15 09:52 | RADIOLOGY IMAGING REPORT ---
FACILITY: [facility] [place] PATIENT NAME: Nadia Baumann : 1930 MR: [id number] V: [id number] EXAM DATE: ORDERING PHYSICIAN: DUY CHAPPELL TECHNOLOGIST: Location: [facility] [place] Patient: Nadia Baumann : 1930 Visit/Account:[id number] Date of Sevice: 11/15/2017 Exam type: HAND COMPLETE RIGHT History: Fall, bruising on right hand at second and third distal metacarpals Comparison: April 17, 2017. Findings: There is no evidence of acute fracture-dislocation involving the right hand. There are moderate ster nal changes seen along the lateral aspect of the carpal bones and at the DIP and PIP joints. Metalli c ring surrounds the proximal phalanx of the right fourth finger obscuring some of the underlying bon y detail IMPRESSION: 1. No evidence of acute fracture-dislocation involving the right hand Degenerative changes as described Report Dictated By: Darlyn Alvarado MD at 11/15/2017 9:44 AM Report E-Signed By: Darlyn Alvarado MD at 11/15/2017 9:47 AM WSN:[email or web address]
== END 2017-11-15 09:49 | disposition home or self-care (01) ==
LOC: ER 08:00
DX: S40.022A Contusion of left upper arm, initial encounter (principal); W18.30XA Fall on same level, unspecified, initial encounter
CPT/HCPCS: 36415; 85025; 85610; 99284

== ENCOUNTER 2017-11-16 08:18 | Emergency (ER) | payer MEDICARE, OTHER ==
[2017-06-24 17:09] VITALS: Wt 56.8 kg
--- NOTE | 2017-11-16 08:22 | ER Report ---
History and Physical Time Seen By MD: 08:20 HPI/ROS CHIEF COMPLAINT: Altered mental status HISTORY OF PRESENT ILLNESS: Patient is an 86-year-old female well known to the emergency department for frequent visits. Patient is brought in by family for episode of confusion this morning. According to the and the patient went to bed feeling normal last evening. Around 4 AM he noticed that she was not in bed and was walking the hallway. He was able to convince her to return to bed. This morning when she woke up around 8:30 he states that her speech was unintelligible for a period of time. And then gradually she would be able to answer yes no questions. Patient was seen in the emergency department yesterday for a fall. She was examined mental status at that time appeared to be normal. A CT scan at that time was not performed. I have reviewed the electronic medical record. The patient has been seen in [facility] department 25 times since April and a more focused review from the beginning of June 2017 until yesterday shows the patient has been seen 15 times, 9 of which have been for falls and 5 of these falls had head injuries. Patient is anticoagulated on Coumadin although she was found to be subtherapeutic yesterday with an INR of 1. When questioned patient states she is in no discomfort or pain. She does not know why she is in the emergency department today. Is been has concerns about altered mental status as does the son-in-law. REVIEW OF SYSTEMS: Constitutional: No fever, no chills. Eyes: No discharge. ENT: No sore throat. Cardiovascular: No chest pain, no palpitations. Respiratory: No cough, no shortness of breath. Gastrointestinal: No abdominal pain, no vomiting. Genitourinary: No hematuria. Musculoskeletal: No back pain. Skin: No rashes. Neurological: No headache. Altered mental status. Allergies: Coded Allergies: No Known Drug Allergies (Unverified , 11/16/17) Home Meds Active Scripts Ondansetron (ZOFRAN ODT) 4 Mg Tab.rapdis, 4 MG PO Q6H Y for NAUSEA/VOMITING, # 20 TAB.ANGELINA 0 Refills Prov:MARCIE HERNANDEZ MD 11/06/17 Nitrofurantoin Monohyd/M-Cryst (MACROBID 100 MG CAPSULE) 100 Mg Capsule, 100 MG PO BID, #10 CAPSULE 0 Refills Prov:MARCIE HERNANDEZ MD 11/06/17 Sulfacetamide Sodium (SULFACETAMIDE SODIUM) 15 Ml Drops, 15 ML OS QID, #15 ML Prov:EVERTON RIOS MD 06/01/17 Simvastatin (SIMVASTATIN) 20 Mg Tablet, 1 TAB PO HS, #90 TAB 3 Refills Prov:EVERTON RIOS MD 03/02/17 Omeprazole (OMEPRAZOLE) 20 Mg Capsule.dr, 1 CAP PO QAM, #90 CAP 3 Refills TAKE ONE CAPSULE BY MOUTH ONCE A DAY Prov:IZABELLA GARAY PHARMD 01/15/17 Reported Medications Warfarin Sodium (COUMADIN) 7.5 Mg Tablet, 7.5 MG PO MON 07/12/17 Warfarin Sodium (COUMADIN) 5 Mg Tablet, 5 MG PO RICE,TU,W,TH,F,SA 07/12/17 Cyanocobalamin (Vitamin B-12) (B-12) 1,000 Mcg Tablet.er, 1000 MCG PO QDAY 06/01/17 Calcium Carb & Cit/Vitamin D3 (CITRACAL + D ER TABLET) 1 Each Tablet.er, 1 TAB PO QDAY 04/03/15 Ferrous Sulfate (IRON) 325 Mg Capsule.er, 325 MG PO TID 02/01/15 Past Medical/Surgical History Patient has a past medical history of essential tremor, dementia, migraines, hyperlipidemia, pneumonia, reflux, arthritis, back pain, hard of hearing, borderline diabetes, anemia, skin cancer, breast cancer. Patient has surgical history bilateral mastectomy, lumpectomy, skin cancer removal, cataract surgery, tonsillectomy, hysterectomy, D&C, appendectomy, pacemaker, mitral valve replacement. Hx Smoking: No Smoking Status: Former Smoker Exposure to Second Hand Smoke?: No Hx Substance Use Disorder: No Hx Alcohol Use: No Constitutional Vital Sign - Last 24 Hours 11/16/17 11/16/17 11/16/17 11/16/17 08:20 08:26 08:33 08:48 Temp 97.9 Pulse 93 79 71 Resp 16 B/P (MAP) 142/86 143/86 (105) 136/72 (93) Pulse Ox 95 94 92 O2 Delivery Room Air 11/16/17 11/16/17 11/16/17 11/16/17 09:03 09:13 09:18 09:48 Pulse 79 76 70 B/P (MAP) 146/76 (99) Pulse Ox 92 92 91 11/16/17 11/16/17 10:00 10:18 Pulse 83 B/P (MAP) 143/60 (87) Pulse Ox 94 Physical Exam General/Constitutional: Patient is awake, alert, nontoxic and in no acute respiratory distress. Head: Normocephalic Eyes: Conjunctival clear, Pupils are equal and reactive to light. Extraocular muscles are intact and symmetrical. Sclera are clear and anicteric. Ears:External canals are clear. Tympanic membranes are clear with normal landmarks and light reflex. Nares: No rhinorrhea or bleeding. Turbinates are pink and moist. Oropharyngeal: Mucous membranes are moist. There is no pharyngeal erythema or exudate. There are no palatal petechiae. Uvula is midline and symmetrical. Neck: Supple, no adenopathy. Cardiovascular: Heart is regular rate and rhythm 3/6 systolic ejection murmur Pulmonary: Lungs are clear to auscultation bilaterally. There are no wheezes, rales, or rhonchi. Chest rise is symmetrical Abdomen: Soft, nontender, no guarding or peritoneal signs. Reducible abdominal wall hernia Extremities: No gross deformities, No peripheral cyanosis. Able to move all 4 extremities. Neuro: Alert and oriented to person, place and time Skin: Patient has multiple contusions in various stages of healing. Medical Decision Making Data Points Result Diagram: 11/16/17 0850 11/16/17 0850 Laboratory Hematology Test 11/16/17 08:47 11/16/17 08:50 Urine Color Straw Urine Clarity Clear Urine pH 7.0 pH (4.8-9.5) Urine Specific [place] 1.008 Urine Protein Negative mg/dL (NEGATIVE) Urine Glucose (UA) Negative mg/dL (NEGATIVE) Urine Ketones Negative mg/dL (NEGATIVE) Urine Blood Negative (NEGATIVE) Urine Nitrite Negative (NEGATIVE) Urine Bilirubin Negative (NEGATIVE) Urine Urobilinogen Negative mg/dL (0.2-1.9) Urine Leukocyte Esterase Negative (NEGATIVE) Urine RBC <1 /HPF (0-2/HPF) Urine WBC <1 /HPF (0-5/HPF) Urine Squamous Epithelial Cells None /LPF (NONE-FEW) Urine Bacteria Few /HPF (NONE-FEW) Urine Mucus None /HPF (NONE-FEW) Red Blood Count 3.06 M/uL (4.17-5.56) Mean Corpuscular Volume 98.6 fL (80.0-96.0) Mean Corpuscular Hemoglobin 33.2 pg (26.0-33.0) Mean Corpuscular Hemoglobin Concent 33.7 g/dL (32.0-36.0) Red Cell Distribution Width 16.4 % (11.5-14.5) Mean Platelet Volume 9.2 fL (7.2-11.1) Neutrophils (%) (Auto) 75.3 % (39.4-72.5) Lymphocytes (%) (Auto) 11.6 % (17.6-49.6) Monocytes (%) (Auto) 9.0 % (4.1-12.4) Eosinophils (%) (Auto) 3.5 % (0.4-6.7) Basophils (%) (Auto) 0.6 % (0.3-1.4) Nucleated RBC Relative Count (auto) 0.0 /100WBC Neutrophils # (Auto) 2.6 K/uL (2.0-7.4) Lymphocytes # (Auto) 0.4 K/uL (1.3-3.6) Monocytes # (Auto) 0.3 K/uL (0.3-1.0) Eosinophils # (Auto) 0.1 K/uL (0.0-0.5) Basophils # (Auto) 0.0 K/uL (0.0-0.1) Nucleated RBC Absolute Count (auto) 0.00 K/uL Sodium Level 141 mmol/L (137-145) Potassium Level 3.9 mmol/L (3.5-5.0) Chloride Level 105 mmol/L (98-107) Carbon Dioxide Level 25 mmol/L (22-31) Blood Urea Nitrogen 14 mg/dl (7-18) Creatinine 0.70 mg/dl (0.52-1.04) Glomerular Filtration Rate Calc > 60.0 Random Glucose 96 mg/dl (75-110) Calcium Level 9.2 mg/dl (8.4-10.2) Magnesium Level 1.7 mg/dl (1.7-2.2) Total Bilirubin 0.5 mg/dl (0.2-1.3) Aspartate Amino Transf (AST/SGOT) 24 U/L (0-35) Alanine Aminotransferase (ALT/SGPT) 17 U/L (0-56) Alkaline Phosphatase 139 U/L (0-126) Ammonia 13 UMOL/L (9-33) Troponin I 0.013 ng/ml Total Protein 6.6 g/dl (6.3-8.2) Albumin 3.7 g/dl (3.5-5.0) Thyroid Stimulating Hormone (TSH) 3.06 uIU/ml (0.46-4.68) Serum Alcohol < 10 mg/dl Chemistry Test 11/16/17 08:47 11/16/17 08:50 Urine Color Straw Urine Clarity Clear Urine pH 7.0 pH (4.8-9.5) Urine Specific [place] 1.008 Urine Protein Negative mg/dL (NEGATIVE) Urine Glucose (UA) Negative mg/dL (NEGATIVE) Urine Ketones Negative mg/dL (NEGATIVE) Urine Blood Negative (NEGATIVE) Urine Nitrite Negative (NEGATIVE) Urine Bilirubin Negative (NEGATIVE) Urine Urobilinogen Negative mg/dL (0.2-1.9) Urine Leukocyte Esterase Negative (NEGATIVE) Urine RBC <1 /HPF (0-2/HPF) Urine WBC <1 /HPF (0-5/HPF) Urine Squamous Epithelial Cells None /LPF (NONE-FEW) Urine Bacteria Few /HPF (NONE-FEW) Urine Mucus None /HPF (NONE-FEW) White Blood Count 3.5 k/uL (4.5-11.0) Red Blood Count 3.06 M/uL (4.17-5.56) Hemoglobin 10.2 g/dL (12.0-16.0) Hematocrit 30.2 % (34.0-47.0) Mean Corpuscular Volume 98.6 fL (80.0-96.0) Mean Corpuscular Hemoglobin 33.2 pg (26.0-33.0) Mean Corpuscular Hemoglobin Concent 33.7 g/dL (32.0-36.0) Red Cell Distribution Width 16.4 % (11.5-14.5) Platelet Count 177 K/uL (150-450) Mean Platelet Volume 9.2 fL (7.2-11.1) Neutrophils (%) (Auto) 75.3 % (39.4-72.5) Lymphocytes (%) (Auto) 11.6 % (17.6-49.6) Monocytes (%) (Auto) 9.0 % (4.1-12.4) Eosinophils (%) (Auto) 3.5 % (0.4-6.7) Basophils (%) (Auto) 0.6 % (0.3-1.4) Nucleated RBC Relative Count (auto) 0.0 /100WBC Neutrophils # (Auto) 2.6 K/uL (2.0-7.4) Lymphocytes # (Auto) 0.4 K/uL (1.3-3.6) Monocytes # (Auto) 0.3 K/uL (0.3-1.0) Eosinophils # (Auto) 0.1 K/uL (0.0-0.5) Basophils # (Auto) 0.0 K/uL (0.0-0.1) Nucleated RBC Absolute Count (auto) 0.00 K/uL Glomerular Filtration Rate Calc > 60.0 Calcium Level 9.2 mg/dl (8.4-10.2) Magnesium Level 1.7 mg/dl (1.7-2.2) Total Bilirubin 0.5 mg/dl (0.2-1.3) Aspartate Amino Transf (AST/SGOT) 24 U/L (0-35) Alanine Aminotransferase (ALT/SGPT) 17 U/L (0-56) Alkaline Phosphatase 139 U/L (0-126) Ammonia 13 UMOL/L (9-33) Troponin I 0.013 ng/ml Total Protein 6.6 g/dl (6.3-8.2) Albumin 3.7 g/dl (3.5-5.0) Thyroid Stimulating Hormone (TSH) 3.06 uIU/ml (0.46-4.68) Serum Alcohol < 10 mg/dl Toxicology Test 11/16/17 08:50 Serum Alcohol < 10 mg/dl Urinalysis Test 11/16/17 08:47 Urine Color Straw Urine Clarity Clear Urine pH 7.0 pH (4.8-9.5) Urine Specific [place] 1.008 Urine Protein Negative mg/dL (NEGATIVE) Urine Glucose (UA) Negative mg/dL (NEGATIVE) Urine Ketones Negative mg/dL (NEGATIVE) Urine Blood Negative (NEGATIVE) Urine Nitrite Negative (NEGATIVE) Urine Bilirubin Negative (NEGATIVE) Urine Urobilinogen Negative mg/dL (0.2-1.9) Urine Leukocyte Esterase Negative (NEGATIVE) Urine RBC <1 /HPF (0-2/HPF) Urine WBC <1 /HPF (0-5/HPF) Urine Squamous Epithelial Cells None /LPF (NONE-FEW) Urine Bacteria Few /HPF (NONE-FEW) Urine Mucus None /HPF (NONE-FEW) EKG/Imaging EKG Interpretation EKG shows junctional rhythm with a right axis deviation patient with full to criteria for left ventricular hypertrophy. This EKG was compared to one from there was no significant changes found. Imaging FACILITY: [facility] [place] PATIENT NAME: Nadia Baumann : 1930 MR: [id number] V: [id number] EXAM DATE: ORDERING PHYSICIAN: DUY CHAPPELL TECHNOLOGIST: Location[place] [facility] [place] Patient: Nadia Baumann : 1930 Visit/Account:[id number] Date of Sevice: 11/16/2017 Exam type: CHEST SINGLE AP History: ams Comparison: 2017. Findings: Pacemaker generator overlies the right upper chest with single lead projecting over the right ventricle. There is a prosthetic cardiac valve. Small amount linear stranding in the left lung base remains stable. There is no evidence of overt pulmonary edema or pleural effusions. The cardiac silhouette is markedly enlarged but unchanged. IMPRESSION: 1. Cardiomegaly unchanged Linear scarring left lung base unchanged Report Dictated By: Darlyn Alvarado MD at 11/16/2017 8:58 AM Report E-Signed By: Darlyn Alvarado MD at 11/16/2017 9:00 AM WSN:[email or web address] 11/16/2017 11:01:13 am I received a call from [facility] as they were having some issues with image transmission of the CT scan of the head. The report of the CT from the radiologist was that there were no acute findings. ED Course/Re-evaluation Clinical Indication for ER IV: IV Access ED Course 11/16/2017 8:44:19 am patient returns to the emergency department for altered mental status. I have grave concerns about the patient's safety in her current living environment. She is obviously well loved by her who wishes her to stay at home along with her son-in-law who also accompanies her to the emergency department. My concern is that despite the doing his best to take care of the patient she is at severe risk for injury at home as if he is unable I believe to adequately provide care for her. She is a fall risk and on anticoagulation. My concern would be that she would have a fall resulting in a significant head injury or perhaps an orthopedic injury that would leave her with a devastating injury such as a hip fracture which would have a high morbidity and mortality rate. I explained to the family and the patient that I do not feel that she is safe in her current living environment. I further stressed that she needs to have 24 hour nursing care. expressed concern that she did live in a senior care for some time and she "hated". I understand her concerns however my recommendation can be nothing other than she requires 24 -hour supervision and nursing care. As evidenced by the medical record and frequent emergency department visits with a large portion being falls with head injury my plan will be to perform a medical screening exam to determine if there is a medical cause for her frequent falls, if her workup is unremarkable I will still recommend admission to the hospital so that social work can be involved to determine the best disposition for this patient. 11/16/2017 10:11:17 am social scientist here to evaluate the patient and talked to family regarding safety issues at home. Also to discuss possibility for senior care care. 11/16/2017 10:54:11 am I had a 10 minute discussion with patient, and daughter and son-in-law along with social work who is at bedside. It is our unswerving opinion that the patient is at harm if she goes home due to possible future fall that could cause brain injury internal trauma or fracture that could cause permanent disability or . The patient herself is unable to sign her AMA form due to dementia. This is a diagnosis which she does carry. The patient does voice the wish to go home but after multiple attempts to try to explain why it is in her best interest to be admitted or go to a senior care she states that she does not understand. The patient's wants to sign her out against medical advice. He was explained the same risks and is willing to accept responsibility for the patient. It was further explained to the patient that if they change their mind at any time they may return to the emergency department for reevaluation and/or admission if needed. It was further explained that signing this AMA form does not prevent treatment in the future. The AMA form was signed by the patient's , witnessed by the patient's daughter, and also witnessed by social work. Decision to Disposition Date: Nov 16, 2017 Decision to Disposition Time: 10:56 Depart Departure Latest Vital Signs Vital Signs Date Time Temp Pulse Resp B/P (MAP) Pulse Ox O2 Delivery O2 Flow Rate FiO2 11/16/17 10:18 83 94 11/16/17 10:00 143/60 (87) 11/16/17 08:20 97.9 16 Room Air Core Temperature (Celsius): 37.28 Impression: Primary Impression: Multiple contusions Additional Impressions: Confusion Dementia Condition: Condition Unchanged Disposition: AGAINST MED ADV / DISCONT CARE Referrals: EVERTON RIOS MD (PCP) Patient Instructions: Fall Prevention for Older Adults (ED) Additional Instructions: Follow-up with her primary care provider on a routine basis. I would recommend a discussion with her primary care provider about whether or not to continue with anticoagulation due to frequent falls. If you change your mind and wish to be admitted to the hospital or are considering assisted care return immediately to the emergency department. Problem Qualifiers Additional Impressions: Dementia Dementia type: unspecified type Dementia behavioral disturbance: without behavioral disturbance Qualified Codes: F03.90 - Unspecified dementia without behavioral disturbance DUY CHAPPELL MD Nov 16, 2017 08:22
--- NOTE | 2017-11-16 09:04 | RADIOLOGY IMAGING REPORT ---
FACILITY: [facility] PATIENT NAME: Nadia Baumann : 1930 MR: [id number] V: [id number] EXAM DATE: ORDERING PHYSICIAN: DUY CHAPPELL TECHNOLOGIST: Location: [facility] Patient: Nadia Baumann : 1930 Visit/Account:[id number] Date of Sevice: 11/16/2017 Exam type: CHEST SINGLE AP History: ams Comparison: 2017. Findings: Pacemaker generator overlies the right upper chest with single lead projecting over the right ventric le. There is a prosthetic cardiac valve. Small amount linear stranding in the left lung base remain s stable. There is no evidence of overt pulmonary edema or pleural effusions. The cardiac silhouett e is markedly enlarged but unchanged. IMPRESSION: 1. Cardiomegaly unchanged Linear scarring left lung base unchanged Report Dictated By: Darlyn Alvarado MD at 11/16/2017 8:58 AM Report E-Signed By: Darlyn Alvarado MD at 11/16/2017 9:00 AM [id number]:[email or web address]
[2017-11-16 09:16] LABS: PLATELET COUNT, AUTOMATED 177 K/uL (150-450)
[2017-11-16 11:00] VITALS: BP 159/77
--- NOTE | 2017-11-16 11:21 | RADIOLOGY IMAGING REPORT ---
FACILITY: [facility] PATIENT NAME: Nadia Baumann : 1930 MR: [id number] V: [id number] EXAM DATE: ORDERING PHYSICIAN: DUY CHAPPELL TECHNOLOGIST: Location: [facility] Patient: Nadia Baumann : 1930 Visit/Account:[id number] Date of Sevice: 11/16/2017 EXAMINATION: CT Head without intravenous contrast HISTORY: Altered mental status. TECHNIQUE: Axial images were obtained from the skull base to the vertex without intravenous contrast . Sagittal and coronal reformatted images are also submitted. One of the following dose optimization techniques was utilized in the performance of this exam: Autom ated exposure control; adjustment of the mA and/or kV according to the patient's size; or use of an i terative reconstruction technique. Specific details can be referenced in the facility's radiology C T exam operational policy. COMPARISON: 10/31/2017. FINDINGS: Brain volume: Mild generalized volume loss. Ventricles: Negative. Acute ischemic changes: None. Hemorrhage: None. Masses / edema: None. Cabrera-white: Negative. White matter: Stable mild to moderate chronic microvascular ischemic changes. Vessels: Carotid siphon calcification. Normal density in the dural venous sinuses. Extra-axial: Negative. Calvarium / skull base: Negative. Visualized sinuses / orbits: Negative. IMPRESSION: No acute intracranial abnormality. Report Dictated By: Jimi Floyd MD at 11/16/2017 9:40 AM Report E-Signed By: Jimi Floyd MD at 11/16/2017 11:17 AM WSN:[email or web address]
--- NOTE | 2017-11-16 11:42 | EKG ---
FACILITY: [facility] - [place] PATIENT NAME: JONAH MAYNARD : [id number] MR: [id number] V: [id number] EXAM DATE: ORDERING PHYSICIAN: DUY CHAPPELL TECHNOLOGIST: SAM Meadows Reason : AMS Blood Pressure : / mmHG Vent. Rate : 075 BPM Atrial Rate : 070 BPM P-R Int : 000 ms QRS Dur : 092 ms QT Int : 442 ms P-R-T Axes : 000 090 -30 degrees QTc Int : 493 ms Junctional rhythm Rightward axis Moderate voltage criteria for LVH, may be normal variant Nonspecific ST abnormality Prolonged QT Abnormal ECG When compared with ECG of 09-NOV-2017 05:15, No significant change was found Confirmed by Williams Miller ([id number]) on 11/17/2017 12:05:17 AM Referred By: MISTI Confirmed By:Willimas Cartagena
== END 2017-11-16 11:15 | disposition left against medical advice (07) ==
LOC: ER 08:29
DX: F03.90 Unspecified dementia, unspecified severity, without behavioral disturbance, psychotic disturbance, mood disturbance, and anxiety (principal); T14.8XXA Other injury of unspecified body region, initial encounter; I51.7 Cardiomegaly; E78.5 Hyperlipidemia, unspecified; K21.9 Gastro-esophageal reflux disease without esophagitis; W19.XXXA Unspecified fall, initial encounter; Z91.81 History of falling; Z95.0 Presence of cardiac pacemaker; Z79.01 Long term (current) use of anticoagulants; Z79.899 Other long term (current) drug therapy
CPT/HCPCS: 70450; 71045; 81001; 82140; 83735; 84443; 84484; 85025; 87088; 93005; 99285; A4353; G0480; 80320; 82040; 82247; 82310; 82374; 82435; 82565; 82947; 84075; 84132; 84155; 84295; 84450; 84460; 84520

== ENCOUNTER → 2017-11-29 | Outpatient (CLI) | payer MEDICARE, OTHER ==
[2017-06-24 17:09] VITALS: BMI 21.6
[2017-11-29 17:13] LABS: INR 1.88
== END ==
LOC: LAB 16:43
PROVIDERS: ATTEND Internal Medicine
DX: Z95.2 Presence of prosthetic heart valve (principal)
CPT/HCPCS: 36415; 85610

== ENCOUNTER → 2017-12-02 | Outpatient (CLI) | payer MEDICARE, OTHER ==
[2017-06-24 17:09] VITALS: BMI 21.6
== END ==
LOC: SPU 15:54
PROVIDERS: ATTEND Internal Medicine
DX: D64.9 Anemia, unspecified (principal); R71.0 Precipitous drop in hematocrit

== ENCOUNTER → 2017-12-02 | Outpatient (CLI) | payer MEDICARE, OTHER ==
[2017-06-24 17:09] VITALS: BMI 21.6
[2017-12-02 11:27] LABS: PLATELET COUNT, AUTOMATED 177 K/uL (150-450)
[2017-12-02 11:40] LABS: INR 2.24
== END ==
LOC: LAB 11:07
PROVIDERS: ATTEND Internal Medicine
DX: I48.91 Unspecified atrial fibrillation (principal); Z95.2 Presence of prosthetic heart valve; G25.0 Essential tremor; R26.9 Unspecified abnormalities of gait and mobility; W19.XXXA Unspecified fall, initial encounter; C90.00 Multiple myeloma not having achieved remission
CPT/HCPCS: 36415; 82040; 82247; 82310; 82374; 82435; 82565; 82947; 84075; 84132; 84155; 84295; 84450; 84460; 84520; 85025; 85610; 86850; 86870; 86900; 86901; 86920

== ENCOUNTER → 2017-12-18 | Outpatient (CLI) | payer MEDICARE, OTHER ==
[2017-06-24 17:09] VITALS: BMI 21.6
== END ==
LOC: AMB 08:10
PROVIDERS: ATTEND Nurse Practitioner
DX: M25.531 Pain in right wrist (principal); R53.1 Weakness; R51 Headache; S61.511A Laceration without foreign body of right wrist, initial encounter; W01.0XXA Fall on same level from slipping, tripping and stumbling without subsequent striking against object, initial encounter; Z91.81 History of falling; Y92.019 Unspecified place in single-family (private) house as the place of occurrence of the external cause
CPT/HCPCS: A0425; A0427

== ENCOUNTER → 2017-12-18 | Outpatient (CLI) | payer MEDICARE, OTHER ==
[2017-06-24 17:09] VITALS: BMI 21.6
== END ==
LOC: AMB 10:44
PROVIDERS: ATTEND Nurse Practitioner
DX: R53.1 Weakness (principal); M25.531 Pain in right wrist
CPT/HCPCS: A0425; A0428

== ENCOUNTER → 2017-12-28 | Outpatient (CLI) | payer MEDICARE, OTHER ==
[2017-06-24 17:09] VITALS: BMI 21.6
[2017-12-28 11:52] LABS: INR 1.85
== END ==
LOC: LAB 11:01
PROVIDERS: ATTEND Internal Medicine
DX: Z79.01 Long term (current) use of anticoagulants (principal)
CPT/HCPCS: 36415; 85610

== ENCOUNTER 2017-12-29 14:28 | Emergency (ER) | payer MEDICARE, OTHER ==
[2017-06-24 17:09] VITALS: Wt 61.3 kg
--- NOTE | 2017-12-29 14:42 | ER Report ---
History and Physical Time Seen By MD: 14:32 Hx. of Stated Complaint: PATIENT HAD A FALL AT HOME, PATIENTHAS HEAD ACHE AND GOOSE EGG TO POSTERIOR LEFT SCALP, PATIENT ON COUMADIN. HPI/ROS CHIEF COMPLAINT: Fall HISTORY OF PRESENT ILLNESS: 87-year-old female patient presents to emergency room with complaints of a fall. Patient was getting up after eating. She "lost her feet"and fell. Her states that he was holding onto her clothes when she fell. He states he believes he slowed her down. He states they've been i nstructed to come to the ER be evaluated where she has a fall due to her being on Coumadin. We discussed with the patient and her that they have had multiple visits, 42 in the last 12 months. Patient denies any neck pain, nausea, vomiting. Patient states that she has no pain at this time except for to the bump on the left side of her head. REVIEW OF SYSTEMS: Respiratory: No cough, no dyspnea. Cardiovascular: No chest pain, no palpitations. Gastrointestinal: No vomiting, no abdominal pain. Musculoskeletal: No back pain. Allergies: Coded Allergies: No Known Drug Allergies (Unverified , 12/29/17) Home Meds Active Scripts Simvastatin (SIMVASTATIN) 20 Mg Tablet, 1 TAB PO HS, #90 TAB 3 Refills Prov:EVERTON RIOS MD 03/02/17 Omeprazole (OMEPRAZOLE) 20 Mg Capsule.dr, 1 CAP PO QAM, #90 CAP 3 Refills TAKE ONE CAPSULE BY MOUTH ONCE A DAY Prov:IZABELLA GARAY PHARMD 01/15/17 Reported Medications Warfarin Sodium (COUMADIN) 7.5 Mg Tablet, 7.5 MG PO MON 07/12/17 Warfarin Sodium (COUMADIN) 5 Mg Tablet, 5 MG PO RICE,TU,W,TH,F,SA 07/12/17 Cyanocobalamin (Vitamin B-12) (B-12) 1,000 Mcg Tablet.er, 1000 MCG PO QDAY 06/01/17 Calcium Carb & Cit/Vitamin D3 (CITRACAL + D ER TABLET) 1 Each Tablet.er, 1 TAB PO QDAY 04/03/15 Ferrous Sulfate (IRON) 325 Mg Capsule.er, 325 MG PO TID 02/01/15 Past Medical/Surgical History Patient has a past medical history of essential tremor, Parkinson's, dementia, migraines, hyperlipidemia, pneumonia, reflux, arthritis, back pain, hard hearing, diabetes, anemia, skin cancer, breast cancer. Patient has surgical history of bilateral mastectomy, lumpectomy, skin cancer removal, tonsillectomy, hysterectomy, D&C, appendectomy, pacemaker placement, mitral replacement. Reviewed Nurses Notes: Yes Hx Smoking: No Smoking Status: Former Smoker Exposure to Second Hand Smoke?: No Hx Substance Use Disorder: No Hx Alcohol Use: No Constitutional Vital Sign - Last 24 Hours 12/29/17 12/29/17 12/29/17 12/29/17 14:30 14:31 15:00 15:30 Temp 98.7 Pulse 93 Resp 24 B/P (MAP) 113/65 113/65 (81) 129/68 (88) 122/64 (83) Pulse Ox 91 O2 Delivery Room Air 12/29/17 12/29/17 12/29/17 12/29/17 16:00 16:05 16:20 16:30 Pulse 88 91 B/P (MAP) 119/63 (81) 131/68 (89) Pulse Ox 93 92 12/29/17 12/29/17 12/29/17 16:35 16:50 17:00 Pulse 88 B/P (MAP) 142/63 (89) Pulse Ox 93 96 Physical Exam General Appearance: The patient is alert, has no immediate need for airway protection and no current signs of toxicity. Respiratory: Chest is non tender, lungs are clear to auscultation. Cardiac: regular rate and rhythm. Patient does have a murmur. Gastrointestinal: Abdomen is soft and non tender, no masses, bowel sounds normal. Musculoskeletal: Neck: Neck is supple and non tender. Extremities have full range of motion and are non tender. Skin: No rashes or lesions. Patient has bumped left-sided scalp. Neuro: Patient is alert and oriented 4, cranial nerves II through XII grossly intact. DIFFERENTIAL DIAGNOSIS: After history and physical exam differential diagnosis was considered for head injury including but not limited to concussion, skull fracture, intraparenchymal contusion, subarachnoid, subdural and epidural hemato ma. Medical Decision Making Data Points Result Diagram: 12/29/17 1500 12/29/17 1500 Laboratory Hematology Test 12/29/17 15:00 Red Blood Count 2.46 M/uL (4.17-5.56) Mean Corpuscular Volume 101.6 fL (80.0-96.0) Mean Corpuscular Hemoglobin 33.6 pg (26.0-33.0) Mean Corpuscular Hemoglobin Concent 33.1 g/dL (32.0-36.0) Red Cell Distribution Width 18.8 % (11.5-14.5) Mean Platelet Volume 8.4 fL (7.2-11.1) Neutrophils (%) (Auto) 73.9 % (39.4-72.5) Lymphocytes (%) (Auto) 10.5 % (17.6-49.6) Monocytes (%) (Auto) 11.3 % (4.1-12.4) Eosinophils (%) (Auto) 3.7 % (0.4-6.7) Basophils (%) (Auto) 0.6 % (0.3-1.4) Nucleated RBC Relative Count (auto) 0.0 /100WBC Neutrophils # (Auto) 2.2 K/uL (2.0-7.4) Lymphocytes # (Auto) 0.3 K/uL (1.3-3.6) Monocytes # (Auto) 0.3 K/uL (0.3-1.0) Eosinophils # (Auto) 0.1 K/uL (0.0-0.5) Basophils # (Auto) 0.0 K/uL (0.0-0.1) Nucleated RBC Absolute Count (auto) 0.00 K/uL Prothrombin Time 23.1 seconds (12.0-14.4) Prothromb Time International Ratio 2.01 Activated Partial Thromboplast Time 34 seconds (23-35) Sodium Level 140 mmol/L (137-145) Potassium Level 3.7 mmol/L (3.5-5.0) Chloride Level 106 mmol/L (98-107) Carbon Dioxide Level 26 mmol/L (22-31) Blood Urea Nitrogen 20 mg/dl (7-18) Creatinine 0.80 mg/dl (0.52-1.04) Glomerular Filtration Rate Calc > 60.0 Random Glucose 116 mg/dl (75-110) Calcium Level 8.6 mg/dl (8.4-10.2) Total Bilirubin 0.3 mg/dl (0.2-1.3) Aspartate Amino Transf (AST/SGOT) 29 U/L (0-35) Alanine Aminotransferase (ALT/SGPT) 28 U/L (0-56) Alkaline Phosphatase 130 U/L (0-126) Total Protein 6.5 g/dl (6.3-8.2) Albumin 3.5 g/dl (3.5-5.0) Chemistry Test 12/29/17 15:00 White Blood Count 3.0 k/uL (4.5-11.0) Red Blood Count 2.46 M/uL (4.17-5.56) Hemoglobin 8.3 g/dL (12.0-16.0) Hematocrit 25.0 % (34.0-47.0) Mean Corpuscular Volume 101.6 fL (80.0-96.0) Mean Corpuscular Hemoglobin 33.6 pg (26.0-33.0) Mean Corpuscular Hemoglobin Concent 33.1 g/dL (32.0-36.0) Red Cell Distribution Width 18.8 % (11.5-14.5) Platelet Count 162 K/uL (150-450) Mean Platelet Volume 8.4 fL (7.2-11.1) Neutrophils (%) (Auto) 73.9 % (39.4-72.5) Lymphocytes (%) (Auto) 10.5 % (17.6-49.6) Monocytes (%) (Auto) 11.3 % (4.1-12.4) Eosinophils (%) (Auto) 3.7 % (0.4-6.7) Basophils (%) (Auto) 0.6 % (0.3-1.4) Nucleated RBC Relative Count (auto) 0.0 /100WBC Neutrophils # (Auto) 2.2 K/uL (2.0-7.4) Lymphocytes # (Auto) 0.3 K/uL (1.3-3.6) Monocytes # (Auto) 0.3 K/uL (0.3-1.0) Eosinophils # (Auto) 0.1 K/uL (0.0-0.5) Basophils # (Auto) 0.0 K/uL (0.0-0.1) Nucleated RBC Absolute Count (auto) 0.00 K/uL Prothrombin Time 23.1 seconds (12.0-14.4) Prothromb Time International Ratio 2.01 Activated Partial Thromboplast Time 34 seconds (23-35) Glomerular Filtration Rate Calc > 60.0 Calcium Level 8.6 mg/dl (8.4-10.2) Total Bilirubin 0.3 mg/dl (0.2-1.3) Aspartate Amino Transf (AST/SGOT) 29 U/L (0-35) Alanine Aminotransferase (ALT/SGPT) 28 U/L (0-56) Alkaline Phosphatase 130 U/L (0-126) Total Protein 6.5 g/dl (6.3-8.2) Albumin 3.5 g/dl (3.5-5.0) Coagulation Test 12/29/17 15:00 Prothrombin Time 23.1 seconds Prothromb Time International Ratio 2.01 Activated Partial Thromboplast Time 34 seconds EKG/Imaging EKG Interpretation 12 lead EKG: Rhythm: normal sinus rhythm Henry: normal QRS: normal ST segments: Nonspecific ST abnormality Imaging Exam type: CHEST SINGLE AP History: Wall Comparison: November 16, 2017. Findings: There is marked cardiomegaly unchanged. Again noted is prosthetic cardiac valve and single lead cardiac pacemaker. Mild chronic peribronchial thickening and linear stranding lung bases remain stable. There is no evidence of acute appear ing infiltrates pleural effusions or pulmonary edema IMPRESSION: 1. Cardiac megaly unchanged Chronic peribronchial thickening and linear scarring in the lung bases unchanged Report Dictated By: Darlyn Alvarado MD at 12/29/2017 3:39 PM Report E-Signed By: Darlyn Alvarado MD at 12/29/2017 3:42 PM EXAMINATION: CT Head without intravenous contrast HISTORY: Trauma. TECHNIQUE: Axial images were obtained from the skull base to the vertex without intravenous contrast. Sagittal and coronal reformatted images are also submitted. One of the following dose optimization techniques was utilized in the performance of this exam: Automated exposure control; adjustment of the mA and/or kV according to the patient's size; or use of an iterative reconstruction technique. Specific details can be referenced in the facility's radiology CT exam operational policy. COMPARISON: Noncontrast head CT dated 12/18/2017. FINDINGS: Brain volume: Mild to moderate generalized brain parenchymal volume loss. Ventricles: No hydrocephalus. Acute ischemic changes: None. Hemorrhage: None. Masses / edema: None. Cabrera-white: Negative. White matter: Mild chronic microvascular ischemic changes. Vessels: Mild calcified plaque in the carotid siphons. Normal density in the dural venous sinuses. Extra-axial: Negative. Calvarium / skull base: Negative. Visualized sinuses / orbits: Negative. IMPRESSION: No acute intracranial abnormality. Report Dictated By: Jimi Floyd MD at 12/29/2017 3:38 PM Report E-Signed By: Jimi Floyd MD at 12/29/2017 3:42 PM ED Course/Re-evaluation ED Course Patient was admitted to exam room, history and physical were obtained. Differential diagnoses were considered. On examination lungs are clear, heart is regular, abdomen soft nontender, patient does have some tenderness to the left s nabila of the scalp, she does have a little bit of swelling there. Patient is on a anticoagulant, Coumadin, and a PT was done. A CT scan of the head was also done. The results of those were negative. A CBC and CMP were done. Patient was anemic with a H&H of 8.3 and 25. Looking back through her labs is proximal she was a month ago plus a CBC was checked. Prior to that she was running around 10.5-10.2. CMP was unremarkable. I did discuss the case with DFS and spoke with Kuldeep Hill who typically cares for elderly patients. He states that he has been informed of Mrs. Baumann, but he feels at this time that the patient is cognitively intact and therefore has the ability to choose her care. However he stated that he was going to discuss her case with the patent attorney. I did inform him that she's been seen 17 times in the emergency room in the past 12 months for falls and a total of 41 visits in the past 12 months. I believe that is likely indication the patient is unable to care for herself. I did discuss the findings with the patient and her . I encouraged admission so the patient could be monitored and hopefully have physical therapy work with her. Patient was adamant that she be discharged home, her 's felt that he was able to care for her. I again strongly encouraged the patient for admission, however they again refuse. We will go ahead and discharge the patient home into her 's care. Decision to Disposition Date: Dec 29, 2017 Decision to Disposition Time: 17:20 Depart Departure Latest Vital Signs Vital Signs Date Time Temp Pulse Resp B/P (MAP) Pulse Ox O2 Delivery O2 Flow Rate FiO2 12/29/17 17:00 142/63 (89) 12/29/17 16:50 96 12/29/17 16:35 88 12/29/17 14:30 98.7 24 Room Air Core Temperature (Celsius): 37.28 Impression: Primary Impression: Scalp contusion Additional Impressions: Fall in elderly patient Acute blood loss anemia Condition: Improved Disposition: HOME OR SELF-CARE Referrals: EVERTON RIOS MD (PCP) Patient Instructions: Anemia (ED) Additional Instructions: Limit activity by how you feel. We will call when the blood is ready. We will have you go through [facility] for the transfusion. Make sure that you are having help when you get up. Return to the ER if condition worsens. Follow up with your primary care provider in the next week. Problem Qualifiers Primary Impression: Scalp contusion Encounter type: initial encounter Qualified Codes: S00.03XA - Contusion of scalp, initial encounter KELLY LEMUS [facility] Dec 29, 2017 14:42
--- NOTE | 2017-12-29 15:01 | EKG ---
FACILITY: [facility] - [place] PATIENT NAME: JONAH MAYNARD : [id number] MR: [id number] V: [id number] EXAM DATE: ORDERING PHYSICIAN: KELLY LEMUS TECHNOLOGIST: Test Reason : Fall Blood Pressure : / mmHG Vent. Rate : 097 BPM Atrial Rate : 097 BPM P-R Int : 186 ms QRS Dur : 088 ms QT Int : 392 ms P-R-T Axes : 018 084 071 degrees QTc Int : 497 ms Sinus rhythm Moderate voltage criteria for LVH, may be normal variant Nonspecific ST abnormality Prolonged QT Abnormal ECG Confirmed by LATISHA RYAN ([id number]) on 12/29/2017 3:12:40 PM Referred By: Confirmed By:LATISHA RYAN
[2017-12-29 15:18] LABS: PLATELET COUNT, AUTOMATED 162 K/uL (150-450)
[2017-12-29 15:30] LABS: INR 2.01
--- NOTE | 2017-12-29 15:46 | RADIOLOGY IMAGING REPORT ---
FACILITY: [facility] PATIENT NAME: Nadia Baumann : 1930 MR: [id number] V: [id number] EXAM DATE: ORDERING PHYSICIAN: KELLY LEMUS TECHNOLOGIST: Location: [facility] [place] Patient: Nadia Baumann : 1930 Visit/Account:[id number] Date of Sevice: 12/29/2017 EXAMINATION: CT Head without intravenous contrast HISTORY: Trauma. TECHNIQUE: Axial images were obtained from the skull base to the vertex without intravenous contrast . Sagittal and coronal reformatted images are also submitted. One of the following dose optimization techniques was utilized in the performance of this exam: Autom ated exposure control; adjustment of the mA and/or kV according to the patient's size; or use of an i terative reconstruction technique. Specific details can be referenced in the facility's radiology C T exam operational policy. COMPARISON: Noncontrast head CT dated 12/18/2017. FINDINGS: Brain volume: Mild to moderate generalized brain parenchymal volume loss. Ventricles: No hydrocephalus. Acute ischemic changes: None. Hemorrhage: None. Masses / edema: None. Cabrera-white: Negative. White matter: Mild chronic microvascular ischemic changes. Vessels: Mild calcified plaque in the carotid siphons. Normal density in the dural venous sinuses. Extra-axial: Negative. Calvarium / skull base: Negative. Visualized sinuses / orbits: Negative. IMPRESSION: No acute intracranial abnormality. Report Dictated By: Jimi Floyd MD at 12/29/2017 3:38 PM Report E-Signed By: Jimi Floyd MD at 12/29/2017 3:42 PM WSN:[email or web address]
--- NOTE | 2017-12-29 15:47 | RADIOLOGY IMAGING REPORT ---
FACILITY: [facility] PATIENT NAME: Nadia Baumann : 1930 MR: [id number] V: [id number] EXAM DATE: ORDERING PHYSICIAN: KELLY LEMUS TECHNOLOGIST: Location: [facility] Patient: Nadia Baumann : 1930 Visit/Account:[id number] Date of Sevice: 12/29/2017 Exam type: CHEST SINGLE AP History: Wall Comparison: November 16, 2017. Findings: There is marked cardiomegaly unchanged. Again noted is prosthetic cardiac valve and single lead card iac pacemaker. Mild chronic peribronchial thickening and linear stranding lung bases remain stable. There is no evidence of acute appearing infiltrates pleural effusions or pulmonary edema IMPRESSION: 1. Cardiac megaly unchanged Chronic peribronchial thickening and linear scarring in the lung bases unchanged Report Dictated By: Darlyn Alvarado MD at 12/29/2017 3:39 PM Report E-Signed By: Darlyn Alvarado MD at 12/29/2017 3:42 PM WSN:[email or web address]
[2017-12-29 17:00] VITALS: BP 142/63
== END 2017-12-29 17:40 | disposition home or self-care (01) ==
LOC: ER 14:47
DX: D62 Acute posthemorrhagic anemia (principal); S00.03XA Contusion of scalp, initial encounter; I51.7 Cardiomegaly
CPT/HCPCS: 36415; 70450; 71045; 82040; 82247; 82310; 82374; 82435; 82565; 82947; 84075; 84132; 84155; 84295; 84450; 84460; 84520; 85025; 85610; 85730; 86850; 86870; 86900; 86901; 86922; 93005; 99284

== ENCOUNTER → 2017-12-29 | Outpatient (CLI) | payer MEDICARE, OTHER ==
[2017-06-24 17:09] VITALS: BMI 21.6
== END ==
LOC: AMB 14:03
PROVIDERS: ATTEND Nurse Practitioner
DX: R51 Headache (principal); R22.0 Localized swelling, mass and lump, head; Z79.01 Long term (current) use of anticoagulants; W01.198A Fall on same level from slipping, tripping and stumbling with subsequent striking against other object, initial encounter
CPT/HCPCS: A0425; A0427

== ENCOUNTER 2017-12-30 11:58 | Outpatient (RCR) | payer MEDICARE, OTHER ==
[2017-06-24 17:09] VITALS: BMI 21.6
[2017-12-03] MEDS: LIDOCAINE/SOD BICARB 8.4% SYR ID PRN (12:58)
[2017-12-03 13:26] VITALS: BP 119/62
[2017-12-03 13:41] VITALS: BP 117/60
[2017-12-03 15:32] VITALS: BP 109/64
[2017-12-03 15:42] VITALS: BP 123/66
[2017-12-03 18:21] VITALS: BP 123/67
[~2017-12-30 11:58] MED LIST changes: +ACETAMINOPHEN 325 MG TAB PO PRN; +DEXTROSE 5%(*) 100 ML BAG 100 ML IVPB PRN; -METR-160 PO; +METR500T54 PO; +NS(*) 0.9% 100 ML BAG 100 ML IVPB PRN; +diphenhydrAMINE 25 MG CAP PO PRN
[2017-12-30] MEDS: LIDOCAINE/SOD BICARB 8.4% SYR ID PRN (12:27)
[2017-12-30 12:33] VITALS: BP 118/68
[2017-12-30 12:48] VITALS: BP 120/65
[2017-12-30 14:43] VITALS: BP 127/63
[2017-12-30 14:45] VITALS: BP 127/63
[2017-12-30 15:01] VITALS: BP 142/69
[2017-12-30 16:48] VITALS: BP 132/70
[2018-02-25] MEDS ORDERED: FLU180SY11 IM (11:29)
[2018-03-01] MEDS ORDERED: ONDA4TAB9 PO (07:32)
== END 2018-03-03 ==
LOC: SPU 11:58
PROVIDERS: ATTEND Internal Medicine
DX: D64.9 Anemia, unspecified (principal); R00.2 Palpitations
CPT/HCPCS: 36415; 36430; 86850; 86870; 86900; 86901; 86902; 86922; A9270; P9016; Q0163; 82232; 83615; 83883; 84550; 86334

== ENCOUNTER → 2018-01-27 | Outpatient (CLI) | payer MEDICARE, OTHER ==
[2017-06-24 17:09] VITALS: BMI 21.6
[~2018-01-27] MED LIST changes: -ACETAMINOPHEN 325 MG TAB PO PRN; -DEXTROSE 5%(*) 100 ML BAG 100 ML IVPB PRN; +METR-160 PO; -METR500T54 PO; -NS(*) 0.9% 100 ML BAG 100 ML IVPB PRN; -diphenhydrAMINE 25 MG CAP PO PRN
[2018-01-27 15:32] LABS: PLATELET COUNT, AUTOMATED 184 K/uL (150-450)
[2018-01-27 15:37] LABS: INR 1.87
== END ==
LOC: LAB 15:09
PROVIDERS: ATTEND Internal Medicine
DX: Z51.81 Encounter for therapeutic drug level monitoring (principal); D62 Acute posthemorrhagic anemia; Z79.01 Long term (current) use of anticoagulants
CPT/HCPCS: 36415; 85025; 85610

== ENCOUNTER → 2018-02-02 | Outpatient (CLI) | payer MEDICARE, OTHER ==
[2017-06-24 17:09] VITALS: BMI 21.6
[2018-02-02 16:36] LABS: PLATELET COUNT, AUTOMATED 194 K/uL (150-450)
[2018-02-02 16:45] LABS: INR 2.14
== END ==
LOC: LAB 16:17
PROVIDERS: ATTEND Internal Medicine
DX: D62 Acute posthemorrhagic anemia (principal); I48.91 Unspecified atrial fibrillation; Z95.2 Presence of prosthetic heart valve; D64.9 Anemia, unspecified
CPT/HCPCS: 36415; 85025; 85610

== ENCOUNTER 2018-02-06 21:37 | Emergency (ER) | payer MEDICARE, OTHER ==
[2017-06-24 17:09] VITALS: Wt 52.2 kg
[2018-02-06 21:43] VITALS: BP 131/71
[2018-02-06 22:17] LABS: PLATELET COUNT, AUTOMATED 185 K/uL (150-450)
[2018-02-06 22:27] LABS: INR 2.08
[2018-02-06] MEDS ORDERED: ONDANSETRON 4 MG ODT TABDP SL ONE (22:50)
--- NOTE | 2018-02-06 22:54 | RADIOLOGY IMAGING REPORT ---
FACILITY: [facility] - [place] PATIENT NAME: Nadia Baumann : 1930 MR: [id number] V: [id number] EXAM DATE: ORDERING PHYSICIAN: NE HARRIS TECHNOLOGIST: Location: [facility] [place] Patient: Nadia Baumann : 1930 Visit/Account:[id number] Date of Sevice: 02/06/2018 CT Head without contrast Indication: Fall, left-sided hematoma. Comparison: 12/29/2017 and previous. Technique: Axial CT images were obtained through the brain from the skull base to the vertex without administration of IV contrast. One of the following dose optimization techniques was utilized in th e performance of this exam: Automated exposure control; adjustment of the mA and/or kV according to t he patient's size; or use of an iterative reconstruction technique. Specific details can be referen donald in the facility's radiology CT exam operational policy. Findings: Left parietal scalp contusion. No fracture. No evidence of mass, mass effect, or midline shift. No acute intracranial hemorrhage or acute territorial infarction. Mild probable chronic white matter disease similar to prior. No fracture. Lens surgery on the right. Mild mucosal thickening in the left maxillary sinus. IMPRESSION: No acute intracranial abnormality. Report Dictated By: Nicholas Guzman MD at 02/06/2018 10:46 PM Report E-Signed By: Nicholas Guzman MD at 02/06/2018 10:50 PM WSN:[id number]
--- NOTE | 2018-02-06 22:54 | ER Report ---
History and Physical Time Seen By MD: 21:45 Hx. of Stated Complaint: patients states that she hit her head when she fell tonight HPI/ROS CHIEF COMPLAINT: Fall HISTORY OF PRESENT ILLNESS: 87-year-old female with a very unsteady gait well- known to our ER for frequent falls and other medical complications. Got up to go to the bathroom at home. She fell backwards striking her head. There is a large scalp contusion on the left parietal area. She denies LOC or neck pain. Patient denies syncope. Patient has a history of chronic anemia. There is recent. Diagnostic studies from 02/02/18, showing a stable H&H and an INR of 2.1. She is on chronic anticoagulation with warfarin for a mechanical heart valve. She denies headache. She notes some nausea but no vomiting. He denies shortness of breath or chest pain. Patient appears in her usual state of mentation with hard of hearing. Patient's is requesting H&H and an INR be performed. REVIEW OF SYSTEMS: Respiratory: No cough, no dyspnea. Cardiovascular: No chest pain, no palpitations. Gastrointestinal: No vomiting, no abdominal pain. Musculoskeletal: No back pain. Allergies: Coded Allergies: No Known Drug Allergies (Unverified , 12/29/17) Home Meds Active Scripts Simvastatin (SIMVASTATIN) 20 Mg Tablet, 1 TAB PO HS, #90 TAB 3 Refills Prov:EVERTON STEINBERG MD 03/02/17 Omeprazole (OMEPRAZOLE) 20 Mg Capsule.dr, 1 CAP PO QAM, #90 CAP 3 Refills TAKE ONE CAPSULE BY MOUTH ONCE A DAY Prov:IZABELLA GARAY PHARMD 01/15/17 Reported Medications Warfarin Sodium (COUMADIN) 7.5 Mg Tablet, 7.5 MG PO MON 07/12/17 Warfarin Sodium (COUMADIN) 5 Mg Tablet, 5 MG PO RICE,TU,W,TH,F,SA 07/12/17 Cyanocobalamin (Vitamin B-12) (B-12) 1,000 Mcg Tablet.er, 1000 MCG PO QDAY 06/01/17 Calcium Carb & Cit/Vitamin D3 (CITRACAL + D ER TABLET) 1 Each Tablet.er, 1 TAB PO QDAY 04/03/15 Ferrous Sulfate (IRON) 325 Mg Capsule.er, 325 MG PO TID 02/01/15 Hx Smoking: No Smoking Status: Former Smoker Exposure to Second Hand Smoke?: No Hx Substance Use Disorder: No Hx Alcohol Use: No Constitutional Vital Sign - Last 24 Hours 02/06/18 21:43 Temp 98.4 Pulse 84 Resp 18 B/P (MAP) 131/71 Pulse Ox 90 O2 Delivery Room Air Physical Exam Vital signs stable, afebrile, pulse ox normal, General Appearance: The patient is alert, has no immediate need for airway protection and no current signs of toxicity. Palpation of the head and neck reveal no tenderness or trauma except for a 2 cm left parietal scalp contusion. HEENT: Pupils equal and round no injection. PERRLA, oropharynx without dental trauma Respiratory: Chest is non tender, lungs are clear to auscultation. No chest wall tenderness Cardiac: regular rate and rhythm, mechanical clicking heart valve sound, best heard at apex Gastrointestinal: Abdomen is soft and non tender, no masses, bowel sounds normal. Musculoskeletal: Neck: Neck is supple and non tender. No tenderness on aggressive palpation of the midline Extremities have full range of motion and are non tender. Skin: No rashes or lesions. DIFFERENTIAL DIAGNOSIS: After history and physical exam differential diagnosis was considered for head injury including but not limited to concussion, skull fracture, intraparenchymal contusion, subarachnoid, subdural and epidural hematoma. Medical Decision Making Data Points Result Diagram: 02/06/182201 Laboratory Hematology Test 02/06/18 22:02 Red Blood Count 2.47 M/uL (4.17-5.56) Mean Corpuscular Volume 104.7 fL (80.0-96.0) Mean Corpuscular Hemoglobin 34.4 pg (26.0-33.0) Mean Corpuscular Hemoglobin Concent 32.8 g/dL (32.0-36.0) Red Cell Distribution Width 16.8 % (11.5-14.5) Mean Platelet Volume 8.9 fL (7.2-11.1) Neutrophils (%) (Auto) 76.1 % (39.4-72.5) Lymphocytes (%) (Auto) 9.5 % (17.6-49.6) Monocytes (%) (Auto) 11.0 % (4.1-12.4) Eosinophils (%) (Auto) 3.1 % (0.4-6.7) Basophils (%) (Auto) 0.3 % (0.3-1.4) Nucleated RBC Relative Count (auto) 0.1 /100WBC Neutrophils # (Auto) 3.1 K/uL (2.0-7.4) Lymphocytes # (Auto) 0.4 K/uL (1.3-3.6) Monocytes # (Auto) 0.4 K/uL (0.3-1.0) Eosinophils # (Auto) 0.1 K/uL (0.0-0.5) Basophils # (Auto) 0.0 K/uL (0.0-0.1) Nucleated RBC Absolute Count (auto) 0.00 K/uL Peripheral Blood Smear No Y/N Prothrombin Time 23.8 seconds (12.0-14.4) Prothromb Time International Ratio 2.08 Chemistry Test 02/06/18 22:02 White Blood Count 4.0 k/uL (4.5-11.0) Red Blood Count 2.47 M/uL (4.17-5.56) Hemoglobin 8.5 g/dL (12.0-16.0) Hematocrit 25.8 % (34.0-47.0) Mean Corpuscular Volume 104.7 fL (80.0-96.0) Mean Corpuscular Hemoglobin 34.4 pg (26.0-33.0) Mean Corpuscular Hemoglobin Concent 32.8 g/dL (32.0-36.0) Red Cell Distribution Width 16.8 % (11.5-14.5) Platelet Count 185 K/uL (150-450) Mean Platelet Volume 8.9 fL (7.2-11.1) Neutrophils (%) (Auto) 76.1 % (39.4-72.5) Lymphocytes (%) (Auto) 9.5 % (17.6-49.6) Monocytes (%) (Auto) 11.0 % (4.1-12.4) Eosinophils (%) (Auto) 3.1 % (0.4-6.7) Basophils (%) (Auto) 0.3 % (0.3-1.4) Nucleated RBC Relative Count (auto) 0.1 /100WBC Neutrophils # (Auto) 3.1 K/uL (2.0-7.4) Lymphocytes # (Auto) 0.4 K/uL (1.3-3.6) Monocytes # (Auto) 0.4 K/uL (0.3-1.0) Eosinophils # (Auto) 0.1 K/uL (0.0-0.5) Basophils # (Auto) 0.0 K/uL (0.0-0.1) Nucleated RBC Absolute Count (auto) 0.00 K/uL Peripheral Blood Smear No Y/N Prothrombin Time 23.8 seconds (12.0-14.4) Prothromb Time International Ratio 2.08 Coagulation Test 02/06/18 22:02 Prothrombin Time 23.8 seconds Prothromb Time International Ratio 2.08 EKG/Imaging Imaging Results: CT scan of the head was obtained. The results of the study are no acute findings. The study was read by the radiologist. I viewed the images myself on the PACS system. ED Course/Re-evaluation ED Course Patient was minute to an examination room. H&P was done. The differential diagnoses was considered. Patient with a fall on warfarin. Her INR from 4 days ago was 2.1. Patient has a documented scalp contusion in the left parietal area. She has no neck pain and there is no tenderness on aggressive palpation of the neck. He had CT is ordered. Blood work is drawn. Her INR is 2.08 and her H&H appears stable. 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 Patient's given head injury precautions. She is advised to follow-up with Dr. Steinberg this week as planned. She is due for an INR recheck on . Decision to Disposition Date: Feb 06, 2018 Decision to Disposition Time: 22:52 Depart Departure Latest Vital Signs Vital Signs Date Time Temp Pulse Resp B/P (MAP) Pulse Ox O2 Delivery O2 Flow Rate FiO2 02/06/18 21:43 98.4 84 18 131/71 90 Room Air Core Temperature (Celsius): 37.28 Impression: Primary Impression: Fall from ground level Additional Impressions: Contusion of scalp Chronic anemia Warfarin anticoagulation Condition: Improved Disposition: HOME OR SELF-CARE Referrals: EVERTON STEINBERG MD (PCP) Patient Instructions: Anemia (DC), Head Injury (ED) Additional Instructions: Follow-up with primary care as necessary Problem Qualifiers Additional Impressions: Contusion of scalp Encounter type: initial encounter Qualified Codes: S00.03XA - Contusion of scalp, initial encounter NE HARRIS DO Feb 06, 2018 22:54
== END 2018-02-06 23:04 | disposition home or self-care (01) ==
LOC: ER 21:50
DX: S00.03XA Contusion of scalp, initial encounter (principal); D64.9 Anemia, unspecified; Z79.01 Long term (current) use of anticoagulants
CPT/HCPCS: 36415; 70450; 85025; 85610; 99284; Q0162; S0119

== ENCOUNTER 2018-02-08 15:44 | Emergency (ER) | payer MEDICARE, OTHER ==
[2017-06-24 17:09] VITALS: Wt 52.2 kg
--- NOTE | 2018-02-08 15:52 | ER Report ---
History and Physical Time Seen By MD: 15:47 HPI/ROS CHIEF COMPLAINT: Dizziness, general malaise, shortness breath HISTORY OF PRESENT ILLNESS: Patient is an 87-year-old female here with complaints of dizziness, general malaise, fatigue, shortness of breath. Patient reports that her symptoms started today. She denies falling with the last 2 days when she had a CT scan of the head. Patient denies chest pain abdominal pain, nausea, vomiting, headache. Patient is hemodynamically stable, afebrile with oxygen saturations 90% on room air. Patient has no double oxygen requirement at baseline REVIEW OF SYSTEMS: Constitutional: No fever, no chills. Eyes: No discharge. ENT: No sore throat. Cardiovascular: No chest pain, no palpitations. Respiratory: No cough, + shortness of breath. Gastrointestinal: No abdominal pain, no vomiting. Genitourinary: No hematuria. Musculoskeletal: No back pain. Skin: No rashes. Neurological: No headache, + dizziness. Allergies: Coded Allergies: No Known Drug Allergies (Unverified , 02/08/18) Home Meds Active Scripts Simvastatin (SIMVASTATIN) 20 Mg Tablet, 1 TAB PO HS, #90 TAB 3 Refills Prov:EVERTON RIOS MD 03/02/17 Omeprazole (OMEPRAZOLE) 20 Mg Capsule.dr, 1 CAP PO QAM, #90 CAP 3 Refills TAKE ONE CAPSULE BY MOUTH ONCE A DAY Prov:IZABELLA GARAY PHARMD 01/15/17 Reported Medications Warfarin Sodium (COUMADIN) 7.5 Mg Tablet, 7.5 MG PO MON 07/12/17 Warfarin Sodium (COUMADIN) 5 Mg Tablet, 5 MG PO RICE,,W,TH,F,SA 07/12/17 Cyanocobalamin (Vitamin B-12) (B-12) 1,000 Mcg Tablet.er, 1000 MCG PO QDAY 06/01/17 Calcium Carb & Cit/Vitamin D3 (CITRACAL + D ER TABLET) 1 Each Tablet.er, 1 TAB PO QDAY 04/03/15 Ferrous Sulfate (IRON) 325 Mg Capsule.er, 325 MG PO TID 02/01/15 Hx Smoking: No Smoking Status: Former Smoker Exposure to Second Hand Smoke?: No Hx Substance Use Disorder: No Hx Alcohol Use: No Constitutional Vital Sign - Last 24 Hours 02/08/18 02/08/18 02/08/18/30/18 15:53 15:53 16:00 16:00 Temp 97.9 Pulse 75 80 Resp 16 25 B/P (MAP) 132/59 (83) 132/59 134/77 (96) Pulse Ox 89 97 O2 Delivery Room Air O2 Flow Rate 1.0 02/08/18 02/08/18 02/08/18 02/08/18 16:15 16:30 16:45 17:00 Pulse 72 72 72 69 Resp 35 21 18 23 B/P (MAP) 140/79 (99) 150/69 (96) Pulse Ox 96 97 98 99 02/08/18 02/08/18 02/08/18 17:15 17:30 17:45 Pulse 80 75 85 Resp 13 24 B/P (MAP) 165/82 (109) Pulse Ox 98 99 93 Intake and Output 02/08/18 02/08/18 02/09/18 15:00 23:00 07:00 Intake Total 1000 ml Output Total 10 ml Balance 990 ml Physical Exam General Appearance: The patient is alert, has no immediate need for airway protection and no signs of toxicity. NAD Eyes: Pupils equal and round no pallor or injection. ENT, Mouth: Mucous membranes are moist. Respiratory: There are no retractions, lungs are clear to auscultation. Cardiovascular: Regular rate and rhythm. Gastrointestinal: Abdomen is soft and non tender, no masses, bowel sounds normal. Neurological: No focal neuro deficits, no extremity weakness Skin: Warm and dry, no rashes. Musculoskeletal: Neck is supple non tender. Extremities are nontender, nonswollen and have full range of motion. DIFFERENTIAL DIAGNOSIS: After history and physical exam differential diagnosis was considered for dizziness, vertigo, dehydration, electrolyte abnormality, infection, UTI Medical Decision Making Data Points Result Diagram: 02/08/18 1605 02/08/18 1605 Laboratory Hematology Test 02/08/18 16:05 02/08/18 16:20 Red Blood Count 2.43 M/uL (4.17-5.56) Mean Corpuscular Volume 106.3 fL (80.0-96.0) Mean Corpuscular Hemoglobin 34.2 pg (26.0-33.0) Mean Corpuscular Hemoglobin Concent 32.2 g/dL (32.0-36.0) Red Cell Distribution Width 17.5 % (11.5-14.5) Mean Platelet Volume 9.1 fL (7.2-11.1) Neutrophils (%) (Auto) 71.4 % (39.4-72.5) Lymphocytes (%) (Auto) 12.2 % (17.6-49.6) Monocytes (%) (Auto) 12.7 % (4.1-12.4) Eosinophils (%) (Auto) 3.1 % (0.4-6.7) Basophils (%) (Auto) 0.6 % (0.3-1.4) Nucleated RBC Relative Count (auto) 0.1 /100WBC Neutrophils # (Auto) 2.2 K/uL (2.0-7.4) Lymphocytes # (Auto) 0.4 K/uL (1.3-3.6) Monocytes # (Auto) 0.4 K/uL (0.3-1.0) Eosinophils # (Auto) 0.1 K/uL (0.0-0.5) Basophils # (Auto) 0.0 K/uL (0.0-0.1) Nucleated RBC Absolute Count (auto) 0.00 K/uL Prothrombin Time 30.9 seconds (12.0-14.4) Prothromb Time International Ratio 2.89 Activated Partial Thromboplast Time 41 seconds (23-35) Sodium Level 140 mmol/L (137-145) Potassium Level 4.0 mmol/L (3.5-5.0) Chloride Level 104 mmol/L (98-107) Carbon Dioxide Level 27 mmol/L (22-31) Blood Urea Nitrogen 23 mg/dl (7-18) Creatinine 1.00 mg/dl (0.52-1.04) Glomerular Filtration Rate Calc 52.6 Random Glucose 115 mg/dl (75-110) Calcium Level 8.7 mg/dl (8.4-10.2) Total Bilirubin 0.2 mg/dl (0.2-1.3) Aspartate Amino Transf (AST/SGOT) 30 U/L (0-35) Alanine Aminotransferase (ALT/SGPT) 30 U/L (0-56) Alkaline Phosphatase 160 U/L (0-126) B-Type Natriuretic Peptide 87 pg/ml (0-100) Total Protein 6.9 g/dl (6.3-8.2) Albumin 3.6 g/dl (3.5-5.0) Urine Color Yellow Urine Clarity Clear Urine pH 5.0 pH (4.8-9.5) Urine Specific [place] 1.021 Urine Protein Negative mg/dL (NEGATIVE) Urine Glucose (UA) Negative mg/dL (NEGATIVE) Urine Ketones Negative mg/dL (NEGATIVE) Urine Blood Negative (NEGATIVE) Urine Nitrite Negative (NEGATIVE) Urine Bilirubin Negative (NEGATIVE) Urine Urobilinogen Negative mg/dL (0.2-1.9) Urine Leukocyte Esterase Negative (NEGATIVE) Urine RBC None /HPF (0-2/HPF) Urine WBC None /HPF (0-5/HPF) Urine Squamous Epithelial Cells None /LPF (</=FEW) Urine Bacteria Negative /HPF (NONE-FEW) Urine Mucus Few /HPF (NONE-FEW) Chemistry Test 02/08/18 16:05 02/08/18 16:20 White Blood Count 3.1 k/uL (4.5-11.0) Red Blood Count 2.43 M/uL (4.17-5.56) Hemoglobin 8.3 g/dL (12.0-16.0) Hematocrit 25.8 % (34.0-47.0) Mean Corpuscular Volume 106.3 fL (80.0-96.0) Mean Corpuscular Hemoglobin 34.2 pg (26.0-33.0) Mean Corpuscular Hemoglobin Concent 32.2 g/dL (32.0-36.0) Red Cell Distribution Width 17.5 % (11.5-14.5) Platelet Count 187 K/uL (150-450) Mean Platelet Volume 9.1 fL (7.2-11.1) Neutrophils (%) (Auto) 71.4 % (39.4-72.5) Lymphocytes (%) (Auto) 12.2 % (17.6-49.6) Monocytes (%) (Auto) 12.7 % (4.1-12.4) Eosinophils (%) (Auto) 3.1 % (0.4-6.7) Basophils (%) (Auto) 0.6 % (0.3-1.4) Nucleated RBC Relative Count (auto) 0.1 /100WBC Neutrophils # (Auto) 2.2 K/uL (2.0-7.4) Lymphocytes # (Auto) 0.4 K/uL (1.3-3.6) Monocytes # (Auto) 0.4 K/uL (0.3-1.0) Eosinophils # (Auto) 0.1 K/uL (0.0-0.5) Basophils # (Auto) 0.0 K/uL (0.0-0.1) Nucleated RBC Absolute Count (auto) 0.00 K/uL Prothrombin Time 30.9 seconds (12.0-14.4) Prothromb Time International Ratio 2.89 Activated Partial Thromboplast Time 41 seconds (23-35) Glomerular Filtration Rate Calc 52.6 Calcium Level 8.7 mg/dl (8.4-10.2) Total Bilirubin 0.2 mg/dl (0.2-1.3) Aspartate Amino Transf (AST/SGOT) 30 U/L (0-35) Alanine Aminotransferase (ALT/SGPT) 30 U/L (0-56) Alkaline Phosphatase 160 U/L (0-126) B-Type Natriuretic Peptide 87 pg/ml (0-100) Total Protein 6.9 g/dl (6.3-8.2) Albumin 3.6 g/dl (3.5-5.0) Urine Color Yellow Urine Clarity Clear Urine pH 5.0 pH (4.8-9.5) Urine Specific [place] 1.021 Urine Protein Negative mg/dL (NEGATIVE) Urine Glucose (UA) Negative mg/dL (NEGATIVE) Urine Ketones Negative mg/dL (NEGATIVE) Urine Blood Negative (NEGATIVE) Urine Nitrite Negative (NEGATIVE) Urine Bilirubin Negative (NEGATIVE) Urine Urobilinogen Negative mg/dL (0.2-1.9) Urine Leukocyte Esterase Negative (NEGATIVE) Urine RBC None /HPF (0-2/HPF) Urine WBC None /HPF (0-5/HPF) Urine Squamous Epithelial Cells None /LPF (</=FEW) Urine Bacteria Negative /HPF (NONE-FEW) Urine Mucus Few /HPF (NONE-FEW) Coagulation Test 02/08/18 16:05 Prothrombin Time 30.9 seconds Prothromb Time International Ratio 2.89 Activated Partial Thromboplast Time 41 seconds Urinalysis Test 02/08/18 16:20 Urine Color Yellow Urine Clarity Clear Urine pH 5.0 pH (4.8-9.5) Urine Specific [place] 1.021 Urine Protein Negative mg/dL (NEGATIVE) Urine Glucose (UA) Negative mg/dL (NEGATIVE) Urine Ketones Negative mg/dL (NEGATIVE) Urine Blood Negative (NEGATIVE) Urine Nitrite Negative (NEGATIVE) Urine Bilirubin Negative (NEGATIVE) Urine Urobilinogen Negative mg/dL (0.2-1.9) Urine Leukocyte Esterase Negative (NEGATIVE) Urine RBC None /HPF (0-2/HPF) Urine WBC None /HPF (0-5/HPF) Urine Squamous Epithelial Cells None /LPF (</=FEW) Urine Bacteria Negative /HPF (NONE-FEW) Urine Mucus Few /HPF (NONE-FEW) EKG/Imaging Imaging Study: CHEST SINGLE AP Indication: Shortness of breath Comparison study: December 29, 2017 Findings: Semierect portable chest demonstrates the presence of cardiomegaly. 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 The lead overlies the right ventricle. There is no change in the appearance of the leads or the pulse generator as compared to the previous study. The patient is status post mitral valve replacement. There is no evidence of acute infiltrate. There is no evidence of pleural effusion or pneumothorax. There is no evidence of congestive failure. IMPRESSION: Cardiomegaly. No change from the previous study. ED Course/Re-evaluation ED Course Patient is an 87-year-old female here with complaints of lightheadedness, mild shortness breath, left lower extremity "not working as well". After further examination and questioning, patient reports that the left lower extremity complaint has been ongoing for several months and is not acute. There are no obvious signs of trauma or deformity, extremities are neurovascularly intact with good capillary refill. Patient denies falls within the last 2 days. She was evaluated 2 days prior for a fall at which time she had a CT imaging scan which was negative for intracranial bleed. Patient had no new neurological findings on examination. Due to the patient's complaint of shortness breath, chest x-ray was completed which was stable compared to prior examinations. Labs were unremarkable aside a hemoglobin of 8 which is stable compared to recent labs 2 days ago., no urinary tract infection was found on urinalysis. Patient was given low-dose meclizine for dizziness symptoms, 1 L fluid bolus for fluid repletion. Patient reports having significant relief of symptoms at time of re evaluation. Patient was discharged home in stable condition. She was advised to follow-up with her PCP in the next day or 2. Decision to Disposition Date: Feb 08, 2018 Decision to Disposition Time: 18:10 Depart Departure Latest Vital Signs Vital Signs Date Time Temp Pulse Resp B/P (MAP) Pulse Ox O2 Delivery O2 Flow Rate FiO2 02/08/18 17:45 85 93 02/08/18 17:30 24 165/82 (109) 02/08/18 16:00 1.0 02/08/18 15:53 97.9 Room Air Core Temperature (Celsius): 37.28 Impression: Primary Impression: Dizziness Additional Impression: Shortness of breath Condition: Improved Disposition: HOME OR SELF-CARE Referrals: EVERTON RIOS MD (PCP) Patient Instructions: Dizziness (ED) Additional Instructions: Please follow up closely with her family doctor in the next 2 days. Please return promptly if you develop shortness of breath, fevers, chills, recurrent falls, headaches or blurred vision. Your chest x-ray showed no signs of infection or fluid on the lungs. Please drink plenty of water. Problem Qualifiers PENNY MCCORMACK DO Feb 08, 2018 15:52
[2018-02-08] MEDS ORDERED: LR(*) 1000 ML BAG 1,000 ML IV ONE (16:04)
[2018-02-08] MEDS ORDERED: MECLIZINE HCL 25 MG TAB PO ONE (16:05)
[2018-02-08 16:30] LABS: PLATELET COUNT, AUTOMATED 187 K/uL (150-450)
[2018-02-08 16:37] LABS: INR 2.89
[2018-02-08 17:30] VITALS: BP 165/82
--- NOTE | 2018-02-08 17:48 | RADIOLOGY IMAGING REPORT ---
FACILITY: [facility] - [place] PATIENT NAME: Nadia Baumann : 1930 MR: [id number] V: [id number] EXAM DATE: ORDERING PHYSICIAN: PENNY MCCORMACK TECHNOLOGIST: Location: [facility] Patient: Nadia Baumann : 1930 Visit/Account:[id number] Date of Sevice: 02/08/2018 Study: CHEST SINGLE AP Indication: Shortness of breath Comparison study: December 29, 2017 Findings: Semierect portable chest demonstrates the presence of cardiomegaly. There is a permanent pa cemaker present. The lead overlies the right ventricle. There is no change in the appearance of the l joe or the pulse generator as compared to the previous study. The patient is status post mitral valve replacement. There is no evidence of acute infiltrate. There is no evidence of pleural effusion or pneumothorax. T here is no evidence of congestive failure. IMPRESSION: Cardiomegaly. No change from the previous study. Report Dictated By: Michael Vuong at 02/08/2018 5:43 PM Report E-Signed By: Michael Vuong at 02/08/2018 5:45 PM WSN:[id number]
== END 2018-02-08 18:12 | disposition home or self-care (01) ==
LOC: ER 16:18
DX: R42 Dizziness and giddiness (principal); R06.02 Shortness of breath
CPT/HCPCS: 71045; 81001; 83880; 85025; 85610; 85730; 96360; 99283; A4353; J7120; J8597; 82040; 82247; 82310; 82374; 82435; 82565; 82947; 84075; 84132; 84155; 84295; 84450; 84460; 84520

== ENCOUNTER → 2018-02-25 | Outpatient (CLI) | payer MEDICARE, OTHER ==
[2017-06-24 17:09] VITALS: BMI 21.6
[~2018-02-25] MED LIST changes: +FLU180SY11 IM; -METR-160 PO; +METR500T54 PO; +ONDA4TAB9 PO
[2018-02-25 13:50] LABS: PLATELET COUNT, AUTOMATED 245 K/uL (150-450)
[2018-02-25 13:56] LABS: INR 2.42
== END ==
LOC: LAB 13:38
PROVIDERS: ATTEND Internal Medicine
DX: D62 Acute posthemorrhagic anemia (principal); R42 Dizziness and giddiness; Z95.2 Presence of prosthetic heart valve
CPT/HCPCS: 36415; 85025; 85610

== ENCOUNTER 2018-03-01 05:47 | Emergency (ER) | payer MEDICARE, OTHER ==
[2017-06-24 17:09] VITALS: Wt 52.2 kg
[~2018-03-01 05:47] MED LIST changes: -ONDA4TAB9 PO
--- NOTE | 2018-03-01 06:06 | ER Report ---
History and Physical Time Seen By MD: 06:00 Hx. of Stated Complaint: PT HAD DENTAL WORK YESTERDAY. PT REPORTS HE STOMACH IS NOT SETTLED. HPI/ROS CHIEF COMPLAINT: nausea HISTORY OF PRESENT ILLNESS: This is an 87 year old female. She is having an 'unsettled' stomach. Having nausea, but no vomiting. Had dental work done ye sterday and stomach not well since then. Denies pain anywhere, including chest and abdomen. She had a normal bowel movement yesterday. Normal urination. Feels a little weak overall. REVIEW OF SYSTEMS: Constitutional: No fever or chills. Eyes: No vision changes. ENT: No sore throat. No congestion. Cardiovascular: No chest pain. Respiratory: No shortness of breath. Gastrointestinal: As above. Genitourinary: No dysuria. No frequency Musculoskeletal: No musculoskeletal pain. Skin: No rashes. Neurological: No numbness. No headache. Allergies: Coded Allergies: No Known Drug Allergies (Unverified , 03/01/18) Home Meds Active Scripts Ondansetron (ONDANSETRON ODT) 4 Mg Tab.rapdis, 4 MG PO Q6H PRN for NAUSEA/VOMITING, #20 TAB 0 Refills Prov:MARCIE HERNANDEZ MD 03/01/18 Simvastatin (SIMVASTATIN) 20 Mg Tablet, 1 TAB PO HS, #90 TAB 3 Refills Prov:EVERTON RIOS MD 03/02/17 Omeprazole (OMEPRAZOLE) 20 Mg Capsule.dr, 1 CAP PO QAM, #90 CAP 3 Refills TAKE ONE CAPSULE BY MOUTH ONCE A DAY Prov:IZABELLA GARAY PHARMD 01/15/17 Reported Medications Warfarin Sodium (COUMADIN) 7.5 Mg Tablet, 7.5 MG PO MON 07/12/17 Warfarin Sodium (COUMADIN) 5 Mg Tablet, 5 MG PO RICE,TU,W,TH,F,SA 07/12/17 Cyanocobalamin (Vitamin B-12) (B-12) 1,000 Mcg Tablet.er, 1000 MCG PO QDAY 06/01/17 Calcium Carb & Cit/Vitamin D3 (CITRACAL + D ER TABLET) 1 Each Tablet.er, 1 TAB PO QDAY 04/03/15 Ferrous Sulfate (IRON) 325 Mg Capsule.er, 325 MG PO TID 02/01/15 Reviewed Nurses Notes: Yes Hx Smoking: No Smoking Status: Former Smoker Exposure to Second Hand Smoke?: No Hx Substance Use Disorder: No Hx Alcohol Use: No Constitutional Vital Sign - Last 24 Hours 03/01/18 03/01/18 03/01/18 03/01/18 05:54 05:54 06:00 06:02 Temp 97.5 Pulse 86 79 Resp 20 B/P (MAP) 164/75 (104) 164/75 155/75 (101) Pulse Ox 90 90 O2 Delivery Room Air 03/01/18 03/01/18 03/01/18 03/01/18 06:17 06:38 06:45 06:55 Pulse 80 78 B/P (MAP) 161/85 (110) 160/88 (112) Pulse Ox 91 93 O2 Flow Rate 1.0 03/01/18 03/01/18 03/01/18 03/01/18 07:00 07:15 07:30 07:45 Pulse 77 75 76 84 B/P (MAP) 145/113 (124) 141/77 (98) 146/112 (123) Pulse Ox 88 91 98 97 03/01/18 08:00 Pulse 84 B/P (MAP) 145/84 (104) Pulse Ox 98 Physical Exam General Appearance: The patient is alert. No acute distress. Eyes: Pupils are equal, round. No pallor, injection or icterus. ENT: Mucous membranes are moist. Normal oral mucosa. Respiratory: Lungs are clear to auscultation. Cardiovascular: Regular rate and rhythm. No murmurs, gallops or rubs. Normal capillary refill. Gastrointestinal: Abdomen is soft and non tender. She is somewhat distended today. Hyperactive bowel sounds. Neurological: Alert and oriented x3. Skin: Warm and dry. DIFFERENTIAL DIAGNOSIS: After history and physical exam, differential diagnosis was considered for patient with nausea, abdominal distention, but no pain. Medical Decision Making Data Points Result Diagram: 03/01/18 0611 03/01/18 0611 Laboratory Hematology Test 03/01/18 06:11 03/01/18 07:28 Red Blood Count 2.45 M/uL (4.17-5.56) Mean Corpuscular Volume 106.1 fL (80.0-96.0) Mean Corpuscular Hemoglobin 34.6 pg (26.0-33.0) Mean Corpuscular Hemoglobin Concent 32.6 g/dL (32.0-36.0) Red Cell Distribution Width 15.1 % (11.5-14.5) Mean Platelet Volume 8.2 fL (7.2-11.1) Neutrophils (%) (Auto) 76.5 % (39.4-72.5) Lymphocytes (%) (Auto) 9.3 % (17.6-49.6) Monocytes (%) (Auto) 10.5 % (4.1-12.4) Eosinophils (%) (Auto) 3.0 % (0.4-6.7) Basophils (%) (Auto) 0.7 % (0.3-1.4) Nucleated RBC Relative Count (auto) 0.0 /100WBC Neutrophils # (Auto) 2.9 K/uL (2.0-7.4) Lymphocytes # (Auto) 0.4 K/uL (1.3-3.6) Monocytes # (Auto) 0.4 K/uL (0.3-1.0) Eosinophils # (Auto) 0.1 K/uL (0.0-0.5) Basophils # (Auto) 0.0 K/uL (0.0-0.1) Nucleated RBC Absolute Count (auto) 0.00 K/uL Peripheral Blood Smear No Y/N Sodium Level 138 mmol/L (137-145) Potassium Level 3.9 mmol/L (3.5-5.0) Chloride Level 105 mmol/L (98-107) Carbon Dioxide Level 25 mmol/L (22-31) Blood Urea Nitrogen 15 mg/dl (7-18) Creatinine 0.80 mg/dl (0.52-1.04) Glomerular Filtration Rate Calc > 60.0 Random Glucose 113 mg/dl (75-110) Calcium Level 8.9 mg/dl (8.4-10.2) Total Bilirubin 0.3 mg/dl (0.2-1.3) Aspartate Amino Transf (AST/SGOT) 22 U/L (0-35) Alanine Aminotransferase (ALT/SGPT) 20 U/L (0-56) Alkaline Phosphatase 204 U/L (0-126) Troponin I < 0.012 ng/ml Total Protein 7.1 g/dl (6.3-8.2) Albumin 3.5 g/dl (3.5-5.0) Amylase Level 98 U/L (0-110) Lipase 229 U/L (23-300) Urine Color Straw Urine Clarity Clear Urine pH 7.0 pH (4.8-9.5) Urine Specific [place] 1.013 Urine Protein Negative mg/dL (NEGATIVE) Urine Glucose (UA) Negative mg/dL (NEGATIVE) Urine Ketones Negative mg/dL (NEGATIVE) Urine Blood Negative (NEGATIVE) Urine Nitrite Negative (NEGATIVE) Urine Bilirubin Negative (NEGATIVE) Urine Urobilinogen Negative mg/dL (0.2-1.9) Urine Leukocyte Esterase Trace (NEGATIVE) Urine RBC 1 /HPF (0-2/HPF) Urine WBC 2 /HPF (0-5/HPF) Urine Squamous Epithelial Cells Many /LPF (</=FEW) Urine Bacteria Negative /HPF (NONE-FEW) Urine Mucus Few /HPF (NONE-FEW) Chemistry Test 03/01/18 06:11 03/01/18 07:28 White Blood Count 3.8 k/uL (4.5-11.0) Red Blood Count 2.45 M/uL (4.17-5.56) Hemoglobin 8.5 g/dL (12.0-16.0) Hematocrit 26.0 % (34.0-47.0) Mean Corpuscular Volume 106.1 fL (80.0-96.0) Mean Corpuscular Hemoglobin 34.6 pg (26.0-33.0) Mean Corpuscular Hemoglobin Concent 32.6 g/dL (32.0-36.0) Red Cell Distribution Width 15.1 % (11.5-14.5) Platelet Count 247 K/uL (150-450) Mean Platelet Volume 8.2 fL (7.2-11.1) Neutrophils (%) (Auto) 76.5 % (39.4-72.5) Lymphocytes (%) (Auto) 9.3 % (17.6-49.6) Monocytes (%) (Auto) 10.5 % (4.1-12.4) Eosinophils (%) (Auto) 3.0 % (0.4-6.7) Basophils (%) (Auto) 0.7 % (0.3-1.4) Nucleated RBC Relative Count (auto) 0.0 /100WBC Neutrophils # (Auto) 2.9 K/uL (2.0-7.4) Lymphocytes # (Auto) 0.4 K/uL (1.3-3.6) Monocytes # (Auto) 0.4 K/uL (0.3-1.0) Eosinophils # (Auto) 0.1 K/uL (0.0-0.5) Basophils # (Auto) 0.0 K/uL (0.0-0.1) Nucleated RBC Absolute Count (auto) 0.00 K/uL Peripheral Blood Smear No Y/N Glomerular Filtration Rate Calc > 60.0 Calcium Level 8.9 mg/dl (8.4-10.2) Total Bilirubin 0.3 mg/dl (0.2-1.3) Aspartate Amino Transf (AST/SGOT) 22 U/L (0-35) Alanine Aminotransferase (ALT/SGPT) 20 U/L (0-56) Alkaline Phosphatase 204 U/L (0-126) Troponin I < 0.012 ng/ml Total Protein 7.1 g/dl (6.3-8.2) Albumin 3.5 g/dl (3.5-5.0) Amylase Level 98 U/L (0-110) Lipase 229 U/L (23-300) Urine Color Straw Urine Clarity Clear Urine pH 7.0 pH (4.8-9.5) Urine Specific [place] 1.013 Urine Protein Negative mg/dL (NEGATIVE) Urine Glucose (UA) Negative mg/dL (NEGATIVE) Urine Ketones Negative mg/dL (NEGATIVE) Urine Blood Negative (NEGATIVE) Urine Nitrite Negative (NEGATIVE) Urine Bilirubin Negative (NEGATIVE) Urine Urobilinogen Negative mg/dL (0.2-1.9) Urine Leukocyte Esterase Trace (NEGATIVE) Urine RBC 1 /HPF (0-2/HPF) Urine WBC 2 /HPF (0-5/HPF) Urine Squamous Epithelial Cells Many /LPF (</=FEW) Urine Bacteria Negative /HPF (NONE-FEW) Urine Mucus Few /HPF (NONE-FEW) Urinalysis Test 03/01/18 07:28 Urine Color Straw Urine Clarity Clear Urine pH 7.0 pH (4.8-9.5) Urine Specific [place] 1.013 Urine Protein Negative mg/dL (NEGATIVE) Urine Glucose (UA) Negative mg/dL (NEGATIVE) Urine Ketones Negative mg/dL (NEGATIVE) Urine Blood Negative (NEGATIVE) Urine Nitrite Negative (NEGATIVE) Urine Bilirubin Negative (NEGATIVE) Urine Urobilinogen Negative mg/dL (0.2-1.9) Urine Leukocyte Esterase Trace (NEGATIVE) Urine RBC 1 /HPF (0-2/HPF) Urine WBC 2 /HPF (0-5/HPF) Urine Squamous Epithelial Cells Many /LPF (</=FEW) Urine Bacteria Negative /HPF (NONE-FEW) Urine Mucus Few /HPF (NONE-FEW) EKG/Imaging EKG Interpretation 12 lead EKG: Rhythm: Sinus with first degree AV block, rate 78 Shelly: Rightward axis QRS: normal ST segments: Nonspecific flattening, no ST elevation or depression noted Unchanged when compared to previous ED Course/Re-evaluation Clinical Indication for ER IV: IV Access ED Course She felt better after Zofran. Urinalysis negative and labs again show her declining H/H. We will order a type and cross, which usually takes a few days because of antibodies and set this up for the Special Procedures Unit once the blood is available. Decision to Disposition Date: Mar 01, 2018 Decision to Disposition Time: 07:31 Depart Departure Latest Vital Signs Vital Signs Date Time Temp Pulse Resp B/P (MAP) Pulse Ox O2 Delivery O2 Flow Rate FiO2 03/01/18 08:00 84 145/84 (104) 98 03/01/18 06:55 1.0 03/01/18 05:54 97.5 20 Room Air Core Temperature (Celsius): 37.28 Impression: Primary Impression: Nausea & vomiting Additional Impression: Chronic anemia Condition: Improved Disposition: HOME OR SELF-CARE Referrals: EVERTON RIOS MD (PCP) New Scripts Ondansetron (ONDANSETRON ODT) 4 Mg Tab.rapdis 4 MG PO Q6H PRN for NAUSEA/VOMITING, #20 TAB 0 Refills Prov: MARCIE HERNANDEZ MD 03/01/18 Patient Instructions: Acute Nausea and Vomiting (ED) Additional Instructions: Take Zofran 4mg, one every 6 hours as needed for nausea. We have ordered a type and cross of 2 units of blood. Once this is available, we will call you to come in for transfusion. Problem Qualifiers Primary Impression: Nausea & vomiting Vomiting type: unspecified Vomiting Intractability: non-intractable Qualified Codes: R11.2 - Nausea with vomiting, unspecified MARCIE HERNANDEZ MD Mar 01, 2018 06:06
[2018-03-01] MEDS ORDERED: ONDANSETRON 4 MG/2 ML VIAL IVP ONE (06:10)
--- NOTE | 2018-03-01 06:21 | EKG ---
FACILITY: [facility] - [place] PATIENT NAME: JONAH MAYNARD : [id number] MR: [id number] V: [id number] EXAM DATE: ORDERING PHYSICIAN: MARCIE HERNANDEZ TECHNOLOGIST: TALIA Test Reason : NAUSEA Blood Pressure : / mmHG Vent. Rate : 078 BPM Atrial Rate : 077 BPM P-R Int : 000 ms QRS Dur : 086 ms QT Int : 418 ms P-R-T Axes : 000 093 086 degrees QTc Int : 476 ms Sinus rhythym Rightward axis Cannot rule out Anteroseptal infarct , age undetermined Abnormal ECG When compared with ECG of 29-DEC-2017 14:55, No significant change was found Confirmed by Williams Miller ([id number] on 03/01/2018 6:49:18 AM Referred By: Confirmed By:Williams Cartagena
[2018-03-01 06:27] LABS: PLATELET COUNT, AUTOMATED 247 K/uL (150-450)
--- NOTE | 2018-03-01 07:11 | RADIOLOGY IMAGING REPORT ---
[place] [facility] [place] Nadia Baumann : 1930 MR: [id number] V: [id number] EXAM DATE: ORDERING PHYSICIAN: MARCIE HERNANDEZ TECHNOLOGIST: Location: Patient: Nadia Baumann : 1930 Visit/Account:[id number] Date of Sevice: 03/01/2018 ACUTE ABDOMEN SERIES 3 VIEW HISTORY: Nausea. COMPARISON: 11/06/2017. FINDINGS: Lines/tubes: Stable right chest wall generator with a single lead in the right ventricle. Bowel gas pattern: Normal. No free air. Soft tissues: Stable 2 cm calcification projecting over the right upper quadrant suspicious for gall stone, aneurysm, or calcified renal lesion. Bony structures: Mild degenerative changes in the spine and pelvis. Visualized lung bases: Stable cardiomegaly and prosthetic valve. Stable mild chronic scarring in the lungs. No consolidation, pleural effusion, or pneumothorax. IMPRESSION: 1. Normal bowel gas pattern. 2. No acute cardiopulmonary process. 3. Stable cardiomegaly with prosthetic valve. Stable generator in the right chest wall with a single lead in the right ventricle. 4. Stable 2 cm calcification projecting over the right upper quadrant suspicious for gallstone, aneur ysm, or calcified renal lesion. Report Dictated By: Jimi Floyd MD at 03/01/2018 7:02 AM Report E-Signed By: Jimi Floyd MD at 03/01/2018 7:06 AM [id number]
[2018-03-01] MEDS ORDERED: ONDA4TAB9 PO (07:32)
[2018-03-01] MEDS ORDERED: ONDANSETRON 4 MG ODT TH SL ONE (07:35)
[2018-03-01 08:00] VITALS: BP 145/84
== END 2018-03-01 08:05 | disposition home or self-care (01) ==
LOC: ER 07:00
DX: R11.2 Nausea with vomiting, unspecified (principal); D64.9 Anemia, unspecified
CPT/HCPCS: 74022; 81001; 82150; 83690; 84484; 85025; 86850; 86900; 86901; 86920; 93005; 96374; 99284; J2405; Q0162; 82040; 82247; 82310; 82374; 82435; 82565; 82947; 84075; 84132; 84155; 84295; 84450; 84460; 84520; 86870; 86902; 86922; S0119

== ENCOUNTER → 2018-03-03 | Outpatient (CLI) | payer MEDICARE, OTHER ==
[2017-06-24 17:09] VITALS: BMI 21.6
[~2018-03-03] MED LIST changes: +NS(*) 0.9% 500 ML BAG 500 ML IV PRN; +ONDA4TAB9 PO
[2018-03-03 10:38] VITALS: BP 149/89
[2018-03-03 11:08] VITALS: BP 145/79
[2018-03-03 11:26] VITALS: BP 130/68
[2018-03-03 13:18] VITALS: BP 124/85
[2018-03-03 13:41] VITALS: BP 151/87
[2018-03-03 15:45] VITALS: BP 166/78
== END ==
LOC: SPU 09:43
PROVIDERS: ATTEND Family Medicine
DX: D55.1 Anemia due to other disorders of glutathione metabolism (principal)
CPT/HCPCS: 86850; 86870; 86900; 86901; 86902; 86922; P9016; 36430

== ENCOUNTER → 2018-03-11 | Outpatient (CLI) | payer MEDICARE, OTHER ==
[2017-06-24 17:09] VITALS: BMI 21.6
[~2018-03-11] MED LIST changes: -NS(*) 0.9% 500 ML BAG 500 ML IV PRN
[2018-03-11 12:41] LABS: PLATELET COUNT, AUTOMATED 220 K/uL (150-450)
[2018-03-11 12:49] LABS: INR 1.53
== END ==
LOC: LAB 12:16
PROVIDERS: ATTEND Internal Medicine
DX: D64.9 Anemia, unspecified (principal); Z79.01 Long term (current) use of anticoagulants
CPT/HCPCS: 85025; 85610

== ENCOUNTER → 2018-03-17 | Outpatient (CLI) | payer MEDICARE, OTHER ==
[2017-06-24 17:09] VITALS: BMI 21.6
[2018-03-17 13:44] LABS: PLATELET COUNT, AUTOMATED 186 K/uL (150-450)
[2018-03-17 13:47] LABS: INR 1.48
== END ==
LOC: LAB 13:16
PROVIDERS: ATTEND Internal Medicine
DX: D62 Acute posthemorrhagic anemia (principal); Z95.2 Presence of prosthetic heart valve; Z79.01 Long term (current) use of anticoagulants
CPT/HCPCS: 36415; 85025; 85610

== ENCOUNTER 2018-03-18 05:49 | Emergency (ER) | payer MEDICARE, OTHER ==
[2017-06-24 17:09] VITALS: Wt 52.2 kg
[2018-03-18 05:55] VITALS: BP 121/59
--- NOTE | 2018-03-18 06:29 | ER Report ---
History and Physical Time Seen By MD: 06:05 Hx. of Stated Complaint: pt slipped in bathroom around 5:30am. fell backwards, hit occipital lobe, left ribs. bump on back of head, left ribs sore. no bleeding, no loc, no neck/back pain stated or with palpation (MARCIE ANDRADE MD) Time Seen By MD: 07:02 (PENNY MCCORMACK DO) HPI/ROS CHIEF COMPLAINT: fall HISTORY OF PRESENT ILLNESS: This is an 87 year old female. She fell in the bathroom this morning. She did not lose consciousness. Thinks she just lost her balance. Has a goose-egg on the back of her scalp. Has some right rib pain. Denies neck and back pain. Is on Warfarin. Had blood work yesterday. (MARCIE ANDRADE MD) HPI/ROS Please see Dr. Andrade's note (PENNY MCCORMACK DO) Allergies: Coded Allergies: No Known Drug Allergies (Unverified , 03/18/18) Home Meds Active Scripts Ondansetron (ONDANSETRON ODT) 4 Mg Tab.rapdis, 4 MG PO Q6H PRN for NAUSEA/VOMITING, #20 TAB 0 Refills Prov:MARCIE ANDRADE MD 03/01/18 Simvastatin (SIMVASTATIN) 20 Mg Tablet, 1 TAB PO HS, #90 TAB 3 Refills Prov:EVERTON RIOS MD 03/02/17 Omeprazole (OMEPRAZOLE) 20 Mg Capsule.dr, 1 CAP PO QAM, #90 CAP 3 Refills TAKE ONE CAPSULE BY MOUTH ONCE A DAY Prov:IZABELLA GARAY PHARMD 01/15/17 Reported Medications Warfarin Sodium (COUMADIN) 7.5 Mg Tablet, 7.5 MG PO MON 07/12/17 Warfarin Sodium (COUMADIN) 5 Mg Tablet, 5 MG PO RICE,TU,W,TH,F,SA 07/12/17 Cyanocobalamin (Vitamin B-12) (B-12) 1,000 Mcg Tablet.er, 1000 MCG PO QDAY 06/01/17 Calcium Carb & Cit/Vitamin D3 (CITRACAL + D ER TABLET) 1 Each Tablet.er, 1 TAB PO QDAY 04/03/15 Ferrous Sulfate (IRON) 325 Mg Capsule.er, 325 MG PO TID 02/01/15 Reviewed Nurses Notes: Yes (MARCIE ANDRADE MD) Hx Smoking: No Smoking Status: Former Smoker Exposure to Second Hand Smoke?: No Hx Substance Use Disorder: No Hx Alcohol Use: No (MARCIE ANDRADE MD) Constitutional Vital Sign - Last 24 Hours 03/18/18 05:55 Temp 98.5 Pulse 83 Resp 18 B/P (MAP) 121/59 Pulse Ox 89 O2 Delivery Room Air (PENNY MCCORMACK DO) Physical Exam General: Alert, no acute distress. Head: Has scalp hematoma, posterior occipital scalp. Eyes: Pupils equal, round, reactive to light, extraocular movements intact. ENT: normal oral mucosa, no injuries, moist mucous membranes. Neck: anterior soft, non-tender, no lymphadenopathy. No midline tenderness over spinous processes. Cardiovascular: Regular rate and rhythm with holosystolic murmur. Brisk capillary refill Respiratory: Lungs clear to auscultation, no pain with deep breaths. Abdomen: Soft, nontender. Musculoskeletal: No pain on back. No pain in hips and pelvis. Pain over left ribs laterally with palpation. Pain with palpation of left elbow and wrist. Pain with palpation of left knee. No other extremity pain with palpation. (MARCIE ANDRADE MD) Physical Exam Please see Dr. Andrade no (PENNY MCCORMACK DO) Medical Decision Making EKG/Imaging Imaging No acute fractures or intracranial bleeding were identified. Please see official radiology reports for further imaging findings. (PENNY MCCORMACK DO) ED Course/Re-evaluation ED Course Please see Dr. Andrade note. No acute pathology was identified on x-ray and CT imaging aside from a scalp contusion. No new fractures, dislocations or bleeding were identified. Patient was discharged in stable condition. Fall precautions were provided. Close daily follow-up is recommended with PCP. Decision to Disposition Date: Mar 18, 2018 Decision to Disposition Time: 07:39 (PENNY MCCORMACK DO) Depart Departure Latest Vital Signs Vital Signs Date Time Temp Pulse Resp B/P (MAP) Pulse Ox O2 Delivery O2 Flow Rate FiO2 03/18/18 05:55 98.5 83 18 121/59 89 Room Air (PENNY MCCORMACK DO) Core Temperature (Celsius): 37.28 (MARCIE ANDRADE MD) Impression: Primary Impression: Fall from ground level Condition: Improved Disposition: HOME OR SELF-CARE Referrals: EVERTON RIOS MD (PCP) Patient Instructions: Fall Prevention (ED) Additional Instructions: Please follow-up with your family doctor in the next 2 days. Please return promptly if you experience recurrent falls, loss of consciousness, worsening pain, confusion, headaches, weakness, numbness or tingling. Please drink plenty of water. MARCIE ANDRADE MD Mar 18, 2018 06:29 PENNY MCCORMACK DO Mar 18, 2018 07:03
--- NOTE | 2018-03-18 07:06 | RADIOLOGY IMAGING REPORT ---
FACILITY: [facility] PATIENT NAME: Nadia Baumann : 1930 MR: [id number] V: [id number] EXAM DATE: ORDERING PHYSICIAN: MARCIE HERNANDEZ TECHNOLOGIST: Location: [facility] Patient: Nadia Baumann : 1930 Visit/Account:[id number] Date of Sevice: 03/18/2018 ELBOW 3 VIEW LEFT HISTORY: Fell. COMPARISON: None. TECHNIQUE: AP, oblique, and lateral views of the left elbow. FINDINGS: There is no fracture or dislocation. No joint effusion. IMPRESSION: 1. No acute osseous abnormality of the left elbow. Report Dictated By: Heather Caldera at 03/18/2018 7:00 AM Report E-Signed By: Hetaher Caldera at 03/18/2018 7:02 AM WSN:[id number]
--- NOTE | 2018-03-18 07:11 | RADIOLOGY IMAGING REPORT ---
[place] [facility] [place] NAME: Nadia Baumann : 1930 MR: [id number] V: [id number] EXAM DATE: ORDERING PHYSICIAN: MARCIE HERNANDEZ TECHNOLOGIST: Location: [facility] Patient: Nadia Baumann : 1930 Visit/Account:[id number] Date of Sevice: 03/18/2018 WRIST LEFT MIN 3 VIEW HISTORY: Fell. COMPARISON: Left forearm x-rays 05/13/2017. TECHNIQUE: PA, oblique, and lateral views of the left wrist. FINDINGS: There is no fracture or dislocation. There is a corticated bone fragment overlying the tip of the ulnar styloid, likely related to old fracture, unchanged. There is narrowing of the scaphoid t rapezium and scaphoid trapezoid articulations. There is mild degenerative change of the first carpal metacarpal joint. There is a corticated bone fragment at the radial side of the first carpometacarpal joint that may relate to old fracture, unchanged. IMPRESSION: 1. Degenerative changes, but no acute osseous abnormality of the left wrist. Report Dictated By: Heather Caldera at 03/18/2018 7:02 AM Report E-Signed By: Heather Caldera at 03/18/2018 7:07 AM WSN:[id number]
--- NOTE | 2018-03-18 07:13 | RADIOLOGY IMAGING REPORT ---
FACILITY: PATIENT NAME: Nadia Baumann : 1930 MR: [id number] V: [id number] EXAM DATE: ORDERING PHYSICIAN: MARCIE HERNANDEZ TECHNOLOGIST: Location: [facility] [place] Patient: Nadia Baumann : 1930 Visit/Account:[id number] Date of Sevice: 03/18/2018 KNEE 4 VIEW LEFT HISTORY: Fell. COMPARISON: 06/23/2017 and studies dating to 03/16/2018. TECHNIQUE: AP, oblique, sunrise, and crosstable lateral views of the left knee. FINDINGS: There is no fracture or dislocation. There is medial patellar femoral joint compartment brandyn rowing that has progressed. Trace joint effusion. Marginal patellar spurs. Probable loose body at the joint space. IMPRESSION: 1. Progression of degenerative changes, but no acute osseous abnormality of the left knee. Report Dictated By: Heather Caldera at 03/18/2018 7:07 AM Report E-Signed By: Heather Caldera at 03/18/2018 7:10 AM WSN:[id number]
--- NOTE | 2018-03-18 07:17 | RADIOLOGY IMAGING REPORT ---
FACILITY: [facility] PATIENT NAME: Nadia Baumann : 1930 MR: [id number] V: [id number] EXAM DATE: ORDERING PHYSICIAN: MARCIE HERNANDEZ [place]CHN[place] [facility] [place] : 1930 Visit/Account:[id number] Date of Sevice: 03/18/2018 CHEST PA AND LAT HISTORY: Fall. COMPARISON: 02/08/2018 and studies dating to 12/28/2017. TECHNIQUE: PA and lateral views of the chest. FINDINGS: Tubes/lines/hardware: Pacemaker generator overlies the right upper lateral chest and single lead term inates in the right ventricle. There is a cardiac valve prosthesis. Pulmonary: There is minimal scarring or atelectasis at the left base, unchanged. The right lung is cl ear. There is no pneumothorax or pleural effusion. Cardiomediastinal: The cardiac silhouette is enlarged, stable. The mediastinal silhouette is within n ormal limits. There is mild aortic calcification. Bones/soft tissues: No acute osseous abnormality. Old fracture of the tenth lateral left rib, unchang ed. The visible abdomen is normal. IMPRESSION: 1. Stable chest without acute process. Report Dictated By: Heather Caldera at 03/18/2018 7:10 AM Report E-Signed By: Heather Caldera at 03/18/2018 7:13 AM WSN:[id number]
--- NOTE | 2018-03-18 07:19 | RADIOLOGY IMAGING REPORT ---
FACILITY: [facility] PATIENT NAME: Nadia Baumann : 1930 MR: [id number] V: [id number] EXAM DATE: ORDERING PHYSICIAN: MARCIE HERNANDEZ TECHNOLOGIST: Location: [facility] Patient: Nadia Baumann : 1930 Visit/Account:[id number] Date of Sevice: 03/18/2018 RIBS LEFT HISTORY: Fall. COMPARISON: Chest x-ray same day. Prior chest x-rays 02/08/2018 and studies dating to 12/28/2017. TECHNIQUE: Detail views of left ribs. FINDINGS: Tubes/lines/hardware: Pacemaker generator overlies the right upper lateral chest, and single lead ter minates in the right ventricle. There is a cardiac valve prosthesis. There is a BB marker indicating pain of lower left ribs. Pulmonary: There is stable scarring or atelectasis at the left base. No pneumothorax. There is no pne umothorax or pleural effusion. Cardiomediastinal: The cardiac silhouette is enlarged, stable. The mediastinal silhouette is within n ormal limits. There is mild aortic calcification. Bones/soft tissues: There are healed fractures of the fifth anterior and tenth lateral left ribs, unc hanged. No acute fracture. The visible abdomen is normal. IMPRESSION: 1. No acute rib fracture. 2. Healed fifth anterior and tenth lateral left rib fractures, stable. 3. Stable scarring or atelectasis at the left base. Report Dictated By: Heather Caldera at 03/18/2018 7:13 AM Report E-Signed By: Heather Caldera at 03/18/2018 7:17 AM WSN:[id number]
--- NOTE | 2018-03-18 07:27 | RADIOLOGY IMAGING REPORT ---
FACILITY: [facility] [place] PATIENT NAME: Nadia Baumann : 1930 MR: [id number] V: [id number] EXAM DATE: ORDERING PHYSICIAN: MARCIE HERNANDEZ TECHNOLOGIST: Location: [facility] Patient: Nadia Baumann : 1930 Visit/Account:[id number] Date of Sevice: 03/18/2018 HEAD W/O CONTRAST HISTORY: Fall. COMPARISON: 02/06/2018 and studies dating to 02/01/2015. TECHNIQUE: Axial images were obtained from the skull base to the vertex without contrast. Sagittal an d coronal reformats were performed. One of the following dose optimization techniques was utilized in the performance of this exam: Autom ated exposure control; adjustment of the mA and/or kV according to the patient's size; or use of an i terative reconstruction technique. Specific details can be referenced in the facility's radiology CT exam operational policy. CONTRAST: None. FINDINGS: Brain: No intracranial hemorrhage, mass, or edema. There are nonspecific periventricular, subcortical , and deep white matter low attenuation foci, mild in severity, unchanged. Ventricles and sulci: Sulci are prominent, compatible with moderate atrophy, normal for age. There is compensatory dilation of the ventricles. Osseous structures: Intact. Paranasal sinuses and mastoids: There is mild mucosal thickening of the maxillary sinuses. Minimal le ftward nasal septal deviation. Mastoids are clear. Orbits and soft tissues: There is cerumen within the bilateral external auditory canals. Changes of l eft lens/cataract surgery. There is a small contusion of the left occipital scalp (image 49 series 2) . There is scarring of the left parietal scalp where there was a contusion in January. IMPRESSION: 1. Left occipital scalp contusion, but no acute intracranial abnormality. 2. Nonspecific white matter changes are most likely due to chronic microvascular ischemic change, sta ble. Report Dictated By: Heather Caldera at 03/18/2018 7:19 AM Report E-Signed By: Heather Caldera at 03/18/2018 7:24 AM WSN:[id number]
== END 2018-03-18 07:59 | disposition home or self-care (01) ==
LOC: ER 06:31
DX: S00.03XA Contusion of scalp, initial encounter (principal); W01.198A Fall on same level from slipping, tripping and stumbling with subsequent striking against other object, initial encounter; Y92.002 Bathroom of unspecified non-institutional (private) residence as the place of occurrence of the external cause
CPT/HCPCS: 70450; 71046; 71100; 73564; 99284

== ENCOUNTER 2018-03-20 05:56 | Emergency (ER) | payer MEDICARE, OTHER ==
[2017-06-24 17:09] VITALS: Wt 56.7 kg
--- NOTE | 2018-03-20 05:58 | ER Report ---
History and Physical Time Seen By MD: 05:58 (NE HARRIS DO) HPI/ROS CHIEF COMPLAINT: Fall HISTORY OF PRESENT ILLNESS: 87-year-old female on chronic Coumadin therapy for a mechanical heart valve. Patient has a large bruise over the bridge of her nose. She is known for frequent falls. Patient was seen here 2 days ago after a fall she sustained an occipital hematoma. INR was subtherapeutic on 03/17/18 at 1.48 REVIEW OF SYSTEMS: Respiratory: No cough, no dyspnea. Cardiovascular: No chest pain, no palpitations. Gastrointestinal: No vomiting, no abdominal pain. Musculoskeletal: No back pain. (NE HARRIS DO) Allergies: Coded Allergies: No Known Drug Allergies (Unverified , 03/20/18) Home Meds Active Scripts Ondansetron (ONDANSETRON ODT) 4 Mg Tab.rapdis, 4 MG PO Q6H PRN for NAUSEA/VOMITING, #20 TAB 0 Refills Prov:MARCIE HERNANDEZ MD 03/01/18 Simvastatin (SIMVASTATIN) 20 Mg Tablet, 1 TAB PO HS, #90 TAB 3 Refills Prov:EVERTON RIOS MD 03/02/17 Omeprazole (OMEPRAZOLE) 20 Mg Capsule.dr, 1 CAP PO QAM, #90 CAP 3 Refills TAKE ONE CAPSULE BY MOUTH ONCE A DAY Prov:IZABELLA GARAY PHARMD 01/15/17 Reported Medications Warfarin Sodium (COUMADIN) 7.5 Mg Tablet, 7.5 MG PO MON 07/12/17 Warfarin Sodium (COUMADIN) 5 Mg Tablet, 5 MG PO RICE,TU,W,TH,F,SA 07/12/17 Cyanocobalamin (Vitamin B-12) (B-12) 1,000 Mcg Tablet.er, 1000 MCG PO QDAY 06/01/17 Calcium Carb & Cit/Vitamin D3 (CITRACAL + D ER TABLET) 1 Each Tablet.er, 1 TAB PO QDAY 04/03/15 Ferrous Sulfate (IRON) 325 Mg Capsule.er, 325 MG PO TID 02/01/15 Past Medical/Surgical History Patient has a past medical history of essential tremor, Parkinson's, dementia, migraines, hyperlipidemia, pneumonia, reflux, arthritis, back pain, hard hearing, diabetes, anemia, skin cancer, breast cancer. Patient has surgical history of bilateral mastectomy, lumpectomy, skin cancer removal, tonsillectomy, hysterectomy, D&C, appendectomy, pacemaker placement, mitral replacement. (NE HARRIS DO) Reviewed Nurses Notes: Yes Old Medical Records Reviewed: Yes (NE HARRIS DO) Hx Smoking: No Smoking Status: Former Smoker Exposure to Second Hand Smoke?: No Hx Substance Use Disorder: No Hx Alcohol Use: No (NE HARRIS DO) Constitutional Vital Sign - Last 24 Hours 03/20/18 03/20/18 03/20/18 06:01 06:30 06:41 Temp 98.5 Pulse 75 72 Resp 24 B/P (MAP) 136/67 136/70 (92) Pulse Ox 93 87 O2 Delivery Room Air (DUY HCAPPELL MD) Physical Exam Vital signs stable, afebrile General Appearance: The patient is alert, has no immediate need for airway protection and no current signs of toxicity. Palpation of the head and neck reveal no tenderness or trauma except to the bridge of the nose. There is a large hematoma noted. There HEENT: Pupils equal and round no injection. TMs, PERRLA, oropharynx with trauma to the tongue. There is some bleeding in the mouth noted. Respiratory: Chest is non tender, lungs are clear to auscultation. No chest wall tenderness Cardiac: regular rate and rhythm, mechanical heart valve sound Gastrointestinal: Abdomen is soft and non tender, no masses, bowel sounds normal. Musculoskeletal: Neck: Neck is supple and non tender. No tenderness to aggressive palpation in the midline Extremities have full range of motion and are non tender. There is a bruise ov er the anterior right knee Skin: No rashes or lesions. Neuro: Oriented 3, cranial nerves II through XII intact motor 5/5 all groups, sensory intact to light touch 4 DIFFERENTIAL DIAGNOSIS: After history and physical exam differential diagnosis was considered for head injury including but not limited to concussion, skull fracture, intraparenchymal contusion, subarachnoid, subdural and epidural hematoma. (NE HARRIS DO) Medical Decision Making EKG/Imaging Imaging Results: CT scan of the head and cervical spine without contrast was obtained. The results of the study are no acute findings, see radiology reports. The study was read by the radiologist. I viewed the images myself on the PACS system. Results: CT scan of the facial bones without contrast was obtained. The results of the study are no acute findings. The study was read by the radiologist. I viewed the images myself on the PACS system. (NE HARRIS DO) [place] [facility] [place] Nadia Baumann : 1930 MR: [id number] V: [id number] EXAM DATE: [id number] ORDERING PHYSICIAN: NE HARRIS TECHNOLOGIST: Location: [facility] [place] Patient: Nadia Baumann : 1930 Visit/Account:[id number] Date of Sevice: 03/20/2018 CT of the facial bones and orbits: HISTORY: Injury. TECHNIQUE: Helical CT was performed without contrast. Multiplanar reconstructions are reviewed. One of the following dose optimization techniques was utilized in the performance of this exam: Automated exposure control; adjustment of the mA and/or kV according to the patient's size; or use of an iterative reconstruction technique. Specific details can be referenced in the facility's radiology CT exam operational policy. COMPARISON: None available. FINDINGS: Osseous structures: There is no evidence of fracture, displacement, or dislocation. There is uniform mineralization of the visualized skeletal structures. Soft Tissues: No focal soft tissue deformity or foreign body is identified. Orbits: The optic globes, optic nerves, and extraocular muscles appear symmetrical and unremarkable. Sinuses and mastoids: There is minimal mucosal thickening in the maxillary sinuses. There is no free fluid. The paranasal sinuses and mastoid air cells are otherwise clear. IMPRESSION: No acute deformity. Report Dictated By: Ruben Ramírez MD at 03/20/2018 6:50 AM Report E-Signed By: Ruben Ramírez MD at 03/20/2018 7:02 AM WSN:[id number] (DUY CHAPPELL MD) ED Course/Re-evaluation ED Course Patient was admitted to an examination room. H&P was done. The differential diagnoses was considered. Patient fell face 1st. She does have significant bruising and swelling to the bridge of her nose. She denies LOC or neck pain. On Coumadin. They're keeping her at a subtherapeutic level on her INR. Her INR was checked 03/17/18 and 1.48. Patient was seen here in the ER 2 days ago and had a head CT for falling backwards and sustaining an occipital hematoma. Patient fell forward today has significant facial trauma. On arrival to the ER. Diagnostic head, neck and facial bone CTs are performed without contrast. There were no significant findings noted. Results reviewed with family and patient. She is advised to conservative treatment plan an urgent follow-up with her primary care this week. Decision to Disposition Date: Mar 20, 2018 Decision to Disposition Time: 06:55 (NE HARRIS DO) ED Course Imaging unremarkable we'll discharge home Decision to Disposition Date: Mar 20, 2018 Decision to Disposition Time: 07:14 (DUY CHAPPELL MD) Depart Departure Latest Vital Signs Vital Signs Date Time Temp Pulse Resp B/P (MAP) Pulse Ox O2 Delivery O2 Flow Rate FiO2 03/20/18 06:41 72 87 03/20/18 06:30 136/70 (92) 03/20/18 06:01 98.5 24 Room Air (DUY CHAPPELL MD) Core Temperature (Celsius): 37.28 (NE HARRIS DO) Impression: Primary Impression: Fall from ground level Additional Impressions: Facial contusion Chronic anticoagulation H/O heart valve replacement with mechanical valve Condition: Improved Disposition: HOME OR SELF-CARE Referrals: EVERTON RIOS MD (PCP) Patient Instructions: Contusion in Adults (ED), Head Injury (ED) Additional Instructions: Follow-up with primary care this week Problem Qualifiers Additional Impressions: Facial contusion Encounter type: initial encounter Qualified Codes: S00.83XA - Contusion of other part of head, initial encounter NE HARRIS DO Mar 20, 2018 05:58 DUY CHAPPELL MD Mar 20, 2018 07:15
--- NOTE | 2018-03-20 06:51 | RADIOLOGY IMAGING REPORT ---
FACILITY: [facility] PATIENT NAME: Nadia Baumann : 1930 MR: [id number] V: [id number] EXAM DATE: ORDERING PHYSICIAN: NE HARRIS TECHNOLOGIST: [place] [facility] [place]: Nadia Baumann : 1930 Visit/Account:[id number] Date of Sevice: 03/20/[address]: Indication: Injury. Technique: Contiguous axial sections were obtained from the base to the vertex without contrast enhan cement. One of the following dose optimization techniques was utilized in the performance of this exam: Autom ated exposure control; adjustment of the mA and/or kV according to the patient's size; or use of an i terative reconstruction technique. Specific details can be referenced in the facility's radiology CT exam operational policy. Comparison: 03/18/2018 Findings: There is no evidence of intra-axial or extra-axial hemorrhage. Diffuse cortical atrophy and periventricular white matter disease appears unchanged. No new focal areas of decreased or increased attenuation are identified. There is no evidence of mass, edema, or shift of the midline structures. The size, shape, and configuration of the ventricular system are stable. There is no evidence of fra cture or other acute deformity. There is minimal mucosal thickening in the maxillary sinuses. The sin uses are otherwise unremarkable. Impression: No acute deformity or significant change. Report Dictated By: Ruben Ramírez MD at 03/20/2018 6:40 AM Report E-Signed By: Ruben Ramírez MD at 03/20/2018 6:47 AM WSN:[id number]
--- NOTE | 2018-03-20 06:55 | RADIOLOGY IMAGING REPORT ---
FACILITY: [facility] [place] PATIENT NAME: Nadia Baumann : 1930 MR: [id number] V: [id number] EXAM DATE: ORDERING PHYSICIAN: NE HARRIS TECHNOLOGIST: Location: [facility] [place] Patient: Nadia Baumann : 1930 Visit/Account:[id number] Date of Sevice: 03/20/2018 CT of the cervical spine without contrast: Indication: Injury. Technique: Helical CT was performed through the cervical spine without contrast. Axial, coronal, and sagittal reconstructions are reviewed. One of the following dose optimization techniques was utilized in the performance of this exam: Autom ated exposure control; adjustment of the mA and/or kV according to the patient's size; or use of an i terative reconstruction technique. Specific details can be referenced in the facility's radiology CT exam operational policy. Comparison: None available. Findings: There is no evidence of fracture, compression, subluxation, or other acute deformity. There are marked changes of degenerative disc disease from C4 through C7. There is uniform mineralization. The skeletal structures are otherwise unremarkable. No paraspinal soft tissue abnormalities are iden tified. IMPRESSION: No evidence of fracture or acute deformity. Report Dictated By: Ruben Ramírez MD at 03/20/2018 6:47 AM Report E-Signed By: Ruben Ramírez MD at 03/20/2018 6:50 AM WSN:[id number]
--- NOTE | 2018-03-20 07:06 | RADIOLOGY IMAGING REPORT ---
FACILITY: [facility] - [place] PATIENT NAME: Nadia Baumann : 1930 MR: [id number] V: [id number] EXAM DATE: ORDERING PHYSICIAN: NE HARRIS TECHNOLOGIST: Location: [facility] [place] Patient: Nadia Baumann : 1930 Visit/Account:[id number] Date of Sevice: 03/20/2018 CT of the facial bones and orbits: HISTORY: Injury. TECHNIQUE: Helical CT was performed without contrast. Multiplanar reconstructions are reviewed. One of the following dose optimization techniques was utilized in the performance of this exam: Autom ated exposure control; adjustment of the mA and/or kV according to the patient's size; or use of an i terative reconstruction technique. Specific details can be referenced in the facility's radiology CT exam operational policy. COMPARISON: None available. FINDINGS: Osseous structures: There is no evidence of fracture, displacement, or dislocation. There is uniform mineralization of the visualized skeletal structures. Soft Tissues: No focal soft tissue deformity or foreign body is identified. Orbits: The optic globes, optic nerves, and extraocular muscles appear symmetrical and unremarkable. Sinuses and mastoids: There is minimal mucosal thickening in the maxillary sinuses. There is no free fluid. The paranasal sinuses and mastoid air cells are otherwise clear. IMPRESSION: No acute deformity. Report Dictated By: Ruben Ramírez MD at 03/20/2018 6:50 AM Report E-Signed By: Ruben Ramírez MD at 03/20/2018 7:02 AM [id number]
[2018-03-20 07:19] VITALS: BP 140/69
== END 2018-03-20 07:25 | disposition home or self-care (01) ==
LOC: ER 06:57
DX: S00.83XA Contusion of other part of head, initial encounter (principal); Z79.01 Long term (current) use of anticoagulants; Z95.2 Presence of prosthetic heart valve
CPT/HCPCS: 70450; 70486; 72125; 99284

== ENCOUNTER → 2018-03-24 | Outpatient (CLI) | payer MEDICARE, OTHER ==
[2017-06-24 17:09] VITALS: BMI 21.6
[2018-03-24 14:17] LABS: INR 1.76
== END ==
LOC: LAB 13:36
PROVIDERS: ATTEND Internal Medicine
DX: D62 Acute posthemorrhagic anemia (principal); Z95.2 Presence of prosthetic heart valve
CPT/HCPCS: 36415; 85610

== ENCOUNTER 2018-03-25 19:24 | Emergency (ER) | payer MEDICARE, OTHER ==
[2017-06-24 17:09] VITALS: Wt 56.8 kg
--- NOTE | 2018-03-25 19:41 | ER Report ---
History and Physical Time Seen By MD: 19:41 Hx. of Stated Complaint: Pt reports falling two days ago. Pt has facial bruising. Pt reports difficulty breathing and feeling sick. HPI/ROS CHIEF COMPLAINT: feeling sick HISTORY OF PRESENT ILLNESS: This is an 87 year old female. She is not feeling well. fell a few days ago with bruising on face and arms, and a small skin tear. She is having an upset stomach and some shortness of breath for a few days now. She has no vomiting. She has normal bowels without diarrhea or constipation. She urinates frequently chronically and this has not changed, and she denies dysuria. She has been having headaches. No dizziness. No changes in her vision. She has a mild cough. No fevers or chills. Eating and drinking okay, but generally small amounts and poor appetite Allergies: Coded Allergies: No Known Drug Allergies (Unverified , 03/25/18) Home Meds Active Scripts Ondansetron 4 Mg Odt (ONDANSETRON 4 MG ODT) 4 Mg Tab.rapdis, 4 MG PO Q6H PRN for NAUSEA/VOMITING, #20 TAB 0 Refills Prov:BRIAN ANDRADE MD 03/25/18 Ondansetron 4 Mg Odt (ONDANSETRON 4 MG ODT) 4 Mg Tab.rapdis, 4 MG PO Q6H PRN for NAUSEA/VOMITING, #20 TAB 0 Refills Prov:BRIAN ANDRADE MD 03/01/18 Simvastatin (SIMVASTATIN) 20 Mg Tablet, 1 TAB PO HS, #90 TAB 3 Refills Prov:EVERTON STEINBERG MD 03/02/17 Omeprazole (OMEPRAZOLE) 20 Mg Capsule.dr, 1 CAP PO QAM, #90 CAP 3 Refills TAKE ONE CAPSULE BY MOUTH ONCE A DAY Prov:IZABELLA GARAY PHARMD 01/15/17 Reported Medications Warfarin Sodium (COUMADIN) 7.5 Mg Tablet, 7.5 MG PO MON 07/12/17 Warfarin Sodium (COUMADIN) 5 Mg Tablet, 5 MG PO RICE,TU,W,TH,F,SA 07/12/17 Cyanocobalamin (Vitamin B-12) (B-12) 1,000 Mcg Tablet.er, 1000 MCG PO QDAY 06/01/17 Calcium Carb & Cit/Vitamin D3 (CITRACAL + D ER TABLET) 1 Each Tablet.er, 1 TAB PO QDAY 04/03/15 Ferrous Sulfate (IRON) 325 Mg Capsule.er, 325 MG PO TID 02/01/15 Reviewed Nurses Notes: Yes Hx Smoking: No Smoking Status: Former Smoker Exposure to Second Hand Smoke?: No Hx Substance Use Disorder: No Hx Alcohol Use: No Constitutional Vital Sign - Last 24 Hours 03/25/18 03/25/18 03/25/18 03/25/18 19:32 19:35 19:39 19:54 Temp 99.8 Pulse 85 83 94 Resp 22 25 27 B/P (MAP) 143/67 (92) 143/67 Pulse Ox 86 94 94 O2 Delivery Room Air 03/25/18 03/25/18 03/25/18 03/25/18 20:00 20:09 20:24 21:03 Pulse 82 88 Resp 24 23 B/P (MAP) 117/59 (78) 131/71 (91) Pulse Ox 94 94 03/25/18 03/25/18 03/25/18 03/25/18 21:09 21:10 21:25 21:30 Pulse 85 84 81 Resp 20 20 8 B/P (MAP) 135/108 (117) Pulse Ox 97 97 99 03/25/18 21:40 Pulse 87 Resp 16 Pulse Ox 97 Physical Exam General Appearance: Alert,no distress. Eyes: Pupils equal and round no injection. ENT: Normal oral mucosa. Mucus membranes slightly dry. Tympanic membranes are normal. Neck: Neck is supple and non tender. Respiratory: Chest is non tender, lungs are clear to auscultation. Cardiac: regular rate and rhythm Gastrointestinal: Abdomen is soft and non tender, no masses, bowel sounds normal. Musculoskeletal: Extremities have full range of motion. Skin: No rashes or lesions. DIFFERENTIAL DIAGNOSIS: After history and physical exam differential diagnosis was considered for patient not feeling well, nonspecific symptoms. Could be a viral process or pulmonary infection based on mild hypoxia. Could also be related to recent fall with mild post-concussion syndrome. Medical Decision Making Data Points Result Diagram: 03/25/18201303/25/182013 Laboratory Hematology Test 03/25/18 20:05 03/25/18 20:14 Urine Color Yellow Urine Clarity Clear Urine pH 5.0 pH (4.8-9.5) Urine Specific [place] 1.020 Urine Protein 30 mg/dL (NEGATIVE) Urine Glucose (UA) Negative mg/dL (NEGATIVE) Urine Ketones Negative mg/dL (NEGATIVE) Urine Blood Negative (NEGATIVE) Urine Nitrite Negative (NEGATIVE) Urine Bilirubin Negative (NEGATIVE) Urine Urobilinogen Negative mg/dL (0.2-1.9) Urine Leukocyte Esterase Negative (NEGATIVE) Urine RBC <1 /HPF (0-2/HPF) Urine WBC 1 /HPF (0-5/HPF) Urine Squamous Epithelial Cells Many /LPF (NONE-FEW) Urine Bacteria Negative /HPF (NONE-FEW) Urine Mucus None /HPF (NONE-FEW) Red Blood Count 2.95 M/uL (4.17-5.56) Mean Corpuscular Volume 99.3 fL (80.0-96.0) Mean Corpuscular Hemoglobin 33.4 pg (26.0-33.0) Mean Corpuscular Hemoglobin Concent 33.7 g/dL (32.0-36.0) Red Cell Distribution Width 14.8 % (11.5-14.5) Mean Platelet Volume 9.2 fL (7.2-11.1) Neutrophils (%) (Auto) 85.5 % (39.4-72.5) Lymphocytes (%) (Auto) 4.9 % (17.6-49.6) Monocytes (%) (Auto) 8.5 % (4.1-12.4) Eosinophils (%) (Auto) 0.9 % (0.4-6.7) Basophils (%) (Auto) 0.2 % (0.3-1.4) Nucleated RBC Relative Count (auto) 0.0 /100WBC Neutrophils # (Auto) 7.0 K/uL (2.0-7.4) Lymphocytes # (Auto) 0.4 K/uL (1.3-3.6) Monocytes # (Auto) 0.7 K/uL (0.3-1.0) Eosinophils # (Auto) 0.1 K/uL (0.0-0.5) Basophils # (Auto) 0.0 K/uL (0.0-0.1) Nucleated RBC Absolute Count (auto) 0.00 K/uL Sodium Level 137 mmol/L (137-145) Potassium Level 4.0 mmol/L (3.5-5.0) Chloride Level 103 mmol/L (98-107) Carbon Dioxide Level 25 mmol/L (22-31) Blood Urea Nitrogen 18 mg/dl (7-18) Creatinine 0.90 mg/dl (0.52-1.04) Glomerular Filtration Rate Calc 59.4 Random Glucose 143 mg/dl (75-110) Calcium Level 9.1 mg/dl (8.4-10.2) Total Bilirubin 0.3 mg/dl (0.2-1.3) Aspartate Amino Transf (AST/SGOT) 35 U/L (0-35) Alanine Aminotransferase (ALT/SGPT) 33 U/L (0-56) Alkaline Phosphatase 202 U/L (0-126) Troponin I < 0.012 ng/ml Total Protein 7.1 g/dl (6.3-8.2) Albumin 3.6 g/dl (3.5-5.0) Chemistry Test 03/25/18 20:05 03/25/18 20:14 Urine Color Yellow Urine Clarity Clear Urine pH 5.0 pH (4.8-9.5) Urine Specific [place] 1.020 Urine Protein 30 mg/dL (NEGATIVE) Urine Glucose (UA) Negative mg/dL (NEGATIVE) Urine Ketones Negative mg/dL (NEGATIVE) Urine Blood Negative (NEGATIVE) Urine Nitrite Negative (NEGATIVE) Urine Bilirubin Negative (NEGATIVE) Urine Urobilinogen Negative mg/dL (0.2-1.9) Urine Leukocyte Esterase Negative (NEGATIVE) Urine RBC <1 /HPF (0-2/HPF) Urine WBC 1 /HPF (0-5/HPF) Urine Squamous Epithelial Cells Many /LPF (NONE-FEW) Urine Bacteria Negative /HPF (NONE-FEW) Urine Mucus None /HPF (NONE-FEW) White Blood Count 8.2 k/uL (4.5-11.0) Red Blood Count 2.95 M/uL (4.17-5.56) Hemoglobin 9.9 g/dL (12.0-16.0) Hematocrit 29.3 % (34.0-47.0) Mean Corpuscular Volume 99.3 fL (80.0-96.0) Mean Corpuscular Hemoglobin 33.4 pg (26.0-33.0) Mean Corpuscular Hemoglobin Concent 33.7 g/dL (32.0-36.0) Red Cell Distribution Width 14.8 % (11.5-14.5) Platelet Count 182 K/uL (150-450) Mean Platelet Volume 9.2 fL (7.2-11.1) Neutrophils (%) (Auto) 85.5 % (39.4-72.5) Lymphocytes (%) (Auto) 4.9 % (17.6-49.6) Monocytes (%) (Auto) 8.5 % (4.1-12.4) Eosinophils (%) (Auto) 0.9 % (0.4-6.7) Basophils (%) (Auto) 0.2 % (0.3-1.4) Nucleated RBC Relative Count (auto) 0.0 /100WBC Neutrophils # (Auto) 7.0 K/uL (2.0-7.4) Lymphocytes # (Auto) 0.4 K/uL (1.3-3.6) Monocytes # (Auto) 0.7 K/uL (0.3-1.0) Eosinophils # (Auto) 0.1 K/uL (0.0-0.5) Basophils # (Auto) 0.0 K/uL (0.0-0.1) Nucleated RBC Absolute Count (auto) 0.00 K/uL Glomerular Filtration Rate Calc 59.4 Calcium Level 9.1 mg/dl (8.4-10.2) Total Bilirubin 0.3 mg/dl (0.2-1.3) Aspartate Amino Transf (AST/SGOT) 35 U/L (0-35) Alanine Aminotransferase (ALT/SGPT) 33 U/L (0-56) Alkaline Phosphatase 202 U/L (0-126) Troponin I < 0.012 ng/ml Total Protein 7.1 g/dl (6.3-8.2) Albumin 3.6 g/dl (3.5-5.0) Urinalysis Test 03/25/18 20:05 Urine Color Yellow Urine Clarity Clear Urine pH 5.0 pH (4.8-9.5) Urine Specific [place] 1.020 Urine Protein 30 mg/dL (NEGATIVE) Urine Glucose (UA) Negative mg/dL (NEGATIVE) Urine Ketones Negative mg/dL (NEGATIVE) Urine Blood Negative (NEGATIVE) Urine Nitrite Negative (NEGATIVE) Urine Bilirubin Negative (NEGATIVE) Urine Urobilinogen Negative mg/dL (0.2-1.9) Urine Leukocyte Esterase Negative (NEGATIVE) Urine RBC <1 /HPF (0-2/HPF) Urine WBC 1 /HPF (0-5/HPF) Urine Squamous Epithelial Cells Many /LPF (NONE-FEW) Urine Bacteria Negative /HPF (NONE-FEW) Urine Mucus None /HPF (NONE-FEW) EKG/Imaging Imaging ACUTE ABDOMEN SERIES 3 VIEW HISTORY: Upset stomach. Not feeling well. COMPARISON: 03/01/2018 and studies dating to 03/28/2014. TECHNIQUE: PA upright view of the chest, AP supine and AP upright views of the abdomen. Hardware: Pacemaker generator overlies the right upper chest and single lead terminates in the right ventricle. There is a cardiac valve prosthesis. Chest: The lungs are clear. Heart is enlarged. There is mild aortic calcification. There are healed bilateral rib fractures. Abdomen: The distribution of bowel gas is normal, with bowel in all four quadrants as well as centrally. No free air. No dilated loops of bowel. There is a 1.7 cm calcification in the right upper quadrant, compatible with a gallstone. There is mild degenerative change of the spine. There is a mild leftward curvature of the lumbar spine. There are vascular calcifications. There are pelvic phleboliths. IMPRESSION: 1. No acute cardiopulmonary process. Stable cardiomegaly. 2. Unremarkable bowel gas pattern without obstruction. 3. Cholelithiasis. Report Dictated By: Heather Caldera at 03/25/2018 9:21 PM ED Course/Re-evaluation Clinical Indication for ER IV: IV Access ED Course Labs show mild anemia. No other problems on labs or on imaging. Suspect viral syndrome, but could be concussion syndrome from recent falls. Rest, oral fluid intake and Zofran as needed with re-evaluation if worsening. Based on low oxygen, will go home on oxygen as well. She is feeling better now on re- evaluation. Decision to Disposition Date: Mar 25, 2018 Decision to Disposition Time: 22:04 Depart Departure Latest Vital Signs Vital Signs Date Time Temp Pulse Resp B/P (MAP) Pulse Ox O2 Delivery O2 Flow Rate FiO2 03/25/18 21:40 87 16 97 03/25/18 21:30 135/108 (117) 03/25/18 19:35 99.8 Room Air Core Temperature (Celsius): 37.28 Impression: Primary Impression: Viral syndrome Condition: Improved Disposition: HOME OR SELF-CARE Referrals: EVERTON STEINBERG MD (PCP) New Scripts Ondansetron 4 Mg Odt (ONDANSETRON 4 MG ODT) 4 Mg Tab.rapdis 4 MG PO Q6H PRN for NAUSEA/VOMITING, #20 TAB 0 Refills Prov: BRIAN ANDRADE MD 03/25/18 Departure Forms: Home Oxygen, Nebulizer RX Durable Medical Equipment- Oxygen: Oxygen Concentrator, Portable Oxygen Gas Reason for Use/Diagnosis: viral syndrome, hypoxia Start Date of the Order: Mar 25, 2018 Dosage or Concentration (if applicable) - LPM: 2 Route of Administration (if applicable): Nasal Cannula Frequency of Use: Continuous Duration Home O2 Required: 4 Duration Units: Weeks Room Air Oxygen Saturation: 86 ER Prescribing Physician's Name: Brian Andrade NPI Numbers for Local ER MDs: Raymond [id number] Patient Instructions: Hypoxia (ED), Viral Syndrome (ED) Additional Instructions: Rest and increase fluid intake. Tylenol as needed for pain. Zofran 4mg, one every 6 hours as needed for nausea or vomiting. Home oxygen Follow with Dr. Steinberg. BRIAN ANDRADE MD Mar 25, 2018 19:41
--- NOTE | 2018-03-25 20:17 | EKG ---
FACILITY: [facility] - [place] PATIENT NAME: JONAH MAYNARD : [id number] MR: [id number] V: [id number] EXAM DATE: ORDERING PHYSICIAN: MARCIE HERNANDEZ TECHNOLOGIST: ARABELLA Test Reason : NAUSEA Blood Pressure : / mmHG Vent. Rate : 091 BPM Atrial Rate : 091 BPM P-R Int : 210 ms QRS Dur : 086 ms QT Int : 390 ms P-R-T Axes : 108 082 064 degrees QTc Int : 479 ms Sinus rhythm Non-specific T wave flattening in inferior and lateral leads. Prolonged QTc Difficult to evaluate QRS voltages in V 4-6 due to overlapping but may indicate LVH. When compared with ECG of 01-MAR-2018 06:14, voltages, QTc, and T changes are much more pronounced, in fact the ECG appears entirely different carlos n one from March 01, 2018. Confirmed by YANN RICKS ([id number]) on 03/26/2018 5:43:02 AM Referred By: Confirmed By:YANN RICKS
[2018-03-25 20:26] LABS: PLATELET COUNT, AUTOMATED 182 K/uL (150-450)
--- NOTE | 2018-03-25 21:32 | RADIOLOGY IMAGING REPORT ---
FACILITY: [facility] - [place] PATIENT NAME: Nadia Baumann : 1930 MR: [id number] V: [id number] EXAM DATE: ORDERING PHYSICIAN: MARCIE HERNANDEZ TECHNOLOGIST: [place] [facility] [place] : 1930 Visit/Account:[id number] Date of Sevice: 03/25/2018 ACUTE ABDOMEN SERIES 3 VIEW HISTORY: Upset stomach. Not feeling well. COMPARISON: 03/01/2018 and studies dating to 03/28/2014. TECHNIQUE: PA upright view of the chest, AP supine and AP upright views of the abdomen. Hardware: Pacemaker generator overlies the right upper chest and single lead terminates in the right ventricle. There is a cardiac valve prosthesis. Chest: The lungs are clear. Heart is enlarged. There is mild aortic calcification. There are healed b ilateral rib fractures. Abdomen: The distribution of bowel gas is normal, with bowel in all four quadrants as well as central ly. No free air. No dilated loops of bowel. There is a 1.7 cm calcification in the right upper quadra nt, compatible with a gallstone. There is mild degenerative change of the spine. There is a mild left lewis curvature of the lumbar spine. There are vascular calcifications. There are pelvic phleboliths. IMPRESSION: 1. No acute cardiopulmonary process. Stable cardiomegaly. 2. Unremarkable bowel gas pattern without obstruction. 3. Cholelithiasis. Report Dictated By: Heather Caldera at 03/25/2018 9:21 PM Report E-Signed By: Heather Caldera at 03/25/2018 9:29 PM WSN:[id number]
[2018-03-25] MEDS ORDERED: ONDA4TAB9 PO (22:19)
[2018-03-25] MEDS ORDERED: ONDANSETRON 4 MG ODT TH SL ONE (22:20)
[2018-03-25 22:30] VITALS: BP 149/75
== END 2018-03-25 23:10 | disposition home or self-care (01) ==
LOC: ER 19:39 → CANBEDREQ 22:33 → ER 23:10
DX: B34.9 Viral infection, unspecified (principal); D64.9 Anemia, unspecified
CPT/HCPCS: 36415; 74022; 81001; 84484; 85025; 93005; 99284; A4353; Q0162; 82040; 82247; 82310; 82374; 82435; 82565; 82947; 84075; 84132; 84155; 84295; 84450; 84460; 84520; S0119

== ENCOUNTER 2018-03-28 04:16 | Emergency (ER) | payer MEDICARE, OTHER ==
[2017-06-24 17:09] VITALS: Wt 56.8 kg
--- NOTE | 2018-03-28 04:23 | ER Report ---
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 Patient has a hematoma on the left side of her head in the parietal area. She complains of a headache. She has no nausea or vomiting. She notes no visual changes. She denies any other injuries with the fall. Patient's last INR was subtherapeutic. Patient notes that she's not had very much nausea since she was seen in the ER a few days ago. She's not had to use any Zofran. REVIEW OF SYSTEMS: Respiratory: No cough, no dyspnea. Cardiovascular: No chest pain, no palpitations. Gastrointestinal: No vomiting, no abdominal pain. Musculoskeletal: No back pain. Allergies: Coded Allergies: No Known Drug Allergies (Unverified , 03/25/18) Home Meds Active Scripts Warfarin Sodium (COUMADIN) 7.5 Mg Tablet, 7.5 MG PO MON, #30 TAB 1 Refill Prov:EVERTON RIOS MD 03/28/18 Warfarin Sodium (COUMADIN) 5 Mg Tablet, 5 MG PO RICE,TU,W,TH,F,SA, #30 TAB 1 Refill Prov:EVERTON RIOS MD 03/28/18 Ondansetron 4 Mg Odt (ONDANSETRON 4 MG ODT) 4 Mg Tab.rapdis, 4 MG PO Q6H PRN for NAUSEA/VOMITING, #20 TAB 0 Refills Prov:MARCIE HERNANDEZ MD 03/25/18 Ondansetron 4 Mg Odt (ONDANSETRON 4 MG ODT) 4 Mg Tab.rapdis, 4 MG PO Q6H PRN for NAUSEA/VOMITING, #20 TAB 0 Refills Prov:MARCIE HERNANDEZ MD 03/01/18 Simvastatin (SIMVASTATIN) 20 Mg Tablet, 1 TAB PO HS, #90 TAB 3 Refills Prov:EVERTON RIOS MD 03/02/17 Omeprazole (OMEPRAZOLE) 20 Mg Capsule.dr, 1 CAP PO QAM, #90 CAP 3 Refills TAKE ONE CAPSULE BY MOUTH ONCE A DAY Prov:IZABELLA GARAY PHARMLashanda 01/15/17 Reported Medications Cyanocobalamin (Vitamin B-12) (B-12) 1,000 Mcg Tablet.er, 1000 MCG PO QDAY 06/01/17 Calcium Carb & Cit/Vitamin D3 (CITRACAL + D ER TABLET) 1 Each Tablet.er, 1 TAB PO QDAY 04/03/15 Ferrous Sulfate (IRON) 325 Mg Capsule.er, 325 MG PO TID 02/01/15 Reviewed Nurses Notes: Yes Old Medical Records Reviewed: Yes Hx Smoking: No Smoking Status: Former Smoker Exposure to Second Hand Smoke?: No Hx Substance Use Disorder: No Hx Alcohol Use: No Constitutional Vital Sign - Last 24 Hours 03/28/18 03/28/18 03/28/18 03/28/18 04:23 04:24 04:30 04:31 Temp 98.8 Pulse 87 86 Resp 22 B/P (MAP) 138/58 (84) 138/58 129/62 (84) Pulse Ox 87 98 O2 Delivery Room Air 03/28/18 03/28/18 03/28/18 03/28/18 04:49 05:00 05:01 05:15 Pulse 83 B/P (MAP) 139/65 (89) 128/74 (92) 126/63 (84) Pulse Ox 96 03/28/18 05:16 Pulse 78 Pulse Ox 98 Physical Exam Vital signs stable, afebrile, pulse ox normal General Appearance: The patient is alert, has no immediate need for airway protection and no current signs of toxicity. Mild distress, palpation of the head reveals a large egg-shaped hematoma on the left parietal area. Is no tenderness on palpation of the cervical spine. HEENT: Pupils equal and round no injection. TMs normal,, there is healing across the face where there is a previous face contusion. There is old ecchymosis in both orbital floors. Oropharynx without dental trauma Respiratory: Chest is non tender, lungs are clear to auscultation. Cardiac: regular rate and rhythm Gastrointestinal: Abdomen is soft and non tender, no masses, bowel sounds normal . Musculoskeletal: Neck: Neck is supple and non tender. Extremities have full range of motion and are non tender. Skin: No rashes or lesions. 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 Medical Decision Making EKG/Imaging Imaging Results: CT scan of the head without contrast was obtained. The results of the study are no acute traumatic injuries, cortical atrophy. The study was read by the radiologist. I viewed the images myself on the PACS system. ED Course/Re-evaluation ED Course Patient was admitted to an examination room. H&P was done. The differential diagnoses was considered. Patient with a headache. She has a large goose egg hematoma on the left parietal area. She has no neck pain. She denies any other injuries. There is no chest wall tenderness. Patient has movement of extremities 4. A CT without contrast is ordered. The study is unremarkable. Results are discussed with the patient and her family. She is discharged home, advised to follow-up with primary care. Decision to Disposition Date: Mar 28, 2018 Decision to Disposition Time: 05:13 Depart Departure Latest Vital Signs Vital Signs Date Time Temp Pulse Resp B/P (MAP) Pulse Ox O2 Delivery O2 Flow Rate FiO2 03/28/18 05:16 78 98 03/28/18 05:15 126/63 (84) 03/28/18 04:24 98.8 22 Room Air Core Temperature (Celsius): 37.28 Impression: Primary Impression: Fall from ground level Additional Impressions: Scalp hematoma Chronic anticoagulation Mechanical heart valve present Condition: Improved Disposition: HOME OR SELF-CARE Referrals: EVERTON RIOS MD (PCP) Patient Instructions: Head Injury (ED), Hematoma (ED) Additional Instructions: Follow up with primary care as planned Problem Qualifiers Additional Impressions: Scalp hematoma Encounter type: initial encounter Qualified Codes: S00.03XA - Contusion of scalp, initial encounter NE HARRIS DO Mar 28, 2018 04:23
--- NOTE | 2018-03-28 05:08 | RADIOLOGY IMAGING REPORT ---
FACILITY: [facility] PATIENT NAME: Nadia Baumann : 1930 MR: [id number] V: [id number] EXAM DATE: ORDERING PHYSICIAN: NE HARRIS TECHNOLOGIST: Location: [facility] [place] Patient: Nadia Baumann : 1930 Visit/Account:[id number] Date of Sevice: 03/28/2018 HEAD W/O CONTRAST HISTORY: Fall on Coumadin COMPARISON STUDIES: 03/20/2018 TECHNIQUE: Contiguous axial images were obtained from the skull base to the vertex. One of the following dose optimization techniques was utilized in the performance of this exam: Autom ated exposure control; adjustment of the mA and/or kV according to the patient's size; or use of an i terative reconstruction technique. Specific details can be referenced in the facility's radiology C T exam operational policy. FINDINGS: Hemorrhage: Negative Ventricles / sulci / fissures: There is moderate generalized cortical atrophy Masses / midline shift: Negative White matter: Negative Cabrera-white differentiation: Negative Extra-axial spaces: Negative Bones and skull base: Negative Visualized mastoid air cells / paranasal sinuses: Mucosal thickening of the maxillary and ethmoid air cells is noted Soft tissue swelling over the left parietal region is noted without subjacent skull fracture. IMPRESSION: 1. No evidence for acute intracranial hemorrhage, mass or acute ischemia. 2. Moderate generalized cortical atrophy. 3. Soft tissue swelling over the left parietal region without subjacent skull fracture. Report Dictated By: Jamal Rascon MD at 03/28/2018 4:59 AM Report E-Signed By: Jamal Rascon MD at 03/28/2018 5:04 AM WSN:[id number]
[2018-03-28 05:15] VITALS: BP 126/63
[2018-03-28] MEDS ORDERED: WARF7.5T26 PO (10:13)
[2018-03-28] MEDS ORDERED: WARF-1 PO (10:13)
== END 2018-03-28 05:24 | disposition home or self-care (01) ==
LOC: ER 04:32
DX: S00.03XA Contusion of scalp, initial encounter (principal); Z79.01 Long term (current) use of anticoagulants; Z95.2 Presence of prosthetic heart valve
CPT/HCPCS: 70450; 99284

== ENCOUNTER 2018-04-24 12:43 | Emergency (ER) | payer MEDICARE, OTHER ==
[2017-06-24 17:09] VITALS: Wt 54.4 kg
[~2018-04-24 12:43] MED LIST changes: +METR500T15 PO; -METR500T54 PO
--- NOTE | 2018-04-24 12:49 | ER Report ---
History and Physical Time Seen By MD: 12:48 HPI/ROS CHIEF COMPLAINT: Nosebleed HISTORY OF PRESENT ILLNESS: This is an 87-year-old female, well-known to the emergency department, presents today for a nosebleed. Unsure when the nosebleed began however the daughter states that when she and her went over to check on her mother at 11:00 they noticed that she had a nosebleed, they were unable to stop the bleeding therefore brought her in for evaluation. Patient appears to have mild bleeding from the left nare. No fevers or chills. No nausea or vomiting. No trauma. No other complaints. REVIEW OF SYSTEMS: Respiratory: No cough, no dyspnea. ENT: As above. Cardiovascular: No chest pain, no palpitations. Gastrointestinal: No vomiting, no abdominal pain. Musculoskeletal: No back pain. Allergies: Coded Allergies: No Known Drug Allergies (Unverified , 03/25/18) Home Meds Active Scripts Warfarin Sodium (COUMADIN) 7.5 Mg Tablet, 7.5 MG PO MON, #30 TAB 1 Refill Prov:EVERTON STEINBERG MD 03/28/18 Warfarin Sodium (COUMADIN) 5 Mg Tablet, 5 MG PO RICE,TU,W,TH,F,SA, #30 TAB 1 Refill Prov:EVERTON STEINBERG MD 03/28/18 Ondansetron 4 Mg Odt (ONDANSETRON 4 MG ODT) 4 Mg Tab.rapdis, 4 MG PO Q6H PRN for NAUSEA/VOMITING, #20 TAB 0 Refills Prov:MARCIE HERNANDEZ MD 03/25/18 Ondansetron 4 Mg Odt (ONDANSETRON 4 MG ODT) 4 Mg Tab.rapdis, 4 MG PO Q6H PRN for NAUSEA/VOMITING, #20 TAB 0 Refills Prov:MARCIE HERNANDEZ MD 03/01/18 Simvastatin (SIMVASTATIN) 20 Mg Tablet, 1 TAB PO HS, #90 TAB 3 Refills Prov:EVERTON STEINBERG MD 03/02/17 Omeprazole (OMEPRAZOLE) 20 Mg Capsule.dr, 1 CAP PO QAM, #90 CAP 3 Refills TAKE ONE CAPSULE BY MOUTH ONCE A DAY Prov:IZABELLA GARAY PHARMLashanda 01/15/17 Reported Medications Cyanocobalamin (Vitamin B-12) (B-12) 1,000 Mcg Tablet.er, 1000 MCG PO QDAY 06/01/17 Calcium Carb & Cit/Vitamin D3 (CITRACAL + D ER TABLET) 1 Each Tablet.er, 1 TAB PO QDAY 04/03/15 Ferrous Sulfate (IRON) 325 Mg Capsule.er, 325 MG PO TID 02/01/15 Past Medical/Surgical History The patient has a past medical and surgical history of essential tremor, Parkinson's, dementia, migraines, mitral valve prolapse, mitral valve replacement, on Coumadin, pacemaker, hypercholesterolemia, pneumonia, GERD, arthritis, back pain, wears glasses, hard of hearing, borderline diabetes, anemia, skin cancer, breast cancer, bilateral mastectomy, D&C, appendectomy, tonsillectomy, cataract removal. Reviewed Nurses Notes: Yes Hx Smoking: No Smoking Status: Former Smoker Exposure to Second Hand Smoke?: No Hx Substance Use Disorder: No Hx Alcohol Use: No Constitutional Vital Sign - Last 24 Hours 04/24/18 04/24/18 12:55 14:00 Temp 98.3 Pulse 70 Resp 18 B/P (MAP) 143/64 140/76 (97) Pulse Ox 91 O2 Delivery Room Air Physical Exam General Appearance: The patient is alert, has no immediate need for airway protection and no current signs of toxicity. Eyes: Pupils equal and round no injection. ENT: No bleeding from the right naris. Bright red blood oozing from the left nares, mild erythema to the inferior turbinates, no clot noted on exam, small anterior bleed. Respiratory: Chest is non tender, lungs are clear to auscultation. Cardiac: regular rate and rhythm. Gastrointestinal: Abdomen is soft and non tender, no masses, bowel sounds normal. Musculoskeletal: Neck: Neck is supple and non tender. Extremities have full range of motion and are non tender. Skin: No rashes or lesions. DIFFERENTIAL DIAGNOSIS: After history and physical exam differential diagnosis was considered for epistaxis. Medical Decision Making Data Points Result Diagram: 04/24/18 1343 Laboratory Hematology Test 04/24/18 13:43 Red Blood Count 2.43 M/uL (4.17-5.56) Mean Corpuscular Volume 100.8 fL (80.0-96.0) Mean Corpuscular Hemoglobin 31.0 pg (26.0-33.0) Mean Corpuscular Hemoglobin Concent 30.8 g/dL (32.0-36.0) Red Cell Distribution Width 17.2 % (11.5-14.5) Mean Platelet Volume 8.4 fL (7.2-11.1) Neutrophils (%) (Auto) 74.7 % (39.4-72.5) Lymphocytes (%) (Auto) 10.4 % (17.6-49.6) Monocytes (%) (Auto) 12.0 % (4.1-12.4) Eosinophils (%) (Auto) 2.0 % (0.4-6.7) Basophils (%) (Auto) 0.9 % (0.3-1.4) Nucleated RBC Relative Count (auto) 0.2 /100WBC Neutrophils # (Auto) 1.7 K/uL (2.0-7.4) Lymphocytes # (Auto) 0.2 K/uL (1.3-3.6) Monocytes # (Auto) 0.3 K/uL (0.3-1.0) Eosinophils # (Auto) 0.0 K/uL (0.0-0.5) Basophils # (Auto) 0.0 K/uL (0.0-0.1) Nucleated RBC Absolute Count (auto) 0.00 K/uL Prothrombin Time 29.2 seconds (12.0-14.4) Prothromb Time International Ratio 2.70 Activated Partial Thromboplast Time 42 seconds (23-35) Chemistry Test 04/24/18 13:43 White Blood Count 2.3 k/uL (4.5-11.0) Red Blood Count 2.43 M/uL (4.17-5.56) Hemoglobin 7.5 g/dL (12.0-16.0) Hematocrit 24.5 % (34.0-47.0) Mean Corpuscular Volume 100.8 fL (80.0-96.0) Mean Corpuscular Hemoglobin 31.0 pg (26.0-33.0) Mean Corpuscular Hemoglobin Concent 30.8 g/dL (32.0-36.0) Red Cell Distribution Width 17.2 % (11.5-14.5) Platelet Count 174 K/uL (150-450) Mean Platelet Volume 8.4 fL (7.2-11.1) Neutrophils (%) (Auto) 74.7 % (39.4-72.5) Lymphocytes (%) (Auto) 10.4 % (17.6-49.6) Monocytes (%) (Auto) 12.0 % (4.1-12.4) Eosinophils (%) (Auto) 2.0 % (0.4-6.7) Basophils (%) (Auto) 0.9 % (0.3-1.4) Nucleated RBC Relative Count (auto) 0.2 /100WBC Neutrophils # (Auto) 1.7 K/uL (2.0-7.4) Lymphocytes # (Auto) 0.2 K/uL (1.3-3.6) Monocytes # (Auto) 0.3 K/uL (0.3-1.0) Eosinophils # (Auto) 0.0 K/uL (0.0-0.5) Basophils # (Auto) 0.0 K/uL (0.0-0.1) Nucleated RBC Absolute Count (auto) 0.00 K/uL Prothrombin Time 29.2 seconds (12.0-14.4) Prothromb Time International Ratio 2.70 Activated Partial Thromboplast Time 42 seconds (23-35) Coagulation Test 04/24/18 13:43 Prothrombin Time 29.2 seconds Prothromb Time International Ratio 2.70 Activated Partial Thromboplast Time 42 seconds ED Course/Re-evaluation ED Course The patient was admitted to room. A history and physical were obtained. Differential diagnoses were considered. 500 mg of tranexamic acid soaked, all to the patient's left nares, the bleeding did stop, stabilized clot. No active bleeding, H&H 7.5 and 24.5, RBCs 2.3 type and screen and blood products ordered as noted below. The patient, her and the patient's daughter and son-in-law are aware that she will go home, will be contacted once the blood products arrive and will go to the special procedures unit for a transfusion of 2 units. They were instructed to return for any other concerns or worsening symp toms. All expressed understanding, were in agreement with this plan of care and discharged home. 04/24/2018 1:32:43 pm 500 mg of Tranexamic acid soaked cottonball gently placed to the left nares. Bleeding has subsided, continue to monitor for another 30 minutes. 04/24/2018 2:00:14 pm the packing was removed, clavicle stabilized, no active bleeding. RBCs 2.3, H&H 7.5 and 24.5, this is the lowest the patient has been without her historical data since October 2017, I did order type and screen, the units per liter be ordered as antigen free, they take roughly a day or 2 to arrive, I ordered 2 units, transfusion will be scheduled at the special procedures unit. The house player will be contacted once the blood does arrive to the blood bank, at which time the house player will contact the patient's and the patient will follow-up in the special procedures unit. An order has been sent with the patient for transfusion. Decision to Disposition Date: Apr 24, 2018 Decision to Disposition Time: 14:17 Depart Departure Latest Vital Signs Vital Signs Date Time Temp Pulse Resp B/P (MAP) Pulse Ox O2 Delivery O2 Flow Rate FiO2 04/24/18 14:00 140/76 (97) 04/24/18 12:55 98.3 70 18 91 Room Air Core Temperature (Celsius): 37.28 Impression: Primary Impression: Anterior epistaxis Condition: Improved Disposition: HOME OR SELF-CARE Referrals: EVERTON STEINBERG MD (PCP) Patient Instructions: Nicotine (Into the nose) Additional Instructions: Continue to monitor for nose bleeds. I would recommend follow up with Dr. 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 Get plenty of rest. Drink plenty of water. Follow up with your PCP within 5 days for reevaluation. Return to the ED for any other concerns or worsening symptoms. You will be contacted when the blood has arrived, you will receive two units of blood in the special procedures unit. Please follow up with Dr. Steinberg within 5 days for reevaluation. AB [employer] Apr 24, 2018 12:49
[2018-04-24] MEDS ORDERED: TRANEXAMIC AC 1000 MG/10ML SDV ONE (12:50)
[2018-04-24 13:54] LABS: PLATELET COUNT, AUTOMATED 174 K/uL (150-450)
[2018-04-24 14:00] VITALS: BP 140/76
[2018-04-24 14:03] LABS: INR 2.7
== END 2018-04-24 14:33 | disposition home or self-care (01) ==
LOC: ER 13:23
DX: R04.0 Epistaxis (principal)
CPT/HCPCS: 36415; 85025; 85610; 85730; 86850; 86870; 86900; 86901; 86922; 99282

== ENCOUNTER → 2018-04-25 | Outpatient (CLI) | payer MEDICARE, OTHER ==
[2017-06-24 17:09] VITALS: BMI 21.6
[2018-04-25] VITALS (7 sets, daily range): BP systolic 105–129; BP diastolic 44–86
[~2018-04-25] MED LIST changes: +DEXTROSE 5%(*) 100 ML BAG 100 ML IVPB PRN; +LIDOCAINE/SOD BICARB 8.4% SYR ID PRN; +NS(*) 0.9% 100 ML BAG 100 ML IVPB PRN
== END ==
LOC: SPU 12:34
PROVIDERS: ATTEND Nurse Practitioner Family
DX: D64.9 Anemia, unspecified (principal)
CPT/HCPCS: 86850; 86870; 86900; 86901; 86902; 86922; P9016

== ENCOUNTER 2018-04-29 20:19 | Emergency (ER) | payer MEDICARE, OTHER ==
[2017-06-24 17:09] VITALS: Wt 54.5 kg
[~2018-04-29 20:19] MED LIST changes: -DEXTROSE 5%(*) 100 ML BAG 100 ML IVPB PRN; -LIDOCAINE/SOD BICARB 8.4% SYR ID PRN; -NS(*) 0.9% 100 ML BAG 100 ML IVPB PRN
--- NOTE | 2018-04-29 20:50 | ER Report ---
History and Physical Time Seen By MD: 20:50 Hx. of Stated Complaint: PATIENT HAS HAD A NOSE BLEED FOR ABOUT AN HOUR AND A HALF. PATIENT FEELING NORMAL, NOT DIZZY. HPI/ROS CHIEF COMPLAINT: Nosebleed HISTORY OF PRESENT ILLNESS: 87-year-old female with a mechanical heart valve on chronic anticoagulation, although they're keeping her Coumadin level slightly decreased. From 1.5-2.5. Patient's been having bleeding from her left nares. Patient's frequent ER visits for epistaxis. Patient notes bleeding for a few hours out of her left nares. She was seen here 3 days ago with bleeding from her left nares. A cotton ball with TXA was placed in the nasal passages and controlled the bleeding. She was discharged home, but no packing. Allergies: Coded Allergies: No Known Drug Allergies (Unverified , 04/29/18) Home Meds Active Scripts Simvastatin (SIMVASTATIN) 20 Mg Tablet, 1 TAB PO HS, #90 TAB 1 Refill Prov:EVERTON RIOS MD 04/29/18 Warfarin Sodium (COUMADIN) 7.5 Mg Tablet, 7.5 MG PO MON, #30 TAB 1 Refill Prov:EVERTON RIOS MD 03/28/18 Warfarin Sodium (COUMADIN) 5 Mg Tablet, 5 MG PO RICE,TU,W,TH,F,SA, #30 TAB 1 Refill Prov:EVERTON RIOS MD 03/28/18 Ondansetron 4 Mg Odt (ONDANSETRON 4 MG ODT) 4 Mg Tab.rapdis, 4 MG PO Q6H PRN for NAUSEA/VOMITING, #20 TAB 0 Refills Prov:MARCIE HERNANDEZ MD 03/25/18 Ondansetron 4 Mg Odt (ONDANSETRON 4 MG ODT) 4 Mg Tab.rapdis, 4 MG PO Q6H PRN for NAUSEA/VOMITING, #20 TAB 0 Refills Prov:MARCIE HERNANDEZ MD 03/01/18 Omeprazole (OMEPRAZOLE) 20 Mg Capsule.dr, 1 CAP PO QAM, #90 CAP 3 Refills TAKE ONE CAPSULE BY MOUTH ONCE A DAY Prov:IZABELLA GARAY PHARMD 01/15/17 Reported Medications Cyanocobalamin (Vitamin B-12) (B-12) 1,000 Mcg Tablet.er, 1000 MCG PO QDAY 06/01/17 Calcium Carb & Cit/Vitamin D3 (CITRACAL + D ER TABLET) 1 Each Tablet.er, 1 TAB PO QDAY 04/03/15 Ferrous Sulfate (IRON) 325 Mg Capsule.er, 325 MG PO TID 02/01/15 Past Medical/Surgical History Patient has a past medical history of essential tremor, Parkinson's, dementia, migraines, hyperlipidemia, pneumonia, reflux, arthritis, back pain, hard hearing, diabetes, anemia, skin cancer, breast cancer. Patient has surgical history of bilateral mastectomy, lumpectomy, skin cancer removal, tonsillectomy, hysterectomy, D&C, appendectomy, pacemaker placement, mitral replacement. Reviewed Nurses Notes: Yes Old Medical Records Reviewed: Yes Hx Smoking: No Smoking Status: Former Smoker Exposure to Second Hand Smoke?: No Hx Substance Use Disorder: No Hx Alcohol Use: No Physical Exam General Appearance: The patient is alert, has no immediate need for airway protection and no current signs of toxicity. No acute distress, skin warm, dry, pink HEENT: Pupils equal and round no injection. TMs normal, there is marta bleeding from the left nares. There is a packing present. The oropharynx is unremarkable. Respiratory: Chest is non tender, lungs are clear to auscultation. No wheezing or rails Cardiac: regular rate and rhythm. Mechanical heart valve sound Gastrointestinal: Abdomen is soft and non tender, no masses, bowel sounds normal. Musculoskeletal: Neck: Neck is supple and non tender. No JVD Extremities have full range of motion and are non tender. Skin: No rashes or lesions. DIFFERENTIAL DIAGNOSIS: After history and physical exam differential diagnosis was considered for access coagulation, hypertension, epistaxis Medical Decision Making ED Course/Re-evaluation ED Course Patient was admitted to an examination room. H&P was done. The differential diagnoses was considered. Patient has bleeding from her left nares. Bleeding is controlled by placing a rapid Rhino saturated with TXA. Patient's observed for 20 minutes with good control of her bleeding. The posterior oropharynx is evaluated with no blood draining in the posterior oropharynx. She is discharged home. She is advised to leave the packing intact for 3 days. She can pull it out herself at home or follow-up with primary care on Wednesday. Patient cautioned return for any recurrence of bleeding. Decision to Disposition Date: Apr 29, 2018 Decision to Disposition Time: 21:26 Depart Departure Core Temperature (Celsius): 37.28 Impression: Primary Impression: Anterior epistaxis Additional Impressions: Mechanical heart valve present Chronic anticoagulation Condition: Improved Disposition: HOME OR SELF-CARE Referrals: EVERTON RIOS MD (PCP) Patient Instructions: Nosebleed (ED) Additional Instructions: Follow-up with primary care in 3 days to have your packing removed Problem Qualifiers NE HARRIS DO Apr 29, 2018 20:50
[2018-04-29] MEDS ORDERED: TRANEXAMIC AC 1000 MG/10ML SDV ONE ×2 (21:10→21:14)
[2018-05-03] MEDS ORDERED: OMEP-125 PO (14:38)
== END 2018-04-29 21:45 | disposition home or self-care (01) ==
LOC: ER 21:01
DX: R04.0 Epistaxis (principal); Z79.01 Long term (current) use of anticoagulants; Z95.2 Presence of prosthetic heart valve
CPT/HCPCS: 99282

== ENCOUNTER 2018-05-10 08:57 | Emergency (ER) | payer MEDICARE, OTHER ==
[2017-06-24 17:09] VITALS: Wt 56.7 kg
--- NOTE | 2018-05-10 09:14 | ER Report ---
History and Physical Time Seen By MD: 09:14 Hx. of Stated Complaint: FALL ABOUT 0830 HPI/ROS 87-year-old female on warfarin had a mechanical fall this morning when she tried to get out of her bed. Per her , she fell to the ground from the bed and hit her left elbow on the table. No loss of consciousness. No neck pain, and no focal neuro deficits. Pain and bleeding in her left elbow as well as the posterior scalp. Also complains of mild pain in her low back. No chest pain, no abdominal pain, no shortness of breath. Remainder of the 14 system rev: Yes Allergies: Coded Allergies: No Known Drug Allergies (Unverified , 04/29/18) Home Meds Active Scripts Omeprazole (OMEPRAZOLE) 20 Mg Capsule.dr, 1 CAP PO QAM, #90 CAP 3 Refills TAKE ONE CAPSULE BY MOUTH ONCE A DAY Prov:EVERTON RIOS MD 05/03/18 Simvastatin (SIMVASTATIN) 20 Mg Tablet, 1 TAB PO HS, #90 TAB 1 Refill Prov:EVERTON RIOS MD 04/29/18 Warfarin Sodium (COUMADIN) 7.5 Mg Tablet, 7.5 MG PO MON, #30 TAB 1 Refill Prov:EVERTON RIOS MD 03/28/18 Warfarin Sodium (COUMADIN) 5 Mg Tablet, 5 MG PO RICE,TU,W,TH,F,SA, #30 TAB 1 Refill Prov:EVERTON RIOS MD 03/28/18 Ondansetron 4 Mg Odt (ONDANSETRON 4 MG ODT) 4 Mg Tab.rapdis, 4 MG PO Q6H PRN for NAUSEA/VOMITING, #20 TAB 0 Refills Prov:MARCIE HERNANDEZ MD 03/25/18 Ondansetron 4 Mg Odt (ONDANSETRON 4 MG ODT) 4 Mg Tab.rapdis, 4 MG PO Q6H PRN for NAUSEA/VOMITING, #20 TAB 0 Refills Prov:MARCIE HERNANDEZ MD 03/01/18 Reported Medications Cyanocobalamin (Vitamin B-12) (B-12) 1,000 Mcg Tablet.er, 1000 MCG PO QDAY 06/01/17 Calcium Carb & Cit/Vitamin D3 (CITRACAL + D ER TABLET) 1 Each Tablet.er, 1 TAB PO QDAY 04/03/15 Ferrous Sulfate (IRON) 325 Mg Capsule.er, 325 MG PO TID 02/01/15 Reviewed Nurses Notes: Yes Old Medical Records Reviewed: Yes Hx Smoking: No Smoking Status: Former Smoker Exposure to Second Hand Smoke?: No Hx Substance Use Disorder: No Hx Alcohol Use: No Constitutional Vital Sign - Last 24 Hours 05/10/18 09:04 Temp 98.3 Pulse 79 Resp 20 B/P (MAP) 102/68 Pulse Ox 91 O2 Delivery Room Air Physical Exam General Appearance: The patient is alert, has no immediate need for airway protection and no current signs of toxicity. Head. Small left posterior scalp hematoma and laceration. Neck: No midline TTP. Eyes: Pupils equal and round no injection. Respiratory: Chest is non tender, lungs are clear to auscultation. Cardiac: regular rate and rhythm Gastrointestinal: Abdomen is soft and non tender, no masses, bowel sounds normal. Musculoskeletal: Paraspinal TTP at the lumar spine. Extremities have full range of motion. Small abrasion and hematoma at the left elbow. Full ROM without pain. Skin: see above Medical Decision Making ED Course/Re-evaluation ED Course CT head/c-spine and lumbar xrays all with no acute findings other than scalp hematoma. Scalp laceration was irrigated and repaired with 2 priyanka. No evidence of spinal fracture. Neuro exam at baseline. Otherwise benign physical exam, and no need for additional imaging. Will follow-up with her primary care physician or return to the emergency department if symptoms worsen. Procedure Procedure: Laceration repair. Verbal consent was obtained from the patient. The 2cm laceration on the scalp. The wound was irrigated. There were no deep structures involved The wound was repaired with 2 priyanka. The wound repair was simple. The procedure was performed by myself. Decision to Disposition Date: May 10, 2018 Decision to Disposition Time: 13:08 Depart Departure Latest Vital Signs Vital Signs Date Time Temp Pulse Resp B/P (MAP) Pulse Ox O2 Delivery O2 Flow Rate FiO2 05/10/18 09:04 98.3 79 20 102/68 91 Room Air Core Temperature (Celsius): 37.28 Impression: Primary Impression: Fall in elderly patient Additional Impressions: Scalp hematoma Laceration Back pain Condition: Improved Disposition: HOME OR SELF-CARE Referrals: EVERTON RIOS MD (PCP) Patient Instructions: Acute Low Back Pain (ED), Staple Care (ED) Problem Qualifiers Additional Impressions: Scalp hematoma Encounter type: initial encounter Qualified Codes: S00.03XA - Contusion of scalp, initial encounter Back pain Back pain location: low back pain Chronicity: acute Back pain laterality: unspecified Sciatica presence: without sciatica Qualified Codes: M54.5 - Low back pain JORJE TOBIN MD May 10, 2018 09:14
--- NOTE | 2018-05-10 10:41 | RADIOLOGY IMAGING REPORT ---
FACILITY: [facility] PATIENT NAME: Nadia Baumann : 1930 MR: [id number] V: [id number] EXAM DATE: ORDERING PHYSICIAN: JORJE TOBIN TECHNOLOGIST: [place] [facility] [place] Nadia [place] : 1930 Visit/Account:[id number] Date of Sevice: 05/10/2018 EXAMINATION: CT head without IV contrast HISTORY: Fall. COMPARISON: CT head from 03/28/2018. TECHNIQUE: Contiguous axial images were obtained from the skull base to the vertex without intraven ous contrast. Sagittal and coronal reformatted images are also submitted. One of the following dose optimization techniques was utilized in the performance of this exam: Autom ated exposure control; adjustment of the mA and/or kV according to the patient's size; or use of an i terative reconstruction technique. Specific details can be referenced in the facility's radiology C T exam operational policy. FINDINGS: Brain volume: Mild generalized atrophy with associated concordant prominence of the ventricular syst em. Ventricles: Normal. Acute ischemic changes: None. Hemorrhage: No acute intracranial hemorrhage. Masses/edema: None. Cabrera-white: Negative. White matter: A few hypodensities in the deep white matter bilaterally. Vessels: Calcified plaque of both carotid siphons. Extra-axial: Negative. Calvarium/scalp: Left occipital scalp contusion without acute fracture. Skull base/visualized face: Negative. Visualized sinuses/orbits: Previous left lens surgery. Visualized paranasal sinuses are clear. IMPRESSION: 1. Left occipital scalp contusion without acute fracture, hemorrhage or intracranial mass lesion. No CT evidence of acute infarct. 2. Mild nonspecific white matter disease is suspicious for chronic small vessel ischemia, and is unch anged. Report Dictated By: Leslie Arrieta MD at 05/10/2018 10:33 AM Report E-Signed By: Leslie Arrieta MD at 05/10/2018 10:37 AM WSN:[email or web address]
--- NOTE | 2018-05-10 10:52 | RADIOLOGY IMAGING REPORT ---
FACILITY: [facility] PATIENT NAME: Nadia Baumann : 1930 MR: [id number] V: [id number] EXAM DATE: ORDERING PHYSICIAN: JORJE TOBIN TECHNOLOGIST: Location: [facility] - [place] Patient: Nadia Baumann : 1930 Visit/Account:[id number] Date of Sevice: 05/10/2018 EXAMINATION: CT cervical spine without IV contrast HISTORY: Fall. COMPARISON: CT cervical spine from 03/20/2018. TECHNIQUE: Axial images were obtained from the skull base through the upper thoracic spine without I V contrast administration. Coronal and sagittal reformatted images were obtained from the axial [facility] e data. One of the following dose optimization techniques was utilized in the performance of this exam: Autom ated exposure control; adjustment of the mA and/or kV according to the patient's size; or use of an i terative reconstruction technique. Specific details can be referenced in the facility's radiology C T exam operational policy. FINDINGS: Alignment: Straightening of the cervical spine with grade 1 anterolisthesis at C7-T1, measuring less than 2 mm. Cranio-cervical junction: Mild joint space narrowing and bony spurring of the atlantoaxial joint. Vertebral bodies: Negative. Posterior elements: Mild multilevel facet and uncovertebral hypertrophy. Hardware: None. Disc spaces: Severe disc space narrowing, endplate sclerosis and bony spurring from C4-5 through C6-7 . Soft tissues: Negative. Visualized upper chest: Negative. IMPRESSION: 1. No acute fracture of the cervical spine. 2. Severe degenerative disc disease from C4-5 through C6-7, and mild multilevel facet and uncovertebr al hypertrophy. 3. Straightening of the cervical spine with grade 1 degenerative anterolisthesis at C7-T1, unchanged. Report Dictated By: Leslie Arrieta MD at 05/10/2018 10:37 AM Report E-Signed By: Leslie Arrieta MD at 05/10/2018 10:40 AM WSN:[email or web address]
--- NOTE | 2018-05-10 10:55 | RADIOLOGY IMAGING REPORT ---
[place] [facility] [place] NAME: Nadia Baumann : 1930 MR: [id number] V: [id number] EXAM DATE: ORDERING PHYSICIAN: JORJE TOBIN TECHNOLOGIST: Location: [facility] Patient: Nadia Baumann : 1930 Visit/Account:[id number] Date of Sevice: 05/10/2018 ELBOW 2 VIEW LEFT History: Left elbow pain. Comparison study: None. Findings: There is diffuse osteopenia but no fracture involving the left elbow. There is no joint e ffusion is no soft tissue swelling over the olecranon process. IMPRESSION: Osteopenia without findings of a fracture or joint effusion involving the left elbow. Report Dictated By: Delano Schilling MD at 05/10/2018 10:49 AM Report E-Signed By: Delano Schilling MD at 05/10/2018 10:50 AM WSN:[email or web address]
--- NOTE | 2018-05-10 12:43 | RADIOLOGY IMAGING REPORT ---
FACILITY: [facility] - [place] PATIENT NAME: Nadia Baumann : 1930 MR: [id number] V: [id number] EXAM DATE: ORDERING PHYSICIAN: JORJE TOBIN TECHNOLOGIST: Location: [facility] Patient: Nadia Baumann : 1930 Visit/Account:[id number] Date of Sevice: 05/10/2018 Exam type: L-SPINE 2 OR 3 VIEW History: fall and now complains of back pain Comparison: None. Findings: There are five nonrib-bearing lumbar-type vertebral bodies present. There is severe disc space narro wing with sclerosis of the adjacent endplates at L2-3. There is mild disc space narrowing at L4-5. No definite acute-appearing fractures or subluxations are identified. There are vascular calcificati ons in the abdominal aorta. Laminated calcification the right upper quadrant of abdomen could be wit hin the gallbladder. IMPRESSION: 1. Spondylotic changes lumbar spine although no definite fracture dislocation seen. Patient's sympt oms persist an MR may be helpful Report Dictated By: Darlyn Alvarado MD at 05/10/2018 12:37 PM Report E-Signed By: Darlyn Alvarado MD at 05/10/2018 12:38 PM WSN:[email or web address]
[2018-05-10 13:00] VITALS: BP 144/78
== END 2018-05-10 13:26 | disposition home or self-care (01) ==
LOC: ER 09:20
DX: S01.01XA Laceration without foreign body of scalp, initial encounter (principal); M54.5 Low back pain; S50.312A Abrasion of left elbow, initial encounter; W06.XXXA Fall from bed, initial encounter
CPT/HCPCS: 12001; 70450; 72100; 72125; 73070; 99284; L0172

== ENCOUNTER 2018-05-22 07:01 | Emergency (ER) | payer MEDICARE, OTHER ==
[2017-06-24 17:09] VITALS: Wt 61.2 kg
--- NOTE | 2018-05-22 07:05 | ER Report ---
History and Physical Time Seen By MD: 07:04 HPI/ROS CHIEF COMPLAINT: Fall HISTORY OF PRESENT ILLNESS: Patient is an 87-year-old female here status post fall this morning while in the bathroom. Patient has a history of recurrent falls, has baseline dementia. Patient complains of right hip pain but has no further complaints at this time. There are no leg length discrepancies. REVIEW OF SYSTEMS: Constitutional: No fever, no chills. Eyes: No discharge. ENT: No sore throat. Cardiovascular: No chest pain, no palpitations. Respiratory: No cough, no shortness of breath. Gastrointestinal: No abdominal pain, no vomiting. Genitourinary: No hematuria. Musculoskeletal: Right hip pain Skin: No rashes. Neurological: No focal neurological deficits Allergies: Coded Allergies: No Known Drug Allergies (Unverified , 04/29/18) Home Meds Active Scripts Omeprazole (OMEPRAZOLE) 20 Mg Capsule.dr, 1 CAP PO QAM, #90 CAP 3 Refills TAKE ONE CAPSULE BY MOUTH ONCE A DAY Prov:EVERTON RIOS MD 05/03/18 Simvastatin (SIMVASTATIN) 20 Mg Tablet, 1 TAB PO HS, #90 TAB 1 Refill Prov:EVERTON RIOS MD 04/29/18 Warfarin Sodium (COUMADIN) 7.5 Mg Tablet, 7.5 MG PO MON, #30 TAB 1 Refill Prov:EVERTON RIOS MD 03/28/18 Warfarin Sodium (COUMADIN) 5 Mg Tablet, 5 MG PO RICE,TU,W,TH,F,SA, #30 TAB 1 Refill Prov:EVERTON RIOS MD 03/28/18 Ondansetron 4 Mg Odt (ONDANSETRON 4 MG ODT) 4 Mg Tab.rapdis, 4 MG PO Q6H PRN for NAUSEA/VOMITING, #20 TAB 0 Refills Prov:MARCIE HERNANDEZ MD 03/25/18 Ondansetron 4 Mg Odt (ONDANSETRON 4 MG ODT) 4 Mg Tab.rapdis, 4 MG PO Q6H PRN for NAUSEA/VOMITING, #20 TAB 0 Refills Prov:MARCIE HERNANDEZ MD 03/01/18 Reported Medications Cyanocobalamin (Vitamin B-12) (B-12) 1,000 Mcg Tablet.er, 1000 MCG PO QDAY 06/01/17 Calcium Carb & Cit/Vitamin D3 (CITRACAL + D ER TABLET) 1 Each Tablet.er, 1 TAB PO QDAY 04/03/15 Ferrous Sulfate (IRON) 325 Mg Capsule.er, 325 MG PO TID 02/01/15 Hx Smoking: No Smoking Status: Former Smoker Exposure to Second Hand Smoke?: No Hx Substance Use Disorder: No Hx Alcohol Use: No Constitutional Vital Sign - Last 24 Hours 05/22/18 05/22/18 05/22/18 05/22/18 07:06 07:08 07:21 07:30 Temp 97.6 Pulse 87 90 Resp 18 B/P (MAP) 137/70 (92) 137/70 153/77 (102) Pulse Ox 92 89 O2 Delivery Room Air 05/22/18 05/22/18 05/22/18 05/22/18 07:35 08:00 08:01 08:05 Pulse 90 77 B/P (MAP) 131/69 (89) Pulse Ox 92 98 O2 Flow Rate 2.0 05/22/18 05/22/18 05/22/18 08:15 08:20 08:30 Pulse 78 B/P (MAP) 124/58 (80) 124/67 (86) Pulse Ox 92 Physical Exam General Appearance: The patient is alert, has no immediate need for airway protection and no signs of toxicity. No acute distress Eyes: Pupils equal and round no pallor or injection. ENT, Mouth: Mucous membranes are moist. Respiratory: There are no retractions, lungs are clear to auscultation. Cardiovascular: Regular rate and rhythm. [ ] Gastrointestinal: Abdomen is soft and non tender, no masses, bowel sounds normal. Neurological: No focal neurological findings, dementia baseline Skin: Warm and dry, no rashes. Musculoskeletal: Neck is supple non tender. Right hip tenderness on range of motion testing without leg length discrepancies DIFFERENTIAL DIAGNOSIS: After history and physical exam differential diagnosis was considered for fracture, contusion, intracranial bleed, concussion Medical Decision Making EKG/Imaging Imaging CT Cervical Spine Indication: Fall. Neck pain. Comparison: 05/10/2018 Technique: Axial CT imaging of the cervical spine was performed. 2-D sagittal and coronal CT reformats were also obtained. One of the following dose optimization techniques was utilized in the performance of this exam: Automated exposure control; adjustment of the mA and/or kV according to the patient's size; or use of an iterative reconstruction technique. Specific details can be referenced in the facility's radiology CT exam operational policy. Findings: No evidence of acute cervical spine fracture. There is straightening of the normal cervical lordosis. Overall, alignment is unchanged from the prior. Minimal anterolisthesis is seen of C7 upon T1. There is severe multilevel disc disease most pronounced from C4 to C7. Multilevel facet and uncovertebral joint hypertrophy is seen. Disc osteophyte complex at C5-6 impresses upon the thecal sac and causes mild spinal canal narrowing. No significant change. IMPRESSION: 1. No acute fracture of the cervical spine. 2. Multilevel degenerative disc disease, facet osteoarthritis and uncovertebral joint hypertrophy of the cervical spine. No significant interval change from the recent prior. Location: [facility] Patient: Nadia Baumann : 1930 Visit/Account:[id number] Date of Sevice: 05/22/2018 CT Head without contrast Indication: Fall. Comparison: 05/10/2018 Technique: Axial CT images were obtained through the brain from the skull base to the vertex without administration of IV contrast. Reformatted coronal and sagittal images were also obtained. One of the following dose optimization techniques was utilized in the performance of this exam: Automated exposure control; adjustment of the mA and/or kV according to the patient's size; or use of an iterative reconstruction technique. Specific details can be referenced in the facility's radiology CT exam operational policy. Findings: No evidence of mass, mass effect, or midline shift. No acute intracranial hemorrhage or acute territorial infarction. Mild low-attenuation periventricular white matter changes are seen consistent with chronic small vessel ischemia. There are prominent ventricles and sulci. This is symmetric and is consistent with underlying cerebral atrophy. No interval change. Mild sinus mucosal thickening involves the maxillary sinuses. No air-fluid levels. Some skin priyanka are in place overlying the left occiput. Correlate clinically. IMPRESSION: 1. No acute intracranial abnormality. 2. Diffuse cerebral atrophy. Location: [facility] Patient: Nadia Baumann : 1930 Visit/Account:[id number] Date of Sevice: 05/22/2018 HIPS BILATERAL Indication: fall Comparison: Pelvis radiograph 03/25/2014 Findings: The bones of the pelvis and proximal right and left femur are intact. Soft tissues are normal. Right and left hip joint spaces demonstrate normal alignment and are preserved. IMPRESSION: Normal pelvis and normal right and left hip radiograph. No evidence of fracture. ED Course/Re-evaluation ED Course Patient is an 87-year-old female here status post recurrent fall. X-ray imaging of the hip is showed no acute fracture. CT imaging of the head and C-spine showed no acute findings. Patient was stable at time of discharge. Close PCP follow-up recommended. Return precautions provided Decision to Disposition Date: May 22, 2018 Decision to Disposition Time: 08:24 Depart Departure Latest Vital Signs Vital Signs Date Time Temp Pulse Resp B/P (MAP) Pulse Ox O2 Delivery O2 Flow Rate FiO2 05/22/18 08:30 124/67 (86) 05/22/18 08:20 78 92 05/22/18 08:01 2.0 05/22/18 07:08 97.6 18 Room Air Core Temperature (Celsius): 37.28 Impression: Primary Impression: Fall Condition: Improved Disposition: HOME OR SELF-CARE Referrals: EVERTON RIOS MD (PCP) Patient Instructions: Fall Prevention (ED) Additional Instructions: Please follow-up with her family doctor in the next 24-48 hours. No acute fractures or bleeds were identified on CT and x-ray imaging. Please return immediately with any weakness, focal deficits, or recurrent falls. PENNY MCCORMACK DO May 22, 2018 07:05
--- NOTE | 2018-05-22 08:09 | RADIOLOGY IMAGING REPORT ---
FACILITY: [facility] [place] PATIENT NAME: Nadia Baumann : 1930 MR: [id number] V: [id number] EXAM DATE: ORDERING PHYSICIAN: PENNY MCCORMACK TECHNOLOGIST: Location: [facility] Patient: Nadia Baumann : 1930 Visit/Account:[id number] Date of Sevice: 05/22/2018 CT Head without contrast Indication: Fall. Comparison: 05/10/2018 Technique: Axial CT images were obtained through the brain from the skull base to the vertex without administration of IV contrast. Reformatted coronal and sagittal images were also obtained. One of the following dose optimization techniques was utilized in the performance of this exam: Autom ated exposure control; adjustment of the mA and/or kV according to the patient's size; or use of an i terative reconstruction technique. Specific details can be referenced in the facility's radiology C T exam operational policy. Findings: No evidence of mass, mass effect, or midline shift. No acute intracranial hemorrhage or acute territorial infarction. Mild low-attenuation periventricular white matter changes are seen consistent with chronic small vess el ischemia. There are prominent ventricles and sulci. This is symmetric and is consistent with underlying cerebra l atrophy. No interval change. Mild sinus mucosal thickening involves the maxillary sinuses. No air-fluid levels. Some skin priyanka are in place overlying the left occiput. Correlate clinically. IMPRESSION: 1. No acute intracranial abnormality. 2. Diffuse cerebral atrophy. Report Dictated By: Hiram De La Torre at 05/22/2018 8:01 AM Report E-Signed By: Hiram De La Torre at 05/22/2018 8:06 AM WSN:[id number]
--- NOTE | 2018-05-22 08:18 | RADIOLOGY IMAGING REPORT ---
[place] [facility] [place] Nadia Baumann : 1930 MR: [id number] V: [id number] EXAM DATE: ORDERING PHYSICIAN: PENNY MCCORMACK TECHNOLOGIST: Location: [facility] [place] Patient: Nadia Baumann : 1930 Visit/Account:[id number] Date of Sevice: 05/22/2018 HIPS BILATERAL Indication: fall Comparison: Pelvis radiograph 03/25/2014 Findings: The bones of the pelvis and proximal right and left femur are intact. Soft tissues are norm al. Right and left hip joint spaces demonstrate normal alignment and are preserved. IMPRESSION: Normal pelvis and normal right and left hip radiograph. No evidence of fracture. Report Dictated By: Elie Bermeo at 05/22/2018 8:13 AM Report E-Signed By: Elie Bermeo at 05/22/2018 8:14 AM WSN:[id number]
--- NOTE | 2018-05-22 08:18 | RADIOLOGY IMAGING REPORT ---
FACILITY: [facility] - [place] PATIENT NAME: Nadia Baumann : 1930 MR: [id number] V: [id number] EXAM DATE: ORDERING PHYSICIAN: PENNY MCCORMACK TECHNOLOGIST: Location: [facility] [place] Patient: Nadia Baumann : 1930 Visit/Account:[id number] Date of Sevice: 05/22/2018 CT Cervical Spine Indication: Fall. Neck pain. Comparison: 05/10/2018 Technique: Axial CT imaging of the cervical spine was performed. 2-D sagittal and coronal CT reforma ts were also obtained. One of the following dose optimization techniques was utilized in the performance of this exam: Autom ated exposure control; adjustment of the mA and/or kV according to the patient's size; or use of an i terative reconstruction technique. Specific details can be referenced in the facility's radiology C T exam operational policy. Findings: No evidence of acute cervical spine fracture. There is straightening of the normal cervical lordosis. Overall, alignment is unchanged from the prio r. Minimal anterolisthesis is seen of C7 upon T1. There is severe multilevel disc disease most pronounced from C4 to C7. Multilevel facet and uncovertebral joint hypertrophy is seen. Disc osteophyte complex at C5-6 impresses upon the thecal sac and causes mild spinal canal narrowing. No significant change. IMPRESSION: 1. No acute fracture of the cervical spine. 2. Multilevel degenerative disc disease, facet osteoarthritis and uncovertebral joint hypertrophy of the cervical spine. No significant interval change from the recent prior. Report Dictated By: Hiram De La Torre at 05/22/2018 8:06 AM Report E-Signed By: Hiram De La Torre at 05/22/2018 8:13 AM WSN:[id number]
[2018-05-22 08:30] VITALS: BP 124/67
== END 2018-05-22 08:51 | disposition home or self-care (01) ==
LOC: ER 07:11
DX: M25.551 Pain in right hip (principal); M54.2 Cervicalgia
CPT/HCPCS: 70450; 72125; 73522; 99284

== ENCOUNTER → 2018-05-23 | Outpatient (CLI) | payer MEDICARE, OTHER ==
[2017-06-24 17:09] VITALS: BMI 21.6
[2018-05-23 11:23] LABS: PLATELET COUNT, AUTOMATED 229 K/uL (150-450)
[2018-05-23 11:33] LABS: INR 2.66
== END ==
LOC: LAB 10:37
PROVIDERS: ATTEND Internal Medicine
DX: Z95.2 Presence of prosthetic heart valve (principal); Z79.01 Long term (current) use of anticoagulants
CPT/HCPCS: 36415; 85025; 85610; 86850; 86870; 86900; 86901; 86920; 86922

== ENCOUNTER 2018-05-25 08:00 | Outpatient (RCR) | payer MEDICARE, OTHER ==
[2017-06-24 17:09] VITALS: BMI 21.6
[~2018-05-25 08:00] MED LIST changes: +ACETAMINOPHEN 325 MG TAB PO PRN; +DEXTROSE 5%(*) 100 ML BAG 100 ML IVPB PRN; +LIDOCAINE/SOD BICARB 8.4% SYR ID PRN; +NS(*) 0.9% 100 ML BAG 100 ML IVPB PRN; +NS(*) 0.9% 500 ML BAG 500 ML IVPB PRN; +diphenhydrAMINE 25 MG CAP PO PRN
[2018-05-25 08:42] VITALS: BP 144/71
[2018-05-25 09:57] VITALS: BP 129/81
[2018-05-25 10:15] VITALS: BP 153/73
[2018-05-25 12:24] VITALS: BP 129/63
[2018-05-25 12:35] VITALS: BP 144/83
[2018-05-25 14:26] VITALS: BP 150/84
== END 2018-06-17 13:29 | disposition home or self-care (01) ==
LOC: SPU 08:00
PROVIDERS: ATTEND Internal Medicine
DX: D64.9 Anemia, unspecified (principal); R71.0 Precipitous drop in hematocrit
CPT/HCPCS: 36430; 86850; 86870; 86900; 86901; 86902; 86922; A9270; J7040; P9016; Q0163

== ENCOUNTER → 2018-06-09 | Emergency (ER) | payer MEDICARE, OTHER ==
[2017-06-24 17:09] VITALS: BMI 21.6
[~2018-06-09] MED LIST changes: -ACETAMINOPHEN 325 MG TAB PO PRN; -DEXTROSE 5%(*) 100 ML BAG 100 ML IVPB PRN; -LIDOCAINE/SOD BICARB 8.4% SYR ID PRN; -NS(*) 0.9% 100 ML BAG 100 ML IVPB PRN; +NS(*) 0.9% 500 ML BAG 500 ML IV ONE; -NS(*) 0.9% 500 ML BAG 500 ML IVPB PRN; +PHYTONADIONE 10 MG/ML AMP IV ONE; -diphenhydrAMINE 25 MG CAP PO PRN
[2018-06-09 08:47] LABS: PLATELET COUNT, AUTOMATED 203 K/uL (150-450)
--- NOTE | 2018-06-09 08:59 | ER Report ---
History and Physical Time Seen By MD: 08:15 Hx. of Stated Complaint: CALLED EMS DUE BEING UNRESPONSIVE HPI/ROS CHIEF COMPLAINT: "Unresponsive" HISTORY OF PRESENT ILLNESS: Patient is an 87-year-old female well-known to the emergency department for frequent ER evaluations. Frequent complaints which are usually falls, unresponsiveness, or nosebleeds. Patient was brought in by EMS for unresponsiveness and found the patient this morning confused. Upon EMS arrival they report the patient was responsive". They gave vital signs heart rate of 96 and room air sat of 84%, blood pressure and blood sugar and re spiratory rate were not noted. Additional history obtained from family which is not necessarily helpful. Patient may have had a fall but is unclear. Patient does have a history of frequent falls in the past. REVIEW OF SYSTEMS: Constitutional: No fever, no chills. Eyes: No discharge. ENT: No sore throat. Cardiovascular: No chest pain, no palpitations. Respiratory: No cough, no shortness of breath. Gastrointestinal: No abdominal pain, no vomiting. Genitourinary: No hematuria. Musculoskeletal: No back pain. Skin: No rashes. Neurological: No headache. Allergies: Coded Allergies: No Known Drug Allergies (Unverified , 06/09/18) Home Meds Active Scripts Omeprazole (OMEPRAZOLE) 20 Mg Capsule.dr, 1 CAP PO QAM, #90 CAP 3 Refills TAKE ONE CAPSULE BY MOUTH ONCE A DAY Prov:EVERTON RIOS MD 05/03/18 Simvastatin (SIMVASTATIN) 20 Mg Tablet, 1 TAB PO HS, #90 TAB 1 Refill Prov:EVERTON RIOS MD 04/29/18 Warfarin Sodium (COUMADIN) 7.5 Mg Tablet, 7.5 MG PO MON, #30 TAB 1 Refill Prov:EVERTON RIOS MD 03/28/18 Warfarin Sodium (COUMADIN) 5 Mg Tablet, 5 MG PO RICE,TU,W,TH,F,SA, #30 TAB 1 Refill Prov:EVERTON RIOS MD 03/28/18 Ondansetron 4 Mg Odt (ONDANSETRON 4 MG ODT) 4 Mg Tab.rapdis, 4 MG PO Q6H PRN for NAUSEA/VOMITING, #20 TAB 0 Refills Prov:MARCIE HERNANDEZ MD 03/25/18 Ondansetron 4 Mg Odt (ONDANSETRON 4 MG ODT) 4 Mg Tab.rapdis, 4 MG PO Q6H PRN for NAUSEA/VOMITING, #20 TAB 0 Refills Prov:MARCIE HERNANDEZ MD 03/01/18 Reported Medications Cyanocobalamin (Vitamin B-12) (B-12) 1,000 Mcg Tablet.er, 1000 MCG PO QDAY 06/01/17 Calcium Carb & Cit/Vitamin D3 (CITRACAL + D ER TABLET) 1 Each Tablet.er, 1 TAB PO QDAY 04/03/15 Ferrous Sulfate (IRON) 325 Mg Capsule.er, 325 MG PO TID 02/01/15 Past Medical/Surgical History Patient has a past medical history of essential tremor, dementia, migraines, hyperlipidemia, pneumonia, reflux, arthritis, back pain, hard of hearing, borderline diabetes, anemia, skin cancer, breast cancer. Patient has surgical history bilateral mastectomy, lumpectomy, skin cancer removal, cataract surgery, tonsillectomy, hysterectomy, D&C, appendectomy, pacemaker, mitral valve replacement, frequent, frequent fall. Hx Smoking: No Smoking Status: Former Smoker Exposure to Second Hand Smoke?: No Hx Substance Use Disorder: No Hx Alcohol Use: No Constitutional Vital Sign - Last 24 Hours 06/09/18 06/09/18 06/09/18 06/09/18 08:15 08:20 08:23 08:24 Temp 97.8 Pulse 86 73 Resp 27 14 B/P (MAP) 164/94 (117) 147/135 (139) 147/135 Pulse Ox 93 94 O2 Delivery Nasal Cannula Nasal Cannula O2 Flow Rate 2 2.0 06/09/18 06/09/18 06/09/18 06/09/18 08:25 08:30 08:35 08:40 B/P (MAP) 157/89 (111) 167/86 (113) 156/87 (110) 158/86 (110) 06/09/18 06/09/18 06/09/18 06/09/18 08:45 08:50 08:55 09:29 Pulse 80 Resp 27 B/P (MAP) 153/95 (114) 157/90 (112) 156/96 (116) 154/83 (106) Pulse Ox 94 O2 Delivery Nasal Cannula O2 Flow Rate 2 06/09/18 06/09/18 06/09/18 06/09/18 09:30 09:35 09:40 10:10 Pulse 81 89 85 84 Resp 22 23 26 21 Pulse Ox 97 100 100 99 06/09/18 06/09/18 06/09/18 06/09/18 10:40 10:45 11:15 11:28 Pulse 84 82 83 Resp 23 23 21 B/P (MAP) 160/97 (118) Pulse Ox 99 100 95 06/09/18 06/09/18 06/09/18 06/09/18 11:33 11:37 11:46 11:53 Temp 97.4 Pulse 87 Resp 27 B/P (MAP) 174/87 (116) 170/94 (119) 168/105 (126) Pulse Ox 97 Physical Exam General/Constitutional: Patient is awake, alert, nontoxic and in no acute respiratory distress. Head: Normocephalic and atraumatic. Eyes: Conjunctival clear, Pupils are equal and reactive to light. Extraocular muscles are intact and symmetrical. Sclera are clear and anicteric. Ears:External canals are clear. Tympanic membranes are clear with normal landmarks and light reflex. Nares: No rhinorrhea or bleeding. Turbinates are pink and moist. Oropharyngeal: Mucous membranes are moist. There is no pharyngeal erythema or exudate. There are no palatal petechiae. Uvula is midline and symmetrical. Neck: Supple, no adenopathy. Cardiovascular: Heart is regular rate and rhythm without audible murmurs, rubs or gallops. Pulmonary: Lungs are clear to auscultation bilaterally. There are no wheezes, rales, or rhonchi. Chest rise is symmetrical Abdomen: Soft, nontender, no guarding or peritoneal signs. Extremities: No gross deformities, No peripheral cyanosis. Able to move all 4 extremities. Neuro: Alert and oriented X3, GCS 14 on off for verbal confusion Skin: No rashes, skin is warm dry and well perfused. Medical Decision Making Data Points Result Diagram: 06/09/18 0812 06/09/18 0812 Laboratory Hematology Test 06/09/18 08:12 Red Blood Count 3.58 M/uL (4.17-5.56) Mean Corpuscular Volume 94.4 fL (80.0-96.0) Mean Corpuscular Hemoglobin 30.3 pg (26.0-33.0) Mean Corpuscular Hemoglobin Concent 32.1 g/dL (32.0-36.0) Red Cell Distribution Width 19.9 % (11.5-14.5) Mean Platelet Volume 8.7 fL (7.2-11.1) Neutrophils (%) (Auto) 84.8 % (39.4-72.5) Lymphocytes (%) (Auto) 5.4 % (17.6-49.6) Monocytes (%) (Auto) 8.1 % (4.1-12.4) Eosinophils (%) (Auto) 1.1 % (0.4-6.7) Basophils (%) (Auto) 0.6 % (0.3-1.4) Nucleated RBC Relative Count (auto) 0.0 /100WBC Neutrophils # (Auto) 3.3 K/uL (2.0-7.4) Lymphocytes # (Auto) 0.2 K/uL (1.3-3.6) Monocytes # (Auto) 0.3 K/uL (0.3-1.0) Eosinophils # (Auto) 0.0 K/uL (0.0-0.5) Basophils # (Auto) 0.0 K/uL (0.0-0.1) Nucleated RBC Absolute Count (auto) 0.00 K/uL Prothrombin Time 46.9 seconds (12.0-14.4) Prothromb Time International Ratio 4.88 Activated Partial Thromboplast Time 56 seconds (23-35) Sodium Level 134 mmol/L (137-145) Potassium Level 3.8 mmol/L (3.5-5.0) Chloride Level 100 mmol/L (98-107) Carbon Dioxide Level 28 mmol/L (22-31) Blood Urea Nitrogen 17 mg/dl (7-18) Creatinine 0.80 mg/dl (0.52-1.04) Glomerular Filtration Rate Calc > 60.0 Random Glucose 106 mg/dl (75-110) Calcium Level 9.2 mg/dl (8.4-10.2) Total Bilirubin 0.7 mg/dl (0.2-1.3) Aspartate Amino Transf (AST/SGOT) 30 U/L (0-35) Alanine Aminotransferase (ALT/SGPT) 28 U/L (0-56) Alkaline Phosphatase 245 U/L (0-126) Troponin I 0.016 ng/ml B-Type Natriuretic Peptide 196 pg/ml (0-100) Total Protein 7.7 g/dl (6.3-8.2) Albumin 4.1 g/dl (3.5-5.0) Chemistry Test 06/09/18 08:12 White Blood Count 3.9 k/uL (4.5-11.0) Red Blood Count 3.58 M/uL (4.17-5.56) Hemoglobin 10.8 g/dL (12.0-16.0) Hematocrit 33.8 % (34.0-47.0) Mean Corpuscular Volume 94.4 fL (80.0-96.0) Mean Corpuscular Hemoglobin 30.3 pg (26.0-33.0) Mean Corpuscular Hemoglobin Concent 32.1 g/dL (32.0-36.0) Red Cell Distribution Width 19.9 % (11.5-14.5) Platelet Count 203 K/uL (150-450) Mean Platelet Volume 8.7 fL (7.2-11.1) Neutrophils (%) (Auto) 84.8 % (39.4-72.5) Lymphocytes (%) (Auto) 5.4 % (17.6-49.6) Monocytes (%) (Auto) 8.1 % (4.1-12.4) Eosinophils (%) (Auto) 1.1 % (0.4-6.7) Basophils (%) (Auto) 0.6 % (0.3-1.4) Nucleated RBC Relative Count (auto) 0.0 /100WBC Neutrophils # (Auto) 3.3 K/uL (2.0-7.4) Lymphocytes # (Auto) 0.2 K/uL (1.3-3.6) Monocytes # (Auto) 0.3 K/uL (0.3-1.0) Eosinophils # (Auto) 0.0 K/uL (0.0-0.5) Basophils # (Auto) 0.0 K/uL (0.0-0.1) Nucleated RBC Absolute Count (auto) 0.00 K/uL Prothrombin Time 46.9 seconds (12.0-14.4) Prothromb Time International Ratio 4.88 Activated Partial Thromboplast Time 56 seconds (23-35) Glomerular Filtration Rate Calc > 60.0 Calcium Level 9.2 mg/dl (8.4-10.2) Total Bilirubin 0.7 mg/dl (0.2-1.3) Aspartate Amino Transf (AST/SGOT) 30 U/L (0-35) Alanine Aminotransferase (ALT/SGPT) 28 U/L (0-56) Alkaline Phosphatase 245 U/L (0-126) Troponin I 0.016 ng/ml B-Type Natriuretic Peptide 196 pg/ml (0-100) Total Protein 7.7 g/dl (6.3-8.2) Albumin 4.1 g/dl (3.5-5.0) Coagulation Test 06/09/18 08:12 Prothrombin Time 46.9 seconds Prothromb Time International Ratio 4.88 Activated Partial Thromboplast Time 56 seconds EKG/Imaging EKG Interpretation EKG shows paced rhythm with a ventricular rate of approximately 85 bpm. This is intermittent with a junctional rhythm at approximately 70 bpm. Imaging FACILITY: [facility] PATIENT NAME: Nadia Baumann : 1930 MR: [id number] V: [id number] EXAM DATE: ORDERING PHYSICIAN: DUY CHAPPELL TECHNOLOGIST: Location: [facility] Patient: Nadia Baumann : 1930 Visit/Account:[id number] Date of Sevice: 06/09/[address] scan without contrast HISTORY: Unresponsive COMPARISONS: May 22, 2018 TECHNIQUE: Non-contrast head CT was performed with sagittal and coronal reformations. One of the following dose optimization techniques was utilized in the performance of this exam: automated exposure control; adjustment of the mA and/ or kV according to patient size; or use of iterative reconstruction technique. Specific details can be referenced in the facility's radiology CT exam operational policy. FINDINGS: The basal cisterns and leger-white differentiation are maintained. No hydrocephalus or midline shift. New mixed density right holoconvexity subdural hemorrhage which is partially mildly dense posteriorly and which is largest in the right temporal occipital region measuring up to 1.3 cm in thickness, coronal image 75. New trace minimally dense left parietal region subdural hemorrhage, axial image 49. Left cataract postsurgical change noted. Unchanged patchy white matter hypoattenuation. Clear mastoid air cells, minimal left maxillary sinus mucosal thickening, and normal osseous structures. IMPRESSION: 1. New mixed density right-sided subacute subdural hemorrhage largest in the right temporal occipital region measuring 1.3 cm in thickness. A dense component posteriorly may represent acute on subacute subdural hemorrhage. 2. No midline shift. 3. Trace new left parietal region minimally dense subacute subdural hemorrhage. 4. Mild to moderate unchanged chronic small vessel ischemic change. Results were called to DUY CHAPPELL on 06/09/2018 9:44 AM. Report Dictated By: Marshall Grijalva MD at 06/09/2018 9:26 AM Report E-Signed By: Marshall Grijalva MD at 06/09/2018 9:44 AM WSN:[id number] FACILITY: [facility] PATIENT NAME: Nadia Baumann : 1930 MR: [id number] V: [id number] EXAM DATE: [id number] ORDERING PHYSICIAN: DUY CHAPPELL TECHNOLOGIST: Location: [facility] Patient: Nadia Baumann : 1930 Visit/Account:[id number] Date of Sevice: 06/09/2018 EXAMINATION: CT Cervical spine without intravenous contrast HISTORY: Unresponsive COMPARISON: May 22, 2018 TECHNIQUE: Axial images were obtained from the skull base through the upper thoracic spine without IV contrast administration. Coronal and sagittal reformatted images were generated from the axial source data. One of the following dose optimization techniques was utilized in the performance of this exam: automated exposure control; adjustment of the mA and/or kV according to patient size; or use of iterative reconstruction technique. Specific details can be referenced in the facility's radiology CT ex am operational policy. FINDINGS: Vertebral bodies and posterior elements: Normal vertebral body heights. No fracture or osseous destruction. Multilevel facet arthropathy. Alignment: Reversal of the usual lordosis. Disc Spaces: Severe unchanged multilevel disc space degeneration. Bilevel degenerative foraminal narrowing. Soft tissues: Normal. Visualized upper chest: New moderate-sized left pleural effusion. IMPRESSION: No acute fracture or acute abnormality. Severe multilevel disc space degeneration. Unchanged reversal of the usual lordosis. New moderate-sized partially imaged left-sided pleural effusion Report Dictated By: Marshall Grijalva MD at 06/09/2018 9:34 AM Report E-Signed By: Marshall Grijalva MD at 06/09/2018 9:43 AM WSN:[id number] FACILITY: [facility] PATIENT NAME: Nadia Baumann : 1930 MR: [id number] V: [id number] EXAM DATE: ORDERING PHYSICIAN: DUY CHAPPELL TECHNOLOGIST: Location: [facility] Patient: Nadia Baumann : 1930 Visit/Account:[id number] Date of Sevice: 06/09/2018 PELVIS INDICATION: Fall COMPARISON: June 23, 2017 FINDINGS: No evidence of fracture, dislocation, or acute osseous abnormality of the bones of the pelvis. Mild degenerative changes within the hips. IMPRESSION: 1. No acute osseous abnormality of the pelvis Report Dictated By: Marshall Snell MD at 06/09/2018 9:26 AM Report E-Signed By: Marshall Snell MD at 06/09/2018 9:27 AM WSN:[id number] FACILITY: [facility] PATIENT NAME: Nadia Baumann : 1930 MR: [id number] V: [id number] EXAM DATE: ORDERING PHYSICIAN: DUY CHAPPELL TECHNOLOGIST: Location: [facility] Patient: Nadia Baumann : 1930 Visit/Account:[id number] Date of Sevice: 06/09/2018 CHEST SINGLE AP Indication: Chest pain. Fall. Comparison: March 18, 2018. Findings: Heart is mildly enlarged. Calcification within the aortic knob. Right chest wall single lead pacer. Note is made of a cardiac valve replacement. There is no focal infiltrate or lobar consolidation. No pneumothorax or pleural effusion. No gross acute osseous abnormality. IMPRESSION: 1. No acute cardiopulmonary process. Report Dictated By: Marshall Snell MD at 06/09/2018 9:23 AM Report E-Signed By: Marshall Snell MD at 06/09/2018 9:26 AM WSN:[email or web address] ED Course/Re-evaluation Clinical Indication for ER IV: IV Access ED Course 06/09/2018 10:56:23 am case discussed with Dr. Newell at [facility]; history physical exam pertinent lab data and imaging studies reviewed. Patient with new intracranial hemorrhage patient is on Coumadin. Plan this time will be intravenous vitamin K 5 mg along with 2 units of FFP. would like everything done. Patient has a living will she is full code. Patient would like the utmost care and requests transfer. Dr. Rutledge is accepted care of this patient at this time Decision to Disposition Date: Jun 09, 2018 Decision to Disposition Time: 10:56 Depart Departure Latest Vital Signs Vital Signs Date Time Temp Pulse Resp B/P (MAP) Pulse Ox O2 Delivery O2 Flow Rate FiO2 06/09/18 11:53 97.4 168/105 (126) 06/09/18 11:33 87 27 97 06/09/18 08:45 Nasal Cannula 2 Core Temperature (Celsius): 37.28 Impression: Primary Impression: Intracranial hemorrhage Condition: Condition Unchanged Disposition: XFER TO [facility] (To Dr Tello at [facility] for ICH) Referrals: EVERTON RIOS MD (PCP) DUY CHAPPELL MD Jun 09, 2018 08:59
[2018-06-09 09:03] LABS: INR 4.88
--- NOTE | 2018-06-09 09:21 | EKG ---
FACILITY: [facility] [place] PATIENT NAME: JONAH MAYNARD : [id number] MR: [id number] V: [id number] EXAM DATE: ORDERING PHYSICIAN: DUY CHAPPELL TECHNOLOGIST: DONNA Meadows Reason : UNRESPONSIVE Blood Pressure : / mmHG Vent. Rate : 081 BPM Atrial Rate : 208 BPM P-R Int : 000 ms QRS Dur : 090 ms QT Int : 414 ms P-R-T Axes : 000 101 039 degrees QTc Int : 480 ms Junctional rhythm Otherwise normal ECG When compared with ECG of 25-MAR-2018 20:09, Confirmed by MIKAYLA BLACKMAN ([id number]) on 06/09/2018 1:03:23 PM Referred By: MISTI Confirmed By:MIKAYLA BLACKMAN
--- NOTE | 2018-06-09 09:30 | RADIOLOGY IMAGING REPORT ---
FACILITY: [facility] PATIENT NAME: Nadia Baumann : 1930 MR: [id number] V: [id number] EXAM DATE: ORDERING PHYSICIAN: DUY CHAPPELL TECHNOLOGIST: [place] [facility] [place] Patient: Nadia Baumann : 1930 Visit/Account:[id number] Date of Sevice: 06/09/2018 CHEST SINGLE AP Indication: Chest pain. Fall. Comparison: March 18, 2018. Findings: Heart is mildly enlarged. Calcification within the aortic knob. Right chest wall single lead pacer. Note is made of a cardiac valve replacement. There is no focal infiltrate or lobar consolidation. No pneumothorax or pleural effusion. No gross acute osseous abnormality. IMPRESSION: 1. No acute cardiopulmonary process. Report Dictated By: Marshall Snell MD at 06/09/2018 9:23 AM Report E-Signed By: Marshall Snell MD at 06/09/2018 9:26 AM WSN:[id number]
--- NOTE | 2018-06-09 09:32 | RADIOLOGY IMAGING REPORT ---
FACILITY: [facility] PATIENT NAME: Nadia Baumann : 1930 MR: [id number] V: [id number] EXAM DATE: ORDERING PHYSICIAN: DUY CHAPPELL TECHNOLOGIST: [place] [facility] [place] : 1930 Visit/Account:[id number] Date of Sevice: 06/09/2018 PELVIS INDICATION: Fall COMPARISON: June 23, 2017 FINDINGS: No evidence of fracture, dislocation, or acute osseous abnormality of the bones of the pelvis. Mild degenerative changes within the hips. IMPRESSION: 1. No acute osseous abnormality of the pelvis Report Dictated By: Marshall Snell MD at 06/09/2018 9:26 AM Report E-Signed By: Marshall Snell MD at 06/09/2018 9:27 AM WSN:[id number]
--- NOTE | 2018-06-09 09:49 | RADIOLOGY IMAGING REPORT ---
FACILITY: [facility] PATIENT NAME: Nadia aBumann : 1930 MR: [id number] V: [id number] EXAM DATE: ORDERING PHYSICIAN: DUY CHAPPELL TECHNOLOGIST: Location: [facility] [place] Patient: Nadia Baumann : 1930 Visit/Account:[id number] Date of Sevice: 06/09/2018 EXAMINATION: CT Cervical spine without intravenous contrast HISTORY: Unresponsive COMPARISON: May 22, 2018 TECHNIQUE: Axial images were obtained from the skull base through the upper thoracic spine without I V contrast administration. Coronal and sagittal reformatted images were generated from the axial sour ce data. One of the following dose optimization techniques was utilized in the performance of this exam: autom ated exposure control; adjustment of the mA and/or kV according to patient size; or use of iterative reconstruction technique. Specific details can be referenced in the facility's radiology CT exam ope rational policy. FINDINGS: Vertebral bodies and posterior elements: Normal vertebral body heights. No fracture or osseous destr uction. Multilevel facet arthropathy. Alignment: Reversal of the usual lordosis. Disc Spaces: Severe unchanged multilevel disc space degeneration. Bilevel degenerative foraminal narrowing. Soft tissues: Normal. Visualized upper chest: New moderate-sized left pleural effusion. IMPRESSION: No acute fracture or acute abnormality. Severe multilevel disc space degeneration. Unchanged reversal of the usual lordosis. New moderate-sized partially imaged left-sided pleural effusion Report Dictated By: Marshall Grijalva MD at 06/09/2018 9:34 AM Report E-Signed By: Marshall Grijalva MD at 06/09/2018 9:43 AM WSN:[id number]
--- NOTE | 2018-06-09 09:49 | RADIOLOGY IMAGING REPORT ---
FACILITY: [facility] PATIENT NAME: Nadia Baumann : 1930 MR: [id number] V: [id number] EXAM DATE: ORDERING PHYSICIAN: DUY CHAPPELL TECHNOLOGIST: Location: [facility] [place] Patient: Nadia Baumann : 1930 Visit/Account:[id number] Date of Sevice: 06/09/[address] scan without contrast HISTORY: Unresponsive COMPARISONS: May 22, 2018 TECHNIQUE: Non-contrast head CT was performed with sagittal and coronal reformations. One of the following dose optimization techniques was utilized in the performance of this exam: autom ated exposure control; adjustment of the mA and/or kV according to patient size; or use of iterative reconstruction technique. Specific details can be referenced in the facility's radiology CT exam ope rational policy. FINDINGS: The basal cisterns and leger-white differentiation are maintained. No hydrocephalus or midline shift. New mixed density right holoconvexity subdural hemorrhage which is partially mildly dense posteriorly and which is largest in the right temporal occipital region measuring up to 1.3 cm in thickness, cor onal image 75. New trace minimally dense left parietal region subdural hemorrhage, axial image 49. Left cataract postsurgical change noted. Unchanged patchy white matter hypoattenuation. Clear mastoid air cells, minimal left maxillary sinus mucosal thickening, and normal osseous structur es. IMPRESSION: 1. New mixed density right-sided subacute subdural hemorrhage largest in the right temporal occipita l region measuring 1.3 cm in thickness. A dense component posteriorly may represent acute on subacut e subdural hemorrhage. 2. No midline shift. 3. Trace new left parietal region minimally dense subacute subdural hemorrhage. 4. Mild to moderate unchanged chronic small vessel ischemic change. Results were called to DUY CHAPPELL on 06/09/2018 9:44 AM. Report Dictated By: Marshall Grijalva MD at 06/09/2018 9:26 AM Report E-Signed By: Marshall Grijalva MD at 06/09/2018 9:44 AM WSN:[id number]
[2018-06-09 11:53] VITALS: BP 168/105
== END ==
LOC: ER 08:21
DX: I62.9 Nontraumatic intracranial hemorrhage, unspecified (principal); R07.9 Chest pain, unspecified; E78.5 Hyperlipidemia, unspecified; Z79.01 Long term (current) use of anticoagulants
CPT/HCPCS: 70450; 71045; 72125; 72170; 83880; 84484; 85025; 85610; 85730; 86900; 86901; 93005; 96360; 99285; J3430; J7040; P9059; 82040; 82247; 82310; 82374; 82435; 82565; 82947; 84075; 84132; 84155; 84295; 84450; 84460; 84520

== ENCOUNTER → 2018-06-09 | Outpatient (CLI) | payer MEDICARE, OTHER ==
[2017-06-24 17:09] VITALS: BMI 21.6
[~2018-06-09] MED LIST changes: -NS(*) 0.9% 500 ML BAG 500 ML IV ONE; -PHYTONADIONE 10 MG/ML AMP IV ONE
== END ==
LOC: AMB 07:56
PROVIDERS: ATTEND Nurse Practitioner
DX: R53.1 Weakness (principal); R40.4 Transient alteration of awareness; R41.0 Disorientation, unspecified; R09.02 Hypoxemia
CPT/HCPCS: A0425; A0427

== ENCOUNTER → 2018-06-09 | Outpatient (CLI) | payer MEDICARE, OTHER ==
[2017-06-24 17:09] VITALS: BMI 21.6
== END ==
LOC: AMB 11:40
PROVIDERS: ATTEND Nurse Practitioner
DX: S06.5X9A Traumatic subdural hemorrhage with loss of consciousness of unspecified duration, initial encounter (principal)
CPT/HCPCS: A0425; A0426